=== PATIENT | male | born 1940 | race Caucasian/White ===

== ENCOUNTER 2016-06-25 10:47 | Outpatient (RCR) | payer MEDICARE ==
--- OUTSIDE RECORDS SUMMARY | 2016-06-21 11:36 | XMS REPORT | Continuity of Care Document ---
Author Author [facility] Organization [facility] Address Unknown Phone Unavailable Care Team Providers Care Communications Agent Name Role Phone Nithin Schofield PCP [phone] Source Comments Some departments are not documenting in the electronic medical record. If you do not see the information that you expected, contact Release of Information in the Health Information Management department at [phone] for further assistance in locating additional records.[facility] Active Allergies and Adverse Reactions Allergen Noted Date Severity Reactions Comments Morphine 03/16/2014 NAUSEA AND VOMITING Current Medications Prescription Sig. Disp. Refills Start End Date Status Date aspirin EC 81 mg tablet Take 81 mg by mouth Active daily. atenolol (TENORMIN) 100 Take 100 mg by mouth. Active mg tablet celecoxib (CELEBREX) 200 Take 200 mg by mouth Active mg capsule daily. citalopram (CELEXA) 40 mg Take 40 mg by mouth Active tablet daily. finasteride (PROSCAR) 5 Take 5 mg by mouth daily. Active mg tablet potassium chloride(+) Take 10 mEq by mouth Active (MICRO-K) 10 mEq capsule daily. simvastatin (ZOCOR) 20 mg Take 20 mg by mouth at Active tablet bedtime daily. tamsulosin (FLOMAX) 0.4 Take 0.4 mg by mouth Active mg capsule daily. amLODIPine (NORVASC) 5 mg Take 5 mg by mouth daily. Active tablet HYDROcodone-acetaminophen Take 1 Tab by mouth every Active (+) (LORTAB) 7.5-500 mg 4 hours as needed. tablet Active Problems No known active problems Social History Tobacco Use Types Packs/Day Years Used Date Former Smoker Last Filed Vital Signs Vital Sign Reading Time Taken Blood Pressure 110/63 02/21/2016 8:36 AM CDT Pulse 56 02/21/2016 8:36 AM CDT Temperature 36.4 C (97.6 F) 02/21/2016 8:16 AM CDT Respiratory Rate 20 02/21/2016 7:33 AM CDT Height 1.829 m (6') 02/21/2016 7:33 AM CDT Weight 90.719 kg (200 lb) 02/21/2016 7:33 AM CDT Body Mass Index 27.12 02/21/2016 7:33 AM CDT Oxygen Saturation 97% 02/21/2016 8:36 AM CDT Plan of Care Health Maintenance Due Date Last Done Comments Physical (Comprehensive) 1947 Exam Pertussis Vaccine 1951 Tetanus Vaccine 1957 Colorectal Cancer 1990 Screening Shingles Vaccine 2000 Prevnar/Pneumovax (#1) 2005 Influenza Vaccine 02/01/2016 Results from Last 3 Months Not on file
[~2016-06-25 10:47] MED LIST: AMLO10TA2 PO; AMLO5TAB2 PO; ASCO500T20 PO; ASP81TEC PO; ASPI325T32 PO; ATEN100T88 PO; ATEN50TA PO; B&C/1TAB2 PO; CELE-63 PO; CELE200C PO; CHOL4PAC3 PO; CIPR500T4 PO; CITA-105 PO; CITA40TA11 PO; CITA40TA19 PO; CLCX200C PO; DOCU100C37 PO; FAMO20TA5 PO; FINA5TAB PO; FINA5TAB6 PO; FOLI0.4T2 PO; HCT25T PO; HYDR-3812 PO; HYDR-3816 PO; HYDR-3820 PO; HYDR50TA3 PO; LEVO500T2 PO; METR500T PO; MULT-608 PO; NYST1000 PO; OMEG-126 PO; OMEG-9 PO; ONDA4TAB10 PO; POTA10CA43 PO; POTA10TA10 PO; SIMV20TA3 PO; TAMS0.4C2 PO; TRAM50TA2 PO
== END 2016-09-19 | disposition home or self-care (01) ==
LOC: LAB 10:47
PROVIDERS: ATTEND Internal Medicine
DX: R19.7 Diarrhea, unspecified (principal)
CPT/HCPCS: 82274; 87045; 87046; 87177; 87324; 87449; 87493

== ENCOUNTER 2016-07-29 12:53 | Outpatient (RCR) | payer MEDICARE | END 2016-07-29 14:11 | disposition home or self-care (01) | PROVIDERS: ATTEND Orthopaedic Surgery | DX: Z47.1 Aftercare following joint replacement surgery (principal); Z96.652 Presence of left artificial knee joint ==

== ENCOUNTER 2017-02-06 12:38 | Outpatient (CLI) | payer MEDICARE ==
[~2017-02-06] VITALS: Ht 182.9 cm; Wt 94.8 kg
[2017-02-06 12:46] VITALS: BP 152/80
[2017-02-06] MEDS ORDERED: HYDR-3816 PO (12:52)
[2017-02-06] MEDS ORDERED: ASPI-586 PO (12:52)
[2017-02-06 13:12] LABS: BASOPHILS % (AUTO) 0 % (0-10); EOSINOPHILS % (AUTO) 0 % (0-10); LYMPHOCYTES # (AUTO) 1.4 X 10^3 (1.0-4.0); LYMPHOCYTES % (AUTO) 11 % (12-44); MEAN CORPUSCULAR HEMOGLOBIN 30 PG (25-34); MEAN CORPUSCULAR HGB CONC 35 G/DL (32-36); MEAN CORPUSCULAR VOLUME 87 FL (80-99); MEAN PLATELET VOLUME 10.4 FL (7.4-10.4); MONOCYTES # (AUTO) 1.3 X 10^3 (0.0-1.0); MONOCYTES % (AUTO) 10 % (0-12); NEUTROPHILS # (AUTO) 10.3 X 10^3 (1.8-7.8); NEUTROPHILS % (AUTO) 79 % (42-75); PLATELET COUNT 176 10^3/uL (130-400); RED BLOOD COUNT 4.67 10^6/uL (4.35-5.85); RED CELL DISTRIBUTION WIDTH 12.9 % (10.0-14.5); WHITE BLOOD COUNT 12.9 10^3/uL (4.3-11.0)
== END 2017-02-06 13:05 | disposition home or self-care (01) ==
LOC: PREOP 12:38
PROVIDERS: ATTEND Surgery
DX: Z01.812 Encounter for preprocedural laboratory examination (principal); K40.90 Unilateral inguinal hernia, without obstruction or gangrene, not specified as recurrent
CPT/HCPCS: 36415; 85025; 87081

== ENCOUNTER 2017-02-12 09:05 | Day surgery (SDC) | payer MEDICARE ==
[~2017-02-12] VITALS: Ht 182.9 cm; Wt 94.8 kg
[2017-02-12 09:05] VITALS: BP 132/71
[~2017-02-12 09:05] MED LIST changes: +ASPI-586 PO
[2017-02-12] MEDS ORDERED: ceFAZolin 2 GM/NS 50 ML IV ONE (09:15)
--- OUTSIDE RECORDS SUMMARY | 2017-02-12 09:17 | XMS REPORT | Clinical Summary ---
Author Author [facility] Organization [facility] Address Unknown Phone Unavailable Care Team Providers Care Haz Tech Name Role Phone PCP Unavailable Source Comments Some departments are not documenting in the electronic medical record. If you do not see the information that you expected, contact Release of Information in the Health Information Management department at [phone] for further assistance in locating additional records.[facility] Allergies Active Allergy Reactions Severity Noted Date Comments Morphine NAUSEA AND VOMITING 03/16/2014 Current Medications Prescription Sig. Disp. Refills Start [...] tablet Active Problems No known active problems Encounters Date Type Specialty Care Team Description 02/05/2017 Hospital Radiology Brain Brown MD Arrived Encounter 02/05/2017 Procedure visit Anesthesia Pain Brain Brown MD Spondylosis of cervical region without myelopathy or radiculopathy (Primary Dx) 02/05/2017 Ancillary Anesthesia Pain Brain Brown MD Pain Orders 02/05/2017 Ancillary Anesthesia Pain Brain Brown MD Orders 12/21/2016 Orders Only Anesthesia Pain Brain Brown MD Spondylosis of lumbosacral region without myelopathy or radiculopathy (Primary Dx) 12/21/2016 Orders Only Anesthesia Pain Jeffrey Post MD Spondylosis of cervical region without myelopathy or radiculopathy (Primary Dx) 11/20/2016 Procedure visit Anesthesia Pain Brain Brown MD Spondylosis of lumbosacral region without myelopathy or radiculopathy (Primary Dx) 11/20/2016 Hospital Radiology Brain Brown MD Encounter 11/20/2016 Ancillary Anesthesia Pain Brain Brown MD Pain (Primary Dx) Orders 11/20/2016 Ancillary Pain Management Brain Brown MD Orders 11/12/2016 Office Visit Anesthesia Pain Brain Brown MD Spondylosis of lumbosacral region without myelopathy or radiculopathy (Primary Dx);Spondylosis of cervical region without myelopathy or radiculopathy from Last 3 Months Social History Tobacco Use Types Packs/Day Years Used Date Former Smoker Sex Assigned at Date Recorded Not on file Last Filed Vital Signs Vital Sign Reading Time Taken Blood Pressure 123/72 02/05/2017 8:59 AM CDT Pulse 67 02/05/2017 8:59 AM CDT Temperature 36.5 C (97.7 F) 02/05/2017 8:39 AM CDT Respiratory Rate 11 02/05/2017 7:32 AM CDT Oxygen Saturation 94% 02/05/2017 8:59 AM CDT Inhaled Oxygen - - Concentration Weight 93 kg (205 lb) 02/05/2017 7:32 AM CDT Height 182.9 cm (6') 02/05/2017 7:32 AM CDT Body Mass Index 27.8 02/05/2017 7:32 AM CDT Plan of Treatment Health Maintenance Due Date Last Done Comments PHYSICAL (COMPREHENSIVE) 1947 EXAM PERTUSSIS VACCINE 1951 TETANUS VACCINE 1957 SHINGLES VACCINE 2000 PREVNAR/PNEUMOVAX (#1) 2005 INFLUENZA VACCINE 01/31/2017 Procedures Procedure Name Priority Date/Time Associated Diagnosis Comments IA DSTR NROLYTC AGNT Routine 02/05/2017 Spondylosis of cervical Results for this PARVERTEB FCT SNGL 1:24 PM CDT region without myelopathy procedure are in the CRVCL/THORA or radiculopathy results section. IA DSTR NROLYTC AGNT Routine 02/05/2017 Spondylosis of cervical Results for this PARVERTEB FCT ADDL 1:24 PM CDT region without myelopathy procedure are in the CRVCL/THORA or radiculopathy results section. IA DSTR NROLYTC AGNT Routine 11/20/2016 Spondylosis of Results for this PARVERTEB FCT ADDL 10:01 AM CDT lumbosacral region procedure are in the LMBR/SACRAL without myelopathy or results section. radiculopathy IA DSTR NROLYTC AGNT Routine 11/20/2016 Spondylosis of Results for this PARVERTEB FCT SNGL 10:01 AM CDT lumbosacral region procedure are in the LMBR/SACRAL without myelopathy or results section. radiculopathy from Last 3 Months Results * DESTROY FACET JOINT NERVE CRV/THRC W/ FLUORO (02/05/2017 1:24 PM) Specimen Performing Laboratory OTHER OUTSIDE LAB Narrative Brain Brown MD 02/05/20171:24 PM INTERVENTIONAL PAIN MANAGEMENT PROCEDURE REPORT Radiofrequency Ablation (RFA) of Cervical Facet Medial Branch Nerves Date of Service: 02/05/2017 Procedure Title(s): 1. Radiofrequency ablation of left C4-C6 medial branch nerves 2. Intraoperative fluoroscopy Attending Surgeon: Brain Brown MD Pre-Procedure Diagnosis: 1. Spondylosis of cervical region without myelopathy or radiculopathy Post-Procedure Diagnosis: 1. Spondylosis of cervical region without myelopathy or radiculopathy Anesthesia: Local Anxiolysis Yes Procedural Sedation Yes Pre-Procedure Diagnosis: 1. Spondylosis of cervical region without myelopathy or radiculopathy Post Procedure Diagnosis: 1. Spondylosis of cervical region without myelopathy or radiculopathy Indications: Cullen Castro is a 76 y.o. male with a diagnosis of spondylosis. The patient's history and physical exam were reviewed. The patient has failed conservative measures including physical therapy and medication management. On exam the patient exhibits significant tenderness in the above stated levels which is exacerbated by extension and lateral flexion to the painful sides. The patient has had previous medial branch RFA with greater than 75% reduction in pain for the duration of 6 months. The risks, benefits and alternatives to the procedure were discussed, and all questions were answered to the patient's satisfaction. The patient agreed to proceed, and written informed consent was obtained. Procedure in Detail: IV was started? Yes The patient was brought into the procedure room and placed in the prone position on the fluoroscopy table. Standard monitors were placed, and vital signs were observed throughout the procedure. The area of the cervical spine was prepped with chloraprep and draped in a sterile manner. AP fluoroscopy views were used to identify and jonathan the mid articular pillars of the C4-C6 levels on the left side. The skin and subcutaneous tissues in these areas were anesthetized with 1% lidocaine. A 18-gauge, 3.5 inch, 10 mm active tip radiofrequency probe was directed towards the targeted point under fluoroscopy until bone was contacted. At this point, lateral fluoroscopic views were obtained, and the needle tips were advanced to the centroid of the facets at each level. Negative aspiration was confirmed.Then, 1mL of 1% lidocaine was injected prior to lesioning, which was performed for 90 seconds at 60 degrees centigrade. The probes were then removed. The patient's neck was cleaned, and bandages were placed at the needle insertion sites. Disposition: The patient tolerated the procedure well, and there were no apparent complications. Vital signs remained stable througtout the procedure. The patient was taken to the recovery area where discharge instructions for the procedure were given. Estimated Blood Loss: minimal Specimens: none Complications: None * FLUORO GUIDANCE FOR SPINE INJ RAD (02/05/2017 8:24 AM) Only the most recent of 2 results within the time period is included. Specimen Performing Laboratory [facility] Narrative This order has been auto finalized and does not contain a result. * DESTRUCTION OF NERVE W/ FLUORO (11/20/2016 10:01 AM) Specimen Performing Laboratory OTHER OUTSIDE LAB Narrative Brain Brown MD 11/20/2016 10:01 AM INTERVENTIONAL PAIN MANAGEMENT PROCEDURE REPORT Radiofrequency Ablation (RFA) of Lumbar Medial Branch Nerves Date of Service: 11/20/2016 Procedure Title(s): 1. Radiofrequency ablation of bilateral L4, L5, and (S1) medial branchnerves 2. Intraoperative fluoroscopy Attending Surgeon: Brain Brown MD Pre-Procedure Diagnosis: 1. Spondylosis of lumbosacral region without myelopathy or radiculopathy Post-Procedure Diagnosis: 1. Spondylosis of lumbosacral region without myelopathy or radiculopathy Anesthesia: Local Anxiolysis Yes Procedural Sedation Yes Indications: Cullen Castro is a 76 y.o. male with a diagnosis of spondylosis. The patient's history and physical exam were reviewed. The patient has failed conservative measures including physical therapy and medication management. On exam the patient exhibits significant tenderness in the above stated levels which is exacerbated by extension and lateral flexion to the painful sides. The patient has had previous medial branch RFA with greater than 75% reduction in pain for the duration of 6 months. The risks, benefits and alternatives to the procedure were discussed, and all questions were answered to the patient's satisfaction. The patient agreed to proceed, and written informed consent was obtained. Procedure in Detail: IV was started? Yes The patient was brought into the procedure room and placed in the prone position on the fluoroscopy table. Standard monitors were placed, and vital signs were observed throughout the procedure. The area of the lumbar spine and upper buttocks were prepped with chloraprep and draped in a sterile manner. AP fluoroscopy with oblique tilt to the right was used to identify and jonathan the junction between the superior articular process and transverse process at the L4-S1 levels. The right sacral ala was identified and marked. The skin and subcutaneous tissues in these identified areas were anesthetized with 1% lidocaine. A 18-gauge, 3.5 inch, 10 mm active tip radiofrequency probe was advanced toward each of these points under fluoroscopic guidance. Once bone was contacted, negative aspiration was confirmed.2mL of 1% lidocaine was injected prior to lesioning, which was performed for 90 seconds at 80 degrees centigrade. The same procedure was then performed on the opposite side: Yes. The probes were removed with a 1% lidocaine flush. The patient's back was cleaned, and bandages were placed at the needle insertion sites. Disposition: The patient tolerated the procedure well, and there were no apparent complications. Vital signs remained stable throughout the procedure. The patient was taken to the recovery area where discharge instructions for the procedure were given. Estimated Blood Loss: Minimal Specimens: None Complications: None from Last 3 Months
--- OUTSIDE RECORDS SUMMARY | 2017-02-12 09:17 | XMS REPORT | Encounter Summary ---
Author Author [facility] Organization [facility] Address Unknown Phone Unavailable Care Team Providers Care Operations Analyst Name Role Phone PCP Unavailable Reason for Referral * Pain Authorization Status Reason Specialty Diagnoses / Referred By Referred To Procedures Contact Contact New Request Diagnoses Jeffrey Post Spondylosis of MD cervical region [address] myelopathy [place] [address] [place] [address] rocedures Phone: DESTROY FACET [phone] JOINT NERVE Fax: CRV/THRC W/ [phone] FLUORO Encounter Details Date Type Department Care Team Description 12/21/2016 Orders Only [place] [facility] Jeffrey Post MD Spondylosis of cervical Management Procedure [address] region without myelopathy [address] [place] [address] [place]iculopathy ([place] [address] [place] [address] Dx) [phone] Social History Tobacco Use Types Packs/Day Years Used Date Former Smoker Sex Assigned at Date Recorded Not on file as of this encounter Functional Status Functional Status Response Date of Assessment Does the patient have a hearing impairment: No 11/20/2016 Does the patient have a visual impairment: Yes 11/20/2016 Does the patient have impaired ambulation: No 11/20/2016 Does the patient have an activity of daily living No 11/20/2016 (ADL) impairment: Does the patient have an instrumental activity of No 11/20/2016 daily living (IADL) impairment: Cognitive Status Response Date of Assessment Does the patient have a cognitive impairment: No 11/20/2016 as of this encounter Plan of Treatment Name Priority Associated Diagnoses Order Schedule DESTROY FACET JOINT NERVE CRV/THRC W/ Routine Spondylosis of cervical Expected: 12/21/2016, FLUORO region without myelopathy Expires: 03/21/2017 or radiculopathy as of this encounter Visit Diagnoses Diagnosis Spondylosis of cervical region without myelopathy or radiculopathy - Primary Cervical spondylosis without myelopathy in this encounter
--- OUTSIDE RECORDS SUMMARY | 2017-02-12 09:17 | XMS REPORT | Encounter Summary ---
Author Author [facility] Organization [facility] Address Unknown Phone Unavailable Care Team Providers Care Assistant Case Manager Name Role Phone PCP Unavailable Encounter Details Date Type Department Care Team Description 02/05/2017 Ancillary [place] [facility] Brain Brown MD Pain Orders Management Procedure [address] [place] [address] [place] [address] Social History Tobacco Use Types Packs/Day Years [...] as of this encounter Plan of Treatment Not on fileas of this encounter Results * FLUORO GUIDANCE FOR SPINE INJ RAD (02/05/2017 8:24 AM) Specimen Performing Laboratory [facility] Narrative This order has been auto finalized and does not contain a result. in this encounter Visit Diagnoses Diagnosis Pain Generalized pain in this encounter
--- OUTSIDE RECORDS SUMMARY | 2017-02-12 09:17 | XMS REPORT | Encounter Summary ---
Author Author [facility] Organization [facility] Address Unknown Phone Unavailable Care Team Providers Care Service Dispatcher Name Role Phone PCP Unavailable Encounter Details Date Type Department Care Team Description 11/20/2016 Hospital [facility] Brain Brown MD Encounter [place] [facility] [address] [place] [address] [place] [address] Social History Tobacco Use Types [...] impairment: No 11/20/2016 as of this encounter Medications at Time of Discharge Medication Sig. Disp. Refills Start Date End Date amLODIPine (NORVASC) 5 mg Take 5 mg by mouth daily. tablet aspirin EC 81 mg tablet Take 81 mg by mouth daily. atenolol (TENORMIN) 100 Take 100 mg by mouth. mg tablet celecoxib (CELEBREX) 200 Take 200 mg by mouth mg capsule daily. citalopram (CELEXA) 40 mg Take 40 mg by mouth tablet daily. finasteride (PROSCAR) 5 Take 5 mg by mouth daily. mg tablet HYDROcodone-acetaminophen Take 1 Tab by mouth every (+) (LORTAB) 7.5-500 mg 4 hours as needed. tablet potassium chloride(+) Take 10 mEq by mouth (MICRO-K) 10 mEq capsule daily. simvastatin (ZOCOR) 20 mg Take 20 mg by mouth at tablet bedtime daily. tamsulosin (FLOMAX) 0.4 Take 0.4 mg by mouth mg capsule daily. as of this encounter Plan of Treatment Not on fileas of this encounter Results * FLUORO GUIDANCE FOR SPINE INJ RAD (11/20/2016 8:18 AM) Specimen Performing Laboratory [facility] Narrative This order has been auto finalized and does not contain a result. in this encounter Visit Diagnoses Diagnosis Pain Generalized pain in this encounter
--- OUTSIDE RECORDS SUMMARY | 2017-02-12 09:17 | XMS REPORT | Encounter Summary ---
Author Author [facility] Organization [facility] Address Unknown Phone Unavailable Care Team Providers Care Yarn Man Name Role Phone PCP Unavailable Encounter Details Date Type Department Care Team Description 02/05/2017 [facility] Anesthesia Brain Brown MD Orders Pain Clinic [address] [place] [address] COMPREHENSIVE SPN [facility] [phone] [place], [place] [id number] [phone] Social History Tobacco Use Types Packs/Day Years [...] Treatment Not on fileas of this encounter Visit Diagnoses Not on filein this encounter
--- OUTSIDE RECORDS SUMMARY | 2017-02-12 09:17 | XMS REPORT | Encounter Summary ---
Author Author [facility] Organization [facility] Address Unknown Phone Unavailable Care Team Providers Care Director Of Strategic Communications Name Role Phone PCP Unavailable Reason for Referral * Pain Authorization Status Reason Specialty Diagnoses / Referred By Referred To Procedures Contact Contact New Request Diagnoses Brain Brown SpondylMichael lumbosacral [address] myelopathy or [address] [place] [address] rocedures Phone: DESTROY FACET [phone] JOINT NERVE Fax: LMBR/SAC/OTH W/ [phone] FLUORO Encounter Details Date Type Department Care Team Description 12/21/2016 Orders Only [place] Anesthesia Brain Brown MD Spondylosis of Pain Clinic [address] lumbosacral region [address] [place] [address] [place] [address] [place] [address] radiculopathy (Primary [phone] Dx) Social History Tobacco Use Types Packs/Day Years [...] Diagnoses Order Schedule DESTROY FACET JOINT NERVE LMBR/SAC/OTH Routine Spondylosis of Expected: 12/21/2016, W/ FLUORO lumbosacral region Expires: 03/21/2017 without myelopathy or radiculopathy as of this encounter Visit Diagnoses Diagnosis Spondylosis of lumbosacral region without myelopathy or radiculopathy - Primary Lumbosacral spondylosis without myelopathy in this encounter
--- OUTSIDE RECORDS SUMMARY | 2017-02-12 09:17 | XMS REPORT | Encounter Summary ---
Author Author [facility] Organization [facility] Address Unknown Phone Unavailable Care Team Providers Care It Administrator Name Role Phone PCP Unavailable Encounter Details Date Type Department Care Team Description 02/05/2017 Hospital [facility] Brain Brown MD Arrived Encounter [place] [facility] [address] [place] [address] [place] [address] Social History Tobacco Use Types [...]
--- OUTSIDE RECORDS SUMMARY | 2017-02-12 09:17 | XMS REPORT | Encounter Summary ---
Author Author [facility] Organization [facility] Address Unknown Phone Unavailable Care Team Providers Care Modular Home Crew Member Name Role Phone PCP Unavailable Reason for Referral * Pain Authorization Status Reason Specialty Diagnoses / Referred By Referred To Procedures Contact Contact New Request Diagnoses Brain Brown Spondylosis of MD cervical region [address] myelopathy or [place] [address] [place], [place] [address] rocedures Phone: DESTROY FACET [phone] JOINT NERVE Fax: CRV/THRC W/ [phone] FLUORO Reason for Visit * Reason Comments Pain * Pain Authorization Status Reason Specialty Diagnoses / Referred By Referred To Procedures Contact Contact No Auth Needed Anesthesia Pain Diagnoses Brain [place] [address] [place], [place] [address] [address] myelopathy or [place] [address] Phone: radiculopathy [place], [place] [phone] [place] [address] rocedures Phone: DESTRUCTION OF [phone] NERVE W/ FLUORO Fax: [place] DSTR NROLYTC [phone] AGNT PARVERTEB FCT SNGL CRVCL/THORA Encounter Details Date Type Department Care Team Description 02/05/2017 Procedure visit [place] [facility] Brain Brown MD Spondylosis of cervical Management Procedure [address] region without myelopathy [address] [place] [address] or radiculopathy ([place] [address] [place] [address] Dx) [phone] Social History Tobacco Use Types Packs/Day Years Used Date Former Smoker Sex Assigned at Date Recorded Not on file as of this encounter Last Filed Vital Signs Vital Sign Reading [...] Mass Index 27.8 02/05/2017 7:32 AM CDT in this encounter Functional Status Functional Status Response [...] impairment: No 11/20/2016 as of this encounter Instructions * Patient Instructions - Dulce Campos, BLANCA - 02/05/2017 8:16 AM CDT Procedural Sedation (Adult) You have been given medicine by vein to make you sleep during your surgery. This may have included both a pain medicine and sleeping medicine. Most of the effects have worn off. But you may still have some drowsiness for the next 6 to 8 hours. Home care Follow these guidelines when you get home: For the next 8 hours, you should be watched by a responsible adult. This person should make sure your condition is not getting worse. Don't take any medicine by mouth for pain or for sleep during the next 4 hours. These might react with the medicines you were given in the hospital. This could cause a much stronger response than usual. Don't drink any alcoholfor the next [address], operate dangerous machinery, or make important business or personal decisionsduring the next 24 hours. Follow-up care Follow up with your healthcare provider if you are not alert and back to your usual level of activity within 12 hours. When to seek medical advice Call your healthcare provider right away if any of these occur: Drowsiness gets worse Weakness or dizziness gets worse Repeated vomiting You cannot be awakened [phone] [employer]. [address] [place] [address]. All rights reserved. This information is not intended as a substitute for professional medical care. Always follow your healthcare professional's instructions. Discharge Instructions for Radiofrequency Ablation Important information following your procedure today: You may NOT drive today 1. Go directly home and rest. You may resume your regular activities and exercise tomorrow. 2. You may experience soreness at the injection site. Apply ice at 20 minute intervals for the next 24 hours. Avoid application of direct heat, hot showers or hot tubs today. 3. It is not uncommon to experience an increase in pain for several days and up to a week after the procedure. 4. Though the procedure is generally safe and complications are rare, we do ask that you be aware of any of the following: ? Any swelling, persistent redness, new bleeding, or drainage from the site of the injection. ? You should not experience a severe headache. ? You should not run a fever over 101 F. ? New onset of sharp, severe back & or neck pain. ? New onset of upper or lower extremity numbness or weakness. ? New difficulty controlling bowel or bladder function after the injection. ? New shortness of breath. If any of these occur, please call to report this occurrence to a nurse at [phone]. If you are calling after 4:00 p.m. or on weekends and holidays please call [phone] and ask to have the resident physician cotton seed culler for the physician paged or go to your local emergency room. 5. The beneficial effect from the radiofrequency procedure may take several weeks to be demonstrated. 6. Take medications as directed. 7. Please call the nurse at the number listed above with any questions. The following medications were used: Bupivicaine , Decadron, Versed and Fentanyl If you are unable to keep your upcoming appointment, please notify the [facility] armored service technician at [phone] at least 24 hours in advance. in this encounter Progress Notes * Dulce Campos RN - 02/05/2017 8:00 AM CDT RADIO FREQUENCY ABLATION PROCEDURE Ground Location: Right Flank Lead: 1 Location: Left C4 ABLATION PROCEDURE Time: 90 sec Temperature 60 C Impedance: 182 Ohms Lead: 2 Location:Left C5 ABLATION PROCEDURE Time: 90 sec Temperature 60 C Impedance: 161 Ohms Lead: 3 Location:Left C6 ABLATION PROCEDURE Time: 90 sec Temperature 60 C Impedance: 167 Ohms * Dulce Campos RN - 02/05/2017 8:00 AM CDT 0819 Sedation physician present in room. Recent vitals and patient condition reviewed between sedation physician and nurse. Reassessment completed. Determination made to proceed with planned sedation. * Brain Brown MD - 02/05/2017 8:00 AM CDT Formatting of this note may be different from the original. [facility] INTERVENTIONAL PAIN PROCEDURE HISTORY AND PHYSICAL Chief Complaint Patient presents with Neck - Pain HISTORY OF PRESENT ILLNESS: Axial neck pain SHarp, stabbing, and severe Pain is worse with turning the head Pain level is 7/10 Last RFA provided 75% pain relief for 6 months Past Medical History: Diagnosis Date Essential hypertension Past Surgical History: Procedure Laterality Date BACK SURGERY HX FUSION PROCEDURE [place] LAPAROSCOPY SURG RPR INITIAL INGUINAL HERNIA SHOULDER SURGERY family history is not on file. Social History Social History Marital status: Spouse name: N/A Number of children: N/A Years of education: N/A Occupational History Not on file. Social History Main Topics Smoking status: Former Smoker Smokeless tobacco: Not on file Alcohol use Not on file Drug use: Not on file Sexual activity: Not on file Other Topics Concern Not on file Social History Narrative Allergies Allergen Reactions Morphine NAUSEA AND VOMITING Vitals: 02/05/17 0732 BP: 124/88 Pulse: 64 Resp: 11 Temp: 36.5 C (97.7 F) SpO2: 99% Weight: 93 kg (205 lb) Height: 182.9 cm (72") REVIEW OF SYSTEMS: 10 point ROS obtained and negative except per HPI PHYSICAL EXAM: Gen: Alert x 3 Chest: CTAB Neck:Supple Psych: Normal mood and affect Skin: no rashes or lesions Neuro: Grossly intact Musc: Patient has tenderness to palpation in the cervical facets at C4-C6. This is exacerbated with extension and lateral flexion biaterally IMPRESSION: 1. Spondylosis of cervical region without myelopathy or radiculopathy PLAN: Left C4-C6 RFA General Pre Procedural Sedation ASA Classification I have discussed risks and alternatives of this type of sedation and procedure with: patient NPO Status:Acceptable Status: No Prior Anesthetic Types: Moderate sedation Airway: Airway assessment performed II (soft palate, uvula, fauces visible) Head and Neck: No abnormalities noted Mouth: No abnormalities noted Medications for Procedural Sedation: Midazolam and Fentanyl Anesthesia Classification: ASA II (A normal patient with mild systemic disease) Patient remains a candidate for procedure: Yes The intention for the procedure today is Procedural Sedation. * Noemí Mckeon RN - 02/05/2017 8:00 AM CDT Pain Procedure Plan Of Care Risk of injury related to procedure Patient identification, allergies verified, fall precautions implemented Risk of injury and impaired skin integrity Positioning devices applied as appropriate for procedure, patient transported with staff assistance Management of Pain Pain assessment completed on arrival, PAR scoring following procedure and at discharge, sedation administered as ordered, patient positioned for comfort Risk of anxiety related to procedure and disease process Patient education on procedure and expectations, provide coping support to patient, provide relaxation techniques Outcomes: The patient is free of injury during and following their procedure. Skin is intact and free of bruising. The patients pain is managed during their stay. Alleviation of patient anxiety exhibited. in this encounter Plan of Treatment Not on fileas of this encounter Procedures Procedure Name Priority Date/Time Associated Diagnosis Comments [place] DSTR NROLYTC AGNT Routine 02/05/2017 Spondylosis of cervical Results for this PARVERTEB FCT SNGL 1:24 PM CDT region without myelopathy procedure are in the CRVCL/THORA or radiculopathy results section. IL DSTR NROLYTC AGNT Routine 02/05/2017 Spondylosis of cervical Results for this PARVERTEB FCT ADDL 1:24 PM CDT region without myelopathy procedure are in the CRVCL/THORA or radiculopathy results section. in this encounter Results * DESTROY FACET JOINT NERVE CRV/THRC [...] Blood Loss: minimal Specimens: none Complications: None in this encounter Visit Diagnoses Diagnosis Spondylosis of cervical region without myelopathy or radiculopathy - Primary Cervical spondylosis without myelopathy in this encounter Administered Medications Medication Order MAR Action Action Date Dose Rate Site bupivacaine PF (MARCAINE) 0.5 % Given 02/05/2017 10 mL injection 10 mL 08:22 CDT 10 mL, Injection, ONCE, 1 dose, Fri02/05/17 at 0815 dexamethasone PF (DECADRON) injection 10 Given 02/05/2017 10 mg mg 08:21 CDT 10 mg, Injection, ONCE, 1 dose, Fri02/05/17 at 08, Preservative Free fentaNYL citrate PF (SUBLIMAZE) Given 02/05/2017 50 mcg injection 100 mcg 08:19 CDT 100 mcg, Intravenous, ONCE, 1 dose, Fri02/05/17 at 08, May give 25 mcg IV to reach level of sedation=-3 midazolam (VERSED) injection 2 mg Given 02/05/2017 2 mg 2 mg, Intravenous, ONCE, 1 dose, Fri 08:19 CDT 02/05/17 at 08, May give additional 1 mg IV to reach level of sedation=-3 in this encounter
--- OUTSIDE RECORDS SUMMARY | 2017-02-12 09:17 | XMS REPORT | Continuity of Care Document ---
Author Author [employer] Organization [facility] Address Unknown Phone Unavailable Care Team Providers Care Workers Compensation Attorney Name Role Phone [employer] Unavailable Unavailable Problems Medications Allergies, Adverse Reactions, Alerts Immunizations Results Vital Signs Encounters Location Location Details Encounter Type Encounter Number Reason For Visit Attending Provider ADM Date DC Date Status Source OUTPATIENT [id number] MANNY SAYED 11/20/2016 11/20/2016 Active [facility] OUTPATIENT [id number] MANNY SAYED 02/05/2017 02/05/2017 Active [facility] O Active [facility] Procedures Plan of Care Social History Assessment and Plan Family History Value Date Source Advance Directives Order Name Results Value Date Source
--- OUTSIDE RECORDS SUMMARY | 2017-02-12 09:18 | XMS REPORT | Encounter Summary ---
Author Author [facility] Organization [facility] Address Unknown Phone Unavailable Care Team Providers Care Vamp Presser Name Role Phone PCP Unavailable Encounter Details Date Type Department Care Team Description 11/20/2016 Ancillary [facility] Brain Brown MD Orders Physicians - Pain [address] Management [place] [address] [place] [address] [place], [place] [address] Social History Tobacco Use Types Packs/Day Years [...]
--- OUTSIDE RECORDS SUMMARY | 2017-02-12 09:18 | XMS REPORT | Encounter Summary ---
Author Author [facility] Organization [facility] Address Unknown Phone Unavailable Care Team Providers Care Retreader Name Role Phone PCP Unavailable Reason for Visit * Reason Comments Pain Pain Pain Encounter Details Date Type Department Care Team Description 11/12/2016 Office Visit [facility] Brain Brown MD Spondylosis of [facility] [address] lumbosacral region [address] [place] [address] [place] [address] radiculopathy (Primary [phone] Dx);Spondylosis of cervical region without myelopathy or radiculopathy Social History Tobacco Use Types Packs/Day Years Used Date Former Smoker Sex Assigned at Date Recorded Not on file as of this encounter Last Filed Vital Signs Vital Sign Reading Time Taken Blood Pressure - - Pulse - - Temperature - - Respiratory Rate 16 11/12/2016 12:32 PM CDT Oxygen Saturation 100% 11/12/2016 12:32 PM CDT Inhaled Oxygen - - Concentration Weight 90.7 kg (200 lb) 11/12/2016 12:32 PM CDT Height 182.9 cm (6') 11/12/2016 12:32 PM CDT Body Mass Index 27.12 11/12/2016 12:32 PM CDT in this encounter Functional Status Functional Status Response Date of Assessment Does the patient have a hearing impairment: No 08/21/2016 Does the patient have a visual impairment: Yes 08/21/2016 Does the patient have impaired ambulation: No 08/21/2016 Does the patient have an activity of daily living No 08/21/2016 (ADL) impairment: Does the patient have an instrumental activity of No 08/21/2016 daily living (IADL) impairment: Cognitive Status Response Date of Assessment Does the patient have a cognitive impairment: No 08/21/2016 as of this encounter Progress Notes * SayBrain douglas MD - 11/12/2016 12:36 PM CDT Formatting of this note may be different from the original. [facility] NOTE Subjective SUBJECTIVE: Cullen Lipscomb returns to us for follow-up regards to his chronic neck and lower back pain. His neck pain is responded well to the cervical radiofrequency ablation. He said greater than 50% reduction in his pain. The response did take about 3 weeks before he notice any improvement. In regards to his lower back pain the pain has returned. His right-sided greater than left. His last ablation back done about 10 months ago resulted in greater than 50% reduction in his pain. Pain described as sharp stabbing burning and nonradiating. Review of Systems Respiratory: Positive for apnea. Musculoskeletal: Positive for back pain, neck pain and neck stiffness. All other systems reviewed and are negative. Current Outpatient Prescriptions on File Prior to Visit Medication Sig Dispense Refill amLODIPine (NORVASC) 5 mg tablet Take 5 mg by mouth daily. aspirin EC 81 mg tablet Take 81 mg by mouth daily. atenolol (TENORMIN) 100 mg tablet Take 100 mg by mouth. celecoxib (CELEBREX) 200 mg capsule Take 200 mg by mouth daily. citalopram (CELEXA) 40 mg tablet Take 40 mg by mouth daily. finasteride (PROSCAR) 5 mg tablet Take 5 mg by mouth daily. HYDROcodone-acetaminophen(+) (LORTAB) 7.5-500 mg tablet Take 1 Tab by mouth every 4 hours as needed. potassium chloride(+) (MICRO-K) 10 mEq capsule Take 10 mEq by mouth daily. simvastatin (ZOCOR) 20 mg tablet Take 20 mg by mouth at bedtime daily. tamsulosin (FLOMAX) 0.4 mg capsule Take 0.4 mg by mouth daily. No current facility-administered medications on file prior to visit. Allergies Allergen Reactions Morphine NAUSEA AND VOMITING Physical Exam Filed Vitals: 11/12/16 1232 Resp: 16 Height: 182.9 cm (72") Weight: 90.719 kg (200 lb) SpO2: 100% Body mass index is 27.12 kg/(m^2). Gen: Alert x 3 Chest: CTAB Neck:Supple Psych: Normal mood and affect Skin: no rashes or lesions Neuro: Grossly intact Musc: Patient has tenderness to palpation in the lumbar facets at L4-S1. This pain is exacerbated with extension and lateral flexion bilaterally IMPRESSION: 1. Spondylosis of lumbosacral region without myelopathy or radiculopathy 2. Spondylosis of cervical region without myelopathy or radiculopathy PLAN: Repeat L4-S1 RFA Neck pain improved after cervical RFA in this encounter Plan of Treatment Not on fileas of this encounter Visit Diagnoses Diagnosis Spondylosis of lumbosacral region without myelopathy or radiculopathy - Primary Lumbosacral spondylosis without myelopathy Spondylosis of cervical region without myelopathy or radiculopathy Cervical spondylosis without myelopathy in this encounter
--- OUTSIDE RECORDS SUMMARY | 2017-02-12 09:18 | XMS REPORT | Encounter Summary ---
Author Author [facility] Organization [facility] Address Unknown Phone Unavailable Care Team Providers Care Hardware Installation Coordinator Name Role Phone PCP Unavailable Reason for Referral * Pain Authorization Status Reason Specialty Diagnoses / Referred By Referred To Procedures Contact Contact No Auth Needed Anesthesia Pain Diagnoses Brain [place] [address] [place], [place] [address] [address] myelopathy or [place] [address] Phone: radiculopathy [place], [place] [phone] P [address] rocedures Phone: DESTRUCTION OF [phone] NERVE W/ FLUORO Fax: [place] [facility] [phone] AGNT PARVERTEB FCT SNGL CRVCL/THORA Reason for Visit * Reason Comments Pain * Outpatient Surgery Status Reason Specialty Diagnoses / Referred By Referred To Procedures Contact Contact No Auth Needed Anesthesia Pain Diagnoses Brain Brown [place] [address] cervical region [address] [place], [place] [address] [address] myelopathy or [place] [address] Phone: radiculopathy [place], [place] [phone] [address] [id number] rocedures Phone: DESTRUCTION OF [phone] NERVE W/ FLUORO Encounter Details Date Type Department Care Team Description 11/20/2016 Procedure visit [facility] Brain Brown MD Spondylosis of Management Procedure [address] lumbosacral region [address] [place] [address] [place]opathy [place] [address] [place] [address] radiculopathy (Primary [phone] Dx) Social History Tobacco Use Types Packs/Day Years Used Date Former Smoker Sex Assigned at Date Recorded Not on file as of this encounter Last Filed Vital Signs Vital Sign Reading Time Taken Blood Pressure 110/63 11/20/2016 8:50 AM CDT Pulse 51 11/20/2016 8:50 AM CDT Temperature 36.2 C (97.2 F) 11/20/2016 8:30 AM CDT Respiratory Rate 18 11/20/2016 7:21 AM CDT Oxygen Saturation 96% 11/20/2016 8:50 AM CDT Inhaled Oxygen - - Concentration Weight 90.7 kg (200 lb) 11/20/2016 7:23 AM CDT Height 182.9 cm (6') 11/20/2016 7:23 AM CDT Body Mass Index 27.12 11/20/2016 7:23 AM CDT in this encounter Functional Status [...] this encounter Instructions * Patient Instructions - Francisco Javier Jo RN - 11/20/2016 8:17 AM CDT Discharge Instructions for Radiofrequency Ablation Important information [...] report this occurrence to a nurse at . If you are calling after 4:00 p.m. or on weekends and holidays please call [phone] and ask to have the resident physician solution spec for the physician paged or go to your local emergency room. 5. The beneficial effect from the radiofrequency procedure may take several weeks to be demonstrated. 6. Take medications as directed. 7. Please call the nurse at the number listed above with any questions. The following medications were used: Bupivicaine , Depomedrol, Versed and Fentanyl If you are unable to keep your upcoming appointment, please notify the [facility] operating room scheduler at [phone] at least 24 hours in advance. Procedural Sedation (Adult) You have been given [...] worse Repeated vomiting You cannot be awakened [id number] [employer]. [address] [place] [address], [place] [address]. All rights reserved. This information is not intended as a substitute for professional medical care. Always follow your healthcare professional's instructions. in this encounter Progress Notes * GladysRegi - 11/20/2016 3:31 PM CDT RADIO FREQUENCY ABLATION PROCEDURE Ground Location: L FLANK Lead: 1 Location: Right L3 SENSORY STIMULATION N/A MOTOR STIMULATION TEST N/As ABLATION PROCEDURE Time: 90 sec Temperature 80 C Impedance: Ohms 212 Ohms Lead: 2 Location:Right L4 SENSORY STIMULATION N/A MOTOR STIMULATION TEST N/A ABLATION PROCEDURE Time: 90 sec Temperature 80 C Impedance: Ohms 301 Ohms Lead: 3 Location:Right L5 SENSORY STIMULATION N/A MOTOR STIMULATION TEST N/A ABLATION PROCEDURE Time: 90 sec Temperature 80 C Impedance: Ohms 172 Ohms * GladysRegi - 11/20/2016 3:27 PM CDT RADIO FREQUENCY ABLATION PROCEDURE Ground Location: L FLANK Lead: 1 Location: Left L3 SENSORY STIMULATION N/A MOTOR STIMULATION TEST N/A ABLATION PROCEDURE Time: 90 sec Temperature 80 C Impedance: Ohms 166 Ohms Lead: 2 Location:Left L4 SENSORY STIMULATION N/A MOTOR STIMULATION TEST N/A ABLATION PROCEDURE Time: 90 sec Temperature 80 C Impedance: Ohms 219 Ohms Lead: 3 Location:Left L5 SENSORY STIMULATION N/A MOTOR STIMULATION TEST N/A ABLATION PROCEDURE Time: 90 sec Temperature 80 C Impedance: Ohms 198 Ohms * Traci West, RN - 11/20/2016 8:50 AM CDT DC instructions discussed, spouse at bedside in PACU. Pt wc out to car. * Francisco Javier Jo RN - 11/20/2016 8:15 AM CDT 0809:Sedation physician present in room. Recent vitals and patient condition reviewed between sedating physician and nurse. Reassessment completed. Determination made to proceed with planned sedation. * Brain Brown MD - 11/20/2016 7:49 AM CDT Formatting of this note may be different from the original. [facility] INTERVENTIONAL PAIN PROCEDURE HISTORY AND PHYSICAL Chief Complaint Patient presents with Lower Back - pain HISTORY OF PRESENT ILLNESS: In regards to his lower back pain the pain has returned. His right-sided greater than left. His last ablation back done about 10 months ago resulted in greater than 50% reduction in his pain. Pain described as sharp stabbing burning and nonradiating. Past Medical History Diagnosis Date Essential hypertension Past Surgical History Procedure Laterality Date Pr laparoscopy surg rpr initial inguinal hernia Hx fusion procedure Back surgery Shoulder surgery family history is not on file. Social History Social History Marital Status: Spouse Name: N/A Number of Children: N/A Years of Education: N/A Occupational History Not on file. Social History Main Topics Smoking status: Former Smoker Smokeless tobacco: Not on file Alcohol Use: Not on file Drug Use: Not on file Sexual Activity: Not on file Other Topics Concern Not on file Social History Narrative Allergies Allergen Reactions Morphine NAUSEA AND VOMITING Filed Vitals: 11/20/16 0721 11/20/16 0723 BP: 116/69 116/69 Pulse: 54 51 Temp: 36.4 C (97.5 F) 36.4 C (97.5 F) TempSrc: Oral Resp: 18 Height: 182.9 cm (72") 182.9 cm (72") Weight: 90.719 kg (200 lb) 90.719 kg (200 lb) SpO2: 95% 95% REVIEW OF SYSTEMS: 10 point ROS obtained [...] of lumbosacral region without myelopathy or radiculopathy PLAN: Bilateal L4,L5, S1 RFA General Pre Procedural Sedation ASA Classification [...] the procedure today is Procedural Sedation. * Maria De Jesus Huff RN - 11/20/2016 7:26 AM CDT Pain Procedure Plan Of Care [...] Procedure Name Priority Date/Time Associated Diagnosis Comments [facility] Routine 11/20/2016 Spondylosis of Results for this PARVERTEB FCT ADDL 10:01 AM CDT lumbosacral region procedure are in the LMBR/SACRAL without myelopathy or results section. radiculopathy [facility] Routine 11/20/2016 Spondylosis of Results for this PARVERTEB FCT SNGL 10:01 AM CDT lumbosacral region procedure are in the LMBR/SACRAL without myelopathy or results section. radiculopathy in this encounter Results * DESTRUCTION OF NERVE W/ FLUORO (11/20/2016 [...] Blood Loss: Minimal Specimens: None Complications: None in this encounter Visit Diagnoses Diagnosis Spondylosis of lumbosacral region without myelopathy or radiculopathy - Primary Lumbosacral spondylosis without myelopathy in this encounter Administered Medications Medication Order MAR Action Action Date Dose Rate Site bupivacaine PF (MARCAINE) 0.5 % Given 11/20/2016 10 mL injection 10 mL 08:15 CDT 10 mL, Injection, ONCE, 1 dose, Fri11/20/16 at 0800 fentaNYL citrate PF (SUBLIMAZE) Given 11/20/2016 50 mcg injection 50 mcg 08:10 CDT 50 mcg, Intravenous, ONCE, 1 dose, 11/20/16 at 0800 midazolam (VERSED) injection 2 mg Given 11/20/2016 2 mg 2 mg, Intravenous, ONCE, 1 dose, Fri 08:10 CDT 11/20/16 at 0800 in this encounter
--- OUTSIDE RECORDS SUMMARY | 2017-02-12 09:18 | XMS REPORT | Encounter Summary ---
Author Author [facility] Organization [facility] Address Unknown Phone Unavailable Care Team Providers Care Butadiene Converter Utility Operator Name Role Phone PCP Unavailable Encounter Details Date Type Department Care Team Description 11/20/2016 Ancillary [place] [facility] Brain Brown MD Pain ( Primary Dx) Orders Management Procedure [address] [place] [address] [place] [address] Social History Tobacco Use Types [...] in this encounter Visit Diagnoses Diagnosis Pain - Primary Generalized pain in this encounter
[2017-02-12] MEDS ORDERED: FAMOTIDINE 20MG/2ML IV (PEPCID) ONE (09:45)
[2017-02-12] MEDS: LACTATED RINGERS 1,000 ML IV PRN ×2 (09:50→12:19)
[2017-02-12] MEDS ORDERED: FAMOTIDINE 20MG/2ML IV (PEPCID) IV ONE (10:00)
--- NOTE | 2017-02-12 10:10 | Progress Note-Pre Operative ---
Pre-Operative Progress Note H&P Reviewed The H&P was reviewed, patient examined and no changes noted. Date Seen by Provider: Feb 12, 2017 Time Seen by Provider: 10:10 Date H&P Reviewed: Feb 12, 2017 Time H&P Reviewed: 10:10 Pre-Operative Diagnosis: recurrent right inguinal hernia MARINA ADAMS MD Feb 12, 2017 10:10 am
[2017-02-12] MEDS ORDERED: BUP/EPI 0.5% 1:200,000 (MARCAINE) 10ML VIAL IJ ONE (10:23)
[2017-02-12] MEDS ORDERED: fentaNYL INJECTION 100 MCG/2 ML AMP ONE (10:25)
[2017-02-12] MEDS ORDERED: ROCURONIUM 50 MG/5 ML (ZEMURON) VIAL IV ONE ×2 (10:25→12:05)
[2017-02-12] MEDS ORDERED: proPOfol 200 MG/20 ML (DIPRIVAN) VIAL IV ONE (10:25)
[2017-02-12] MEDS ORDERED: LACTATED RINGERS 1,000 ML IV ONE ×2 (10:26→13:07)
[2017-02-12] MEDS ORDERED: GLYCOPYRROLATE 0.2 MG/ML (ROBINUL) 2 ML VIAL ONE ×3 (11:29→13:03)
[2017-02-12] MEDS ORDERED: ONDANSETRON 4 MG/2 ML (SDV) Z0FRAN ONE ×2 (11:29→13:47)
[2017-02-12] MEDS ORDERED: SEVOFLURANE (ULTANE) 15 ML INHAL SOLN ONE ×10 (11:48→13:07)
[2017-02-12] MEDS ORDERED: NEOSTIGMINE (BLOXIVERZ ) 1 MG/1ML 10 ML VIAL ONE (12:47)
[2017-02-12] MEDS ORDERED: HYDROmorphone (DILAUDID) 2 MG/ML VIAL ONE (13:19)
[2017-02-12] MEDS ORDERED: HYDR-3820 PO (13:19)
--- NOTE | 2017-02-12 13:20 | Discharge Inst-Simple/Standard ---
Discharge Inst-Standard Discharge Medications New, Converted or Re-Newed RX: RX on Chart Patient Instructions/Follow Up Plan of Care/Instructions/FU: Band-aids off in 48 hours.F/u in 4 weeks Activity as Tolerated: No Goal: No lifting over 20 lbs Discharge Diet: No Restrictions MARINA ADAMS MD Feb 12, 2017 1:20 pm
[2017-02-12] MEDS: HYDROmorphone (DILAUDID) 2 MG/ML VIAL IVP PRN ×4 (13:26→13:56)
[2017-02-12] MEDS ORDERED: ONDANSETRON 4 MG/2 ML (SDV) Z0FRAN IVP PRN (13:30)
--- NOTE | 2017-02-12 13:45 | Operative Report ---
Operative Report Date of Procedure/Surgery Feb 12, 2017 Surgeon (s) MARINA ADAMS MD Mental Hygiene Consultant (s): not applicable Post-Operative Diagnosis same Procedure Performed robotic assisted repair of recurrent right inguinal hernia with mesh Description of Procedure Anesthesia Type: General Estimated blood loss (mL): minimal Specimen(s) collected/removed hernia contents Description of the Procedure Indication for procedure: This gentleman presented with a symptomatically, large , recurrent right inguinal hernia. He was offered minimally invasive repair with robotic assistance and mesh reinforcement. Informed consent was obtained after reviewing the operative details and complications of hematoma, infection of the mesh and further recurrence of the hernia. Description of the procedure: He was placed supine on the operative table and general anesthesia induced using an endotracheal tube. Ancef was administered intravenously as prophylaxis against wound infection. Sequential compression devices were placed around his legs, to minimize the risk of venous thrombosis. A Smith catheter was placed to decompress the bladder during surgery. It was removed at the end of the operation. Abdomen was prepared and draped in the usual sterile manner. A supraumbilical incision was made and pneumoperitoneum established using a Veress needle. Carbon dioxide was insufflated to an intra-abdominal pressure of 15 mmHg. Anatomy was visualized using the high definition, 3-dimensional laparoscope associated with da [employer] system after placing a 12 mm trocar. A large, recurrent hernia was encountered on the right side. There was no hernia on the contralateral side. He was then turned into steep Trendelenburg position, to displace loops of bowel out of the pelvis. Under direct view, I placed an 8 mm trocar over each side of the abdomen peritoneum was incised laterally continuing across, entering the pre-peritoneal space. Fibrous tissue along with the previous mesh rolled posteriorly displaying the spermatic cord and the hernia contents. A large amount of extraperitoneal fat was found to herniate into the inguinal canal and reduced by sharp dissection. The defect itself measured about 3 cm in diameter and closed using 2-0 V LOC sutures with robotic assistance, without obstructing the spermatic cord. Preperitoneal space was reinforced with a polypropylene mesh measuring 15 cm long by 10 cm in width. It was secured to Al's ligament and the lateral abdominal muscles using 2-0 Vicryl sutures with robotic assistance. Peritoneum was then reconstituted using a 2-0 V LOC suture. Hemostasis was satisfactory and the operation concluded. The fascia over the supraumbilical incision was closed using #1 Vicryl and skin incisions were closed with 4-0 Vicryl suture subcuticular fashion. He tolerated the procedure well, was extubated in the operating room and taken to the recovery room in a stable condition. Findings of the Procedure see operative report Allergies and Home Medications Allergies Coded Allergies: morphine (Verified Allergy, Unknown, PT TAKES LORTAB AT HOME, 03/08/16) Home Medications Amlodipine Besylate 10 Mg Tablet, 10 MG PO DAILY, (Reported) Aspirin 81 Mg Tablet.dr, 81 MG PO DAILY, (Reported) Atenolol 50 Mg Tablet, 50 MG PO HS, (Reported) B&C/FA/Zinc/Copper Oxide/Vit E 1 Each Tablet, 1 TAB PO DAILY, (Reported) Celecoxib 200 Mg Capsule, 200 MG PO BID, (Reported) Citalopram Hydrobromide 40 Mg Tablet, 40 MG PO HS, (Reported) Finasteride 5 Mg Tablet, 5 MG PO DAILY, (Reported) Folic Acid 0.4 Mg Tablet, 0.4 MG PO DAILY, (Reported) Hydrocodone/Acetaminophen 1 Each Tablet, 1 EACH PO Q6H PRN for PAIN-MILD TO MODERATE, (Reported) Hydrocodone/Acetaminophen 1 Each Tablet, 1 TAB PO Q4H PRN for PAIN-MILD TO MODERATE, #30 Ref 0 Prescribed by: MARINA ADAMS on 02/12/17 1319 Multivitamins 1 Tab Tablet, 1 TAB PO DAILY, (Reported) Sartell-3/Dha/Epa/Fish Oil 1 Each Capsule.dr, 1,200 MG PO BID, (Reported) Potassium Chloride 10 Meq Tablet.er, 10 MEQ PO HS, (Reported) Simvastatin 20 Mg Tablet, 20 MG PO HS, (Reported) Tamsulosin HCl 0.4 Mg Cap.er.24h, 0.4 MG PO HS, (Reported) MARINA ADAMS MD Feb 12, 2017 1:45 pm
[2017-02-12 14:25] VITALS: BP 120/73
[2017-02-12] MEDS ORDERED: HYDROcodone/APAP 10 MG/325 MG (LORTAB) TAB PO PRN (14:45)
[2017-02-12 14:55] VITALS: BP 121/76
[2017-02-12 15:30] VITALS: BP 133/79
[2017-02-12 16:08] VITALS: BP 133/79
== END 2017-02-12 16:08 | disposition home or self-care (01) ==
LOC: SDC 09:05
PROVIDERS: ATTEND Surgery
DX: K40.91 Unilateral inguinal hernia, without obstruction or gangrene, recurrent (principal); I25.10 Atherosclerotic heart disease of native coronary artery without angina pectoris; I10 Essential (primary) hypertension; E78.5 Hyperlipidemia, unspecified; G47.33 Obstructive sleep apnea (adult) (pediatric); Z79.899 Other long term (current) drug therapy; K21.9 Gastro-esophageal reflux disease without esophagitis; Z87.891 Personal history of nicotine dependence; Z96.652 Presence of left artificial knee joint

== ENCOUNTER 2018-04-28 19:56 | Outpatient (CLI) | payer MEDICARE ==
[~2018-04-28 19:56] MED LIST changes: +ACHD5005 PO; -AMLO10TA2 PO; +AMLO10TA6 PO; +HYDR-34 PO; -HYDR-3812 PO; -HYDR-3816 PO
== END 2018-04-29 06:12 | disposition home or self-care (01) ==
LOC: SLEEP 19:56
PROVIDERS: ATTEND Nurse Practitioner Family
DX: G47.33 Obstructive sleep apnea (adult) (pediatric) (principal)
CPT/HCPCS: 95811

== ENCOUNTER 2018-07-31 13:27 | Outpatient (RCR) | payer MEDICARE ==
[~2018-07-31 13:27] MED LIST changes: -AMLO10TA6 PO; +AMLO10TA7 PO
== END 2018-07-31 14:23 | disposition home or self-care (01) ==
PROVIDERS: ATTEND Orthopaedic Surgery Orthopaedic Trauma
DX: M47.812 Spondylosis without myelopathy or radiculopathy, cervical region (principal)

== ENCOUNTER → 2019-05-18 | Outpatient (CLI) | payer MEDICARE ==
[~2019-05-18] VITALS: Ht 182 cm; Wt 98.0 kg
[~2019-05-18] MED LIST changes: +CATHETER FLUSH 10 ML SYR IV PRN; +REGADENOSON 0.4 MG/5 ML SYR (LEXISCAN) IV ONE
[2019-05-18 13:41] VITALS: BP 199/98
[2019-05-18 13:45] VITALS: BP 169/88
--- NOTE | 2019-05-20 12:30 | STRESS TEST ---
DATE OF SERVICE: RESTING AND POST REGADENOSON TECHNETIUM-99M TETROFOSMIN SPECT CT IMAGING Baseline images were carried out after injection of 10.49 mCi of technetium-99m Tetrofosmin. This was followed by 0.4 mg regadenoson and 27.7 mCi of technetium-99m Tetrofosmin for stress imaging. The electrocardiogram showed sinus rhythm at baseline. It did not change significantly with the regadenoson infusion. The patient noted mild shortness of breath following regadenoson infusion, which resolved in a few minutes. Review of images at rest and following stress does not indicate significant perfusion defects consistent with significant myocardial ischemia or infarction. Gated images show normal global left ventricular systolic function with normal regional wall motion. Left ventricular ejection fraction is calculated to be 66%. Left ventricular end diastolic volume is 68 mL. TID is absent (0.91). CONCLUSIONS: 1. No evidence of any significant myocardial ischemia or infarction is seen. 2. Normal regional wall motion. 3. Normal global left ventricular systolic function with a calculated ejection fraction of 66%. Job ID: [id number] DocumentID: [id number] Dictated Date: 05/20/2019 09:58:09 Wild Life Photographer Date: 05/20/2019 12:29:36 Dictated By: NELIDA NASH MD, MA, FACP, FACC,
== END ==
LOC: CARD 11:17
PROVIDERS: ATTEND Nurse Practitioner Family
DX: I25.10 Atherosclerotic heart disease of native coronary artery without angina pectoris (principal); I65.29 Occlusion and stenosis of unspecified carotid artery; I10 Essential (primary) hypertension; E78.5 Hyperlipidemia, unspecified; G47.33 Obstructive sleep apnea (adult) (pediatric)
CPT/HCPCS: 78452; 93017

== ENCOUNTER 2019-08-19 15:43 | Outpatient (CLI) | payer MEDICARE ==
[~2019-08-19] VITALS: Ht 182.9 cm; Wt 95.5 kg
[~2019-08-19 15:43] MED LIST changes: +ACHYD1T PO; -CATHETER FLUSH 10 ML SYR IV PRN; -HYDR-3820 PO; +ONDA-105 PO; -ONDA4TAB10 PO; -REGADENOSON 0.4 MG/5 ML SYR (LEXISCAN) IV ONE; +SIMV20TA26 PO; -TRAM50TA2 PO; +TRM50T PO
[2019-08-19] MEDS ORDERED: DONE10TA41 PO (15:50)
[2019-08-19] MEDS ORDERED: PRED5TAB PO (15:50)
== END 2019-08-19 15:51 | disposition home or self-care (01) ==
LOC: PREOP 15:43
PROVIDERS: ATTEND Surgery
DX: Z01.818 Encounter for other preprocedural examination (principal)

== ENCOUNTER 2019-08-25 09:11 | Day surgery (SDC) | payer MEDICARE ==
--- NOTE | 2019-08-12 06:41 | HISTORY AND PHYSICAL ---
DATE OF SERVICE: PROCEDURE DATE: 08/25/2019. ATTENDING PHYSICIAN: Dr. Terri Quinonez. HISTORY OF PRESENT ILLNESS: The patient is a 79-year-old male who was referred over to us for episodes of reflux as well as dysphagia. The patient reports this first started approximately 6 months ago and has progressively become worse. He reports that he does have issues swallowing and feels like stuff does get stuck in his throat. He denies any nausea or vomiting. He does report epigastric burning sensation, especially with certain foods that are spicy such as chili. He does report that he has had issues even years prior with reflux. He denies any hematemesis. PAST MEDICAL HISTORY: Degenerative joint disease, degenerative disk disease, hypertension, BPH, hypercholesterolemia, gastroesophageal reflux disease, anxiety, depression. PAST SURGICAL HISTORY: Left total knee replacement in 2017, right rotator cuff repair x2, left rotator cuff repair x2, bilateral inguinal hernia repair, cervical neck fusion, bilateral carpal tunnel release, lumbar fusion x3. ALLERGIES: No known drug allergies. MEDICATIONS: Amlodipine 5 mg daily, aspirin 81 mg daily, atenolol 50 mg daily, Celebrex 200 mg b.i.d., citalopram 40 mg daily, donepezil 10 mg daily, finasteride 5 mg daily, fish oil b.i.d., folic acid daily, hydrocodone 7.5/325 mg q.6 hours p.r.n., multivitamin daily, simvastatin 20 mg daily, tamsulosin 0.4 mg daily, Nexium 40 mg at bedtime, prednisone 5 mg daily. SOCIAL HISTORY: Previous for smoke at 2 packs per day for 33 years, quit in 1989. Rare for alcohol. FAMILY HISTORY: Mother, diabetes. Father, stroke at 53 years of age, hypertension. VITAL SIGNS: Blood pressure is 169/84. Current weight is 210.3 pounds at 6 feet 0 inches. REVIEW OF SYSTEMS: Well-nourished male in no acute distress. He is not experiencing any shortness of breath or difficulty breathing. No chest pain, palpitations or diaphoresis. No nausea or vomiting. He does report episodes of epigastric burning sensation. He also reports reflux and dysphagia. No diarrhea or constipation. No red blood per rectum. No dark tarry stools. No fever or chills. No recent inadvertent weight loss. All other review of systems is negative. PHYSICAL EXAMINATION: CHEST: Clear. Good breath sounds bilaterally. HEART: Regular, no murmurs. EXTREMITIES: No lower extremity edema. Negative Homans sign. HEENT: No scleral icterus. NECK: No cervical lymphadenopathy. ABDOMEN: Soft, nontender, nondistended. SKIN: Warm, dry and pink. NEUROLOGIC: Awake, alert and oriented x3. ASSESSMENT AND PLAN: A 79-year-old male with gastroesophageal reflux disease as well as dysphagia. At this time, we will recommend proceeding with an EGD with possible balloon dilatation. The risks and benefits of the procedure as well as the procedure and home care instructions were explained to the patient. The patient verbalized understanding of instructions and agrees to proceed as planned. At this time, we will proceed with scheduling the patient for an EGD with biopsies as appropriate as well as possible balloon dilatation. Job ID: [id number] DocumentID: [id number] Dictated Date: 08/06/2019 13:57:31 Handbag Stitcher Date: 08/06/2019 14:29:43 Dictated By: JOSE GUZMAN APRN
[2019-08-25] VITALS (14 sets, daily range): BP systolic 145–185; BP diastolic 71–92
[~2019-08-25 09:11] MED LIST changes: +DONE10TA41 PO; +PRED5TAB PO
[2019-08-25] MEDS ORDERED: NS IV 500 ML 500 ML ONE (09:19)
--- OUTSIDE RECORDS SUMMARY | 2019-08-25 09:30 | XMS REPORT | Encounter Summary ---
Author Author [facility] Organization [facility] Address Unknown Phone Unavailable Care Team Providers Care Forming Machine Adjuster Name Role Phone Sayed, Brain JAIN Unavailable Terri Quinonez MD PCP Reason for Visit * Reason Comments Follow Up Pain Shoulder Pain * (Routine) Referred By Contact Referred To Contact Status Reason Specialty Diagnoses / Procedures Andrea Sawant MD [address] [address] Incomplete Neurosurgery Encounter Details Care Team Description Date Type Department Sebastian Wallace MD [address] [place] [address] Jeffry Fry MD [address] [facility] [place] [address] Cervical stenosis of spine (Primary Dx) 07/27/2019 Office Visit [facility] [address] [address] Social History Date Tobacco Use Types Packs/Day Years Used Former Smoker Smokeless Tobacco: Never Used Drinks/Week oz/Week Comments Alcohol Use 0 Standard drinks or equivalent 0.0 Not Asked Sex Assigned at Date Recorded Not on file Industry Job Start Date Occupation Not on file Not on file Not on file Travel End Travel History Travel Start No recent travel history available. documented as of this encounter Last Filed Vital Signs Reading Time Taken Comments Vital Sign 114/64 07/27/2019 1:50 PM RIDES SUPERVISOR Blood Pressure 55 07/27/2019 1:50 PM RIDES SUPERVISOR Pulse - - Temperature - - Respiratory Rate 99% 07/27/2019 1:50 PM RIDES SUPERVISOR Oxygen Saturation - - Inhaled Oxygen Concentration 97.5 kg (215 lb) 07/27/2019 1:50 PM RIDES SUPERVISOR Weight 182.9 cm (6') 07/27/2019 1:50 PM RIDES SUPERVISOR Height 29.16 07/27/2019 1:50 PM RIDES SUPERVISOR Body Mass Index documented in this encounter Functional Status Date of Assessment Functional Status Response 07/08/2018 Does the patient have a hearing impairment: No 07/08/2018 Does the patient have a visual impairment: Yes 07/08/2018 Does the patient have impaired ambulation: No 12/26/2017 Does the patient have an activity of daily living No (ADL) impairment: 12/26/2017 Does the patient have an instrumental activity of No daily living (IADL) impairment: Date of Assessment Cognitive Status Response 07/08/2018 Does the patient have a cognitive impairment: No documented as of this encounter Patient Instructions * Patient Instructions* Christie Aguilar RN - 07/27/2019 1:45 PM RIDES SUPERVISOR Today, Dr. Fry discussed your neck pain and associated symptoms. You can con tinue to do the exercises you learned in therapy, and repeat injections or the r adio frequency ablation with Sayed. If you decide your symptoms are unmana geable after trying these more conservative treatment options, Dr. Fry recomm ends doing a cervical fusion surgery. If you decide you want to pursue surgery, please contact our office and we will help arrange any necessary testing and pre-operative appointments. Please do not hesitate to contact our office if you have any questions or concer ns. Teto Pedro RN, BSN Clinical Nurse Coordinator Dr. Jeffry Fry M.D. [facility] [address] [place], [place] [address] Spinal Fusion: Cervical Cervical vertebrae Fusing vertebrae in the cervicalspine (the top 7 vertebrae of your spine)may help ease neck and arm pain. It may also help relieveprogressive paralysis ca used by compression of your nerve roots or spinal cord.Two or more vertebrae i n your neck are fused. Cervical fusion may be done through an incision in the fr ont or the back of the neck. The surgery generally takes from1 to 4hours. The fusion procedure These steps apply to fusion from the front of the neck: A traction (head clamp or strap) may be applied to align your neck The skin is cut and the muscles, blood vessels, trachea, and esophagus are pu shed to one side to get to the vertebrae and disks. An X-ray is done to verify that the right spinal level is being operated on. The disk is removed from between the vertebrae to be fused. Bone spurs are removed. A bone graft or intervertebral cage filled with bone is placed into the now-e mpty space between the vertebrae. Screws, plates, or a plate with screws are oft en placed in to ensure additional stability. In time, the graft and the bone anton und it will grow into a solid unit. To help keep your spine steady and promote fusion, extra support may be used A drain can be left in the wound for a day or two. The incision is closed with stitches or chaparrita. The traction is removed. A cervical collar, rigid or soft, might be placed on your neck. The disk between the vertebrae is removed. Bone graft is placed into the now-emp ty space between the vertebrae. Over a few months, the bone graft and vertebrae fuse into a solid unit. [employer] last reviewed this educational content on 09/30/201719998949-0505 [employer]. [address] [place] [address] 7. All rights reserved. This information is not intended as a substitute for pro fessional medical care. Always follow your healthcare professional's instruction s. S SUPERVISOR documented in this encounter Progress Notes * Jeffry Fry MD - 07/27/2019 1:45 PM RIDES SUPERVISOR SPINE CENTER CLINIC NOTE SUBJECTIVE: The patient comes in today for follow-up. I saw him 18-months ago. His chief complaints remains neck pain that radiates out to both shoulders. No myelopathic symptoms. PHYSICAL EXAM: Strength is 5/5 bilateral upper and lower extremities. Raphael 's is negative. Clonus is negative. He walks with a slow but normal gait. No evidence of myelopathy. RADIOGRAPHIC EVALUATION: AP and lateral of the cervical spine show previous 5 t o 7 ACDF. It looks solid. Spondylosis above and below. MRI again shows spondy losis at 3-4 and 4-5 and at C7-T1. A little bit of stenosis at 7-1. IMPRESSION: Supra and infra adjacent segment degeneration with some stenosis at C6-T1 status post previous 5 to 7 ACDF with primarily neck pain. PLAN: I discussed the findings with the patient. I think if he was going to menezes ve an operation it would be a pretty big one. I'd probably do ACDFs at 3-4, 4-5 and C7-T1 and then flip him over and go 3 to 7 in the back. I'd be concerned t his wouldn't make all his neck pain go away. I think that would be the biggest risk here that he'd go through this big surgery and still be left with neck pain . He's had neck pain for a long time. He has a lot of things to think about. I'd be happy to see him back at any point as needed. ([id number]) I Review of Systems Current Outpatient Medications on File Prior to Visit Medication Sig Dispense Refill amLODIPine (NORVASC) 5 mg tablet Take 5 mg by mouth daily. aspirin EC 81 mg tablet Take 81 mg by mouth daily. atenolol (TENORMIN) 100 mg tablet Take 100 mg by mouth. celecoxib (CELEBREX) 200 mg capsule Take 200 mg by mouth daily. citalopram (CELEXA) 40 mg tablet Take 40 mg by mouth daily. colestipoL (COLESTID) 1 gram tablet Take 1 g by mouth twice daily. finasteride (PROSCAR) 5 mg tablet Take 5 mg by mouth daily. FOLIC ACID PO Take by mouth. HYDROcodone-acetaminophen(+) (LORTAB) 7.5-500 mg tablet Take 1 Tab by mouth every 4 hours as needed. MULTIVITAMIN PO Take by mouth. simvastatin (ZOCOR) 20 mg tablet Take 20 mg by mouth at bedtime daily. tamsulosin (FLOMAX) 0.4 mg capsule Take 0.4 mg by mouth daily. Current Facility-Administered Medications on File Prior to Visit Medication Dose Route Frequency Provider Last Rate Last Dose fentaNYL citrate PF (SUBLIMAZE) injection 100 mcg 100 mcg Intravenous Q2 NJ N PRN Brain Brown MD 50 mcg at 07/08/18 0940 midazolam (VERSED) injection 2 mg 2 mg Intravenous Q2 MIN PRN Brain Brown MD 1 mg at 07/08/18 0941 Allergies Allergen Reactions Morphine NAUSEA AND VOMITING Vitals: 07/27/19 1350 BP: 114/64 Pulse: 55 SpO2: 99% Weight: 97.5 kg (215 lb) Height: 182.9 cm (72") PainSc: Five Pain Score: Five Body mass index is 29.16 kg/m. S SUPERVISOR * Teto Pedro RN - 07/27/2019 1:45 PM RIDES SUPERVISOR Pre Visit Planning Last office visit note reviewed. Appointment notes section updated to reflect reason for visit, if needed. Orders have been placed in a separate encounter, if required for this visit. S SUPERVISOR documented in this encounter Plan of Treatment Not on filedocumented as of this encounter Visit Diagnoses Diagnosis Cervical stenosis of spine Spinal stenosis in cervical region documented in this encounter
--- OUTSIDE RECORDS SUMMARY | 2019-08-25 09:30 | XMS REPORT | Encounter Summary ---
Author Author [facility] Address Unknown Phone Unavailable Care Team Providers Care Health Coordinator Name Role Phone PCP Unavailable Encounter Details Care Team Description Date Type Department Gerardo Wilkinson MD [address] [place], [place] [address] [facility] [address] [place], [place] [id number] Social History Date Tobacco Use Types Packs/Day Years Used Never Assessed Sex Assigned at Date Recorded Not on file Industry Job Start Date Occupation Not on file Not on file Not on file Travel End Travel History Travel Start No recent travel history available. documented as of this encounter Plan of Treatment Not on filedocumented as of this encounter Procedures Comments Procedure Name Priority Date/Time Associated Diag nosis RENAL PANEL Routine 07/19/2003 10:12 AM IMAGING TECHNICIAN ERYTHROCYTE SEDIMENTATION Routine 07/19/2003 RATE 10:12 AM IMAGING TECHNICIAN documented in this encounter Results * Renal Panel (07/19/2003 10:12 AM IMAGING TECHNICIAN) Sodium 131 (L) 134 - 144 MEQ/L SUNQUEST Potassium 4.4 3.6 - 5.0 MEQ/L SUNQUEST Chloride 94 (L) 98 - 107 MEQ/L SUNQUEST Carbon Dioxide 31 23 - 32 MEQ/L SUNQUEST Creatinine 0.9 0.5 - 1.5 MG/DL SUNQUEST Blood Urea 19 5 - 20 MG/DL SUNQUEST Nitrogen Glucose 83 65 - 110 MG/DL SUNQUEST Anion Gap 6 3 - 15 SUNQUEST Phosphorus 4.0 2.5 - 4.5 MG/DL SUNQUEST Albumin 4.2 3.6 - 4.6 G/DL SUNQUEST Calcium 8.5 (L) 8.8 - 10.5 MG/DL SUNQUEST Specimen Blood Performing Organization Address City/State/[facility] Ph one Number [facility] [address] [place], [place] [address] SUNQUEST * Erythrocyte Sedimentation Rate (07/19/2003 10:12 AM IMAGING TECHNICIAN) Sed Rate 16 (H) 0 - 15 MM/HR SUNQUEST Specimen Blood Performing Organization Address [facility] Ph one Number [facility] [address] [place] [address] SUNQUEST documented in this encounter Visit Diagnoses Not on filedocumented in this encounter
--- OUTSIDE RECORDS SUMMARY | 2019-08-25 09:30 | XMS REPORT | Encounter Summary ---
Author Author [facility] Organization [facility] Address Unknown Phone Unavailable Care Team Providers Care Micro Photographer Name Role Phone PCP Unavailable Encounter Details Care Team Description Date Type Department [place] [address] [phone] [facility] [address] [place] [address] Social History Date Tobacco Use Types Packs/Day [...] Procedure Name Priority Date/Time Associated Diag nosis COAGULATION SCREEN Routine 07/14/2007 12:10 PM SENIOR TECHNICAL MANAGER ERYTHROCYTE SEDIMENTATION Routine 07/14/2007 RATE 12:10 PM SENIOR TECHNICAL MANAGER COMPREHENSIVE METABOLIC Routine 07/14/2007 PANEL 12:10 PM SENIOR TECHNICAL MANAGER COMPLETE BLOOD COUNT Routine 07/14/2007 12:10 PM SENIOR TECHNICAL MANAGER documented in this encounter Results * Complete Blood Count (07/14/2007 12:10 PM SENIOR TECHNICAL MANAGER) WBC 8.0 4.0 - 11.0 TH/UL SUNQUEST RBC 4.79 4.31 - 5.84 MIL/UL SUNQUEST Hemoglobin 14.9 13.0 - 17.0 G/DL SUNQUEST Hematocrit 43 40 - 50 % SUNQUEST MCV 90 80 - 99 FL SUNQUEST MCH 31 27 - 34 PG SUNQUEST MCHC 35 32 - 36 % SUNQUEST RDW 12.9 <14.5 % SUNQUEST Platelet Count 189 140 - 400 TH/UL SUNQUEST Specimen Performing Organization Address City/State/[facility] one Number [facility] [address] [place], [place] [address] SUNQUEST * Coagulation Screen (07/14/2007 12:10 PM SENIOR TECHNICAL MANAGER) APTT 27 22 - 32 SEC SUNQUEST Protime 13.6 11.9 - 14.3 SEC SUNQUEST INR 1.0 SUNQUEST Platelet Count 189 140 - 400 TH/UL SUNQUEST Fibrinogen 322 146 - 390 MG/DL SUNQUEST Assay Specimen Performing Organization Address [facility] one Number [facility] [address] [place] [phone] SUNQUEST * Comprehensive Metabolic Panel (07/14/2007 12:10 PM SENIOR TECHNICAL MANAGER) Albumin 4.2 3.5 - 5.0 G/DL SUNQUEST Aspartate 28 15 - 41 IU/L SUNQUEST Aminotransferas e Bilirubin Total 0.6 0.3 - 1.4 MG/DL SUNQUEST Protein Total 6.6 6.0 - 8.0 G/DL SUNQUEST Serum Calcium 9.4 8.8 - 10.5 MG/DL SUNQUEST Creatinine 1.1 0.9 - 1.3 MG/DL SUNQUEST Glucose 94 65 - 100 MG/DL SUNQUEST Alkaline 35 (L) 42 - 128 IU/L SUNQUEST Phosphatase Sodium 137 134 - 144 MEQ/L SUNQUEST Potassium 5.2 (H) 3.5 - 5.1 MEQ/L SUNQUEST Chloride 96 (L) 101 - 111 MEQ/L SUNQUEST Carbon Dioxide 32 23 - 32 MEQ/L SUNQUEST Blood Urea 20 8 - 26 MG/DL SUNQUEST Nitrogen Anion Gap 9 3 - 15 SUNQUEST Alanine 25 14 - 63 IU/L SUNQUEST Aminotransferas e Specimen Performing Organization Address [facility] one Number [facility] [address] [place], [place] [address] SUNQUEST * Erythrocyte Sedimentation Rate (07/14/2007 12:10 PM SENIOR TECHNICAL MANAGER) Sed Rate 7 0 - 12 MM/HR SUNQUEST Specimen Performing Organization Address [facility] one Number [facility] [address] [place], [place] [address] SUNQUEST documented in this encounter Visit Diagnoses Not on filedocumented in this encounter
--- OUTSIDE RECORDS SUMMARY | 2019-08-25 09:30 | XMS REPORT | Encounter Summary ---
Author Author [facility] Organization [facility] Address Unknown Phone Unavailable Care Team Providers Care Bellhop Service Captain Name Role Phone Sayed, Brain JAIN Unavailable Terri Quinonez MD PCP Encounter Details Care Team Description Date Type Department Jeffry Fry MD [address] [place], [place] [id number] 07/27/2019 [facility] [address] [id number] Social History Date Tobacco Use Types Packs/Day [...] history available. documented as of this encounter Functional Status Date of Assessment [...] impairment: No documented as of this encounter Medications at Time of Discharge Start Date End Date Medication Sig Dispensed Refills amLODIPine (NORVASC) 5 mg Take 5 mg by 0 tablet mouth daily. aspirin EC 81 mg tablet Take 81 mg by 0 mouth daily. atenolol (TENORMIN) 100 Take 100 mg 0 mg tablet by mouth. celecoxib (CELEBREX) 200 Take 200 mg 0 mg capsule by mouth daily. citalopram (CELEXA) 40 mg Take 40 mg by 0 tablet mouth daily. colestipoL (COLESTID) 1 Take 1 g by 0 gram tablet mouth twice daily. finasteride (PROSCAR) 5 Take 5 mg by 0 mg tablet mouth daily. FOLIC ACID PO Take by 0 mouth. HYDROcodone-acetaminophen Take 1 Tab by 0 (+) (LORTAB) 7.5-500 mg mouth every 4 tablet hours as needed. MULTIVITAMIN PO Take by 0 mouth. simvastatin (ZOCOR) 20 mg Take 20 mg by 0 tablet mouth at bedtime daily. tamsulosin (FLOMAX) 0.4 Take 0.4 mg 0 mg capsule by mouth daily. 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 There is 3 mm anterolisthesis of C 3 on C4 and C4 on C5 similar to prior study. The alignment of the C7 level is otherwise normal. Cannot evaluate alignment at C7-T1 on lateral view due to overlying shoulders. 2. Solid ACDF changes from C5 to C7 w ith intact anterior plate-screw fixation. Persistent partial backing out of one o f the screws anchoring the plate at the C7 level. 3. Marked facet osteoarthritis at C3- C4 and C4-C5. Moderate C2-C3 and moderate to marked C3-C4 disc degeneration. 4. Mild osteoporosis. 5. No fractures or bone lesions of th e visible cervical spine. Finalized by Linwood Correia M.D. on 2019 1:51 PM. Dictated by Linwood Correia M.D. on 07/27/2019 1:48 PM. Narrative Performed At C SPINE 3 VIEWS OR LESS [facility] RESULTS Clinical Indication: Complaints of neck pain. Comparison: Scoliosis survey December 26, 018 Procedure Note Interface, Radiant Results - 07/27/2019 1:54 PM INVESTIGATION OFFICER C SPINE 3 VIEWS OR LESS Clinical Indication: Complaints of neck pain. Comparison: Scoliosis survey December 26, 2017 IMPRESSION Findings/Impression: 1. There is 3 mm anterolisthesis of C3 on C4 and C4 on C5 similar to prior study. The alignment of the C7 level is otherwise normal. Cannot evaluate alignment at C7-T1 on lateral view due to overlying shoulders. 2. Solid ACDF changes from C5 to C7 wit h intact anterior plate-screw fixation. Persistent partial backing out of one of the screws anchoring the plate at the C7 level. 3. Marked facet osteoarthritis at C3-C4 and C4-C5. Moderate C2-C3 and moderate to marked C3-C4 disc degeneration. 4. Mild osteoporosis. 5. No fractures or bone lesions of the visible cervical spine. Finalized by Linwood Correia M.D. on 07/27/2019 1:51 PM. Dictated by Linwood Croreia M.D. on 07/27/2019 1:48 PM. Performing Organization Address City/State/Zipcode Ph one Number [facility] RESULTS documented in this encounter Visit Diagnoses Diagnosis Cervical stenosis of spine Spinal stenosis in cervical region documented in this encounter
--- OUTSIDE RECORDS SUMMARY | 2019-08-25 09:30 | XMS REPORT | Encounter Summary ---
Author Author [facility] Address Unknown Phone Unavailable Care Team Providers Care Shipping Clerk Crating Name Role Phone PCP Unavailable Encounter Details Care Team Description Date Type Department Gerardo Wilkinson MD [address] [place] [address] [phone] [facility] [address] [place], [place] [id number] Social History Date Tobacco Use Types Packs/Day Years Used Never Assessed Sex Assigned at Date Recorded Not on file Industry Job Start Date Occupation Not on file Not on file Not on file Travel End Travel History Travel Start No recent travel history available. documented as of this encounter Plan of Treatment Not on filedocumented as of this encounter Visit Diagnoses Not on filedocumented in this encounter
--- OUTSIDE RECORDS SUMMARY | 2019-08-25 09:30 | XMS REPORT | Encounter Summary ---
Author Author [facility] Address Unknown Phone Unavailable Care Team Providers Care Manager Advanced Name Role Phone PCP Unavailable Encounter Details Care Team Description Date Type Department Mayank Singh MD [address] [place] [address] [phone] Spinal Sten[facility] of Lumbar Region [facility] [address] 07/27/2007 [place] [address] Social History Date Tobacco Use Types Packs/Day Years Used Never Assessed Sex Assigned at Date Recorded Not on file Industry Job Start Date Occupation Not on file Not on file Not on file Travel End Travel History Travel Start No recent travel history available. documented as of this encounter Discharge Summaries * Mayank Singh MD - 07/31/2013 11:22 AM VISUAL BASIC DEVELOPER REPORT Name: LEXI CASTRO MRN/Unit #: [id number] Attending Physician: MAYANK SINGH MD Date of : 1940 DATE OF ADMISSION: 07/23/2007 DATE OF DISCHARGE: DATE OF DISCHARGE: 07/27/2007. PRINCIPAL DIAGNOSIS: L2-3 and L3-4 spinal stenosis. SECONDARY DIAGNOSES: 1) L2-3 degenerative disk disease. 2) Post laminectomy fusion syndrome. 3) Retained spinal implant. 4) Anemia secondary to blood loss. 5) Hypertension. 6) Hypercholesterolemia. PRINCIPAL PROCEDURES PERFORMED: 1) Removal of L3-S1 [place] LASHON hardware. 2) Repeat L2, L3 and L4 laminectomies. 3) L2-3 fusion. 4) L1 to L4 Corey Dynesys and local bone graft harvest. All of these procedures were performed by Dr. Singh on 07/23/2007. HOSPITAL COURSE: The patient is a 67-year-old male with the above-noted diagnoses that was scheduled for the above procedures to be performed on 07/23/2007. These procedures were performed as scheduled. Intraoperatively, the patient was noted to have a dural defect that did require a dural repair intraoperatively. The patient tolerated the entire surgery well and was transferred to the orthopedics floor after spending the night in the recovery room. He had a non-complicated postoperative course and was able to be quickly weaned from his PROFESSOR OF PHYSICS and begun on physical therapy. On 07/27/2007, it was determined that he had cleared physical therapy and also had his pain well controlled with oral pain medicine. Therefore, it was determined that it was safe to discharge the patient home on 07/27/2007. DISCHARGE MEDICATIONS: 1) [place] 10/325 mg one to two tablets every 4 hours p.r.n. pain, #99. 2) The patient is to resume home medications except for Celebrex - do not resume Celebrex. DISCHARGE INSTRUCTIONS: The patient is to avoid any bending, lifting or twisting. He is to follow up with Dr. Singh in 2 weeks' time. He is to perform daily dressing changes using [place] Dressing and avoid any soaking of his surgical incision. It is, however, okay for him to run water over his incision. Mayank Singh M.D. Dictated By: Audi Jones M.D. cc: AL BASIC DEVELOPER documented in this encounter H&P Notes * Mayank Singh MD - 07/31/2013 11:24 AM VISUAL BASIC DEVELOPER REPORT Name: LEXI CASTRO [facility] #: [id number] Attending Physician: MAYANK SINGH MD Date of : 1940 CHIEF COMPLAINT: Recurrent low back pain and right leg pain. HISTORY OF PRESENT ILLNESS: Mr. Castro is about 4 years out from L3-S1 repeat laminectomies and fusion with [place] Lashon instrumentation. He previously had been treated with L3-S1 laminectomies back in 1991. The operation in 1991 helped him for about 10 months, then he retired in 1999 because of a medical disability. He had about a 3-1/2 year pain free interval after his repeat laminectomies and fusions that I performed on him in 2003. However, in the late summer or early fall of 2006, Mr. Castro started experiencing pain when he would roll over in bed, then his pain increased and he started having right sided low back pain near the right PSIS with pain going down his right hip and right anterior and lateral thigh. Since January 2007, he has undergone several interventions. He underwent a right L3 transforaminal epidural steroid injection, from which he did not obtain any relief. Then he underwent a right L2 transforaminal epidural steroid injection, from which he got some good temporary relief of his pain. He needs to sleep in a recliner to avoid symptoms. His main pain is in his right anterior thigh and groin. An MRI of Mr. Castro's back showed the development of severe spinal stenosis at L2-3 and mild spinal stenosis at L3-4. Mr. Castro is admitted for surgical treatment of this because of greater than 6 months of symptoms that inhibit his function and have not responded more than temporarily to nonoperative interventions. CURRENT MEDICATIONS: Atenolol 25 mg p.o. daily, Celexa 20 mg, Proscar 5 mg, Lipitor 10 mg, Parafon Forte 500 mg. ALLERGIES: MORPHINE, NAPROSYN, PERCOCET PAST MEDICAL HISTORY: Herniorrhaphy in 1972, shoulder surgery in 1996, history of hypertension and hypercholesterolemia. SOCIAL HISTORY: He stopped smoking October 29, 1989. He is retired. REVIEW OF SYSTEMS: Positive for back pain and right leg radicular pain. He denies fevers, chills, sweats or constitutional signs or symptoms or any intercurrent illnesses. FAMILY HISTORY: Noncontributory. PHYSICAL EXAMINATION: A well-nourished, well-developed male in no acute distress. CHEST: Normal respiratory excursions. CARDIAC: Regular rate and rhythm. ABDOMEN: Soft, nontender. EXTREMITIES: No cyanosis, clubbing or edema. Hip range of motion painless and full. NEUROLOGIC: Spine and neurologic exam shows well-healed lumbar incision. He has diminished right knee jerk, no atrophy, normal strength, bulk and tone. X-RAY AND IMAGING STUDIES: X-rays of the lumbar spine show L3-S1 Kagn Lashon instrumentation without evidence of lucent lines around the screws or failure of the hardware. Some spondylosis is seen at L1-2 and L2-3. MRI of the lumbar spine on May 22, 2007 with and without gadolinium contrast at [facility] in [place], [place] shows evidence of the laminectomies from L4-1, shows severe spinal stenosis at L2-3 and mild stenosis at L3-4. There is no stenosis at L1-2, although there is disc degeneration there. IMPRESSION: 1. Spinal stenosis at L2-3 and L3-4 with right L2 and/or L3 radiculopathies. 2. Degenerative disc disease of L2-3. 3. Status post previous laminectomies and fusions, L3-S1. 4. Status post L3-S1 instrumentation. RECOMMENDATIONS: 1. My plan is to remove the L3-S1 Kang Lashon instrumentation, place L1-L4 Corey Dynesys Dynamic Stabilization and fuse L2-3 and repeat decompressions at L2, L3, L4. 2. Risks, benefits and alternatives discussed with the patient in detail and no guarantees given. He wishes to proceed. 3. Preoperative medical evaluation was obtained with Dr. Catherine Boland and concomitant medical care will be obtained through consultation with him. 4. We will use a cell saver and we will use intraoperative neurophysiologic monitoring. Mayank Singh M.D. Dictated By: Cc: AL BASIC DEVELOPER documented in this encounter Procedure Notes * Antonio Burgess MD - 07/31/2013 11:23 AM VISUAL BASIC DEVELOPER REPORT Name: LEXI CASTRO MRN/Unit #: [id number] Attending Physician: MAYANK SINGH MD Date of : 1940 PROCEDURE DATE: 07/23/2007 SEX: AGE: 67Y REASON FOR FREE-RUNNING EMG: During lumbar fusion posteriorly. SUMMARY: EMGs were run spontaneously during and after lumbar fusion. There was no denervation seen in any of the recordings. This remained a normal stable EMG during the posterior lumbar fusion. Antonio Burgess MD Dictated By: cc: AL BASIC DEVELOPER documented in this encounter Consult Notes * Catherine Boland MD - 07/31/2013 11:25 AM VISUAL BASIC DEVELOPER REPORT Name: LEXI CASTRO MRN/Unit #: [id number] Attending Physician: MAYANK SINGH MD Consulting Physician: Catherine Boland M.D. Date of : 1940 DATE OF CONSULTATION: DATE OF SURGERY: 07/23/2007 HISTORY OF PRESENT ILLNESS: The patient is a 67-year-old patient seen in preoperative consultation at the request of Dr. Mayank Singh. He is scheduled to undergo a lumbar fusion with replacement of rods in the lumbar region on 07/23/[address] Singh. The patient had undergone a lumbar fusion of L3 through S1 at [facility] in July 2003. His pain had improved at that time but has now recurred. He currently has pain in his right lower lumbar region with some pain and numbness radiating into his right lower extremity and inguinal region. The pain increases with coughing. He has had no weakness. He is not donating blood for the planned operative procedure. Denies history of thrombophlebitis. He has not had previous anesthetic complications. PAST MEDICAL HISTORY: His past medical history is significant for a previous lumbar laminectomy in 1991 and a right shoulder operation in 1997 and a cervical fusion in 1999. He has a history of hypertension, degenerative arthritis, and hyperlipidemia. CURRENT MEDICATIONS: Hydrochlorothiazide 50 mg daily. Atenolol 50 mg a day. Citalopram 20 mg daily. Simvastatin 20 mg a day. Hydrocodone 7.5 mg p.r.n. that he uses 3 per day. Proscar 5 mg a day. Celebrex 200 mg daily. Aspirin 81 mg a day, and fish oil. ALLERGIES: HE HAS AN ALLERGY TO NAPROXEN WITH AN URTICARIAL REACTION. SOCIAL HISTORY: He is retired from the [employer]. He has not smoked since 1989 after 30 years of 2 packs per day. He denies any alcohol use. FAMILY HISTORY: Father at 67 of a cerebral hemorrhage. Mother at 76 of congestive heart failure and diabetes. He has a brother who is 59 with hypertension, a sister who is 65 with hypertension, and another brother who is 57 and healthy. REVIEW OF SYSTEMS: IN GENERAL: No fever, chills, heavy sweats. HEENT: No headache. Eye, no visual changes. RESPIRATORY: No recent cough, pleurisy, sputum production, or hemoptysis. He has had no history of pneumonia, asthma, or bronchitis. CARDIAC: No chest pain, PND, orthopnea, palpitations, tachycardia, or pedal edema. He had a stress test with thallium scanning in [place], [place], 3 months ago which was reportedly normal. This was done as a screening procedure. The results of this are not currently available but the patient was asked to obtain a copy of the report and bring it with him at the time of surgery. GI: Occasional gastroesophageal reflux disease symptoms controlled with Prilosec. No abdominal pain, constipation, diarrhea, hematochezia, or melena. He had a colonoscopy in April 2007 which apparently was unremarkable. GENITOURINARY: Nocturia x1 to. 2 MUSCULOSKELETAL: He has diffuse arthralgias in addition to his back pain. NEUROLOGIC: Occasional numbness in his right lower extremity. PHYSICAL EXAMINATION: On exam height 72 inches. Weight 207 pounds. Blood pressure 110/70. Pulse 68 and regular. Respirations 15 and unlabored. HEENT: Exam normal. Eye, minimal arteriolar narrowing on funduscopic exam. NECK: Carotids 2+ without bruits. No thyromegaly or adenopathy. CHEST: Clear. CARDIAC: Regular rhythm without murmur, rub, or extra sound. ABDOMEN: No tenderness, organomegaly, or masses. EXTREMITIES: No edema, cyanosis, or clubbing. Straight leg raising is negative bilaterally. Deep tendon reflexes 1 to 2+ in the upper extremities, absent in the lower extremities. LABORATORY: Coagulation profile is normal. CBC is normal with a white count 8.0. Hemoglobin 14.9. Platelet count 189,000. Sedimentation rate is 7. Chemistry profile is normal. Chest x-ray is pending at the time of this dictation. IMPRESSION: 1. Recurrent low back pain. The patient is scheduled for repeat fusion. 2. Hypertension controlled. 3. Hyperlipidemia on treatment. RECOMMENDATION: I think that you can proceed with the planned operative procedure. Again the patient is to obtain a copy of his recent stress thallium study to bring with him at the time of surgery. Thank you for asking me to see this pleasant gentleman again. Catherine Boland M.D. Dictated By: cc: AL BASIC DEVELOPER * Antonio Burgess MD - 07/31/2013 11:23 AM VISUAL BASIC DEVELOPER REPORT Name: LEXI CASTRO MRN/Unit #: [id number] Attending Physician: MAYANK SINGH MD Date of : 1940 PROCEDURE DATE: 07/23/2007 TEST NO.: [id number] AGE: 67Y SEX: Male REASON FOR PROCEDURE: Intraoperative upper extremity somatosensory evoked potentials during posterior lumbar fusion at L1 to S1. FINDINGS: Bilateral ulnar nerve upper extremity somatosensory evoked potentials were performed during lumbar fusion. An 18 and 20 distal latencies were obtained before, during, and after the operation. Comparisons were made from [id number]. Comparisons were made during the operation. All distal latencies were within normal limits with no appreciable change from [id number]. All distal latencies remained stable throughout the operation. IMPRESSION: This is a normal stable upper extremity somatosensory evoked potential during lumbar fusion. Antonio Burgess MD Dictated By: cc: AL BASIC DEVELOPER * Antonio Burgess MD - 07/31/2013 11:23 AM VISUAL BASIC DEVELOPER REPORT Name: LEXI CASTRO MRN/Unit #: [id number] Attending Physician: MAYANK SINGH MD Date of : 1940 PROCEDURE DATE: 07/23/2007 TEST NO.: AGE: 67Y SEX: REASON: Intraoperative motor evoked potentials during lumbar fusion. All motor evoked potentials remained present throughout the operation. Comparison [id number] showed that they were quite similar. No appreciable change during the operation. IMPRESSION: This is a normal motor evoked potential recording during lumbar fusion. Antonio Burgess MD Dictated By: cc: AL BASIC DEVELOPER documented in this encounter Miscellaneous Notes * Operative Note - Mayank Singh MD - 07/31/2013 11:24 AM VISUAL BASIC DEVELOPER REPORT Name: LEXI CASTRO [facility] #: [id number] MRN/Unit #: [id number] Attending Physician: MAYANK SINGH MD Date of : 1940 DATE OF OPERATION: 07/23/2007 PREOPERATIVE DIAGNOSES: 1. L2-3 and L3-4 spinal stenosis with right L2 and right L3 radiculopathies (724.02). 2. L2-3 degenerative disc disease (722.52). 3. Transition syndrome above a solid L3-S1 fusion. 4. Status post multiple lumbar laminectomies (722.83). 5. Retained Kang Lashon segmental posterior instrumentation (V54.01). POSTOPERATIVE DIAGNOSES: 1. L2-3 and L3-4 spinal stenosis with right L2 and right L3 radiculopathies (724.02). 2. L2-3 degenerative disc disease (722.52). 3. Transition syndrome above a solid L3-S1 fusion. 4. Status post multiple lumbar laminectomies (722.83). 5. Retained Kang Lashon segmental posterior instrumentation (V54.01). OPERATION: 1. Repeat L4 laminectomy with right L4 nerve root decompression (CPT Code 41082). 2. Repeat L3 laminectomy, additional level, with right L3 nerve root decompression (CPT Code 34545). 3. L2 laminectomy, additional level, with right L2 nerve root decompression (CPT Code 07755-35). 4. L2 and 3 posterolateral fusion (CPT Code 19920-47). 5. L1-L2-L3-L4 Corey Dynesys dynamic stabilization (CPT Code 03694). 6. Removal of L3-S1 [place] Lashon posterior segmental instrumentation (CPT code 58089-02). 7. Harvesting of local bone graft from laminectomy and posterior elements and prior fusion mass (CPT Code 62062). SURGEON: Mayank Singh MD TECHNICAL COMMUNICATOR SURGEON: Dawson Martinez MD SECOND TECHNICAL COMMUNICATOR: Audi Jones MD ANESTHESIA: General endotracheal. ANESTHESIOLOGIST: Master Chisholm MD NEUROPHYSIOLOGIC MONITORING: Stable at baseline throughout. COMPLICATIONS: Two small incidental durotomies. Repaired with 4-0 Nurolon and reinforced with DuraGen and DuraSeal fibrin glue and layered closure. ESTIMATED BLOOD LOSS: 3700 mL. BLOOD REPLACEMENT: Mr. Castro received 1620 mL of packed red blood cells via intraoperative red cell salvage with the Cell Saver. CLINICAL RESUME: Mr. Castro is a 67-year-old white male who is 4 years out from repeat L3-S1 laminectomies and L3-S1 fusion. He had a 3-1/2 year pain-free interval and started having right groin pain and anterior thigh pain. This pain has been severe. He has also had recurrent back pain and he got some temporary relief right L2 and L3 selective nerve root blocks. But he is functionally disabled and wishes to proceed with surgical treatment. MRI shows spinal stenosis at L2-3 and L3-4. X-rays and MRI showed adjacent segment degeneration at L2-3 of a severe amount and slight amount of degeneration consistent with his age at L1-2. My plan is to remove his L3-S1 a Kang Lashon instrumentation decompressing him on the right at L2, L3 and L4 and perform dynamic stabilization at L1-2 to hopefully prevent transition syndrome and stenosis and/or degeneration at that level. Risks/benefits/alternatives discussed with the patient in detail, no guarantees given as to the results. PROCEDURE AND FINDINGS: Mr. Castro was brought to the operating theater and placed in supine position after successful general endotracheal anesthesia was obtained. He was carefully log rolled into the prone position and placed on the Peridot spinal surgery frame. Care was taken during the positioning not to abduct the shoulders more than 90 degrees. Foam pads were placed from the axilla to the wrist. Gel pads placed under the thighs. The knees were gently flexed. His hips were mostly extended. Pneumatic compression stockings were placed over the calves over thigh high T.E.D. hose. Neurophysiologic monitoring was done with somatosensory evoked potentials (SSEPs) and motor evoked potentials (MEPs). He received 2 grams of IV Ancef as prophylaxis to infection prior to the skin incision. This was repeated every 3 hours during the procedure. Throughout the procedure antibiotic irrigation was used. His previous longitudinal incision was used. It was enlarged superiorly by about an inch and half. The dissection was down to the posterior elements. The posterior bony-ligamentous tether from L2 cephalad was kept intact. The [place] Lashon rods were identified. The set screws were removed and the Crosslink was removed and the rods were removed and then the screws were removed. I then placed 7.2 mm diameter Corey Dynesys screws into the L4 screw holes. Then I exposed the fusion mass at L3, the transverse processes at L2 through extracapsular dissection lateral to the L1-2 facets and intracapsular dissection at the L2-3 facets. I then placed 7.2 mm diameter Corey Dynesys screws in L3. Then I used the Skyla approach to the pedicles to place 6.4 mm diameter Corey Dynesys screws into L2. Then 45 mm length screws were placed at L2, L3 and L4 and 6.4 mm diameter x 40 mm length screws were placed at L1. Care was taken to perform extracapsular dissection at L1 and lateral to the T12-L1 facet as well. I did not expose the entire L1 transverse process, but exposed only the medial portions to aid in placing the screws. AP and lateral fluoroscopic images were obtained to confirm proper placement of the pedicle screw. After probing, after tapping the approaches were felt with the feeler gauge and no breach of the cortex was noted. I then placed the Corey flexible dynamic hermila. I assessed that the working zone was within the screw areas and tightened it up at L4. Then we placed the spacers at between L3 and L4, then between L2 and L3 and then between L1 and L2. I tensioned them to appropriate tension, tightened the set screws cut and off the flexible hermila with about a centimeter excess to each end. Then I performed my laminectomy. I found the previous laminectomy on the right side and dissected the dura away from the bone with Candis curettes. I worked up to the L3 lamina and essentially removed almost all of the L2 lamina. I removed the L2 lamina to the left of midline as well. I encountered a couple of small dural leaks actually they were not full thickness leaks, only the dura mater was involved. The arachnoid mater was intact. I repaired these with 4-0 Nurolon in a running fashion and at the conclusion of the procedure I reinforced them. There was one just medial and proximal to the right L4 nerve root and one in the midline at about the L2-3 level. I did perform a lateral recess decompression. The L4, L3 roots were free and clear at the conclusion of the decompression. The L2 root was most significantly affected root. There was quite a bit of L2-3 facet joint degeneration and myxoid change. I removed this and I encountered a facet cyst at the inferior aspect of the right L2 root and in the axilla. I carefully teased it away from the root and removed it. I then used the special foraminotomy [place] to complete the foraminotomy. At the conclusion of the procedure, the right L2, L3 and L4 nerve roots were free and clear. There was no central stenosis of the dural sac and there was watertight closure of the dura. I placed 10 mL of DuraSeal over the exposed dura in alternating layers with the DuraGen patches. Then I closed the fascia back to the bony-ligamentous midline tether with #1 PDS in interrupted [id number] fashion followed by a running locking fashion. I did not place a deep drain, but placed a subcutaneous drain and closed the subcutaneous tissue with 2-0 PDS suture. I used 3-0 nylon in a tight interrupted vertical mattress. Sterile occlusive dressing was applied. He will be kept at bedrest for a day or two. He tolerated the procedure well. There were no complications. Mayank Singh M.D. cc: AL BASIC DEVELOPER documented in this encounter Plan of Treatment Not on filedocumented as of this encounter Procedures Comments Procedure Name Priority Date/Time Associated Diag nosis HEMOGLOBIN AND HEMATOCRIT Routine 07/26/2007 3:58 AM VISUAL BASIC DEVELOPER BASIC METABOLIC PANEL Routine 07/26/2007 3:58 AM VISUAL BASIC DEVELOPER HEMOGLOBIN AND HEMATOCRIT Routine 07/25/2007 3:57 AM VISUAL BASIC DEVELOPER BASIC METABOLIC PANEL Routine 07/25/2007 3:57 AM VISUAL BASIC DEVELOPER HEMOGLOBIN AND HEMATOCRIT Routine 07/24/2007 3:05 AM VISUAL BASIC DEVELOPER ELECTROLYTES Routine 07/24/2007 3:05 AM VISUAL BASIC DEVELOPER HEMOGLOBIN AND HEMATOCRIT Routine 07/23/2007 7:51 PM VISUAL BASIC DEVELOPER XR LUMBAR SPINE 2 OR 3 Routine 07/23/2007 VIEWS 5:35 PM VISUAL BASIC DEVELOPER HEMOGLOBIN AND HEMATOCRIT Routine 07/23/2007 3:05 PM VISUAL BASIC DEVELOPER SHOCK PROFILE, ARTERIAL Routine 07/23/2007 1:27 PM VISUAL BASIC DEVELOPER XR LUMBAR SPINE 2 OR 3 Routine 07/23/2007 VIEWS 12:15 PM VISUAL BASIC DEVELOPER ANTIBODY SCREEN Routine 07/23/2007 6:40 AM VISUAL BASIC DEVELOPER PHOSPHORUS Routine 07/23/2007 6:40 AM VISUAL BASIC DEVELOPER ABORH TYPE Routine 07/23/2007 6:40 AM VISUAL BASIC DEVELOPER documented in this encounter Results * Hemoglobin and Hematocrit (07/26/2007 3:58 AM VISUAL BASIC DEVELOPER) Only the most recent of 5 results within the time period is included. Hemoglobin 9.1 (L) 13.0 - 17.0 G/DL [facility] Hematocrit 27 (L) 40 - 50 % [facility] Specimen Performing Organization Address City/State/Zipcode Ph one Number [id number] [place], [place] [address] [facility] * Basic Metabolic Panel (07/26/2007 3:58 AM VISUAL BASIC DEVELOPER) Only the most recent of 2 results within the time period is included. Sodium 138 134 - 144 MEQ/L [facility] Potassium 3.6 3.5 - 5.1 MEQ/L [facility] Chloride 101 101 - 111 MEQ/L [facility] Carbon Dioxide 32 23 - 32 MEQ/L [facility] Anion Gap 5 3 - 15 [facility] Creatinine 0.8 (L) 0.9 - 1.3 MG/DL [facility] Blood Urea 12 8 - 26 MG/DL [facility] Nitrogen Glucose 113 (H) 65 - 100 MG/DL [facility] Calcium 7.8 (L) 8.8 - 10.5 MG/DL [facility] Specimen Performing Organization Address [facility] one Number [id number] [place], [place] [address] [facility] * Electrolytes (07/24/2007 3:05 AM VISUAL BASIC DEVELOPER) Sodium 138 134 - 144 MEQ/L [facility] Potassium 3.5 3.5 - 5.1 MEQ/L [facility] Chloride 110 101 - 111 MEQ/L [facility] Carbon Dioxide 24 23 - 32 MEQ/L [facility] Anion Gap 4 3 - 15 [facility] Specimen Performing Organization Address [facility] one Number [id number] [place], [place] [address] [facility] * XR Lumbar Spine 2 or 3 views (07/23/2007 5:35 PM VISUAL BASIC DEVELOPER) Only the most recent of 2 results within the time period is included. Specimen Narrative Performed At [facility] [facility] Name: LEXI CASTRO Date of : 0 1940 Sex: M Check-in #: [id number] Ilda#/Jacket#: [id number] Room/Bed/Location: [facility] 10 Medica l Record #: [id number] Procedure Requested: [id number] DX SPINE LUM BOSACRAL 2 OR 3 VIEWS Reason For Exam: POST OP Exam Ordered: 07/23/2007 1800 Exam Date/Time: 07/23/2007 1756 Ch martha-in Date/Time: 07/23/2007 1800 Physician, Attendin MAYANK SINGH "" Physician, Requestin MAYANK SINGH "" Physician, Referrin NO, REFERR JENNIFER ADDISON These images and this report have been reviewed and edited by the Staff Radiologist. Reason for Examination: POST OP DX SPINE LUMBOSACRAL 2 OR 3 VIEWS, Jul 23, 2007 5:56:00 PM INTERPRETATION: AP and lateral views of the lungs or sp ine demonstrates pedicle screws at L1, L2, L3, and L4. Spondylolisthesi s of L4 and L5 is seen. Generalized disc space loss is noted. L aminectomy. The posterior Girard rods have not been positione d. Impression: early intervention of the l umbosacral spine. Wet End Operator- FELICITY ANNE M.D., Radiologist Dictated By- FELICITY ANNE M.D., Radio logist Staff Physician- FELICITY ANNE M.D., R adiologist Authenticated By- FELICITY ANNE M.D., Radiologist Released Date Time- 07/24/07 0650 Procedure Note Interface, Rad Conversion - 08/01/2013 5:38 PM VISUAL BASIC DEVELOPER REPORT Name: LEXI CASTRO Date of : 1940 Sex: M Check-in #: [id number] Ilda#/Jacket#: [id number] Room/Bed/Location: [place] [address] Procedure Requested: [id number] DX SPINE LUMBOSACRAL 2 OR 3 VIEWS Reason For Exam: POST OP Exam Ordered: 07/23/2007 1800 Exam Date/Time: 07/23/2007 1756 Check-in Date/Time: 07/23/2007 1800 Physician, Attendin MAYANK SINGH "" Physician, Requestin MAYANK SINGH "" Physician, Referrin SARITA REFERRING These images and this report have been reviewed and edited by the Staff Radiologist. Reason for Examination: POST OP DX SPINE LUMBOSACRAL 2 OR 3 VIEWS, Jul 23, 2007 5:56:00 PM INTERPRETATION: AP and lateral views of the lungs or spine demonstrates pedicle screws at L1, L2, L3, and L4. Spondylolisthesis of L4 and L5 is seen. Generalized disc space loss is noted. Laminectomy. The posterior Girard rods have not been positioned. Impression: early intervention of the lumbosacral spine. Wet End Operator- FELICITY ANNE M.D., Radiologist Dictated By- FELICITY ANNE M.D., Radiologist Staff Physician- FELICITY ANNE M.D., Radiologist Authenticated By- FELICITY ANNE M.D., Radiologist Released Date Time- 07/24/07 0650 Performing Organization Address [facility] Ph one Number MCKESSON * Shock Profile (07/23/2007 1:27 PM VISUAL BASIC DEVELOPER) pH Arterial 7.39 7.38 - 7.44 UNITS SUNQUEST pCO2 Arterial 42 35 - 45 MMHG SUNQUEST PO2 Arterial 172 >71 MMHG SUNQUEST Base Excess 0.1 -3.0 - 3.0 MEQ/L SUNQUEST Bicarbonate 24.6 21.0 - 28.0 MEQ/L SUNQUEST Hemoglobin 10.1 (L) 13.0 - 17.0 G/DL SUNQUEST Whole Blood Carboxyhemoglob 1.3 0.0 - 1.9 %THB SUNQUEST in Oxyhemoglobin 97.0 95.0 - 100.0 %THB SUNQUEST Methemoglobin 1.0 0.0 - 1.5 %THB SUNQUEST O2 Content 14.2 (L) >17.0 ML/DL SUNQUEST Arterial Patient Temp 37.0 C SUNQUEST Celsius Sample Site ARTERIAL SUNQUEST Fraction of .36 % SUNQUEST Inspired Oxygen Sodium 138 134 - 144 MEQ/L SUNQUEST Potassium 3.3 (L) 3.5 - 5.1 MEQ/L SUNQUEST Chloride 109 (H) 98 - 107 MEQ/L SUNQUEST Ionized Calcium 4.4 (L) 4.5 - 5.3 MG/DL SUNQUEST Glucose 131 (H) 65 - 100 MG/DL SUNQUEST Lactate 2.0 (H) <0.8 MMOL/L SUNQUEST Arterial Specimen Performing Organization Address [facility]/Zipcode Ph one Number [facility]RL [address] [place], [place] [address] SUNQUEST * Phosphorus (07/23/2007 6:40 AM VISUAL BASIC DEVELOPER) Phosphorus 3.7 2.5 - 4.5 MG/DL SUNQUEST Specimen Performing Organization Address City/State/[facility] Ph one Number [facility] [address] [place], [place] [address] SUNQUEST * ABORH Type (07/23/2007 6:40 AM VISUAL BASIC DEVELOPER) ABORH Type A POS SUNQUEST Specimen Performing Organization Address City/[facility] Ph one Number [facility] [address] [place], [place] [address] SUNQUEST * Antibody Screen (07/23/2007 6:40 AM VISUAL BASIC DEVELOPER) Antibody Screen NEGATIVE SUNQUEST Specimen Performing Organization Address [facility] Ph one Number [facility] [address] [place], [place] [address] SUNQUEST documented in this encounter Visit Diagnoses Diagnosis Spinal stenosis, lumbar region, without neurogenic claudication documented in this encounter
--- OUTSIDE RECORDS SUMMARY | 2019-08-25 09:30 | XMS REPORT | Encounter Summary ---
Author Author [facility] Address Unknown Phone Unavailable Care Team Providers Care Meeting Specialist Name Role Phone PCP Unavailable Encounter Details Care Team Description Date Type Department Antonio Tavares MD [address] [place] [address] [phone] Rotator cuff (capsule) sprain and strain 07/30/2010 [facility] al Encounter [address] [place] [address] Social History Date Tobacco Use Types Packs/Day Years Used Never Assessed Sex Assigned at Date Recorded Not on file Industry Job Start Date Occupation Not on file Not on file Not on file Travel End Travel History Travel Start No recent travel history available. documented as of this encounter Miscellaneous Notes * Operative Note - Antonio Tavares MD - 07/31/2013 2:40 AM FISHING VESSEL DECKHAND REPORT Name: DOMITILA CASTRO Date of : 1940 Attending Physician: ANTONIO TAVARES DATE OF PROCEDURE: 07/30/2010 PREOPERATIVE DIAGNOSIS: Left shoulder rotator cuff tear with impingement. POSTOPERATIVE DIAGNOSIS: Left shoulder rotator cuff tear, left shoulder impingement from the anterior acromion and inferior clavicle with left shoulder long head of the biceps complete tear. PROCEDURES: 1. Left shoulder arthroscopic rotator cuff repair. 2. Left shoulder arthroscopic acromioplasty. 3. Left shoulder arthroscopic partial distal claviculectomy. 4. Left shoulder arthroscopic debridement of retained long head of the biceps tendon stump. SURGEON: Antonio Tavares MD GI TECHNICIAN: Sebastian Sarkar MD ANESTHESIA: General. DESCRIPTION OF PROCEDURE: With the patient in the left lateral decubitus position under LMA anesthesia and interscalene block, 2-portal video arthroscopy was carried out. Inspection of the glenohumeral joint revealed a biceps tendon tear with impinging stump. This was debrided with a 3.5 full radius resector. Arthroscope was introduced in the subacromial space. An impingement to the anterior acromion and inferior clavicle were noted. Utilizing cautery, the coracoacromial ligament was released off the anterior acromion. Using a 4.0 mm oval bur, an acromioplasty back to a type 1 acromion and a partial distal claviculectomy removing 5 mm medially and inferiorly from the clavicle was performed. Clearance of at least 1 cm was obtained between the bony arch and the rotator cuff. Rotator cuff was avulsed off the supraspinatus footprint. The footprint was debrided and a 5.5 [place] suture anchor was placed within the footprint. A horizontal mattress suture was placed into the rotator cuff and tied arthroscopically, securing the rotator cuff tendon to the footprint. Good coverage was obtained. Incisions were closed with 4-0 nylon. Compression dressing was applied with DonJoy ultra sling. Patient returned to recovery room in satisfactory condition. Antonio Tavares MD Dictated By: cc: ING VESSEL DECKHAND documented in this encounter Plan of Treatment Not on filedocumented as of this encounter Visit Diagnoses Diagnosis Rotator cuff (capsule) sprain documented in this encounter
--- OUTSIDE RECORDS SUMMARY | 2019-08-25 09:30 | XMS REPORT | Clinical Summary ---
Author Author [facility] Organization [facility] Address Unknown Phone Unavailable Care Team Providers Care County Adviser Name Role Phone PCP Unavailable Allergies Not on File Medications Not on file Active Problems Not on file Social History Date Tobacco Use Types Packs/Day Years Used Never Assessed Sex Assigned at Date Recorded Not on file Industry Job Start Date Occupation Not on file Not on file Not on file Travel End Travel History Travel Start No recent travel history available. Last Filed Vital Signs Not on file Plan of Treatment Not on file Results Not on filefrom Last 3 Months
--- OUTSIDE RECORDS SUMMARY | 2019-08-25 09:30 | XMS REPORT | Encounter Summary ---
Author Author [facility] Organization [facility] Address Unknown Phone Unavailable Care Team Providers Care Electronic Component Processor Name Role Phone Sayed, Brain JAIN Unavailable Terri Quinonez MD PCP Encounter Details Care Team Description Date Type Department 06/03/2019 [facility] [address] [place] [id number] Social History Date Tobacco Use Types Packs/Day [...] 40 mg by 0 tablet mouth daily. finasteride (PROSCAR) 5 Take 5 mg by 0 mg tablet mouth daily. HYDROcodone-acetaminophen Take 1 Tab by 0 (+) (LORTAB) 7.5-500 mg mouth every 4 tablet hours as needed. simvastatin (ZOCOR) 20 mg Take 20 mg by 0 tablet mouth at bedtime daily. tamsulosin (FLOMAX) 0.4 Take 0.4 mg 0 mg capsule by mouth daily. documented as of this encounter Plan of Treatment Not on filedocumented as of this encounter Procedures Comments Procedure Name Priority Date/Time Associated Diag nosis MRI C-SPINE EXTERNAL Routine 06/03/2019 IMAGING 12:00 AM [employer] documented in this encounter Results * MRI C-SPINE EXTERNAL IMAGING (06/03/2019 12:00 AM [employer]ER) Specimen Narrative Performed At This order has been auto finalized and does not contain a result. documented in this encounter Visit Diagnoses Not on filedocumented in this encounter
--- OUTSIDE RECORDS SUMMARY | 2019-08-25 09:30 | XMS REPORT | Clinical Summary ---
Author Author [facility] Organization [facility] Address Unknown Phone Unavailable Care Team Providers Care Stockroom Clerk Name Role Phone Sayed, Brain JAIN Unavailable Terri Quinonez MD PCP Source Comments Some departments are not documenting in the electronic medical record. If you d o not see the information that you expected, contact Release of Information in [facility] [employer] Information Management department at [phone] for further assistan ce in locating additional records.[facility] Allergies Comments Active Allergy Reactions Severity Noted Date Morphine NAUSEA AND 03/16/2014 VOMITING Medications End Date Status Medication Sig Dispensed Refills Start Date Active aspirin EC 81 mg tablet Take 81 mg by 0 mouth daily. Active atenolol (TENORMIN) 100 Take 100 mg 0 mg tablet by mouth. Active celecoxib (CELEBREX) 200 Take 200 mg 0 mg capsule by mouth daily. Active citalopram (CELEXA) 40 mg Take 40 mg by 0 tablet mouth daily. Active finasteride (PROSCAR) 5 Take 5 mg by 0 mg tablet mouth daily. Active simvastatin (ZOCOR) 20 mg Take 20 mg by 0 tablet mouth at bedtime daily. Active tamsulosin (FLOMAX) 0.4 Take 0.4 mg 0 mg capsule by mouth daily. Active amLODIPine (NORVASC) 5 mg Take 5 mg by 0 tablet mouth daily. Active HYDROcodone-acetaminophen Take 1 Tab by 0 (+) (LORTAB) 7.5-500 mg mouth every 4 tablet hours as needed. Active FOLIC ACID PO Take by 0 mouth. Active MULTIVITAMIN PO Take by 0 mouth. Active colestipoL (COLESTID) 1 Take 1 g by 0 gram tablet mouth twice daily. Status Hospital, Clinic, or Ordered Dose Route Frequency Start End Date Other Facility Date Administered Medication Active fentaNYL citrate PF 100 mcg IV EVERY 2 MIN PRN 0 07/08/19 (SUBLIMAZE) injection 100 19 mcgIndications: Spondylosis of cervical region without myelopathy or radiculopathy Active midazolam (VERSED) 2 mg IV EVERY 2 MIN PRN injection 2 19 mgIndications: Spondylosis of cervical region without myelopathy or radiculopathy Active Problems Problem Noted Date Cervical stenosis of spine 12/26/2017 Encounters Care Team Description Date Type Specialty Jeffry Fry MD 07/27/2019 Hospital Radiology Encounter Sebastian Wallace MD Burton, Douglas, MD Cervical stenosis of spine (Primary Dx) 07/27/2019 Office Visit Orthopedic Surgery Jeffry Fry MD Cervical stenosis of spine (Primary Dx) 07/09/2019 Orders Only Orthopedic Surgery 06/03/2019 Hospital Radiology Encounter from Last 3 Months Social History Date Tobacco Use Types Packs/Day [...] travel history available. Last Filed Vital Signs Reading Time Taken Comments Vital Sign 114/64 07/27/2019 1:50 PM [employer] Blood Pressure 55 07/27/2019 1:50 PM [employer] Pulse 36.4 C (97.6 F) 07/08/2018 10:20 AM [employer] Temperature 14 07/08/2018 8:24 AM [employer] Respiratory Rate 99% 07/27/2019 1:50 PM [employer] Oxygen Saturation - - Inhaled Oxygen Concentration 97.5 kg (215 lb) 07/27/2019 1:50 PM [employer] Weight 182.9 cm (6') 07/27/2019 1:50 PM [employer] Height 29.16 07/27/2019 1:50 PM [employer] Body Mass Index Plan of Treatment Health Maintenance Due Date Last Done Comments MEDICARE ANNUAL WELLNESS 1940 VISIT DTAP/TDAP VACCINES (1 - 1951 Tdap) PHYSICAL (COMPREHENSIVE) 1958 EXAM SHINGLES RECOMBINANT 1990 VACCINE (1 of 2) PNEUMONIA (PCV13/PPSV23) 2005 VACCINES (1 of 2 - PCV13) INFLUENZA VACCINE 12/31/2018 03/01/2016 Procedures Comments Procedure Name Priority Date/Time Associated Diag nosis C SPINE 3 VIEWS OR LESS Routine 07/27/2019 Cervic al stenosis of 1:27 PM [employer] spine MRI C-SPINE EXTERNAL Routine 06/03/2019 IMAGING 12:00 AM JEWELRY SALES from Last 3 Months Results * C SPINE 3 VIEWS OR LESS (07/27/2019 1:27 PM [employer]) Specimen Impressions Performed At Findings/Impression: [facility] [...] Interface, Radiant Results - 07/27/2019 1:54 PM [employer]EL[employer] SAL[employer] C SPINE 3 VIEWS OR LESS Clinical [...] on 07/27/2019 1:51 PM. Dictated by Linwood Correia M.D. on 07/27/2019 1:48 PM. Performing Organization Address City/State/Zipcode Ph one Number [facility] RESULTS * MRI C-SPINE EXTERNAL IMAGING (06/03/2019 12:00 AM [employer]EL[employer] SAL[employer]) Specimen Narrative Performed At This order has been auto finalized and does not contain a result. 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
--- OUTSIDE RECORDS SUMMARY | 2019-08-25 09:30 | XMS REPORT | Encounter Summary ---
Author Author [facility] Organization [facility] Address Unknown Phone Unavailable Care Team Providers Care Garageman Name Role Phone PCP Unavailable Encounter Details Care Team Description Date Type Department Mayank Singh MD [address] [place] [address] [phone] ACQ SPONDYLOLISTHESIS 07/25/2003 [facility] al - Encounter [id number] 07/29/2003 [place] [address] Social History Date Tobacco Use Types Packs/Day Years Used Never Assessed Sex Assigned at Date Recorded Not on file Industry Job Start Date Occupation Not on file Not on file Not on file Travel End Travel History Travel Start No recent travel history available. documented as of this encounter Discharge Summaries * ProviderPeg MD - 07/31/2013 5:16 PM BEHAVIORAL HEALTH ASSOCIATE Report Name: LEXI CASTRO MRN/Unit #: [id number] Attending Physician: MAYANK SINGH MD Date of : 1940 DATE OF ADMISSION: 07/25/2003 DATE OF DISCHARGE: 07/29/2003 ADMISSION DIAGNOSIS: 1. L3-4 and L4-5 degenerative spondylolisthesis and L3-4 and L4-5 stenosis. 2. Status post L3 to S1 laminectomies. DISCHARGE DIAGNOSES: 1. L3-4 and L4-5 degenerative spondylolisthesis and L3-4 and L4-5 stenosis. 2. Status post L3 to S1 laminectomies. PRINCIPAL PROCEDURES: L3-4, L4-5 laminectomies and L3 thru S1 posterior spinal fusion including instrumentation and right iliac crest bone graft. HOSPITAL COURSE: The patient was admitted to [facility] on July 25, 2003. He went to the operating room that morning for the aforementioned procedure with Dr. Singh. He tolerated that well and was subsequently transferred to the recovery room in stable condition. He was felt to be somewhat tenuous as far as his fluid status was concerned with some mild hypotension postoperatively. Therefore, it was felt that he would benefit from a stay in the recovery room overnight. On postoperative day #1 he was feeling much better. His fluid status was significantly improved and he was transferred to the floor. He physical therapy on postoperative day #1 doing well and feeling significantly better. On postoperative day #2 the patient complained of some abdominal pain and constipation. Otherwise was doing well. His hemoglobin was stable at 12.4. His dressings were changed and his drain was removed. He continued to meet with physical therapy making significant progress. His hemoglobin on postoperative day #2 was 9.7. The patient continued to be mobilized in physical therapy showing somewhat of a slowness to mobilize but on postoperative day #4 he was ready to be discharged to home. The physical therapy department was comfortable with him and felt that he was safe. He felt that he was ready to go as well. He is therefore discharged on July 29, 2003. INSTRUCTIONS: The patient is instructed to weightbearing as tolerated. He is instructed to avoid bending, lifting or twisting. He should keep his wound clean and dry. He should return or call if has any bloody drainage or any fevers or other concerning symptoms. He should return to see Dr. Mayank Singh in two weeks time for repeat evaluation including removal of the chaparrita. Mayank Singh M.D. Dictated By: Feliciano Schuler M.D. cc: [facility] HEALTH ASSOCIATE documented in this encounter H&P Notes * Provider, MD Peg - 07/31/2013 5:54 PM BEHAVIORAL HEALTH ASSOCIATE [facility]: [id number] Attending Physician: MAYANK SINGH MD Date of : 1940 DATE OF SURGERY: 07/25/2003 CHIEF COMPLAINT: Low back pain. HISTORY OF PRESENT ILLNESS: Mr. Castro is a 63-year-old white male who started having his back pain problems about 14 years ago. He developed a back pain and burning pain in his right hip and groin area. He developed these symptoms in 1989. His symptoms increased to the point that in 1991, he was treated by a neurosurgeon in [place], [place], with an L3-S1 laminectomy. This helped him for about 10 months. 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 Since that time, he has had increasing pain in his back and buttocks. The back pain exceeds leg pain (90 to 95% low back pain versus 5 to 10% radiating right leg pain and numbness). His pain in the right leg does involve paresthesias, mainly in the anterior thigh but somewhat going below the knee anteriorly into the benjamin. He had an epidural back in 1992 that helped him quite a bit. Since 1999, he has had an epidural about every 8 or 9 months with variable relief, the last 3 not working at all. He was diagnosed as having spinal stenosis at the L3-[address] Mohsen Lopez recommended a laminectomy at that level. The neurosurgeon that did his laminectomy back in 1991, Dr. Chava Blackwell, recommended in addition to a laminectomy, a fusion at L4-5 and an interbody fusion. He is admitted at this time for repeat laminectomy from L3 to L5 and an L3-S1 fusion. PAST MEDICAL HISTORY: Also remarkable for some hypertension. CURRENT MEDICATIONS: Atenolol, hydrochlorothiazide, Celexa, Celebrex, Proscar and Lipitor. ALLERGIES: NAPROSYN PAST SURGICAL HISTORY: Remarkable for a herniorrhaphy in 1972 and shoulder surgery in 1996, as well as the laminectomy L3-S1 in 1991. REVIEW OF SYSTEMS: He denies fevers, chills, sweats or constitutional signs or symptoms. He has back pain. FAMILY HISTORY: Noncontributory. PHYSICAL EXAMINATION: General inspection revealed a well-developed, well-nourished middle-aged white male in no acute distress. RESPIRATORY: Normal respiratory excursions. CARDIOVASCULAR: Regular rate and rhythm. ABDOMEN: Soft, nontender. EXTREMITIES: No clubbing, cyanosis or edema. SPINE/NEUROLOGIC: Showed him to be able to heel-walk and toe-walk. With heel-walking, he did experience some paresthesias into the right leg. He had an absent right knee-jerk reflex, a diminished left ankle-jerk reflex, normal left knee-jerk and right ankle-jerk reflexes. Straight leg raising signs were negative. He had slightly tight hamstrings bilaterally. His lumbar incision was well-healed without evidence of infection or deformity. He could forward bend to bring his fingertips to his ankles and had no extension jog upon rising from a forward-flexed position. X-RAY AND IMAGING STUDIES: Hips look fine on an AP pelvis x-ray. X-rays of the lumbar spine show a Grade I degenerative spondylolisthesis at L4-5 in flexion and extension. In flexion, he gets a definite Grade I spondylolisthesis at L3-4, which partially reduces an extension. There may be pars defects in L3 on the AP x-ray but I cannot be sure. There is a fairly wide laminectomy from L4 to the sacrum. MRI STUDY DATED 01/25/2003. An open MRI at [place], [place] shows evidence of laminectomy from L3 to the sacrum. The preponderance of the L3 lamina is still in place. There is Grade I spondylolisthesis noted at L4-5 and a possible Grade I spondylolisthesis at L3-4. Moderate spinal stenosis is seen on the MRI at L3-4 and the L4-5 and L5-S1s do not appear stenotic. There is no stenosis at L2-3. LUMBAR MYELOGRAM dated 04/04/2003 at [facility] in [place], [place], shows mild spinal stenosis at L3-4, shows the spondylolisthesis at L4-5, and a CAT scan after the myelogram shows definite moderate spinal stenosis at L3-4 without stenosis at L405, nor L5-S1. The MRI shows that the most degenerative disks are at the L3-4 and L4-5 levels. There are degenerative changes seen at L5-S1 but no spondylolisthesis, and the L2-3 disk looks fairly normal. The L1-2 and T12-L1 disks show mild degeneration. IMPRESSION: 1. Degenerative spondylolisthesis L3-4 and L4-5. 2. Spinal stenosis L3-4. 3. Status post L4-S1 laminectomies/post-laminectomy syndrome. 4. Degenerative lumbar disk disease, multiple levels. RECOMMENDATIONS/PLAN: Mr. Castro is brought in for surgical treatment. My plan is to decompress the L3-4 level and extend the laminectomy down into the previously-operated L4-5 level. I plan to do an L3-S1 instrumented fusion, using autogenous right iliac crest bone graft and Igo Deidra pedicle screw instrumentation at L3, L4, L5 and S1. He has been cleared medically by Dr. Catherine Boland. He has pre-donated 2 units of autologous blood. We plan to have a cell-saver present intraoperative. We plan intraoperative EMGs by [facility]. We will get a [facility] consultation with Dr. Boland. Risks, benefits, alternatives were discussed with the patient in detail. No guarantee is given as to the results of treatment. Despite these risks, including the risk of failure to relieve pain significantly, he wishes to pursue surgical treatment. Mayank Singh M.D. Dictated By: Cc: VI[facility]AL HEALTH ASSOCIATE documented in this encounter Consult Notes * Provider, MD Peg - 07/31/2013 5:54 PM BEHAVIORAL HEALTH ASSOCIATE Report Name: LEXI CASTRO MRN/Unit #: [id number] Attending Physician: MAYANK SINGH MD Consulting Physician: Catherine Boland Date of : 1940 DATE OF CONSULTATION: 07/24/03 The date of patient's surgery is 07/25/2003. HISTORY OF PRESENT ILLNESS: Patient is a 63-year-old patient seen in preoperative evaluation at the request of Dr. Singh. He is undergoing L3-L4-L5 laminectomies with a fusion at L3 through S-1. Patient had previous back surgery in 1991 performed in [place], [place]. He did have improvement but his pain recurred in approximately 1999 and has gotten progressively worse. He currently experiences low back pain with radiation into his right hip region. He does have numbness in his right lower extremity. His back or leg pain are not worse with coughing or straining. He has received several epidural injections, the last given in the fall of 2002 with minimal improvement. He has had no prior anesthetic complications, history of thrombophlebitis. He has donated 2 units of blood for the planned procedure. He has no history of coronary artery disease or diabetes mellitus. He did have a stress test in 2000 in [place], which was normal. PAST MEDICAL HISTORY: He has a history of hypertension, degenerative arthritis, and hyperlipidemia. PAST SURGICAL HISTORY: He had the lumbar laminectomy in 1991. He had a right shoulder operation in 1997 and he had a cervical fusion in the year 1999 in [place], [place]. CURRENT MEDICATIONS: Atenolol 25 mg daily, hydrochlorothiazide 25 mg daily, Celexa 20 mg daily, Celebrex 200 mg daily, Proscar 5 mg daily, Lipitor 10 mg daily, aspirin 81 mg daily which he has held for the last week. ALLERGIES: HE HAS ALLERGY TO NAPROSYN WITH HIVES. SOCIAL HISTORY: He is retired from the [employer] business. He has not smoked since 1989, after 30 years of 2 packs a day, no alcohol or illicit drug use. FAMILY HISTORY: Father at 67 of a cerebral hemorrhage. Mother at 76 of congestive heart failure and diabetes. His maternal grandmother had gastric cancer. A brother is 55 with hypertension. A sister is 61 with hypertension. He has another brother who is 53 apparently healthy. REVIEW OF SYSTEMS: GENERAL: His weight has increased voluntarily 18 pounds in the last year. No fevers or chills, heavy sweats. HEENT: Negative, eyes-negative. RESPIRATORY: No history of pneumonia, asthma, or bronchitis, no recent cough and he denies pleurisy or hemoptysis. CARDIOVASCULAR: No anginal symptoms, PND, orthopnea, palpitations, tachycardia, or pedal edema. GASTROINTESTINAL: Occasional gastroesophageal reflux symptoms, no abdominal pain, nausea or vomiting, constipation, diarrhea, hematochezia or melena. GENITOURINARY: No dysuria or hematuria. He has nocturia times 1 to several times at night. GENITOURINARY: He had a PSA checked in 03/2003 which was normal. MUSCULOSKELETAL: He has neck pain with radiation to his left shoulder. NEUROLOGIC: Numbness in his right lower extremity as above, no hemiparesis, amaurosis, or aphagia. PHYSICAL EXAM: VITAL SIGNS: Weight 201 pounds, blood pressure 102/70, on repeat 100/62, pulse is 70 and regular, respirations 15 and unlabored. HEENT: Unremarkable. Eye- Pupils are equally round and reactive to light, mild arterial narrowing on funduscopic examination. NECK: Carotids 2+ without bruits, no thyromegaly or adenopathy. CHEST: Clear. CARDIOVASCULAR: Regular rhythm without murmur, rub or extra sound. ABDOMEN: No tenderness, no organomegaly or masses, no inguinal hernias. RECTAL EXAM: Prostate is 2+ without nodules, heme negative stool. EXTREMITIES: Pedal pulses are 2+, no edema, cyanosis or clubbing. NEUROLOGIC: Straight leg raise is negative. Deep tendon reflexes are 2+ in the upper extremities and in the left lower extremity, absent in the right lower extremity. Motor is 5/5 bilaterally. RADIOLOGY: EKG performed preoperative assessment rhythm- sinus rhythm, Repolarization. Chest x-ray performed here in the office-heart size is normal, no vascular congestion or infiltrates. LABORATORY DATA: Obtained at the preoperative assessment center. Sedimentation rate is 16. Renal panel- sodium 131, potassium 4.4, chloride 94, C02 31, BUN 19, creatinine 0.9, glucose is 83. IMPRESSION: 1. Lumbar spinal stenosis. Plan-laminectomy with fusion. 2. Hypertension, well controlled. 3. Hyperlipidemia on treatment. RECOMMENDATION: I think that she can proceed with the planned operative procedure. I advised him to hold his diuretic preoperatively because of his relative hypotension and high bone natremia. Thanks for this consultation. I will be happy to follow the patient with you postoperatively. Catherine Boland M.D. Dictated By: cc: VIORAL HEALTH ASSOCIATE documented in this encounter Miscellaneous Notes * Operative Note - Provider, MD Peg - 07/31/2013 5:53 PM BEHAVIORAL HEALTH ASSOCIATE Report Name: LXEI CASTRO MRN/Unit #: [id number] Attending Physician: MAYANK SINGH MD Date of : 1940 DATE OF OPERATION: 07/25/2003 PREOPERATIVE DIAGNOSES: 1. L3-4 and L4-5 degenerative spondylolisthesis (738.4) 2. L3-4 and L4-5 spinal stenosis (724.02) 3. Post-laminectomy syndrome (722.83) 4. Degenerative lumbar disc disease (722.52) POSTOPERATIVE DIAGNOSES: 1. L3-4 and L4-5 degenerative spondylolisthesis (738.4) 2. L3-4 and L4-5 spinal stenosis (724.02) 3. Post-laminectomy syndrome (722.83) 4. Degenerative lumbar disc disease (722.52) OPERATION PERFORMED: 1. L3 decompression laminectomy (CPT code 88848) 2. L4 laminectomy, additional level (CPT code 00157) 3. L5 laminectomy, additional level (CPT code 24209-02) 4. L3-4 fusion (CPT code 53019) 5. L4-5 fusion, additional level (CPT code 54600) 6. L5-S1 fusion, additional level (CPT code 24103-35) 7. L3-L4-L5-S1 Kang Deidra posterior segmental instrumentation (CPT code 42845) 8. Harvesting of right posterior autogenous iliac crest bone graft, morselized (CPT code 02427) SURGEON: Mayank Singh M.D. ASSISTANTSURGEON: Amor Peters M.D. ANESTHESIA: General endotracheal anesthesia ANESTHESIOLOGIST: Audi Moore M.D. ESTIMATED BLOOD LOSS: 2,500 cc BLOOD REPLACEMENT: The patient received two units of predonated autologous blood and 950 cc of packed red blood cells and intraoperative red cell harvest with the Cell saver INTRAOPERATIVE MONITORING: SSEP monitoring was normal throughout and intraoperative EMGs during pedicle and after pedicle screw insertion all exceeded the 11 mA threshold. COMPLICATIONS: None CLINICAL RESUME: Mr. Castro is a 63-year-old white male who underwent an L3-S1 laminectomy in 1991 by a neurosurgeon. It helped him for about 10 months. He returned to work but his symptoms returned and he eventually retired in 1999 due to medical disability. He complains of 90-95% back pain and 5-10% leg pain. His pain is mainly in the right leg. It radiates below his knee. He cannot be up on his feet more than 20-30 minutes. He has had nonoperative treatments including epidurals about every eight or nine months. He quit smoking in 1989. MRI, myelogram and CAT scan show him to have spinal stenosis at L3-4 and compression of the right L5 nerve root in the lateral recess at the L4-5 level. He has spondylolisthesis at L4-5 and also at L3-4. His L2-3 disc is fairly normal. The L5-S1 disc is degenerative. My plan is to perform a laminectomy of the stenotic areas and fusion from L3 to the sacrum. Risks/benefits/alternatives discussed with the patient in detail. No guarantees given as to the results of treatment. PROCEDURE AND FINDINGS: Mr. Castro was brought to the operating theater and placed in the supine position after successful general endotracheal anesthesia was obtained. He was carefully log-rolled into the prone position on the [facility] spinal surgery frame. The hips were mostly extended. The knees were gently flexed. Pneumatic compression stockings were placed on the calves, gel pads under the thighs. The arms were not abducted greater than 90 degrees. Foam pads were placed under the forearms to pad the ulnar nerves and median nerves at the tunnels of forearms and wrists. A warming blanket was placed on the chest and torso. The perineum was isolated with Steri drapes and a sterile meticulous prepping and draping of the back was done in the usual fashion. The previous midline longitudinal incision was marked and carried superiorly and inferiorly. Hemostasis was obtained with electrocautery. Localization lateral x-ray was taken showing the to be on the L2 spinous process. With positive identification of the proper operative levels, extra capsular dissection lateral to the L2-3 facets and intracapsular dissection at L3-4, L4-5 and L5-S1 facets to expose the L3, L4, L5 transverse processes in the ala of the sacrum bilaterally. The lateral gutters were packed with Gelfoam and sponge. Then iliac crest bone graft was harvested. Through a separate longitudinal incision of the right PSIS, the outer ileum was identified and subperiosteally exposed. A pie-shaped wedge of outer cortical bone was removed and made into match sticks. Then cancellous bone was removed from between the tables. Once the bone was removed, it was reconstructed with 30 cc of cancellous Allograft. Some dry Gelfoam was placed over the exposed bone graft donor site and then the gluteal muscles were reapproximated to the lumbodorsal fascia in a running locking fashion with #1-Vicryl. 2-0 undyed Vicryl was used for the subcu and chaparrita for the skin. Then laminectomy was done. The old laminectomy scar was thinned out. The sacrum was exposed, what remained of the L3 lamina was exposed. I then entered the epidural space at the area of the previous laminectomy and inferior aspect of L3. Eight-five to 90% of the remaining aspect of L3 was removed. Then, after I decompressed the midline, I worked on the right side dissecting scar tissue away from the right side of the laminectomy defect. I decompressed the right L5 nerve root as it was compressed in the lateral recess and root. The L4 root was decompressed in the foramen. Then I packed some cottonoid sponges into the epidural space. Fluoroscopy was brought in and I placed pedicle screws at L3, L4, L4 and the S1 pedicles using the Skyla approach to the pedicles in AP and lateral fluoroscopic guidance. I placed 6.5 mm diameter x 45 mm length screws into L3, L4 and L5. I used a 6.5 mm diameter x 35 mm length in the left S1 screw and 6.5 mm diameter by 40 mm length in the right S1 screw. Each approach to the pedicle was checked. After probing, after tapping, after screw placement, EMGs were performed. All EMGs exceeded 11 mA. After probing and tapping the approaches were checked with a feeler gauge. No cortical breakouts were noted. Once the screws were put into place, two 110 mm rods were placed after contouring them to a physiologic meal lordosis. Then they were cross-linked in the middle with a single cross link. All screws were tightened with tork wrench. Then the transverse processes were decorticated with high speed diana and the cancellous bone was placed in the lateral gutters. Ten cc of graft on putty was placed posterior to the cancellous bone and then the cortical match sticks were placed posterior to the Titus. This was augmented with probably 10-15 cc of cancellous allograft. Then, a layer of anatomic closure was done with #1-Vicryl for the lumbodorsal fascia, 2-0 undyed Vicryl for the subcu and chaparrita for the skin. A medium Hemovac drain was placed in the deep wound and exited through a separate stab incision. A sterile occlusive dressing was applied. The patient was taken to the recovery room and will stay there overnight. Mayank Singh M.D. Dictated By: cc: VIORAL HEALTH ASSOCIATE documented in this encounter Plan of Treatment Not on filedocumented as of this encounter Procedures Comments Procedure Name Priority Date/Time Associated Diag nosis HEMOGLOBIN Routine 07/28/2003 6:44 AM BEHAVIORAL HEALTH ASSOCIATE HEMOGLOBIN Routine 07/27/2003 5:20 AM BEHAVIORAL HEALTH ASSOCIATE XR SPINE LUMBAR Routine 07/26/2003 7:55 AM BEHAVIORAL HEALTH ASSOCIATE HEMOGLOBIN Routine 07/26/2003 3:45 AM BEHAVIORAL HEALTH ASSOCIATE ELECTROLYTES Routine 07/26/2003 3:45 AM BEHAVIORAL HEALTH ASSOCIATE COAGULATION SCREEN Routine 07/25/2003 8:00 PM BEHAVIORAL HEALTH ASSOCIATE HEMOGLOBIN AND HEMATOCRIT Routine 07/25/2003 8:00 PM BEHAVIORAL HEALTH ASSOCIATE HEMOGLOBIN Routine 07/25/2003 3:40 PM BEHAVIORAL HEALTH ASSOCIATE XR SPINE LUMBAR Routine 07/25/2003 11:41 AM BEHAVIORAL HEALTH ASSOCIATE XR SPINE SINGLE EACH Routine 07/25/2003 ADDITIONAL VIEW IN OR 9:15 AM BEHAVIORAL HEALTH ASSOCIATE XR SPINE SINGLE 1ST VIEW Routine 07/25/2003 IN OR 9:02 AM BEHAVIORAL HEALTH ASSOCIATE ANTIBODY SCREEN Routine 07/25/2003 6:45 AM BEHAVIORAL HEALTH ASSOCIATE COMPLETE BLOOD COUNT Routine 07/25/2003 6:45 AM BEHAVIORAL HEALTH ASSOCIATE ABORH TYPE Routine 07/25/2003 6:45 AM BEHAVIORAL HEALTH ASSOCIATE documented in this encounter Results * Hemoglobin (07/28/2003 6:44 AM BEHAVIORAL HEALTH ASSOCIATE) Only the most recent of 4 results within the time period is included. Hemoglobin 9.9 (L) 13.0 - 17.0 G/DL [employer] Specimen Blood Performing Organization Address City/State/Zipcode Ph one Number [facility] [phone] [place], [place] [address] [place] * XR Spine Lumbar (07/26/2003 7:55 AM BEHAVIORAL HEALTH ASSOCIATE) Only the most recent of 2 results within the time period is included. Specimen Narrative Performed At [facility] Name: LEXI CASTRO Date of : [birth year] Age: 63Y Room-Bed/Location: [address] [place] [address] Check-In #: [id number] Attending Physician: MAYANK Lipscomb Admitting Diagnosis: Procedure: DX SPINE LUMBAR; 13582 Reason for Exam: [facility] Medical Recor d #: [id number] Requested By: MAYANK SINGH Exam Ord ered: 07/26/2003 Ilda #/Jacket #: [id number] Procedure: PORTABLE AP AND LATERAL LUMB OSACRAL SPINE Exam Date/Time: 07/26/2003 08:10 Reason for Exam: Postoperative metal lic fixation. Since the intraoperative films of yeste rdnona, the pedicle screws have been connected posteriorly with connecting r ods and a single transverse bar. Multiple metallic sutures have been og radha in the midline. Metallic sutures over the right posterior superi or iliac spine area are again noted as is a stimulator wire. Bony defect is noted in the right posterior superior iliac spine area; this is pres umably the donor site. Bone chips are seen along the transverse processes in the lower lumbar spine. There is a moderate amount of air in th e stomach. Scattered gas is seen in a normal size small bowel. No signifi cant colonic gas is identified. Grade I L4-L5 spondylolisthesis is agai n noted. There are minimal degenerative changes in the lower thora cic and lumbar spine. Laminectomies of L3, L4, and L5 have been performed. IMPRESSION: Postoperative changes as noted. Electronically Authenticated by Proxy: Garret Farley M.D. 07/26/2003 14:32:20 GRad Edwards M.D. T: 004 12:57:01 cc: 1 Procedure Note Interface, Rad Conversion - 08/03/2013 1:17 AM BEHAVIORAL HEALTH ASSOCIATE Report Name: LEXI CASTRO Date of : [birth year] Age: 63Y Room-Bed/Location: [address] [place] [address] Check-In #: [id number] Attending Physician: MAYANK SINGH MD Admitting Diagnosis: Procedure: DX SPINE LUMBAR; 57515 Reason for Exam: L[facility]I Requested By: MAYANK SINGH Exam Ordered: 07/26/2003 Ilda #/Jacket #: [id number] Procedure: PORTABLE AP AND LATERAL LUMBOSACRAL SPINE Exam Date/Time: 07/26/2003 08:10 Reason for Exam: Postoperative metallic fixation. Since the intraoperative films of yesterday, the pedicle screws have been connected posteriorly with connecting rods and a single transverse bar. Multiple metallic sutures have been placed in the midline. Metallic sutures over the right posterior superior iliac spine area are again noted as is a stimulator wire. Bony defect is noted in the right posterior superior iliac spine area; this is presumably the donor site. Bone chips are seen along the transverse processes in the lower lumbar spine. There is a moderate amount of air in the stomach. Scattered gas is seen in a normal size small bowel. No significant colonic gas is identified. Grade I L4-L5 spondylolisthesis is again noted. There are minimal degenerative changes in the lower thoracic and lumbar spine. Laminectomies of L3, L4, and L5 have been performed. IMPRESSION: Postoperative changes as noted. Electronically Authenticated by Proxy: Garret Farley M.D. 07/26/2003 14:32:20 GRad Edwards M.D. cc: 1 Performing Organization Address [facility] one Number BERRY * Electrolytes (07/26/2003 3:45 AM BEHAVIORAL HEALTH ASSOCIATE) Sodium 136 134 - 144 MEQ/L SUNQUEST Potassium 4.1 3.6 - 5.0 MEQ/L SUNQUEST Chloride 107 98 - 107 MEQ/L SUNQUEST Carbon Dioxide 26 23 - 32 MEQ/L SUNQUEST Anion Gap 3 3 - 15 SUNQUEST Specimen Blood Performing Organization Address [facility] one Number [facility] [address] [phone] SUNQUEST * Coagulation Screen (07/25/2003 8:00 PM BEHAVIORAL HEALTH ASSOCIATE) APTT 25 21 - 34 SEC SUNQUEST Protime 16.5 (H) 12.1 - 14.5 SEC SUNQUEST INR 1.3 SUNQUEST Platelet Count 141 140 - 400 TH/UL SUNQUEST Fibrinogen 224 146 - 390 MG/DL SUNQUEST Assay Specimen Blood Performing Organization Address [facility] one Number [facility] [address] [phone] SUNQUEST * Hemoglobin and Hematocrit (07/25/2003 8:00 PM BEHAVIORAL HEALTH ASSOCIATE) Hemoglobin 13.7 13.0 - 17.0 G/DL SUNQUEST Hematocrit 41 40 - 50 % SUNQUEST Specimen Blood Performing Organization Address [facility] one Number RL [address] [phone] SUNQUEST * XR Spine single each additional view in OR (07/25/2003 9:15 AM BEHAVIORAL HEALTH ASSOCIATE) Specimen Narrative Performed At Report BERRY Name: LEXI CASTRO Date of : [birth year] Age: 63Y Room-Bed/Location: -/ Check-In #: [id number] Attending Physician: MAYANK Lipscomb Admitting Diagnosis: Procedure: DX SPINE LAMI ADDL VIEW; 606 Reason for Exam: L3-4-5 LAMI/L3-S1 FU [place] Requested By: MAYANK SINGH Exam Ord ered: 07/25/2003 Ilda #/Jacket #: [id number] Procedure: LUMBAR SPINE, LATERAL Exam Date/Time: 07/25/2003 09:30 Reason for Exam: L3 to L5 laminectom y and fusion. A metallic surgical instrument is proje cted behind the spine at the level of the inferior margin of L2. The L3, L4 and L5 spinous processes are absent. L4 is subluxed approximately 6 mm anteriorly on L5. Electronically Authenticated by Proxy: Garret Farley M.D. 07/26/2003 07:36:48 Mati Jasmine MD Dictated By: T: 14:35:48 cc: 1 Procedure Note Interface, Rad Conversion - 08/03/2013 1:17 AM BEHAVIORAL HEALTH ASSOCIATE Report Name: LEXI CASTRO Date of : [birth year] Age: 63Y Room-Bed/Location: -/ Check-In #: [id number] Attending Physician: MAYANK SINGH MD Admitting Diagnosis: Procedure: DX SPINE LAMI ADDL VIEW; 71541 Reason for Exam: L3-4-5 LAMI/L3-S1 FUSION Requested By: MAYANK SINGH Exam Ordered: 07/25/2003 Lida #/Jacket #: [id number] Procedure: LUMBAR SPINE, LATERAL Exam Date/Time: 07/25/2003 09:30 Reason for Exam: L3 to L5 laminectomy and fusion. A metallic surgical instrument is projected behind the spine at the level of the inferior margin of L2. The L3, L4 and L5 spinous processes are absent. L4 is subluxed approximately 6 mm anteriorly on L5. Electronically Authenticated by Proxy: Garret Farley M.D. 07/26/2003 07:36:48 Mati Jasmine MD Dictated By: cc: 1 Performing Organization Address City/State/Zipcode Ph one Number BERRY * XR Spine single 1st view in OR (07/25/2003 9:02 AM BEHAVIORAL HEALTH ASSOCIATE) Specimen Narrative Performed At Report BERRY Name: LEXI CASTRO Date of : [birth year] Age: 63Y Room-Bed/Location: [address] [place] [address] Check-In #: [id number] Attending Physician: MAYANK Lipscomb Admitting Diagnosis: Procedure: DX SPINE LAMI 1ST VIEW; 10 603 Reason for Exam: L3-4-5 LAMI/L3-S1 FU [place] Requested By: MAYANK SINGH Exam Ord ered: 07/25/2003 Ilda #/Jacket #: [id number] Procedure: SPINE LAMINECTOMY, FIRST VIE W Exam Date/Time: 07/25/2003 09:17 Reason for Exam: L3-4 laminectomy, L 3-S1 fusion; backache FINDINGS: A single lateral view of the lumbar spine was obtained in the operating room for localization purpose s. The radiopaque marker is seen overlying the spinous process at what a ppears to be the L3 level. Correlation with preprocedure films is recommended. Electronically Authenticated by Proxy: Garret Farley M.D. 07/26/2003 14:44:28 Anjel Marin M.D. Dictated By: T: 08:56:42 cc: 1 Procedure Note Interface, Rad Conversion - 08/03/2013 1:17 AM BEHAVIORAL HEALTH ASSOCIATE Report Name: LEXI CASTRO Date of : [birth year] Age: 63Y Room-Bed/Location: [address] [place] [address] Check-In #: [id number] Attending Physician: MAYANK SINGH MD Admitting Diagnosis: Procedure: DX SPINE LAMI 1ST VIEW; 43643 Reason for Exam: L3-4-5 LAMI/L3-S1 FUSION Requested By: MAYANK SINGH Exam Ordered: 07/25/2003 Ilda #/Jacket #: [id number] Procedure: SPINE LAMINECTOMY, FIRST VIEW Exam Date/Time: 07/25/2003 09:17 Reason for Exam: L3-4 laminectomy, L3-S1 fusion; backache FINDINGS: A single lateral view of the lumbar spine was obtained in the operating room for localization purposes. The radiopaque marker is seen overlying the spinous process at what appears to be the L3 level. Correlation with preprocedure films is recommended. Electronically Authenticated by Proxy: Garret Farley M.D. 07/26/2003 14:44:28 Anjel Marin M.D. Dictated By: cc: 1 Performing Organization Address [facility] one Number BERRY * Complete Blood Count (07/25/2003 6:45 AM BEHAVIORAL HEALTH ASSOCIATE) WBC 6.9 4.0 - 11.0 TH/UL SUNQUEST RBC 4.52 4.31 - 5.84 MIL/UL SUNQUEST Hemoglobin 14.2 13.0 - 17.0 G/DL SUNQUEST Hematocrit 42 40 - 50 % SUNQUEST MCV 93 80 - 99 FL SUNQUEST MCH 31 27 - 34 PG SUNQUEST MCHC 34 32 - 36 % SUNQUEST RDW 12.7 <14.5 % SUNQUEST Platelet Count 218 140 - 400 TH/UL SUNQUEST Specimen Blood Performing Organization Address [facility] one Number [facility] [address] [phone] SUNQUEST * ABORH Type (07/25/2003 6:45 AM BEHAVIORAL HEALTH ASSOCIATE) Specimen Blood Narrative Performed At Report SUNQUEST A POS Performing Organization Address [facility] one Number [facility] [address] [phone] SUNQUEST * Antibody Screen (07/25/2003 6:45 AM BEHAVIORAL HEALTH ASSOCIATE) Antibody Screen NEGATIVE SUNQUEST Specimen Blood Performing Organization Address [facility] one Number [facility] [address] [phone] SUNQUEST documented in this encounter Visit Diagnoses Diagnosis Acquired spondylolisthesis documented in this encounter
--- OUTSIDE RECORDS SUMMARY | 2019-08-25 09:30 | XMS REPORT | Encounter Summary ---
Author Author [facility] Organization [facility] Address Unknown Phone Unavailable Care Team Providers Care Inside Barrel Lathe Operator Name Role Phone Sayed, Brain JAIN Unavailable Terri Quinonez MD PCP Encounter Details Care Team Description Date Type Department Jeffry Fry MD [address] [place] [address] Cervical stenosis of spine (Primary Dx) 07/09/2019 Orders Only [facility] [address] [address] Social History Date Tobacco Use [...] impairment: No documented as of this encounter Plan of Treatment Not on filedocumented as of this encounter Results * C SPINE 3 VIEWS OR LESS (07/27/2019 1:27 PM WORK FORCE ADVISOR) Specimen Impressions Performed At Findings/Impression: [facility] [...] on 2019 1:51 PM. Dictated by Linwood Coreria M.D. on 07/27/2019 1:48 PM. Narrative Performed At C SPINE 3 VIEWS OR LESS [facility] RESULTS Clinical Indication: Complaints of neck pain. Comparison: Scoliosis survey December 26 018 Procedure Note Interface, Radiant Results - 07/27/2019 1:54 PM WORK FORCE ADVISOR C SPINE 3 VIEWS OR LESS Clinical [...]
--- OUTSIDE RECORDS SUMMARY | 2019-08-25 09:31 | XMS REPORT ---
Author Author [facility] Organization [facility] Address [address] [place] [address] Care Team Providers Care Athletic Equipment Custodian Name Role Phone BRUNO PIERRE Unavailable APOLLO HOBBS Unavailable BRUNO PIERRE Unavailable CACHORRO CABRAL Unavailable BRUNO PIERRE DO Unavailable Unavailable Terri [facility] PP Unavailable [facility]ri [facility] CCM Unavailable ANU FRANK PCP YUE BELLE CLAYTON Denice Unavailable Unavailable YUE , CLAYTON F Unavailable Unavailable CARLOS BELLE, ABDIAS Unavailable Unavailable CARLOS BELLE, ABDIAS Unavailable Unavailable MARINA ADAMS MD Unavailable Unavailable BRUNO PIERRE DO Unavailable Unavailable JACKELIN JAIN, TAMMIE Liriano Unavailable Unavailable KINGS BELLE, DARCIE Guevara Unavailable Unavailable LYNDA AGGARWAL APRN Unavailable Unavailable YUE , CLAYOTN F Unavailable Unavailable YUE , CLAYTON F Unavailable Unavailable SURAJ STAHL Unavailable Unavailable KWAME WELCH Unavailable Unavailable SALAS GOMESP Unavailable Unavailable CHARITY JAIN FACC, NELIDA FACP CCDS Unavailable UnavailANU Umanzor DO Unavailable Unavailable Unavailable Unavailable ANABELLE MCNEILL MD Unavailable Unavailable Allergies The data below is from unstructured sources Substance Reaction Codes Entered Date Inactivated Date Status SULFA(SULFONAMIDE AN TIBIOTICS) nausea, Unknown 019 No Inactive Date Active Medications Medication Ingredient Drug Dose Dates Status Sig Sig Care Class(es) (Normalized) (Original) Provid er colestipol Colestipol Bile Acid 2 g no take 2 colestipol 1 no hydrochlori Sequestrant informat tablets by gram tablet nam e de 1000 mg ion mouth once RxNorm: (no oral tablet daily at [id number] 2 phone) (6 bedtime Tablet(s) PO sources.) QHS No Start Date Active donepezil donepezil no 10 mg 12-09-19 no take 1 donepez il 10 Terri hydrochlori information 19 - informat tablet by mg tablet Cranst de 10 mg 12-02-19 ion mouth once RxNorm: on oral tablet 20 daily 481207 1 Other (7 Tablet(s) PO Phone: sources.) daily 1(620) 12/08/2018 232-55 12/02/2019 81 Active no Fish Oils no no take 1 Fish Oil 720 no information information informat capsule by mg-1,200 mg nam e (6 ion mouth twice capsule (no sources.) daily RxNorm: 1 phone) Capsule(s) PO BID No Start Date Active fluticasone fluticasone Corticoster 1 11-26-19 Complete no Flonase Terri propionate oid spray( 19 - d information Allergy Cran st 0.05 s) 01-20-20 Relief 50 on mg/actuat 19 mcg/actuatio Other metered n nasal Phone: dose nasal spray,suspen 1(620) spray (6 annalise RxNorm: 55 sources.) [id number] 1 81 [place] NASAL BID 11/25/2018 01/19/2019 Inactive 1 spray(s) 10-29-2018 Completed no Flonase Terri - inform Allergy Devi 11-11-2018 ation Relief Other 50 Phone: mcg/actu [phone] ation 2-5581 nasal spray,adair spension RxNorm: 1331050 1 [place] NASAL BID 10/30/19 19 11/12/19 19 Inactive provide OTC if insuranc e will not pay for it no Multiple no no take 1 Multiple no information Vitamin information informat tablet by Vitamin name (6 tablet ion mouth once tablet (no sources.) daily RxNorm: 1 phone) Tablet(s) PO daily No Start Date Active predniSONE predniSONE no 40 mg 10-30-19 Complete take 2 pre dnisone Terri 20 mg oral information 19 - d tablets by 20 mg tabl et Cranst tablet (3 11-03-19 mouth once RxNorm: on sources.) 19 daily 710853 2 Other Tablet(s) PO Phone: daily 1(620) 10/29/2018 232-55 11/02/2018 81 Inactive Problems Active Problems Problem Normalized Date of Normalized Normalized Provider Fac ility Classification Problem(s) Problem Problem Problem Sta tus Onset/Resoluti Duration on Other Aftercare Chronic Active CLAYTON Not Availabl e aftercare (22 following DO YUE (95172) sources.) joint replacement surgery Anxiety Anxiety state, Chronic Active SALAS MIREYA [facility] Via disorders (9 unspecified [facility] sources.) Translations: Hospital - [ ANXIETY [place] DISORDER, (02394) UNSPECIFIED] Peripheral and Atherosclerosi Chronic Active ALI CHARITY , [facility] Via visceral s of aorta [facility] Hospital - s (1 source.) [place] ([address]118) Spondylosis; Backache, 08-11-2018 - Episodic Active SALAS FONT GABRIELE Not Available intervertebral unspecified (68287) disc Translations: disorders; [ Cervicalgia, other back Cervicalgia, problems (20 Cervicalgia, sources.) Cervicalgia, DORSALGIA, UNSPECIFIED, SPINAL STENOSIS, LUMBAR REG, W/OUT NEURO, SPINAL STENOSIS-THORA CIC] Hyperplasia of Benign Chronic Active ABDIASAnju GONZALEZ [facility] Via prostate (2 prostatic DO [facility] sources.) hyperplasia Hospital - without lower [place] urinary tract (32203) symptoms Mycoses (1 Candidal Episodic Active ABDIAS GONZALEZ , [facility] Via source.) stomatitis DO [facility] (71535) Coronary Chronic Chronic Active BRUNO Not Available atherosclerosi ischemic heart DO GABBY (00401) s and other disease, heart disease unspecified (20 sources.) Translations: [ CORON ATHEROSCLER NOS TYPE VESSEL, NATIV, ATHSCL HEART DISEASE OF [place] CORONARY , CORONARY ATHEROSCLEROSI S OF [place] CORON] Other nervous Chronic pain 08-11-2018 - Chronic Active Terri [place] Terri [place] system syndrome 76565 VAISHALI JAIN disorders (19 Translations: (76767) (Work sources.) [ Chronic pain Phone: syndrome, Chronic pain ) syndrome, Chronic pain syndrome, Chronic pain syndrome] Other Constipation, Episodic Active CLAYTON [facility] Via gastrointestin unspecified DO Kandi TURNER al disorders Hospital - (7 sources.) [place] (40086) Other lower Cough 10-29-2018 - Episodic Active Terri Cranst on [employer] respiratory Translations: 77708 VAISHALI JAIN disease (9 [ Cough, (46457) (Work sources.) Cough, Cough] Phone: ) Other Diarrhea, Episodic Active BRUNO Not Availabl e gastrointestin unspecified DO GABBY (84511) al disorders (8 sources.) Diverticulosis Diverticulosis Chronic Active MAYANK QUEZADA , Not Available and of colon (52718) diverticulitis (without (2 sources.) mention of hemorrhage) Translations: [ DVTRCLI OF LG INT W/O PERFORATION OR ABS] Other Effusion, Episodic Active TAMMIE BENÍTEZ [facility] Via non-traumatic right shoulder , [facility] - disorders (3 [place] sources.) (53081) Other Encounter for Episodic Active SURAJ [facility] Via aftercare (16 other SYLVIA RODRÍGUEZ [facility] sources.) orthopedic Hospital - aftercare [place] (62974) Abdominal pain Epigastric Episodic Active ABDIAS GONZALEZ [facility] Via (1 source.) pain DO [facility] (12830) Esophageal Esophageal 07-30-2019 - Chronic Active SALAS FONTA INE [facility] Via disorders (7 reflux [facility] sources.) Translations: Hospital - [ [place] GASTRO-ESOPHAG (18482) EAL REFLUX DISEASE WITHOUT, Gastro-esophag eal reflux disease with esophagitis] Essential Essential 07-14-2018 - Chronic Active SALAS FONTAIN E Not Available hypertension (primary) (41562) (22 sources.) hypertension Translations: [ Essential (primary) hypertension, Essential (primary) hypertension, Essential (primary) hypertension, HYPERTENSION NOS, ESSENTIAL (PRIMARY) HYPERTENSION, Essential (primary) hypertension] Mood disorders Major 07-14-2018 - Chronic Active SALAS MARKIE TAINE Not Available (20 sources.) depressive (63866) disorder, recurrent, moderate Translations: [ Major depressive disorder, recurrent, moderate, Major depressive disorder, recurrent, moderate, Major depressive disorder, recurrent, moderate, Major depressive disorder, recurrent, moderate, DEPRESSIVE DISORDER NEC] Disorders of Mixed 07-14-2018 - Chronic Active KWAME CM MA Not Available lipid hyperlipidemia (77911) metabolism (25 Translations: sources.) [ Mixed hyperlipidemia , Mixed hyperlipidemia , Mixed hyperlipidemia , HYPERLIPIDEMIA NEC/NOS, HYPERLIPIDEMIA , UNSPECIFIED, PURE HYPERCHOLESTER OLEMIA, UNSPECIFIED] Other upper Nasal 10-29-2018 - Episodic Active Terri Cranst on Terri Quinonez respiratory congestion 80784 , VAISHALI disease (9 Translations: (93680) (Work sources.) [ Nasal Phone: congestion, Nasal ) congestion, Nasal congestion] Residual Obstructive Chronic Active ABDIAS GONZALEZ , [facility] V ia codes; sleep apnea DO Kandi unclassified (adult) Hospital - (21 sources.) (pediatric) [place] (93574) Residual Obstructive Chronic Active SALAS MIREYA [facility] V ia codes; sleep apnea Kandi unclassified (adult)(pediat Hospital - (5 sources.) layton) [place] () Occlusion or Occlusion and Chronic Active NELIDA NASH , [facility] Via stenosis of stenosis of MD KIRK Chau precerebral unspecified Hospital - arteries (4 carotid artery [place] sources.) Translations: (08543) [ CAROTID ARTERY OCCLUSION W O CEREBRAL IN] Other nervous Other chronic Chronic Active SALAS MIREYA [facility] Via system pain Kandi disorders (3 Hospital - sources.) [place] (20278) Other Other long Episodic Active MARINA ADAMS Not Av ailable aftercare (4 term (current) , (35464) sources.) drug therapy Other lower Other Episodic Active BRUNO Not Availab le respiratory respiratory DO GABBY (55591) disease (6 abnormalities sources.) Other Pain in left Episodic Active SURAJ [facility] Via non-traumatic wrist SYLVIA RODRÍGUEZ joint Hospital - disorders (14 [place] sources.) (05562) Other Pain in right Episodic Active TAMMIE BENÍTEZ Not Available non-traumatic shoulder , (44290) joint disorders (2 sources.) Other Pain in right Episodic Active SURAJ [facility] Via non-traumatic wrist SYLVIA RODRÍGUEZ joint Translations: Hospital - disorders (16 [ PAIN IN LEFT [place] sources.) WRIST] (71685) Residual Periodic limb Chronic Active SALAS MIREYA [facility] Via codes; movement Kandi unclassified disorder Hospital - (2 sources.) [place] (97219) Screening and Personal Episodic Active NELIDA NASH , [facility] Vi a history of history of MD KIRK Chau mental health nicotine Hospital - and substance dependence [place] abuse codes Translations: (93195) (13 sources.) [ HISTORY OF TOBACCO USE] Other Personal Episodic Active CLAYTON [facility] Via gastrointestin history of DO Afshin TURNERi al disorders other diseases Hospital - (7 sources.) of the [place] digestive (88820) system Other Presence of Chronic Active CLAYTON 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 , 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 (20 sources.) knee joint Spondylosis; Spondylosis Chronic Active ANU FRANK , Not Available intervertebral without DO (07614) disc myelopathy or disorders; radiculopathy, other back cervical problems (16 region sources.) Sprains and Strain of Episodic Active TAMMIE BENÍTEZ [facility] V ia strains (10 muscle(s) and , MD Chau sources.) tendon(s) of Hospital - the rotator [place] cuff of right (31453) shoulder, initial encounter Translations: [ UNSPECIFIED SPRAIN OF RIGHT SHOULDER DARION, STRAIN OF MUSC/FASC/TEND LONG HD BICEP, , SPRAIN SHOULDER/ARM NOS] Abdominal Unilateral Episodic Active MARINA ADAMS [facility] Vi a hernia (6 inguinal , MD Chau sources.) hernia, Hospital - without [place] obstruction or (69926) gangrene, not specified as recurrent Translations: [ UNILATERAL INGUINAL HERNIA, W/O OBST OR ] Other Unspecified Chronic Active KWAME YURI [facility] Vi a circulatory disorders of Kandi disease (2 arteries and Hospital - sources.) arterioles [place] (73353) Hypertension Unspecified Chronic Active NELIDA NASH , [facility] Via with hypertensive [facility] Kandi complications heart disease Hospital - and secondary without heart [place] hypertension failure (50890) (1 source.) Deficiency and Vitamin B12 12-07-2018 - Episodic Active Terri Quinonez other anemia deficiency 53134 , [facility] (6 sources.) anemia due to (34750) (Work intrinsic Phone: factor deficiency ) Translations: [ Vitamin B12 deficiency anemia due to intrinsic factor deficiency, Vitamin B12 deficiency anemia due to intrinsic factor deficiency, Vitamin B12 deficiency anemia due to intrinsic factor deficiency] Past or Other Problems Problem Normalized Date of Normalized Normalized Provider Fac [facility] Classification Problem(s) Problem Problem Problem Sta tus Onset/Resoluti Duration on Other and Benign Episodic Completed MAYANK QUEZADA , Not Avai lable 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 (1 source.) Other Disorders of Episodic Completed TAMMIE BENÍTEZ [facility] Via connective bursae and MD Chau tissue disease tendons in Hospital - (1 source.) shoulder [place] region, (55524) unspecified Other lower Dyspnea, Episodic Completed LYNDA [facility] Via respiratory unspecified ALESSIA Kandi disease (2 Hospital - sources.) [place] (02566) Other Effusion of Episodic Completed TAMMIE BENÍTEZ [facility] V ia non-traumatic joint, MD Chau joint shoulder Hospital - disorders (1 region [place] source.) (34024) Immunizations Encounter for Episodic Completed CHE WELCH Via and screening screening for DO Chau for infectious other Hospital - disease (5 bacterial [place] sources.) diseases (83495) Translations: [ CARRIER OR SUSPECTED CARRIER OF METHICIL, ENCOUNTER FOR IMMUNIZATION] Other Functional 07-14-2018 - Episodic Completed Terri Vera on Terri Quinonez gastrointestin diarrhea 26817 , LLC al disorders Translations: (21396) (Work (18 sources.) [ Functional Phone: diarrhea, Functional ) diarrhea, Functional diarrhea] Other Hypotension, Episodic Completed ABDIAS GONZALEZ [facility] Via circulatory unspecified DO Kandi disease (1 Hospital - source.) [place] (72873) Other Long-term Episodic Completed CHE GREEN Via aftercare (1 (current) use MD KIRK Chau source.) of other Hospital - medications [place] (80681) Malaise and Other malaise Episodic Completed LYNDA BOLTON Vi a fatigue (7 Translations: ALESSIA Kandi sources.) [ OTHER Hospital - FATIGUE, [place] WEAKNESS, (35975) OTHER FATIGUE] Other Pain in joint, Episodic Completed TAMMIE BENÍTEZ [facility] Via non-traumatic shoulder , MD Chau joint region Hospital - disorders (1 [place] source.) (52206) Other Pain in limb Episodic Completed TAMMIE BOLTON Via connective , MD Chau tissue disease Hospital - (1 source.) [place] (08454) Other and Personal Episodic Completed MAYANK QUEZADA , Not Avai lable unspecified history of (28243) benign colonic polyps neoplasm (1 source.) Disorders of Pure no information no information ABDIAS Gaona [facility] Via lipid hypercholester DO Kandi metabolism (1 olemia, Hospital - source.) unspecified [place] (56254) Other lower Shortness of Episodic Completed NELIDA NASH [facility] Via respiratory breath MD KIRK Chau disease (1 Hospital - source.) [place] (29755) Other Special Episodic Completed MAYANK QUEZADA , Not Avai lable screening for screening for (29976) suspected malignant conditions neoplasms of (not mental colon disorders or infectious disease) (1 source.) External cause Unspecified Episodic Completed TAMMIE ALSTONKRISTINA [facility] Via codes: accident , MD Chau Natural/enviro [facility] (1 [place] source.) (77045) Other Unspecified Episodic Completed TAMMIE JACKELIN [facility] V ia connective rotator cuff , MD Chau tissue disease tear or Hospital - (2 sources.) rupture of [place] right (65702) shoulder, not specified as traumatic Procedures Procedure Normalized Procedure Procedure Result Performer Facility Date 05-21-2016 REPLACE OF L KNEE JT no information no name (no bonifacio ne) H Via Kandi WITH SYNTH SUB, [facility] (60318) REPLACE OF L KNEE JT no information no name (no phone) Not A vailable (76671) WITH SYNTH [facility] Immunizations Normalized Immunization Date Notes Care Provider Facili ty Immunization influenza, seasonal, 03-02-2018 no information Terri Quinonez 24217 Terri Quinonez MD, [facility] (49153) (Work Phone: ) zoster vaccine, live 12-30-2018 no information Terri Quinonez 00118 Terri Quinonez MD[facility] (54413) (Work Phone: ) Results Test Name Value Interpretation Reference Range Date Time Fa cility (Normalized) (Normalized) (Medline Reference) tsh on 2018-12-08 TSH Qn 1.83 uIU/mL (N) 12-08-2018 Terri Quinonez 02:00-0400 VAISHALI JAIN (29346) (Work Phone: ) lipid on 2018-12-08 C/HDL 2.8 Ratio (N) 12-08-2018 Terri Quinonez 02:00-0400 MD [facility] (93286) (Work Phone: ) Cholesterol 139 mg/dL (N) 180 - 200 mg/dL 12-08-2018 Urszula Quinonez [Mass/Vol] 02:00-0400 VAISHALI JAIN (45760) (Work Phone: ) Cholesterol in 50.0 mg/dL (N) 12-08-2018 Terri hurst HDL [Mass/Vol] 02:00-0400 VAISHALI JAIN (78942) (Work Phone: ) Cholesterol in 68 mg/dL (N) 0 - 100 mg/dL 12-08-2018 Pineda Quinonez LDL [Mass/Vol] 02:00 VAISHALI JAIN (16637) (Work Phone: ) Triglyceride 107 mg/dL (N) 0 - 150 mg/dL 12-08-2018 Terri Quinonez [Mass/Vol] 02:000 VAISHALI JAIN (77954) (Work Phone: ) comp metabolic on 2018-12-08 Albumin 4.2 g/dL (N) 3.4 - 5.4 g/dL 12-08-2018 Terri devine [Mass/Vol] 02:00 VAISHALI JAIN (48648) (Work Phone: ) Albumin/Globulin 1.8 {ratio} (N) 1 - 2.5 {ratio} 9 Terri Quinonez [Mass ratio] 02:00-399 VAISHALI JAIN (78542) (Work Phone: ) ALK PHOS 36 U/L (N) 12-08-2018 Terri Quinonez 02:00-0 VAISHALI JAIN (03214) (Work Phone: ) ALT [Catalytic 20 U/L (N) 4 - 40 U/L 12-08-2018 Terri Quinonez activity/Vol] 02:00 VAISHALI JAIN (65311) (Work Phone: ) Anion gap 10 mmol/L (N) 3 - 11 mmol/L 12-08-2018 Terri Hale anston [Moles/Vol] 02:00-0 VAISHALI JAIN (34575) (Work Phone: ) AST [Catalytic 23 U/L (N) 10 - 34 U/L 12-08-2018 Terri Quinonez activity/Vol] 02:00-0 VAISHALI JAIN (21257) (Work Phone: ) B/C Ratio 22.9 Ratio (N) 12-08-2018 Terri Quinonez 02:00-0400 VAISHALI JAIN (59823) (Work Phone: ) BILI T 0.5 mg/dL (N) 12-08-2018 Terri Quinonez 02:00 VAISHALI JAIN (85888) (Work Phone: ) Calcium 9.4 mg/dL (N) 8.5 - 10.2 mg/dL 12-08-2018 Terri Quinonez [Mass/Vol] 02:00 VAISHALI JAIN (30019) (Work Phone: ) Chloride 101 mmol/L (N) 95 - 106 mmol/L 12-08-2018 Terri Quinonez [Moles/Vol] 02:00 VAISHALI JAIN (92229) (Work Phone: ) CO2 [Moles/Vol] 32.0 mmol/L (N) 23 - 29 mmol/L 12-08-2018 Terri Quinonez 02:00 VAISHALI JAIN (49157) (Work Phone: ) Creatinine 1.1 mg/dL (N) 12-08-2018 Terri Quinonez [Mass/Vol] 02:00 VAISHALI JAIN (09581) (Work Phone: ) GFR/1.73 sq M 69 (N) 90 - 120 12-08-2018 Terri ivan predicted among mL/min/{1.73_m2} mL/min/{1.73_m2} 02:00 VAISHALI JAIN (04206) non-blacks MDRD (Work Phone: (S/P/Bld) [Vol ) rate/Area] Globulin (S) 2.4 g/dL (N) 2 - 3.5 g/dL 12-08-2018 Terri Quinonez [Mass/Vol] 02:00 VAISHALI JAIN (38260) (Work Phone: ) Glucose 114 mg/dL (N) 60 - 125 mg/dL 12-08-2018 Terri devine [Mass/Vol] 02:00 VAISHALI JAIN (67013) (Work Phone: ) Osmolality 281 mOsmo (N) 12-08-2018 Terri Quinonez [Osmolality] 02:00-399 VAISHALI JAIN (56070) (Work Phone: ) Potassium 4.7 mmol/L (N) 3.7 - 5.2 mmol/L 12-08-2018 Urszula Quinonez [Moles/Vol] 02:00-399 VAISHALI JAIN (72823) (Work Phone: ) Sodium 138 mmol/L (N) 135 - 145 mmol/L 12-08-2018 Urszula Quinonez [Moles/Vol] 02:00-399 VAISHALI JAIN (30680) (Work Phone: ) TPRO 6.6 g/dL (N) 12-08-2018 Terri Quinonez 02:00-399 VAISHALI JAIN (71338) (Work Phone: ) Urea nitrogen 25 mg/dL (N) 7 - 20 mg/dL 12-08-2018 Terri Quinonez [Mass/Vol] 02:00-399 VAISHALI JAIN (01409) (Work Phone: ) cbc with differential on 2018-12-08 Baso ABS# 0.0 K/ul (N) 12-08-2018 Terri Quinonez 02:00-399 VAISHALI JAIN (99686) (Work Phone: ) Basophils/100 0.3 % (N) 0.5 - 1 % 12-08-2018 Terri ivan WBC (Bld) 02:00-399 VAISHALI JAIN (81098) (Work Phone: ) Eos ABS# 0.5 K/ul (N) 12-08-2018 Terri Quinonez 02:00-399 VAISHALI JAIN (59179) (Work Phone: ) Eosinophils/100 6.4 % (N) 1 - 4 % 12-08-2018 Terri Quinonez WBC (Bld) 02:00 VAISHALI JAIN (97229) (Work Phone: ) Erythrocyte 13.1 % (N) 11.6 - 14.6 % 12-08-2018 Terri Quinonez distribution 02:00-399 VAISHALI JAIN (98449) width (RBC) (Work Phone: [Ratio] ) Hematocrit (Bld) 40.2 % (N) 36.1 - 50.3 % 12-08-2018 Davonte slade Devi [Volume 02: VAISHALI JAIN (79274) fraction] (Work Phone: ) Hemoglobin (Bld) 13.8 g/dL (N) 12.1 - 17.2 g/dL 12-08-2018 Terri Quinonez [Mass/Vol] 02:00 VAISHALI JAIN (01518) (Work Phone: ) Lymphocytes 1.67 10*3/uL (N) 0.9 - 2.9 12-08-2018 Terri devine (Bld) [#/Vol] 10*3/uL 02:00 VAISHALI JAIN (59129 ) (Work Phone: ) Lymphocytes/100 23.6 % (N) 20 - 40 % 12-08-2018 Terri Quinonez WBC (Bld) 02:00 VAISHALI JAIN (34518) (Work Phone: ) MCH (RBC) 31.1 pg (N) 27 - 31 pg 12-08-2018 Terri hurst [Entitic mass] 02:00 VAISHALI JAIN (15823) (Work Phone: ) MCHC 34.3 pg (N) 12-08-2018 Terri Quinonez 02:00-399 VAISHALI JAIN (80700) (Work Phone: ) MCV (RBC) 90.5 fL (N) 80 - 100 fL 12-08-2018 Terri shi [Entitic vol] 02:00 VAISHALI JAIN (96424) (Work Phone: ) [place] ABS# 0.8 K/ul (N) 12-08-2018 Terri Quinonez 02:00 VAISHALI JAIN (12739) (Work Phone: ) Monocytes/100 11.7 % (N) 2 - 8 % 12-08-2018 Terri ivan WBC (Bld) 02:00 VAISHALI JAIN (27243) (Work Phone: ) Neut ABS# 4.10 K/ul (N) 12-08-2018 Terri Quinonez 02:00 VAISHALI JAIN (07624) (Work Phone: ) Neutrophils/100 58.0 % (N) 40 - 60 % 12-08-2018 Terri Quinonez WBC (Bld) 02:00 VAISHALI JAIN (91934) (Work Phone: ) Platelets (Bld) 159 10*3/uL (N) 150 - 450 12-08-2018 Urszula Quinonez [#/Vol] 10*3/uL 02:00 VAISHALI JAIN (95693) (Work Phone: ) RBC (Bld) 4.44 10*6/uL (N) 4.2 - 6.1 12-08-2018 Terri guzmán [#/Vol] 10*6/uL 02:00 VAISHALI JAIN (74619) (Work Phone: ) WBC (Bld) 7.07 10*3/uL (N) 3.5 - 10.5 12-08-2018 Terri ivan [#/Vol] 10*3/uL 02:00 VAISHALI JAIN (80556) (Work Phone: ) b12 on 2018-12-08 Cobalamin 429.00 pg/mL (N) 200 - 900 pg/mL 12-08-2018 Pineda Quinonez (Vitamin B12) 02:00 VAISHALI JAIN (96055) [Mass/Vol] (Work Phone: ) Vital Signs Vital Sign Value Interpretation Reference Date Time Care [facility] ider Facility (Normalized) (Normalized) Range BMI (Body Mass 29.1 kg/m2 (no code) 15 - 25 kg/m2 12-07-2018 Max Quinonez Index) 02:00-81251 [facility] (14750) (Work Phone: ) BMI (Body Mass 28.9 kg/m2 (no code) 15 - 25 kg/m2 10-29-2018 Ho kayli [place]in[place] Index) 02:00-0400 95338 [facility] (70640) (Work Phone: ) BMI (Body Mass 28.3 kg/m2 (no code) 15 - 25 kg/m2 08-11-2018 Ho kayli Murray Devi Index) 02:00-0400 42692 [facility] (45257) (Work Phone: ) BMI (Body Mass 28.5 kg/m2 (no code) 15 - 25 kg/m2 07-14-2018 Ho kayli Murray Devi Index) 13:00-0500 13104 [facility] (85064) (Work Phone: ) Body weight 95 kg (N) kg 12-07-2018 Terri Quinonez Terri Devi 02:00-0400 38106 [facility] (07853) (Work Phone: ) Body weight 94 kg (N) kg 10-29-2018 Terridarryl Quinonez Terri Quinonez 02:00-0400 37477 [facility] (07486) (Work Phone: ) Body weight 92 kg (N) kg 08-11-2018 Terri Quinonez 02:00-0400 10709 [facility] (66929) (Work Phone: ) Body weight 93 kg (N) kg 07-14-2018 Terri Lakotayuridia Quinonez 13:00-0500 15832 [facility] (04684) (Work Phone: ) Blood Pressure 118/ (N,N) Systolic: 90 - 12-07-2018 Terri Quinonez 64mm[Hg] 120 mm[Hg] 02:00-04028189 [facility] (81385) (Work Diastolic: 60 Phone: - 80 mm[Hg] ) Blood Pressure 120/ (N,N) Systolic: 90 - 10-29-2018 Terri Murray Devi 56mm[Hg] 120 mm[Hg] 02:00762 [facility] (47931) (Work Diastolic: 60 Phone: - 80 mm[Hg] ) Blood Pressure 136/ (N,N) Systolic: 90 - 08-11-2018 Terri Quinonez 68mm[Hg] 120 mm[Hg] 02:0004062610 [facility] (61189) (Work Diastolic: 60 Phone: - 80 mm[Hg] ) Blood Pressure 140/ (N,N) Systolic: - 07-14-2018 Terri Quinonez 80mm[Hg] 120 mm[Hg] 13:[id number] [facility] (63219) (Work Diastolic: 60 Phone: - 80 mm[Hg] ) Height 180 cm (N) cm 12-07-2018 Terri Arauz yany Devi 02:00-04019912 [facility] (94600) (Work Phone: ) Height 180 cm (N) cm 10-29-2018 Terridarryl MorinLakota Davonte yany Devi 02:00-04028849 [facility] (97967) (Work Phone: ) Height 180 cm (N) cm 08-11-2018 Terri Devi Davonte yany Quinonez 02:00-04016947Vielka JAIN LLC (78950) (Work Phone: ) Height 180 cm (N) cm 07-14-2018 Terri Quinonez Davonte yany Quinonez 13:00-0500 Trell JAIN [facility] (19555) (Work Phone: ) Pulse (Heart 58 /min (N) 60 - 100 /min 12-07-2018 Terri ivan Terri Devi Rate) 02:00-04071533Vielka JAIN LLC (62064) (Work Phone: ) Pulse (Heart 56 /min (N) 60 - 100 /min 10-29-2018 Terri Quinonez Rate) 02:00-0400 96163 VAISHALI JAIN (19699) (Work Phone: ) Pulse (Heart 55 /min (N) 60 - 100 /min 08-11-2018 Terri Quinonez Rate) 02:00-0400 [id number] Leone MD ([id number]) (Work Phone: ) Pulse (Heart 56 /min (N) 60 - 100 /min 07-14-2018 Terri Quinonez Rate) 13:00-0500 [id number] Vora MD ([id number]) (Work Phone: ) Pulse Oximetry 96 % (N) 95 - 100 % 12-07-2018 Terri Quinonez 02:00-0400 VAISHALI Cai MD ([id number]) (Work Phone: ) Pulse Oximetry 98 % (N) 95 - 100 % 10-29-2018 Terri Gonzales chikinatali Seamandarryl Quinonez 02:00-0400 [id number] Voar MD ([id number]) (Work Phone: ) Pulse Oximetry 99 % (N) 95 - 100 % 08-11-2018 Terri monetnatali Morinston 02:00-0400 [id number] Vora MD ([id number]) (Work Phone: ) Pulse Oximetry 98 % (N) 95 - 100 % 07-14-2018 Terri Quinonez 13:00-0500 VAISHALI Cai MD ([id number]) (Work Phone: ) Weight 93 kg (N) kg 07-14-2018 Terri Quinonez Davonte yany Quinonez 13:00-0500 VAISHALI Cai MD ([id number]) (Work Phone: ) Interventions No Information Plan of Treatment Normalized Care Care Detail Care Activity Date Care Provider F acility Activity B12 Goal: B12 Notes: no information Terri Quinonez 76 [phone] VAISHALI Porter MD ([id number]) (Work Phone: ) Cbc With Goal: Cbc With no information Terri Quinonez 11253 Terri Quinonez MD, Differential Differential Notes: [facility] () (Wor k Phone: ) Comp Metabolic Goal: Comp Metabolic no information Terri Vera on Terri Quinonez MD, Notes: [facility] () (Work Phone: ) Development of care no information 07-14-2018 - Terri Quinonez [id number] Terri Quinonez MD, plan 07-14-2018 - [facility] ([id number]) (Work 07-14-2018 Phone: ) Development of care Back and Neck pain - 08-11-2018 - Terri guzmán [id number] Terri Quinonez MD, plan he has been seen at 08-11-2018 - [facility] ([id number] ) (Work Ortho 4 states, but 08-11-2018 Phone: wants a second ) opinion - He has requested a referral to Dr. Villagran at [place] for neck/back pain - xray and MRI and CT scan at [facility]. - Once these have been obtained - we will initiate the referral.Hypertensio n - well controlled - continue with current medications, continue with no added salt diet. Pt has been encouraged to exercise daily.The pt has been advised to call the office if there are any acute concerns about change in blood pressure readings at home.chronic pain - refill of hydrocodone given to pt. Development of care Sinusitis - Pt has 10-29-2018 - [place] [id number] Terri Quinonez MD, plan acute congestion- 10-29-2018 - [facility] ([id number]) (Work pain in face, 10-29-2018 Phone: maxillary region, Pt ) informed to use decongestant, RX given to patient, sinus rinses also recommended. Call if symptoms do not show improvement.Rx for flonase and steroids Development of care Back and Neck pain - 12-07-2018 - Terri guzmán [id number] Terri Quinonez MD, plan he has been seen at 12-07-2018 - [facility] ([id number] ) (Work Ortho 4 states, but 12-07-2018 Phone: wants a second ) opinion - He has requested a referral to Dr. Villagran at [place] for neck/back pain - xray and MRI and CT scan at [address] - Once these have been obtained - we will initiate the referral.Hypertensio n - well controlled - continue with current medications, continue with no added salt diet. Pt has been encouraged to exercise daily.The pt has been advised to call the office if there are any acute concerns about change in blood pressure readings at home.chronic pain - refill of hydrocodone given to pt.Vitamin B12 deficiency - check labs Lipid Goal: Lipid Notes: no information Terri Quinonez [phone] Terri Quinonez MD, [facility] ([id number]) (Work Phone: ) Total Psa Goal: Total Psa no information Terri Quinonez [id number] Terri Quinonez MD, Notes: [facility] ([id number]) (Work Phone: ) Tsh Goal: Tsh Notes: no information Terri Quinonez [phone] Terri Quinonez MD, [facility] ([id number]) (Work Phone: ) Goals No Information Social History Normalized Code Original Code Date Value Marital status Marital status 07-14-2018 - 07-14-2018 Juancarlos price no information no information 07-14-2018 - 07-14-2018 [place] history Alcohol history Alcohol history 07-14-2018 - 07-14-2018 [place] hol history Functional Status The data below is from unstructured sources Query Response Date Gerson rded Patient Orientation Person Place Time Situation Eyes Open March 02, 2016 1:16pm Comprehension Ability Understands Co ncepts February 29, 2016 12:00pm Query Response Date Gerson rded Patient Orientation Person Place Time Situation March 10, 2016 2:19pm Comprehension Ability Understands Co ncepts March 07, 2016 9:00pm Query Response Date Gerson rded Patient Orientation Person Place Time Situation May 23, 2016 12:51pm Patient Orientation Person Place Time Situation Normal For Age May 24, 2016 10:32am Comprehension Ability Understands Co ncepts May 24, 2016 9:12am Query Response Date Gerson rded Patient Orientation Person Place Time Situation June 21, 2014 7:45pm No Functional Status data Mental Status No Information Encounters Encounter Normalized Encounter Encounter Diagnosis Care Provi sophy Organization Date Type 07-31-2018 Discharged Recurring no information ANU G JENNIFER Wo rk no organization name - (no phone) 07-31-2018 01-02-2018 Discharged Recurring no information SURAJ Arauz [facility] Work no organization name - (no phone) 01-21-2018 05-21-2016 Evaluation and no information no name (no phone) n o organization name - management of (no phone) 05-24-2016 inpatient 02-29-2016 Evaluation and no information no name (no phone) n o organization name - management of (no phone) 03-02-2016 inpatient 07-14-2018 Office outpatient new Essential (primary) Terri guzmán (no [facility] - 45 minutes hypertension phone) (no phone) 07-14-2018 - 07-14-2018 10-29-2018 Office outpatient Nasal congestion Terri Quinonez ( no [facility] - visit 15 minutes phone) (no phone) 10-29-2018 - 10-29-2018 12-07-2018 Office outpatient Essential (primary) Terri victor (no [facility] - visit 25 minutes hypertension phone) (no phon e) 12-07-2018 - 12-07-2018 08-11-2018 Office outpatient Essential (primary) Terri victor (no [facility] - visit 25 minutes hypertension phone) (no phon e) 08-11-2018 - 08-11-2018 NEGATED Patient encounter no information no name (no phone) no organization name 01-02-2018 (no phone) - 01-21-2018 12-31-2017 Patient encounter no information no name (no phone) no organization name (no phone) 12-25-2017 Patient encounter no information no name (no phone) no organization name (no phone) 12-23-2017 Patient encounter no information no name (no phone) no organization name (no phone) 12-11-2017 Patient encounter no information no name (no phone) no organization name (no phone) 12-09-2017 Patient encounter no information no name (no phone) no organization name (no phone) 11-28-2017 Patient encounter no information no name (no phone) no organization name (no phone) 11-25-2017 Patient encounter no information no name (no phone) no organization name (no phone) 11-20-2017 Patient encounter no information no name (no phone) no organization name (no phone) 11-18-2017 Patient encounter no information no name (no phone) no organization name (no phone) 11-14-2017 Patient encounter no information no name (no phone) no organization name (no phone) 08-19-2019 Patient encounter no information ANABELLE MCNEILL MD (n o [facility] [address] - procedure phone) [facility] 08-19-2019 (no phone) 08-18-2019 Patient encounter no information ANABELLE MCNEILL MD (n o [facility] [address] procedure phone) [facility] (no phone) 07-28-2019 Patient encounter no information (no phone) [facility] procedure (no phone) 05-18-2019 Patient encounter no information no name (no phone) no organization name procedure (no phone) 02-19-2019 Patient encounter no information no name (no phone) no organization name procedure (no phone) 07-31-2018 Patient encounter no information no name (no phone) no organization name - procedure (no phone) 07-31-2018 07-31-2018 Patient encounter no information no name (no phone) no organization name - procedure (no phone) 07-31-2018 07-27-2018 Patient encounter no information no name (no phone) no organization name procedure (no phone) 07-23-2018 Patient encounter no information no name (no phone) no organization name procedure (no phone) 07-21-2018 Patient encounter no information no name (no phone) no organization name procedure (no phone) 07-17-2018 Patient encounter no information no name (no phone) no organization name procedure (no phone) 07-15-2018 Patient encounter no information no name (no phone) no organization name procedure (no phone) 07-07-2018 Patient encounter no information no name (no phone) no organization name procedure (no phone) 07-02-2018 Patient encounter no information no name (no phone) no organization name procedure (no phone) 06-29-2018 Patient encounter no information no name (no phone) no organization name procedure (no phone) 06-25-2018 Patient encounter no information no name (no phone) no organization name procedure (no phone) 04-28-2018 Patient encounter no information LYNDA Damian APRN no organization name - procedure ALESSIA Work Phone: (no phone) 04-29-2018 04-28-2018 Patient encounter no information no name (no phone) no organization name - procedure (no phone) 04-29-2018 01-02-2018 Patient encounter no information no name (no phone) no organization name - procedure (no phone) 01-21-2018 02-12-2017 Patient encounter no information no name (no phone) no organization name - procedure (no phone) 02-12-2017 07-29-2016 Patient encounter no information no name (no phone) no organization name - procedure (no phone) 07-29-2016 07-29-2016 Patient encounter no information no name (no phone) no organization name - procedure (no phone) 07-29-2016 07-25-2016 Patient encounter no information no name (no phone) no organization name procedure (no phone) 07-19-2016 Patient encounter no information no name (no phone) no organization name procedure (no phone) 07-15-2016 Patient encounter no information no name (no phone) no organization name procedure (no phone) 07-12-2016 Patient encounter no information no name (no phone) no organization name procedure (no phone) 07-08-2016 Patient encounter no information no name (no phone) no organization name procedure (no phone) 07-05-2016 Patient encounter no information no name (no phone) no organization name procedure (no phone) 07-03-2016 Patient encounter no information no name (no phone) no organization name procedure (no phone) 07-01-2016 Patient encounter no information no name (no phone) no organization name procedure (no phone) 06-28-2016 Patient encounter no information no name (no phone) no organization name procedure (no phone) 06-26-2016 Patient encounter no information no name (no phone) no organization name procedure (no phone) 06-25-2016 Patient encounter no information no name (no phone) no organization name - procedure (no phone) 09-19-2016 06-25-2016 Patient encounter no information no name (no phone) no organization name - procedure (no phone) 09-18-2016 06-24-2016 Patient encounter no information no name (no phone) no organization name procedure (no phone) 06-23-2016 Patient encounter no information no name (no phone) no organization name procedure (no phone) 06-22-2016 Patient encounter no information no name (no phone) no organization name procedure (no phone) 06-21-2016 Patient encounter no information no name (no phone) no organization name procedure (no phone) 06-21-2016 Patient encounter no information no name (no phone) no organization name procedure (no phone) 06-19-2016 Patient encounter no information no name (no phone) no organization name procedure (no phone) 06-17-2016 Patient encounter no information no name (no phone) no organization name procedure (no phone) 06-14-2016 Patient encounter no information no name (no phone) no organization name procedure (no phone) 06-12-2016 Patient encounter no information no name (no phone) no organization name procedure (no phone) 06-10-2016 Patient encounter no information no name (no phone) no organization name procedure (no phone) 05-21-2016 Patient encounter no information no name (no phone) no organization name - procedure (no phone) 05-24-2016 05-07-2016 Patient encounter no information no name (no phone) no organization name - procedure (no phone) 05-07-2016 03-29-2016 Patient encounter no information no name (no phone) no organization name procedure (no phone) 01-26-2016 Patient encounter no information no name (no phone) no organization name - procedure (no phone) 01-31-2016 01-02-2016 Patient encounter no information no name (no phone) no organization name procedure (no phone) 09-25-2015 Patient encounter no information no name (no phone) no organization name procedure (no phone) 09-25-2015 Patient encounter no information no name (no phone) no organization name procedure (no phone) 08-19-2014 Patient encounter no information no name (no phone) no organization name procedure (no phone) 08-19-2014 Patient encounter no information no name (no phone) no organization name procedure (no phone) 07-15-2014 Patient encounter no information no name (no phone) no organization name procedure (no phone) 07-15-2014 Patient encounter no information no name (no phone) no organization name procedure (no phone) 07-12-2014 Patient encounter no information no name (no phone) no organization name procedure (no phone) 06-21-2014 Patient encounter no information no name (no phone) no organization name - procedure (no phone) 06-21-2014 12-22-2013 Patient encounter no information no name (no phone) no organization name procedure (no phone) 10-05-2013 Patient encounter no information no name (no phone) no organization name - procedure (no phone) 10-06-2013 10-05-2013 Patient encounter no information no name (no phone) no organization name - procedure (no phone) 10-06-2013 03-20-2012 Patient encounter no information no name (no phone) no organization name - procedure (no phone) 03-20-2012 01-28-2012 Patient encounter no information no name (no phone) no organization name procedure (no phone) 01-13-2012 Patient encounter no information no name (no phone) no organization name procedure (no phone) Patient encounter no information (no phone) [facility] cast[facility] procedure (no phone) 08-20-2019 no information Encounter for other no name (no phon e) no organization name preprocedural (no phone) examination no information Encounter for no name (no phone) no organiza tion name preprocedural (no phone) laboratory examination no information Encounter for other no name (no phone) no org anization name preprocedural (no phone) examination Medical Equipment No Information Payers Normalized Payer Value Medicare [id number] ([id number]) Advance Directives No Advance Directive data Directive Response Recor ded Date/Time Advance Directives No 10:35am Organ Donor Yes 06/21/14 10:35am Directive Response Recor ded Date/Time Advance Directives No 10:01am Health Care Power of Manager Of Software Development No 02/29/16 10:01am Organ Donor Yes 06/21/14 10:35am Resuscitation Status Full Code 02/29/16 10:01am Directive Response Recor ded Date/Time Advance Directives No 3:50pm Health Care Power of Manager Of Software Development No 03/07/16 3:50pm Organ Donor No 03/07/16 3:50pm Resuscitation Status Full Code 03/07/16 3:50pm Directive Response Recor ded Date/Time Advance Directives No 8:29am Health Care Power of Manager Of Software Development No 05/07/16 8:29am Organ Donor Yes 05/07/16 8:29am Resuscitation Status Full Code 05/21/16 10:23am Directive Response Recor ded Date/Time Advance Directives No 8:29am Health Care Power of Manager Of Software Development No 05/07/16 8:29am Organ Donor Yes 05/07/16 8:29am Directive Response Recor ded Date/Time Advance Directives No 10:23am Health Care Power of Manager Of Software Development No 05/21/16 10:23am Organ Donor Yes 05/21/16 10:23am Directive Response Recor ded Date/Time Advance Directives No 10:35am Organ Donor Yes 06/21/14 10:35am Resuscitation Status Full Code 06/21/14 10:35am Directive Response Recor ded Date Advance Directives N 20/05 8:34am Organ Donor Y 03/20/12 8 :34am Directive Response Recor ded Date/Time Advance Directives No 12:46pm Health Care Power of Manager Of Software Development No 02/06/17 12:46pm Organ Donor Yes 02/06/17 12:46pm Resuscitation Status Full Code 02/06/17 12:46pm Directive Response Recor ded Date/Time Advance Directives No 9:05am Health Care Power of Manager Of Software Development No 02/12/17 9:05am Organ Donor Yes 02/12/17 9:05am Resuscitation Status Full Code 02/12/17 9:05am Directive Response Recor ded Date/Time Advance Directives No 9:05am Health Care Power of Manager Of Software Development No 02/12/17 9:05am Organ Donor Yes 02/12/17 9:05am Discharge Instructions No hospital discharge instructions. Patient Instructions Physician Instructions New, Converted or Re-Newed RX: Transmitted to Pharmacy Goal/Follow Up Appt: Dr Pierre next week Patient Instructions: Maple diet with soft foods Discharge Diet: Soft Diet Activity as Tolerated: Yes Care Plan Patient Instructions:: Maple diet with soft foods Goal:: Dr Pierre next week No hospital discharge instructions. Patient Instructions Physician Instructions Patient Instructions/FollowUp: 2 1/2 weeks Patient Problems: Primary OA left knee s/p left TKA Goal: ADLs [place], [place] DISCHARGE ORDERS Height (Feet): 6 Height (Inches): 0.00 Weight (Pounds): 202 Weight (Ounces): 0.0 Reason Pt Homebound unable to ambulate without assistive devices unable to ambulate more than 50 ft without assistance I Have Seen Pt [id number]: Yes Date of Face to Face: May 24, 2016 Discharged To: Home Diagnosis/Conditions HH Order: physical therapy 5x/week x 2 weeks remove chaparrita and apply steri strips on 05/30/16 *I certify that based on my findings, the following services are medically necessary Home Health Services: Services: Physical Therapy-Evaluate & Treat My clinical findings support the need for the above services; see Diagnosis. [facility] Orders physical therapy 5x/week x 2 weeks remove chaparrita and apply steri strips on 05/30/16 WBAT with walker CPM Polar care Vickey hose daily dressing changes Other Equipment Needed: Front wheeled walker script on chart Dicharge Diet: No Restrictions Pneu Vac Indicated: Yes New, Converted, or Re-newed RX: RX on Chart I certify that this patient is under my care and that I, a nurse practitioner or a physician; a assistant quality manager working with me, had a face to face encounter that - meets the physician face to face encounter requirements with this patient as dated. Care Plan Patient Instructions:: 2 1/2 weeks Goal:: ADLs Patient Problems: Primary OA left knees/p left TKA No hospital discharge instructions.No hospital discharge instruction information available.No hospital discharge instructions.No hospital discharge instruction information available.No hospital discharge instruction information available.No hospital discharge instruction information available.No hospital discharge instruction information available.No hospital discharge instruction information available. 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 ICD-9: 564.5 07/14/2018 Mixed hyperlipidemia ICD-10: E78.2 ICD-9: 272.2 07/14/2018 Condition Codes Effectiv e Dates Chronic pain syndrome ICD-10: G89.4 ICD-9: 338.4 08/11/2018 Essential (primary) hypertension ICD -10: I10 ICD-9: 401.1 08/11/2018 Cervicalgia ICD-10: M54.2 ICD-9: 723.1 08/11/2018 Major depressive disorder, recurrent, moderate ICD-10: F33.1 ICD-9: 296.32 07/14/2018 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 ICD-9: 564.5 07/14/2018 Mixed hyperlipidemia ICD-10: E78.2 ICD-9: 272.2 07/14/2018 Condition Codes Effectiv e Dates Cough ICD-10: R05 ICD-9: 786.2 10/29/2018 Nasal congestion ICD-10: R09.81 ICD-9: 478.19 10/29/2018 Chronic pain syndrome ICD-10: G89.4 ICD-9: 338.4 08/11/2018 Essential (primary) hypertension ICD -10: I10 ICD-9: 401.1 08/11/2018 Cervicalgia ICD-10: M54.2 ICD-9: 723.1 08/11/2018 Major depressive disorder, recurrent, moderate ICD-10: F33.1 ICD-9: 296.32 07/14/2018 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 ICD-9: 564.5 07/14/2018 Mixed hyperlipidemia ICD-10: E78.2 ICD-9: 272.2 07/14/2018 Condition Codes Effectiv e Dates Essential (primary) hypertension ICD -10: I10 ICD-9: 401.1 12/07/2018 Chronic pain syndrome ICD-10: G89.4 ICD-9: 338.4 12/07/2018 Mixed hyperlipidemia ICD-10: E78.2 ICD-9: 272.2 12/07/2018 Major depressive disorder, recurrent, moderate ICD-10: F33.1 ICD-9: 296.32 12/07/2018 Vitamin B12 deficiency anemia due to int rinsic factor deficiency ICD-10: D51.0 ICD-9: 281.0 12/07/2018 Cough ICD-10: R05 ICD-9: 786.2 10/29/2018 Nasal congestion ICD-10: R09.81 ICD-9: 478.19 10/29/2018 Cervicalgia ICD-10: M54.2 ICD-9: 723.1 08/11/2018 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 ICD-9: 564.5 07/14/2018 Chief Complaint Reason For Visit Effective Dates Notes hypertension 07/14/2018 Reason For Visit Effective Dates Notes hypertension 08/11/2018 hypertension 07/14/2018 Reason For Visit Effective Dates Notes sinus congestion 10/29/2018 hypertension 08/11/2018 hypertension 07/14/2018 Reason For Visit Effective Dates Notes hypertension 12/07/2018 sinus congestion 10/29/2018 hypertension 08/11/2018 hypertension 07/14/2018 Review of System System Result Effective Dates Constitutional No recent illness 07/14/2018 Constitutional No chills 07/14/2018 Constitutional fatigue 0 07/14/2018 Constitutional No fever 07/14/2018 Constitutional No insomnia 07/14/2018 Constitutional No malaise 07/14/2018 Eyes No vision change Ears/Nose/Throat/Neck No dental pain 07/14/2018 Ears/Nose/Throat/Neck No dizziness 07/14/2018 Ears/Nose/Throat/Neck No dysphagia 07/14/2018 Ears/Nose/Throat/Neck No headache 07/14/2018 Ears/Nose/Throat/Neck No hearing loss 07/14/2018 Ears/Nose/Throat/Neck No nasal allergies 07/14/2018 Ears/Nose/Throat/Neck No sore throat 07/14/2018 Ears/Nose/Throat/Neck No postnasal drip 07/14/2018 Ears/Nose/Throat/Neck No sinus congestion 07/14/2018 Cardiovascular No chest pain/pressure 07/14/2018 Cardiovascular No dyspnea 07/14/2018 Cardiovascular No edema 07/14/2018 Cardiovascular No exercise intolerance 07/14/2018 Cardiovascular No fatigue 07/14/2018 Cardiovascular No near-syncope/dizziness 07/14/2018 Respiratory No chest tightness 07/14/2018 Respiratory No cough 05/2019 Respiratory No dyspnea 0 07/14/2018 Respiratory No pedal edema 07/14/2018 Gastrointestinal abdominal pain 07/14/2018 Gastrointestinal No constipation 07/14/2018 Gastrointestinal diarrhea 07/14/2018 Gastrointestinal No gastroesophageal reflu x 07/14/2018 Gastrointestinal No nausea 07/14/2018 Gastrointestinal No vomiting 07/14/2018 Genitourinary/Nephrology No dysuria 07/14/2018 Genitourinary/Nephrology No nocturia 07/14/2018 Genitourinary/Nephrology No urinary incontinence 07/14/2018 Musculoskeletal stiffness 07/14/2018 Musculoskeletal No swelling 07/14/2018 Musculoskeletal No muscle weakness 07/14/2018 Musculoskeletal No myalgias 07/14/2018 Dermatologic No rash 05/2019 Dermatologic No sores Neurologic No dizziness 07/14/2018 Neurologic No headache 0 07/14/2018 Neurologic No syncope Psychiatric No anxiety 0 07/14/2018 Psychiatric No depression 07/14/2018 Musculoskeletal back pain 07/14/2018 System Result Effective Dates Constitutional No recent illness 08/11/2018 Constitutional No chills 08/11/2018 Constitutional fatigue 0 08/11/2018 Constitutional No fever 08/11/2018 Constitutional No insomnia 08/11/2018 Constitutional No malaise 08/11/2018 Eyes No vision change Ears/Nose/Throat/Neck No dental pain 08/11/2018 Ears/Nose/Throat/Neck No dizziness 08/11/2018 Ears/Nose/Throat/Neck No dysphagia 08/11/2018 Ears/Nose/Throat/Neck No headache 08/11/2018 Ears/Nose/Throat/Neck No hearing loss 08/11/2018 Ears/Nose/Throat/Neck No nasal allergies 08/11/2018 Ears/Nose/Throat/Neck No sore throat 08/11/2018 Ears/Nose/Throat/Neck No postnasal drip 08/11/2018 Ears/Nose/Throat/Neck No sinus congestion 08/11/2018 Cardiovascular No chest pain/pressure 08/11/2018 Cardiovascular No dyspnea 08/11/2018 Cardiovascular No edema 08/11/2018 Cardiovascular No exercise intolerance 08/11/2018 Cardiovascular No fatigue 08/11/2018 Cardiovascular No near-syncope/dizziness 08/11/2018 Respiratory No chest tightness 08/11/2018 Respiratory No cough 05/2019 Respiratory No dyspnea 0 08/11/2018 Respiratory No pedal edema 08/11/2018 Gastrointestinal abdominal pain 08/11/2018 Gastrointestinal No constipation 08/11/2018 Gastrointestinal diarrhea 08/11/2018 Gastrointestinal No gastroesophageal reflu x 08/11/2018 Gastrointestinal No nausea 08/11/2018 Gastrointestinal No vomiting 08/11/2018 Genitourinary/Nephrology No dysuria 08/11/2018 Genitourinary/Nephrology No nocturia 08/11/2018 Genitourinary/Nephrology No urinary incontinence 08/11/2018 Musculoskeletal stiffness 08/11/2018 Musculoskeletal No swelling 08/11/2018 Musculoskeletal back pain 08/11/2018 Musculoskeletal No muscle weakness 08/11/2018 Musculoskeletal No myalgias 08/11/2018 Dermatologic No rash 05/2019 Dermatologic No sores Neurologic No dizziness 08/11/2018 Neurologic No headache 0 08/11/2018 Neurologic No syncope Psychiatric No anxiety 0 08/11/2018 Psychiatric No depression 08/11/2018 Constitutional No recent illness 07/14/2018 Constitutional No chills 07/14/2018 Constitutional fatigue 0 07/14/2018 Constitutional No fever 07/14/2018 Constitutional No insomnia 07/14/2018 Constitutional No malaise 07/14/2018 Eyes No vision change Ears/Nose/Throat/Neck No dental pain 07/14/2018 Ears/Nose/Throat/Neck No dizziness 07/14/2018 Ears/Nose/Throat/Neck No dysphagia 07/14/2018 Ears/Nose/Throat/Neck No headache 07/14/2018 Ears/Nose/Throat/Neck No hearing loss 07/14/2018 Ears/Nose/Throat/Neck No nasal allergies 07/14/2018 Ears/Nose/Throat/Neck No sore throat 07/14/2018 Ears/Nose/Throat/Neck No postnasal drip 07/14/2018 Ears/Nose/Throat/Neck No sinus congestion 07/14/2018 Cardiovascular No chest pain/pressure 07/14/2018 Cardiovascular No dyspnea 07/14/2018 Cardiovascular No edema 07/14/2018 Cardiovascular No exercise intolerance 07/14/2018 Cardiovascular No fatigue 07/14/2018 Cardiovascular No near-syncope/dizziness 07/14/2018 Respiratory No chest tightness 07/14/2018 Respiratory No cough 05/2019 Respiratory No dyspnea 0 07/14/2018 Respiratory No pedal edema 07/14/2018 Gastrointestinal abdominal pain 07/14/2018 Gastrointestinal No constipation 07/14/2018 Gastrointestinal diarrhea 07/14/2018 Gastrointestinal No gastroesophageal reflu x 07/14/2018 Gastrointestinal No nausea 07/14/2018 Gastrointestinal No vomiting 07/14/2018 Genitourinary/Nephrology No dysuria 07/14/2018 Genitourinary/Nephrology No nocturia 07/14/2018 Genitourinary/Nephrology No urinary incontinence 07/14/2018 Musculoskeletal stiffness 07/14/2018 Musculoskeletal No swelling 07/14/2018 Musculoskeletal No muscle weakness 07/14/2018 Musculoskeletal No myalgias 07/14/2018 Dermatologic No rash 05/2019 Dermatologic No sores Neurologic No dizziness 07/14/2018 Neurologic No headache 0 07/14/2018 Neurologic No syncope Psychiatric No anxiety 0 07/14/2018 Psychiatric No depression 07/14/2018 Musculoskeletal back pain 07/14/2018 System Result Effective Dates Constitutional No recent illness 10/29/2018 Constitutional No chills 10/29/2018 Constitutional fatigue 0 10/29/2018 Constitutional No fever 10/29/2018 Constitutional No insomnia 10/29/2018 Constitutional No malaise 10/29/2018 Eyes No vision change Ears/Nose/Throat/Neck No dizziness 10/29/2018 Ears/Nose/Throat/Neck No dysphagia 10/29/2018 Ears/Nose/Throat/Neck headache 10/29/2018 Ears/Nose/Throat/Neck No hearing loss 10/29/2018 Ears/Nose/Throat/Neck No nasal allergies 10/29/2018 Ears/Nose/Throat/Neck sore throat 10/29/2018 Ears/Nose/Throat/Neck postnasal drip 10/29/2018 Ears/Nose/Throat/Neck sinus congestion 10/29/2018 Cardiovascular No chest pain/pressure 10/29/2018 Cardiovascular No dyspnea 10/29/2018 Cardiovascular No edema 10/29/2018 Cardiovascular No exercise intolerance 10/29/2018 Cardiovascular No fatigue 10/29/2018 Cardiovascular No near-syncope/dizziness 10/29/2018 Respiratory No chest tightness 10/29/2018 Respiratory No cough Respiratory No dyspnea 0 10/29/2018 Respiratory No pedal edema 10/29/2018 Gastrointestinal abdominal pain 10/29/2018 Gastrointestinal No constipation 10/29/2018 Gastrointestinal diarrhea 10/29/2018 Gastrointestinal No gastroesophageal reflu x 10/29/2018 Gastrointestinal No nausea 10/29/2018 Gastrointestinal No vomiting 10/29/2018 Genitourinary/Nephrology No dysuria 10/29/2018 Genitourinary/Nephrology No nocturia 10/29/2018 Genitourinary/Nephrology No urinary incontinence 10/29/2018 Musculoskeletal stiffness 10/29/2018 Musculoskeletal No swelling 10/29/2018 Musculoskeletal back pain 10/29/2018 Musculoskeletal No muscle weakness 10/29/2018 Musculoskeletal No myalgias 10/29/2018 Dermatologic No rash Dermatologic No sores Neurologic No dizziness 10/29/2018 Neurologic No headache 0 10/29/2018 Neurologic No syncope Psychiatric No anxiety 0 10/29/2018 Psychiatric No depression 10/29/2018 Cardiovascular hypertension 10/29/2018 Musculoskeletal neck pain 10/29/2018 Constitutional No recent illness 08/11/2018 Constitutional No chills 08/11/2018 Constitutional fatigue 0 08/11/2018 Constitutional No fever 08/11/2018 Constitutional No insomnia 08/11/2018 Constitutional No malaise 08/11/2018 Eyes No vision change Ears/Nose/Throat/Neck No dental pain 08/11/2018 Ears/Nose/Throat/Neck No dizziness 08/11/2018 Ears/Nose/Throat/Neck No dysphagia 08/11/2018 Ears/Nose/Throat/Neck No headache 08/11/2018 Ears/Nose/Throat/Neck No hearing loss 08/11/2018 Ears/Nose/Throat/Neck No nasal allergies 08/11/2018 Ears/Nose/Throat/Neck No sore throat 08/11/2018 Ears/Nose/Throat/Neck No postnasal drip 08/11/2018 Ears/Nose/Throat/Neck No sinus congestion 08/11/2018 Cardiovascular No chest pain/pressure 08/11/2018 Cardiovascular No dyspnea 08/11/2018 Cardiovascular No edema 08/11/2018 Cardiovascular No exercise intolerance 08/11/2018 Cardiovascular No fatigue 08/11/2018 Cardiovascular No near-syncope/dizziness 08/11/2018 Respiratory No chest tightness 08/11/2018 Respiratory No cough 05/2019 Respiratory No dyspnea 0 08/11/2018 Respiratory No pedal edema 08/11/2018 Gastrointestinal abdominal pain 08/11/2018 Gastrointestinal No constipation 08/11/2018 Gastrointestinal diarrhea 08/11/2018 Gastrointestinal No gastroesophageal reflu x 08/11/2018 Gastrointestinal No nausea 08/11/2018 Gastrointestinal No vomiting 08/11/2018 Genitourinary/Nephrology No dysuria 08/11/2018 Genitourinary/Nephrology No nocturia 08/11/2018 Genitourinary/Nephrology No urinary incontinence 08/11/2018 Musculoskeletal stiffness 08/11/2018 Musculoskeletal No swelling 08/11/2018 Musculoskeletal back pain 08/11/2018 Musculoskeletal No muscle weakness 08/11/2018 Musculoskeletal No myalgias 08/11/2018 Dermatologic No rash 05/2019 Dermatologic No sores Neurologic No dizziness 08/11/2018 Neurologic No headache 0 08/11/2018 Neurologic No syncope Psychiatric No anxiety 0 08/11/2018 Psychiatric No depression 08/11/2018 Constitutional No recent illness 07/14/2018 Constitutional No chills 07/14/2018 Constitutional fatigue 0 07/14/2018 Constitutional No fever 07/14/2018 Constitutional No insomnia 07/14/2018 Constitutional No malaise 07/14/2018 Eyes No vision change Ears/Nose/Throat/Neck No dental pain 07/14/2018 Ears/Nose/Throat/Neck No dizziness 07/14/2018 Ears/Nose/Throat/Neck No dysphagia 07/14/2018 Ears/Nose/Throat/Neck No headache 07/14/2018 Ears/Nose/Throat/Neck No hearing loss 07/14/2018 Ears/Nose/Throat/Neck No nasal allergies 07/14/2018 Ears/Nose/Throat/Neck No sore throat 07/14/2018 Ears/Nose/Throat/Neck No postnasal drip 07/14/2018 Ears/Nose/Throat/Neck No sinus congestion 07/14/2018 Cardiovascular No chest pain/pressure 07/14/2018 Cardiovascular No dyspnea 07/14/2018 Cardiovascular No edema 07/14/2018 Cardiovascular No exercise intolerance 07/14/2018 Cardiovascular No fatigue 07/14/2018 Cardiovascular No near-syncope/dizziness 07/14/2018 Respiratory No chest tightness 07/14/2018 Respiratory No cough 05/2019 Respiratory No dyspnea 0 07/14/2018 Respiratory No pedal edema 07/14/2018 Gastrointestinal abdominal pain 07/14/2018 Gastrointestinal No constipation 07/14/2018 Gastrointestinal diarrhea 07/14/2018 Gastrointestinal No gastroesophageal reflu x 07/14/2018 Gastrointestinal No nausea 07/14/2018 Gastrointestinal No vomiting 07/14/2018 Genitourinary/Nephrology No dysuria 07/14/2018 Genitourinary/Nephrology No nocturia 07/14/2018 Genitourinary/Nephrology No urinary incontinence 07/14/2018 Musculoskeletal stiffness 07/14/2018 Musculoskeletal No swelling 07/14/2018 Musculoskeletal No muscle weakness 07/14/2018 Musculoskeletal No myalgias 07/14/2018 Dermatologic No rash 05/2019 Dermatologic No sores Neurologic No dizziness 07/14/2018 Neurologic No headache 0 07/14/2018 Neurologic No syncope Psychiatric No anxiety 0 07/14/2018 Psychiatric No depression 07/14/2018 Musculoskeletal back pain 07/14/2018 System Result Effective Dates Constitutional No recent illness 12/07/2018 Constitutional No chills 12/07/2018 Constitutional fatigue 0 12/07/2018 Constitutional No fever 12/07/2018 Constitutional No insomnia 12/07/2018 Constitutional No malaise 12/07/2018 Eyes No vision change Ears/Nose/Throat/Neck No dental pain 12/07/2018 Ears/Nose/Throat/Neck No dizziness 12/07/2018 Ears/Nose/Throat/Neck No dysphagia 12/07/2018 Ears/Nose/Throat/Neck No headache 12/07/2018 Ears/Nose/Throat/Neck No hearing loss 12/07/2018 Ears/Nose/Throat/Neck No nasal allergies 12/07/2018 Ears/Nose/Throat/Neck No sore throat 12/07/2018 Ears/Nose/Throat/Neck No postnasal drip 12/07/2018 Ears/Nose/Throat/Neck No sinus congestion 12/07/2018 Cardiovascular No chest pain/pressure 12/07/2018 Cardiovascular No dyspnea 12/07/2018 Cardiovascular No edema 12/07/2018 Cardiovascular No exercise intolerance 12/07/2018 Cardiovascular No fatigue 12/07/2018 Cardiovascular No near-syncope/dizziness 12/07/2018 Respiratory No chest tightness 12/07/2018 Respiratory No cough 12/2018 Respiratory No dyspnea 0 12/07/2018 Respiratory No pedal edema 12/07/2018 Gastrointestinal No constipation 12/07/2018 Gastrointestinal No gastroesophageal reflu x 12/07/2018 Gastrointestinal No nausea 12/07/2018 Gastrointestinal No vomiting 12/07/2018 Genitourinary/Nephrology No dysuria 12/07/2018 Genitourinary/Nephrology No nocturia 12/07/2018 Genitourinary/Nephrology No urinary incontinence 12/07/2018 Musculoskeletal stiffness 12/07/2018 Musculoskeletal No swelling 12/07/2018 Musculoskeletal back pain 12/07/2018 Musculoskeletal No muscle weakness 12/07/2018 Musculoskeletal No myalgias 12/07/2018 Dermatologic No rash 12/2018 Dermatologic No sores Neurologic No dizziness 12/07/2018 Neurologic No headache 0 12/07/2018 Neurologic No syncope Psychiatric No anxiety 0 12/07/2018 Psychiatric No depression 12/07/2018 Musculoskeletal neck pain 12/07/2018 Musculoskeletal shoulder pain 12/07/2018 Constitutional No recent illness 10/29/2018 Constitutional No chills 10/29/2018 Constitutional fatigue 0 10/29/2018 Constitutional No fever 10/29/2018 Constitutional No insomnia 10/29/2018 Constitutional No malaise 10/29/2018 Eyes No vision change Ears/Nose/Throat/Neck No dizziness 10/29/2018 Ears/Nose/Throat/Neck No dysphagia 10/29/2018 Ears/Nose/Throat/Neck headache 10/29/2018 Ears/Nose/Throat/Neck No hearing loss 10/29/2018 Ears/Nose/Throat/Neck No nasal allergies 10/29/2018 Ears/Nose/Throat/Neck sore throat 10/29/2018 Ears/Nose/Throat/Neck postnasal drip 10/29/2018 Ears/Nose/Throat/Neck sinus congestion 10/29/2018 Cardiovascular No chest pain/pressure 10/29/2018 Cardiovascular No dyspnea 10/29/2018 Cardiovascular No edema 10/29/2018 Cardiovascular No exercise intolerance 10/29/2018 Cardiovascular No fatigue 10/29/2018 Cardiovascular No near-syncope/dizziness 10/29/2018 Respiratory No chest tightness 10/29/2018 Respiratory No cough Respiratory No dyspnea 0 10/29/2018 Respiratory No pedal edema 10/29/2018 Gastrointestinal abdominal pain 10/29/2018 Gastrointestinal No constipation 10/29/2018 Gastrointestinal diarrhea 10/29/2018 Gastrointestinal No gastroesophageal reflu x 10/29/2018 Gastrointestinal No nausea 10/29/2018 Gastrointestinal No vomiting 10/29/2018 Genitourinary/Nephrology No dysuria 10/29/2018 Genitourinary/Nephrology No nocturia 10/29/2018 Genitourinary/Nephrology No urinary incontinence 10/29/2018 Musculoskeletal stiffness 10/29/2018 Musculoskeletal No swelling 10/29/2018 Musculoskeletal back pain 10/29/2018 Musculoskeletal No muscle weakness 10/29/2018 Musculoskeletal No myalgias 10/29/2018 Dermatologic No rash Dermatologic No sores Neurologic No dizziness 10/29/2018 Neurologic No headache 0 10/29/2018 Neurologic No syncope Psychiatric No anxiety 0 10/29/2018 Psychiatric No depression 10/29/2018 Cardiovascular hypertension 10/29/2018 Musculoskeletal neck pain 10/29/2018 Constitutional No recent illness 08/11/2018 Constitutional No chills 08/11/2018 Constitutional fatigue 0 08/11/2018 Constitutional No fever 08/11/2018 Constitutional No insomnia 08/11/2018 Constitutional No malaise 08/11/2018 Eyes No vision change Ears/Nose/Throat/Neck No dental pain 08/11/2018 Ears/Nose/Throat/Neck No dizziness 08/11/2018 Ears/Nose/Throat/Neck No dysphagia 08/11/2018 Ears/Nose/Throat/Neck No headache 08/11/2018 Ears/Nose/Throat/Neck No hearing loss 08/11/2018 Ears/Nose/Throat/Neck No nasal allergies 08/11/2018 Ears/Nose/Throat/Neck No sore throat 08/11/2018 Ears/Nose/Throat/Neck No postnasal drip 08/11/2018 Ears/Nose/Throat/Neck No sinus congestion 08/11/2018 Cardiovascular No chest pain/pressure 08/11/2018 Cardiovascular No dyspnea 08/11/2018 Cardiovascular No edema 08/11/2018 Cardiovascular No exercise intolerance 08/11/2018 Cardiovascular No fatigue 08/11/2018 Cardiovascular No near-syncope/dizziness 08/11/2018 Respiratory No chest tightness 08/11/2018 Respiratory No cough 05/2019 Respiratory No dyspnea 0 08/11/2018 Respiratory No pedal edema 08/11/2018 Gastrointestinal abdominal pain 08/11/2018 Gastrointestinal No constipation 08/11/2018 Gastrointestinal diarrhea 08/11/2018 Gastrointestinal No gastroesophageal reflu x 08/11/2018 Gastrointestinal No nausea 08/11/2018 Gastrointestinal No vomiting 08/11/2018 Genitourinary/Nephrology No dysuria 08/11/2018 Genitourinary/Nephrology No nocturia 08/11/2018 Genitourinary/Nephrology No urinary incontinence 08/11/2018 Musculoskeletal stiffness 08/11/2018 Musculoskeletal No swelling 08/11/2018 Musculoskeletal back pain 08/11/2018 Musculoskeletal No muscle weakness 08/11/2018 Musculoskeletal No myalgias 08/11/2018 Dermatologic No rash 05/2019 Dermatologic No sores Neurologic No dizziness 08/11/2018 Neurologic No headache 0 08/11/2018 Neurologic No syncope Psychiatric No anxiety 0 08/11/2018 Psychiatric No depression 08/11/2018 Constitutional No recent illness 07/14/2018 Constitutional No chills 07/14/2018 Constitutional fatigue 0 07/14/2018 Constitutional No fever 07/14/2018 Constitutional No insomnia 07/14/2018 Constitutional No malaise 07/14/2018 Eyes No vision change Ears/Nose/Throat/Neck No dental pain 07/14/2018 Ears/Nose/Throat/Neck No dizziness 07/14/2018 Ears/Nose/Throat/Neck No dysphagia 07/14/2018 Ears/Nose/Throat/Neck No headache 07/14/2018 Ears/Nose/Throat/Neck No hearing loss 07/14/2018 Ears/Nose/Throat/Neck No nasal allergies 07/14/2018 Ears/Nose/Throat/Neck No sore throat 07/14/2018 Ears/Nose/Throat/Neck No postnasal drip 07/14/2018 Ears/Nose/Throat/Neck No sinus congestion 07/14/2018 Cardiovascular No chest pain/pressure 07/14/2018 Cardiovascular No dyspnea 07/14/2018 Cardiovascular No edema 07/14/2018 Cardiovascular No exercise intolerance 07/14/2018 Cardiovascular No fatigue 07/14/2018 Cardiovascular No near-syncope/dizziness 07/14/2018 Respiratory No chest tightness 07/14/2018 Respiratory No cough 05/2019 Respiratory No dyspnea 0 07/14/2018 Respiratory No pedal edema 07/14/2018 Gastrointestinal abdominal pain 07/14/2018 Gastrointestinal No constipation 07/14/2018 Gastrointestinal diarrhea 07/14/2018 Gastrointestinal No gastroesophageal reflu x 07/14/2018 Gastrointestinal No nausea 07/14/2018 Gastrointestinal No vomiting 07/14/2018 Genitourinary/Nephrology No dysuria 07/14/2018 Genitourinary/Nephrology No nocturia 07/14/2018 Genitourinary/Nephrology No urinary incontinence 07/14/2018 Musculoskeletal stiffness 07/14/2018 Musculoskeletal No swelling 07/14/2018 Musculoskeletal No muscle weakness 07/14/2018 Musculoskeletal No myalgias 07/14/2018 Dermatologic No rash 05/2019 Dermatologic No sores Neurologic No dizziness 07/14/2018 Neurologic No headache 0 07/14/2018 Neurologic No syncope Psychiatric No anxiety 0 07/14/2018 Psychiatric No depression 07/14/2018 Musculoskeletal back pain 07/14/2018 Physical Exam Exam Name System Name It em Name Status Result Effective Dates Notes Full Exam - General 1994 Constitutional general appearance Development: well developed 07/14/2018 None Full Exam - General 1994 Constitutional general appearance Development: appears stated age 0207/14/2018 None Full Exam - General 1994 Constitutional general appearance Hygiene/Attention to Grooming: good hygiene 07/14/2018 None Full Exam - General 1994 Eyes conjunctiva/eyelids Overall: conjunctiva clear 07/14/2018 None Full Exam - General 1994 Eyes conjunctiva/eyelids Overall: cornea clear 07/14/2018 None Full Exam - General 1994 Eyes conjunctiva/eyelids Overall: eyelids normal 07/14/2018 None Full Exam - General 1994 Eyes pupils and irises Overall: pupils equal, round, reactive to light and accomodation 07/14/2018 None Full Exam - General 1994 Ears/Nose/Throat otoscopic exam Overall: external auditory canals clear 07/14/2018 None Full Exam - General 1994 Ears/Nose/Throat otoscopic exam Overall: tympanic membranes clear 07/14/2018 None Full Exam - General 1994 Ears/Nose/Throat lips/teeth/gingiva Overall: benign lips 07/14/2018 None Full Exam - General 1994 Ears/Nose/Throat lips/teeth/gingiva Overall: normal dentition 07/14/2018 None Full Exam - General 1994 Ears/Nose/Throat oral cavity/pharynx/larynx Overall: oral mucosa clear 07/14/2018 None Full Exam - General 1994 Ears/Nose/Throat oral cavity/pharynx/larynx Overall: oropharyngeal mucosa clear 07/14/2018 None Full Exam - General 1994 Ears/Nose/Throat oral cavity/pharynx/larynx Overall: hypopharynx benign 07/14/2018 None Full Exam - General 1994 Ears/Nose/Throat oral cavity/pharynx/larynx Overall: no masses 07/14/2018 None Full Exam - General 1994 Respiratory auscultation Overall: breath sounds clear bilaterally 07/14/2018 None Full Exam - General 1994 Respiratory respiratory effort/rhythm Overall: no retractions 07/14/2018 None Full Exam - General 1994 Respiratory respiratory effort/rhythm Overall: normal rate 07/14/2018 None Full Exam - General 1994 Cardiovascular extremities Overall: no clubbing 07/14/2018 None Full Exam - General 1994 Cardiovascular auscultation of heart Overall: regular rate 07/14/2018 None Full Exam - General 1994 Cardiovascular auscultation of heart Overall: normal heart sounds 07/14/2018 None Full Exam - General 1994 Abdomen abdominal exam Overall: no tenderness 07/14/2018 None Full Exam - General 1994 Abdomen abdominal exam Overall: normal bowel sounds 07/14/2018 None Full Exam - General 1994 Lymphatic neck nodes Overall: anterior cervical chain benign 07/14/2018 None Full Exam - General 1994 Lymphatic neck nodes Overall: posterior cervical chain benign 07/14/2018 None Full Exam - General 1994 Musculoskeletal spine, ribs and pelvis Overall: spine benign 07/14/2018 None Full Exam - General 1994 Musculoskeletal spine, ribs and pelvis Overall: sacroiliac joint benign 07/14/2018 None Full Exam - General 1994 Musculoskeletal spine, ribs and pelvis Overall: good posture 07/14/2018 None Full Exam - General 1994 Musculoskeletal head and neck Overall: head atraumatic 07/14/2018 None Full Exam - General 1994 Musculoskeletal head and neck Overall: cervical spine benign 07/14/2018 None Full Exam - General 1994 Integument inspection of skin Overall: few scattered moles, no gross abnormalities 07/14/2018 None Full Exam - General 1994 Neurologic cranial nerves Overall: crainial nerves 2 - 12 grossly intact 07/14/2018 None Full Exam - General 1994 Psychiatric orientation/consciousness Overall: oriented to person, place and time 07/14/2018 None Full Exam - General 1994 Psychiatric mood and affect Overall: normal mood and affect 07/14/2018 None Exam Name System Name It em Name Status Result Effective Dates Notes Full Exam - General 1994 Constitutional general appearance Development: well developed 08/11/2018 None Full Exam - General 1994 Constitutional general appearance Development: appears stated age 0308/11/2018 None Full Exam - General 1994 Constitutional general appearance Hygiene/Attention to Grooming: good hygiene 08/11/2018 None Full Exam - General 1994 Eyes conjunctiva/eyelids Overall: conjunctiva clear 08/11/2018 None Full Exam - General 1994 Eyes conjunctiva/eyelids Overall: cornea clear 08/11/2018 None Full Exam - General 1994 Eyes conjunctiva/eyelids Overall: eyelids normal 08/11/2018 None Full Exam - General 1994 Eyes pupils and irises Overall: pupils equal, round, reactive to light and accomodation 08/11/2018 None Full Exam - General 1994 Ears/Nose/Throat lips/teeth/gingiva Overall: benign lips 08/11/2018 None Full Exam - General 1994 Ears/Nose/Throat lips/teeth/gingiva Overall: normal dentition 08/11/2018 None Full Exam - General 1994 Ears/Nose/Throat oral cavity/pharynx/larynx Overall: oral mucosa clear 08/11/2018 None Full Exam - General 1994 Ears/Nose/Throat oral cavity/pharynx/larynx Overall: oropharyngeal mucosa clear 08/11/2018 None Full Exam - General 1994 Ears/Nose/Throat oral cavity/pharynx/larynx Overall: hypopharynx benign 08/11/2018 None Full Exam - General 1994 Ears/Nose/Throat oral cavity/pharynx/larynx Overall: no masses 08/11/2018 None Full Exam - General 1994 Respiratory auscultation Overall: breath sounds clear bilaterally 08/11/2018 None Full Exam - General 1994 Respiratory respiratory effort/rhythm Overall: no retractions 08/11/2018 None Full Exam - General 1994 Respiratory respiratory effort/rhythm Overall: normal rate 08/11/2018 None Full Exam - General 1994 Cardiovascular extremities Overall: no clubbing 08/11/2018 None Full Exam - General 1994 Cardiovascular auscultation of heart Overall: regular rate 08/11/2018 None Full Exam - General 1994 Cardiovascular auscultation of heart Overall: normal heart sounds 08/11/2018 None Full Exam - General 1994 Abdomen abdominal exam Overall: no tenderness 08/11/2018 None Full Exam - General 1994 Abdomen abdominal exam Overall: normal bowel sounds 08/11/2018 None Full Exam - General 1994 Musculoskeletal spine, ribs and pelvis Overall: good posture 08/11/2018 None Full Exam - General 1994 Musculoskeletal head and neck Overall: head atraumatic 08/11/2018 None Full Exam - General 1994 Psychiatric orientation/consciousness Overall: oriented to person, place and time 08/11/2018 None Full Exam - General 1994 Psychiatric mood and affect Overall: normal mood and affect 08/11/2018 None Full Exam - General 1994 Constitutional general appearance Development: well developed 07/14/2018 None Full Exam - General 1994 Constitutional general appearance Development: appears stated age 0207/14/2018 None Full Exam - General 1994 Constitutional general appearance Hygiene/Attention to Grooming: good hygiene 07/14/2018 None Full Exam - General 1994 Eyes conjunctiva/eyelids Overall: conjunctiva clear 07/14/2018 None Full Exam - General 1994 Eyes conjunctiva/eyelids Overall: cornea clear 07/14/2018 None Full Exam - General 1994 Eyes conjunctiva/eyelids Overall: eyelids normal 07/14/2018 None Full Exam - General 1994 Eyes pupils and irises Overall: pupils equal, round, reactive to light and accomodation 07/14/2018 None Full Exam - General 1994 Ears/Nose/Throat otoscopic exam Overall: external auditory canals clear 07/14/2018 None Full Exam - General 1994 Ears/Nose/Throat otoscopic exam Overall: tympanic membranes clear 07/14/2018 None Full Exam - General 1994 Ears/Nose/Throat lips/teeth/gingiva Overall: benign lips 07/14/2018 None Full Exam - General 1994 Ears/Nose/Throat lips/teeth/gingiva Overall: normal dentition 07/14/2018 None Full Exam - General 1994 Ears/Nose/Throat oral cavity/pharynx/larynx Overall: oral mucosa clear 07/14/2018 None Full Exam - General 1994 Ears/Nose/Throat oral cavity/pharynx/larynx Overall: oropharyngeal mucosa clear 07/14/2018 None Full Exam - General 1994 Ears/Nose/Throat oral cavity/pharynx/larynx Overall: hypopharynx benign 07/14/2018 None Full Exam - General 1994 Ears/Nose/Throat oral cavity/pharynx/larynx Overall: no masses 07/14/2018 None Full Exam - General 1994 Respiratory auscultation Overall: breath sounds clear bilaterally 07/14/2018 None Full Exam - General 1994 Respiratory respiratory effort/rhythm Overall: no retractions 07/14/2018 None Full Exam - General 1994 Respiratory respiratory effort/rhythm Overall: normal rate 07/14/2018 None Full Exam - General 1994 Cardiovascular extremities Overall: no clubbing 07/14/2018 None Full Exam - General 1994 Cardiovascular auscultation of heart Overall: regular rate 07/14/2018 None Full Exam - General 1994 Cardiovascular auscultation of heart Overall: normal heart sounds 07/14/2018 None Full Exam - General 1994 Abdomen abdominal exam Overall: no tenderness 07/14/2018 None Full Exam - General 1994 Abdomen abdominal exam Overall: normal bowel sounds 07/14/2018 None Full Exam - General 1994 Lymphatic neck nodes Overall: anterior cervical chain benign 07/14/2018 None Full Exam - General 1994 Lymphatic neck nodes Overall: posterior cervical chain benign 07/14/2018 None Full Exam - General 1994 Musculoskeletal spine, ribs and pelvis Overall: spine benign 07/14/2018 None Full Exam - General 1994 Musculoskeletal spine, ribs and pelvis Overall: sacroiliac joint benign 07/14/2018 None Full Exam - General 1994 Musculoskeletal spine, ribs and pelvis Overall: good posture 07/14/2018 None Full Exam - General 1994 Musculoskeletal head and neck Overall: head atraumatic 07/14/2018 None Full Exam - General 1994 Musculoskeletal head and neck Overall: cervical spine benign 07/14/2018 None Full Exam - General 1994 Integument inspection of skin Overall: few scattered moles, no gross abnormalities 07/14/2018 None Full Exam - General 1994 Neurologic cranial nerves Overall: crainial nerves 2 - 12 grossly intact 07/14/2018 None Full Exam - General 1994 Psychiatric orientation/consciousness Overall: oriented to person, place and time 07/14/2018 None Full Exam - General 1994 Psychiatric mood and affect Overall: normal mood and affect 07/14/2018 None Exam Name System Name It em Name Status Result Effective Dates Notes Full Exam - General 1994 Constitutional general appearance Development: well developed 10/29/2018 None Full Exam - General 1994 Constitutional general appearance Development: appears stated age 0510/29/2018 None Full Exam - General 1994 Constitutional general appearance Hygiene/Attention to Grooming: good hygiene 10/29/2018 None Full Exam - General 1994 Eyes conjunctiva/eyelids Overall: conjunctiva clear 10/29/2018 None Full Exam - General 1994 Eyes conjunctiva/eyelids Overall: cornea clear 10/29/2018 None Full Exam - General 1994 Eyes conjunctiva/eyelids Overall: eyelids normal 10/29/2018 None Full Exam - General 1994 Eyes pupils and irises Overall: pupils equal, round, reactive to light and accomodation 10/29/2018 None Full Exam - General 1994 Ears/Nose/Throat lips/teeth/gingiva Overall: benign lips 10/29/2018 None Full Exam - General 1994 Ears/Nose/Throat lips/teeth/gingiva Overall: normal dentition 10/29/2018 None Full Exam - General 1994 Ears/Nose/Throat oral cavity/pharynx/larynx Overall: oral mucosa clear 10/29/2018 None Full Exam - General 1994 Ears/Nose/Throat oral cavity/pharynx/larynx Overall: oropharyngeal mucosa clear 10/29/2018 None Full Exam - General 1994 Ears/Nose/Throat oral cavity/pharynx/larynx Overall: hypopharynx benign 10/29/2018 None Full Exam - General 1994 Ears/Nose/Throat oral cavity/pharynx/larynx Overall: no masses 10/29/2018 None Full Exam - General 1994 Respiratory auscultation Overall: breath sounds clear bilaterally 10/29/2018 None Full Exam - General 1994 Respiratory respiratory effort/rhythm Overall: no retractions 10/29/2018 None Full Exam - General 1994 Respiratory respiratory effort/rhythm Overall: normal rate 10/29/2018 None Full Exam - General 1994 Cardiovascular extremities Overall: no clubbing 10/29/2018 None Full Exam - General 1994 Cardiovascular auscultation of heart Overall: regular rate 10/29/2018 None Full Exam - General 1994 Cardiovascular auscultation of heart Overall: normal heart sounds 10/29/2018 None Full Exam - General 1994 Abdomen abdominal exam Overall: no tenderness 10/29/2018 None Full Exam - General 1994 Abdomen abdominal exam Overall: normal bowel sounds 10/29/2018 None Full Exam - General 1994 Musculoskeletal spine, ribs and pelvis Overall: good posture 10/29/2018 None Full Exam - General 1994 Musculoskeletal head and neck Overall: head atraumatic 10/29/2018 None Full Exam - General 1994 Psychiatric orientation/consciousness Overall: oriented to person, place and time 10/29/2018 None Full Exam - General 1994 Psychiatric mood and affect Overall: normal mood and affect 10/29/2018 None Full Exam - General 1994 Ears/Nose/Throat otoscopic exam Overall: external auditory canals clear 10/29/2018 None Full Exam - General 1994 Ears/Nose/Throat otoscopic exam Overall: tympanic membranes clear 10/29/2018 None Full Exam - General 1994 Constitutional general appearance Development: well developed 08/11/2018 None Full Exam - General 1994 Constitutional general appearance Development: appears stated age 0308/11/2018 None Full Exam - General 1994 Constitutional general appearance Hygiene/Attention to Grooming: good hygiene 08/11/2018 None Full Exam - General 1994 Eyes conjunctiva/eyelids Overall: conjunctiva clear 08/11/2018 None Full Exam - General 1994 Eyes conjunctiva/eyelids Overall: cornea clear 08/11/2018 None Full Exam - General 1994 Eyes conjunctiva/eyelids Overall: eyelids normal 08/11/2018 None Full Exam - General 1994 Eyes pupils and irises Overall: pupils equal, round, reactive to light and accomodation 08/11/2018 None Full Exam - General 1994 Ears/Nose/Throat lips/teeth/gingiva Overall: benign lips 08/11/2018 None Full Exam - General 1994 Ears/Nose/Throat lips/teeth/gingiva Overall: normal dentition 08/11/2018 None Full Exam - General 1994 Ears/Nose/Throat oral cavity/pharynx/larynx Overall: oral mucosa clear 08/11/2018 None Full Exam - General 1994 Ears/Nose/Throat oral cavity/pharynx/larynx Overall: oropharyngeal mucosa clear 08/11/2018 None Full Exam - General 1994 Ears/Nose/Throat oral cavity/pharynx/larynx Overall: hypopharynx benign 08/11/2018 None Full Exam - General 1994 Ears/Nose/Throat oral cavity/pharynx/larynx Overall: no masses 08/11/2018 None Full Exam - General 1994 Respiratory auscultation Overall: breath sounds clear bilaterally 08/11/2018 None Full Exam - General 1994 Respiratory respiratory effort/rhythm Overall: no retractions 08/11/2018 None Full Exam - General 1994 Respiratory respiratory effort/rhythm Overall: normal rate 08/11/2018 None Full Exam - General 1994 Cardiovascular extremities Overall: no clubbing 08/11/2018 None Full Exam - General 1994 Cardiovascular auscultation of heart Overall: regular rate 08/11/2018 None Full Exam - General 1994 Cardiovascular auscultation of heart Overall: normal heart sounds 08/11/2018 None Full Exam - General 1994 Abdomen abdominal exam Overall: no tenderness 08/11/2018 None Full Exam - General 1994 Abdomen abdominal exam Overall: normal bowel sounds 08/11/2018 None Full Exam - General 1994 Musculoskeletal spine, ribs and pelvis Overall: good posture 08/11/2018 None Full Exam - General 1994 Musculoskeletal head and neck Overall: head atraumatic 08/11/2018 None Full Exam - General 1994 Psychiatric orientation/consciousness Overall: oriented to person, place and time 08/11/2018 None Full Exam - General 1994 Psychiatric mood and affect Overall: normal mood and affect 08/11/2018 None Full Exam - General 1994 Constitutional general appearance Development: well developed 07/14/2018 None Full Exam - General 1994 Constitutional general appearance Development: appears stated age 0207/14/2018 None Full Exam - General 1994 Constitutional general appearance Hygiene/Attention to Grooming: good hygiene 07/14/2018 None Full Exam - General 1994 Eyes conjunctiva/eyelids Overall: conjunctiva clear 07/14/2018 None Full Exam - General 1994 Eyes conjunctiva/eyelids Overall: cornea clear 07/14/2018 None Full Exam - General 1994 Eyes conjunctiva/eyelids Overall: eyelids normal 07/14/2018 None Full Exam - General 1994 Eyes pupils and irises Overall: pupils equal, round, reactive to light and accomodation 07/14/2018 None Full Exam - General 1994 Ears/Nose/Throat otoscopic exam Overall: external auditory canals clear 07/14/2018 None Full Exam - General 1994 Ears/Nose/Throat otoscopic exam Overall: tympanic membranes clear 07/14/2018 None Full Exam - General 1994 Ears/Nose/Throat lips/teeth/gingiva Overall: benign lips 07/14/2018 None Full Exam - General 1994 Ears/Nose/Throat lips/teeth/gingiva Overall: normal dentition 07/14/2018 None Full Exam - General 1994 Ears/Nose/Throat oral cavity/pharynx/larynx Overall: oral mucosa clear 07/14/2018 None Full Exam - General 1994 Ears/Nose/Throat oral cavity/pharynx/larynx Overall: oropharyngeal mucosa clear 07/14/2018 None Full Exam - General 1994 Ears/Nose/Throat oral cavity/pharynx/larynx Overall: hypopharynx benign 07/14/2018 None Full Exam - General 1994 Ears/Nose/Throat oral cavity/pharynx/larynx Overall: no masses 07/14/2018 None Full Exam - General 1994 Respiratory auscultation Overall: breath sounds clear bilaterally 07/14/2018 None Full Exam - General 1994 Respiratory respiratory effort/rhythm Overall: no retractions 07/14/2018 None Full Exam - General 1994 Respiratory respiratory effort/rhythm Overall: normal rate 07/14/2018 None Full Exam - General 1994 Cardiovascular extremities Overall: no clubbing 07/14/2018 None Full Exam - General 1994 Cardiovascular auscultation of heart Overall: regular rate 07/14/2018 None Full Exam - General 1994 Cardiovascular auscultation of heart Overall: normal heart sounds 07/14/2018 None Full Exam - General 1994 Abdomen abdominal exam Overall: no tenderness 07/14/2018 None Full Exam - General 1994 Abdomen abdominal exam Overall: normal bowel sounds 07/14/2018 None Full Exam - General 1994 Lymphatic neck nodes Overall: anterior cervical chain benign 07/14/2018 None Full Exam - General 1994 Lymphatic neck nodes Overall: posterior cervical chain benign 07/14/2018 None Full Exam - General 1994 Musculoskeletal spine, ribs and pelvis Overall: spine benign 07/14/2018 None Full Exam - General 1994 Musculoskeletal spine, ribs and pelvis Overall: sacroiliac joint benign 07/14/2018 None Full Exam - General 1994 Musculoskeletal spine, ribs and pelvis Overall: good posture 07/14/2018 None Full Exam - General 1994 Musculoskeletal head and neck Overall: head atraumatic 07/14/2018 None Full Exam - General 1994 Musculoskeletal head and neck Overall: cervical spine benign 07/14/2018 None Full Exam - General 1994 Integument inspection of skin Overall: few scattered moles, no gross abnormalities 07/14/2018 None Full Exam - General 1994 Neurologic cranial nerves Overall: crainial nerves 2 - 12 grossly intact 07/14/2018 None Full Exam - General 1994 Psychiatric orientation/consciousness Overall: oriented to person, place and time 07/14/2018 None Full Exam - General 1994 Psychiatric mood and affect Overall: normal mood and affect 07/14/2018 None Exam Name System Name It em Name Status Result Effective Dates Notes Full Exam - General 1994 Constitutional general appearance Development: well developed 12/07/2018 None Full Exam - General 1994 Constitutional general appearance Development: appears stated age 0712/07/2018 None Full Exam - General 1994 Constitutional general appearance Hygiene/Attention to Grooming: good hygiene 12/07/2018 None Full Exam - General 1994 Eyes conjunctiva/eyelids Overall: conjunctiva clear 12/07/2018 None Full Exam - General 1994 Eyes conjunctiva/eyelids Overall: cornea clear 12/07/2018 None Full Exam - General 1994 Eyes conjunctiva/eyelids Overall: eyelids normal 12/07/2018 None Full Exam - General 1994 Eyes pupils and irises Overall: pupils equal, round, reactive to light and accomodation 12/07/2018 None Full Exam - General 1994 Ears/Nose/Throat lips/teeth/gingiva Overall: benign lips 12/07/2018 None Full Exam - General 1994 Ears/Nose/Throat lips/teeth/gingiva Overall: normal dentition 12/07/2018 None Full Exam - General 1994 Ears/Nose/Throat oral cavity/pharynx/larynx Overall: oral mucosa clear 12/07/2018 None Full Exam - General 1994 Ears/Nose/Throat oral cavity/pharynx/larynx Overall: oropharyngeal mucosa clear 12/07/2018 None Full Exam - General 1995 Ears/Nose/Throat oral cavity/pharynx/larynx Overall: hypopharynx benign 12/07/2018 None Full Exam - General 1994 Ears/Nose/Throat oral cavity/pharynx/larynx Overall: no masses 12/07/2018 None Full Exam - General 1994 Respiratory auscultation Overall: breath sounds clear bilaterally 12/07/2018 None Full Exam - General 1994 Respiratory respiratory effort/rhythm Overall: no retractions 12/07/2018 None Full Exam - General 1994 Respiratory respiratory effort/rhythm Overall: normal rate 12/07/2018 None Full Exam - General 1994 Cardiovascular extremities Overall: no clubbing 12/07/2018 None Full Exam - General 1994 Cardiovascular auscultation of heart Overall: regular rate 12/07/2018 None Full Exam - General 1994 Cardiovascular auscultation of heart Overall: normal heart sounds 12/07/2018 None Full Exam - General 1994 Abdomen abdominal exam Overall: no tenderness 12/07/2018 None Full Exam - General 1994 Abdomen abdominal exam Overall: normal bowel sounds 12/07/2018 None Full Exam - General 1994 Musculoskeletal spine, ribs and pelvis Overall: good posture 12/07/2018 None Full Exam - General 1994 Musculoskeletal head and neck Overall: head atraumatic 12/07/2018 None Full Exam - General 1994 Psychiatric orientation/consciousness Overall: oriented to person, place and time 12/07/2018 None Full Exam - General 1994 Psychiatric mood and affect Overall: normal mood and affect 12/07/2018 None Full Exam - General 1994 Constitutional general appearance Development: well developed 10/29/2018 None Full Exam - General 1994 Constitutional general appearance Development: appears stated age 0510/29/2018 None Full Exam - General 1994 Constitutional general appearance Hygiene/Attention to Grooming: good hygiene 10/29/2018 None Full Exam - General 1994 Eyes conjunctiva/eyelids Overall: conjunctiva clear 10/29/2018 None Full Exam - General 1994 Eyes conjunctiva/eyelids Overall: cornea clear 10/29/2018 None Full Exam - General 1994 Eyes conjunctiva/eyelids Overall: eyelids normal 10/29/2018 None Full Exam - General 1994 Eyes pupils and irises Overall: pupils equal, round, reactive to light and accomodation 10/29/2018 None Full Exam - General 1994 Ears/Nose/Throat lips/teeth/gingiva Overall: benign lips 10/29/2018 None Full Exam - General 1994 Ears/Nose/Throat lips/teeth/gingiva Overall: normal dentition 10/29/2018 None Full Exam - General 1994 Ears/Nose/Throat oral cavity/pharynx/larynx Overall: oral mucosa clear 10/29/2018 None Full Exam - General 1994 Ears/Nose/Throat oral cavity/pharynx/larynx Overall: oropharyngeal mucosa clear 10/29/2018 None Full Exam - General 1994 Ears/Nose/Throat oral cavity/pharynx/larynx Overall: hypopharynx benign 10/29/2018 None Full Exam - General 1994 Ears/Nose/Throat oral cavity/pharynx/larynx Overall: no masses 10/29/2018 None Full Exam - General 1994 Respiratory auscultation Overall: breath sounds clear bilaterally 10/29/2018 None Full Exam - General 1994 Respiratory respiratory effort/rhythm Overall: no retractions 10/29/2018 None Full Exam - General 1994 Respiratory respiratory effort/rhythm Overall: normal rate 10/29/2018 None Full Exam - General 1994 Cardiovascular extremities Overall: no clubbing 10/29/2018 None Full Exam - General 1994 Cardiovascular auscultation of heart Overall: regular rate 10/29/2018 None Full Exam - General 1994 Cardiovascular auscultation of heart Overall: normal heart sounds 10/29/2018 None Full Exam - General 1994 Abdomen abdominal exam Overall: no tenderness 10/29/2018 None Full Exam - General 1994 Abdomen abdominal exam Overall: normal bowel sounds 10/29/2018 None Full Exam - General 1994 Musculoskeletal spine, ribs and pelvis Overall: good posture 10/29/2018 None Full Exam - General 1994 Musculoskeletal head and neck Overall: head atraumatic 10/29/2018 None Full Exam - General 1994 Psychiatric orientation/consciousness Overall: oriented to person, place and time 10/29/2018 None Full Exam - General 1994 Psychiatric mood and affect Overall: normal mood and affect 10/29/2018 None Full Exam - General 1994 Ears/Nose/Throat otoscopic exam Overall: external auditory canals clear 10/29/2018 None Full Exam - General 1994 Ears/Nose/Throat otoscopic exam Overall: tympanic membranes clear 10/29/2018 None Full Exam - General 1994 Constitutional general appearance Development: well developed 08/11/2018 None Full Exam - General 1994 Constitutional general appearance Development: appears stated age 0308/11/2018 None Full Exam - General 1994 Constitutional general appearance Hygiene/Attention to Grooming: good hygiene 08/11/2018 None Full Exam - General 1994 Eyes conjunctiva/eyelids Overall: conjunctiva clear 08/11/2018 None Full Exam - General 1994 Eyes conjunctiva/eyelids Overall: cornea clear 08/11/2018 None Full Exam - General 1994 Eyes conjunctiva/eyelids Overall: eyelids normal 08/11/2018 None Full Exam - General 1994 Eyes pupils and irises Overall: pupils equal, round, reactive to light and accomodation 08/11/2018 None Full Exam - General 1994 Ears/Nose/Throat lips/teeth/gingiva Overall: benign lips 08/11/2018 None Full Exam - General 1994 Ears/Nose/Throat lips/teeth/gingiva Overall: normal dentition 08/11/2018 None Full Exam - General 1994 Ears/Nose/Throat oral cavity/pharynx/larynx Overall: oral mucosa clear 08/11/2018 None Full Exam - General 1994 Ears/Nose/Throat oral cavity/pharynx/larynx Overall: oropharyngeal mucosa clear 08/11/2018 None Full Exam - General 1994 Ears/Nose/Throat oral cavity/pharynx/larynx Overall: hypopharynx benign 08/11/2018 None Full Exam - General 1994 Ears/Nose/Throat oral cavity/pharynx/larynx Overall: no masses 08/11/2018 None Full Exam - General 1994 Respiratory auscultation Overall: breath sounds clear bilaterally 08/11/2018 None Full Exam - General 1994 Respiratory respiratory effort/rhythm Overall: no retractions 08/11/2018 None Full Exam - General 1994 Respiratory respiratory effort/rhythm Overall: normal rate 08/11/2018 None Full Exam - General 1994 Cardiovascular extremities Overall: no clubbing 08/11/2018 None Full Exam - General 1994 Cardiovascular auscultation of heart Overall: regular rate 08/11/2018 None Full Exam - General 1994 Cardiovascular auscultation of heart Overall: normal heart sounds 08/11/2018 None Full Exam - General 1994 Abdomen abdominal exam Overall: no tenderness 08/11/2018 None Full Exam - General 1994 Abdomen abdominal exam Overall: normal bowel sounds 08/11/2018 None Full Exam - General 1994 Musculoskeletal spine, ribs and pelvis Overall: good posture 08/11/2018 None Full Exam - General 1994 Musculoskeletal head and neck Overall: head atraumatic 08/11/2018 None Full Exam - General 1994 Psychiatric orientation/consciousness Overall: oriented to person, place and time 08/11/2018 None Full Exam - General 1994 Psychiatric mood and affect Overall: normal mood and affect 08/11/2018 None Full Exam - General 1994 Constitutional general appearance Development: well developed 07/14/2018 None Full Exam - General 1994 Constitutional general appearance Development: appears stated age 0207/14/2018 None Full Exam - General 1994 Constitutional general appearance Hygiene/Attention to Grooming: good hygiene 07/14/2018 None Full Exam - General 1994 Eyes conjunctiva/eyelids Overall: conjunctiva clear 07/14/2018 None Full Exam - General 1994 Eyes conjunctiva/eyelids Overall: cornea clear 07/14/2018 None Full Exam - General 1994 Eyes conjunctiva/eyelids Overall: eyelids normal 07/14/2018 None Full Exam - General 1994 Eyes pupils and irises Overall: pupils equal, round, reactive to light and accomodation 07/14/2018 None Full Exam - General 1994 Ears/Nose/Throat otoscopic exam Overall: external auditory canals clear 07/14/2018 None Full Exam - General 1994 Ears/Nose/Throat otoscopic exam Overall: tympanic membranes clear 07/14/2018 None Full Exam - General 1994 Ears/Nose/Throat lips/teeth/gingiva Overall: benign lips 07/14/2018 None Full Exam - General 1994 Ears/Nose/Throat lips/teeth/gingiva Overall: normal dentition 07/14/2018 None Full Exam - General 1994 Ears/Nose/Throat oral cavity/pharynx/larynx Overall: oral mucosa clear 07/14/2018 None Full Exam - General 1994 Ears/Nose/Throat oral cavity/pharynx/larynx Overall: oropharyngeal mucosa clear 07/14/2018 None Full Exam - General 1994 Ears/Nose/Throat oral cavity/pharynx/larynx Overall: hypopharynx benign 07/14/2018 None Full Exam - General 1994 Ears/Nose/Throat oral cavity/pharynx/larynx Overall: no masses 07/14/2018 None Full Exam - General 1994 Respiratory auscultation Overall: breath sounds clear bilaterally 07/14/2018 None Full Exam - General 1994 Respiratory respiratory effort/rhythm Overall: no retractions 07/14/2018 None Full Exam - General 1994 Respiratory respiratory effort/rhythm Overall: normal rate 07/14/2018 None Full Exam - General 1994 Cardiovascular extremities Overall: no clubbing 07/14/2018 None Full Exam - General 1994 Cardiovascular auscultation of heart Overall: regular rate 07/14/2018 None Full Exam - General 1994 Cardiovascular auscultation of heart Overall: normal heart sounds 07/14/2018 None Full Exam - General 1994 Abdomen abdominal exam Overall: no tenderness 07/14/2018 None Full Exam - General 1994 Abdomen abdominal exam Overall: normal bowel sounds 07/14/2018 None Full Exam - General 1994 Lymphatic neck nodes Overall: anterior cervical chain benign 07/14/2018 None Full Exam - General 1994 Lymphatic neck nodes Overall: posterior cervical chain benign 07/14/2018 None Full Exam - General 1994 Musculoskeletal spine, ribs and pelvis Overall: spine benign 07/14/2018 None Full Exam - General 1994 Musculoskeletal spine, ribs and pelvis Overall: sacroiliac joint benign 07/14/2018 None Full Exam - General 1994 Musculoskeletal spine, ribs and pelvis Overall: good posture 07/14/2018 None Full Exam - General 1994 Musculoskeletal head and neck Overall: head atraumatic 07/14/2018 None Full Exam - General 1994 Musculoskeletal head and neck Overall: cervical spine benign 07/14/2018 None Full Exam - General 1994 Integument inspection of skin Overall: few scattered moles, no gross abnormalities 07/14/2018 None Full Exam - General 1994 Neurologic cranial nerves Overall: crainial nerves 2 - 12 grossly intact 07/14/2018 None Full Exam - General 1994 Psychiatric orientation/consciousness Overall: oriented to person, place and time 07/14/2018 None Full Exam - General 1994 Psychiatric mood and affect Overall: normal mood and affect 07/14/2018 None History of Present Illness Symptom Name Status Resu lt Effective Date Notes Quality chronic 07/14/2018 None Onset and Resolution o ngoing 07/14/2018 None Location in the cervic al spine 07/14/2018 None Onset of Symptom _ yea rs ago 07/14/2018 None Severity severe 07/14/2018 None Radiating down both ar ms 07/14/2018 None Radiating the back 07/14/2018 center of back Pertinent Findings ext remity numbness 07/14/2018 intermittent numbness Pertinent Findings ext remity weakness 07/14/2018 None Blood Pressure Values patient checking blood pressure at home - did not bring in readings 07/14/2018 None Pertinent Findings Den ies dizziness 07/14/2018 None Pertinent Findings Den ies dyspnea 07/14/2018 None Symptom Name Status Resu lt Effective Date Notes Quality chronic 08/11/2018 None Onset and Resolution o ngoing 08/11/2018 None Onset of Symptom _ yea rs ago 08/11/2018 None Blood Pressure Values patient checking blood pressure at home - did not bring in readings 08/11/2018 None Pertinent Findings Den ies dizziness 08/11/2018 None Pertinent Findings Den ies dyspnea 08/11/2018 None Location in the cervic al spine 08/11/2018 None Radiating down both ar ms 08/11/2018 None Radiating the back 08/11/2018 center of back Severity severe 08/11/2018 None Pertinent Findings ext remity numbness 08/11/2018 intermittent numbness Pertinent Findings ext remity weakness 08/11/2018 None Quality chronic 07/14/2018 None Onset and Resolution o ngoing 07/14/2018 None Location in the cervic al spine 07/14/2018 None Onset of Symptom _ yea rs ago 07/14/2018 None Severity severe 07/14/2018 None Radiating down both ar ms 07/14/2018 None Radiating the back 07/14/2018 center of back Pertinent Findings ext remity numbness 07/14/2018 intermittent numbness Pertinent Findings ext remity weakness 07/14/2018 None Blood Pressure Values patient checking blood pressure at home - did not bring in readings 07/14/2018 None Pertinent Findings Den ies dizziness 07/14/2018 None Pertinent Findings Den ies dyspnea 07/14/2018 None Symptom Name Status Resu lt Effective Date Notes Onset and Resolution o ngoing 10/29/2018 None Onset of Symptom _ yea rs ago 10/29/2018 None Frequency of Episodes daily 10/29/2018 None Timing of Episodes all day long 10/29/2018 None Quality chronic 10/29/2018 None Blood Pressure Values patient checking blood pressure at home - did not bring in readings 10/29/2018 None Pertinent Findings Den ies dizziness 10/29/2018 None Pertinent Findings Den ies dyspnea 10/29/2018 None Location in the cervic al spine 10/29/2018 None Radiating down both ar ms 10/29/2018 None Radiating the back 10/29/2018 center of back Severity severe 10/29/2018 None Pertinent Findings ext remity numbness 10/29/2018 intermittent numbness Pertinent Findings ext remity weakness 10/29/2018 None Quality chronic 08/11/2018 None Onset and Resolution o ngoing 08/11/2018 None Onset of Symptom _ yea rs ago 08/11/2018 None Blood Pressure Values patient checking blood pressure at home - did not bring in readings 08/11/2018 None Pertinent Findings Den ies dizziness 08/11/2018 None Pertinent Findings Den ies dyspnea 08/11/2018 None Location in the cervic al spine 08/11/2018 None Radiating down both ar ms 08/11/2018 None Radiating the back 08/11/2018 center of back Severity severe 08/11/2018 None Pertinent Findings ext remity numbness 08/11/2018 intermittent numbness Pertinent Findings ext remity weakness 08/11/2018 None Quality chronic 07/14/2018 None Onset and Resolution o ngoing 07/14/2018 None Location in the cervic al spine 07/14/2018 None Onset of Symptom _ yea rs ago 07/14/2018 None Severity severe 07/14/2018 None Radiating down both ar ms 07/14/2018 None Radiating the back 07/14/2018 center of back Pertinent Findings ext remity numbness 07/14/2018 intermittent numbness Pertinent Findings ext remity weakness 07/14/2018 None Blood Pressure Values patient checking blood pressure at home - did not bring in readings 07/14/2018 None Pertinent Findings Den ies dizziness 07/14/2018 None Pertinent Findings Den ies dyspnea 07/14/2018 None Symptom Name Status Resu lt Effective Date Notes Quality chronic 12/07/2018 None Onset and Resolution o ngoing 12/07/2018 None Pertinent Findings Den ies dizziness 12/07/2018 None Pertinent Findings Den ies dyspnea 12/07/2018 None Location in the cervic al spine 12/07/2018 He reports that he saw Dr Rad Frank at [address] and he recommended an extensive surgery and he is not interested in surgery at this time if he can avoid any more procedures. Onset of Symptom year s ago 12/07/2018 None Radiating down both ar ms 12/07/2018 None Radiating the back 12/07/2018 center of back Severity severe 12/07/2018 None Pertinent Findings ext remity numbness 12/07/2018 intermittent numbness in the hands Pertinent Findings ext remity weakness 12/07/2018 None Quality primary hypert ension 12/07/2018 None Onset of Symptom durin g adulthood 12/07/2018 None Alleviating Factors me dication 12/07/2018 None Blood Pressure Values not checking blood pressure at home 12/07/2018 None Pertinent Findings Den ies edema 12/07/2018 None Onset and Resolution o ngoing 10/29/2018 None Onset of Symptom _ yea rs ago 10/29/2018 None Frequency of Episodes daily 10/29/2018 None Timing of Episodes all day long 10/29/2018 None Quality chronic 10/29/2018 None Blood Pressure Values patient checking blood pressure at home - did not bring in readings 10/29/2018 None Pertinent Findings Den ies dizziness 10/29/2018 None Pertinent Findings Den ies dyspnea 10/29/2018 None Location in the cervic al spine 10/29/2018 None Radiating down both ar ms 10/29/2018 None Radiating the back 10/29/2018 center of back Severity severe 10/29/2018 None Pertinent Findings ext remity numbness 10/29/2018 intermittent numbness Pertinent Findings ext remity weakness 10/29/2018 None Quality chronic 08/11/2018 None Onset and Resolution o ngoing 08/11/2018 None Onset of Symptom _ yea rs ago 08/11/2018 None Blood Pressure Values patient checking blood pressure at home - did not bring in readings 08/11/2018 None Pertinent Findings Den ies dizziness 08/11/2018 None Pertinent Findings Den ies dyspnea 08/11/2018 None Location in the cervic al spine 08/11/2018 None Radiating down both ar ms 08/11/2018 None Radiating the back 08/11/2018 center of back Severity severe 08/11/2018 None Pertinent Findings ext remity numbness 08/11/2018 intermittent numbness Pertinent Findings ext remity weakness 08/11/2018 None Quality chronic 07/14/2018 None Onset and Resolution o ngoing 07/14/2018 None Location in the cervic al spine 07/14/2018 None Onset of Symptom _ yea rs ago 07/14/2018 None Severity severe 07/14/2018 None Radiating down both ar ms 07/14/2018 None Radiating the back 07/14/2018 center of back Pertinent Findings ext remity numbness 07/14/2018 intermittent numbness Pertinent Findings ext remity weakness 07/14/2018 None Blood Pressure Values patient checking blood pressure at home - did not bring in readings 07/14/2018 None Pertinent Findings Den ies dizziness 07/14/2018 None Pertinent Findings Den ies dyspnea 07/14/2018 None Instructions Comment Try Beano - before y our meals and snacks - this is an over the counter medication that is used to try to help improve your stomach digestion of fruits and veggies.. Hypertension - well controlled - continue with current medications, continue with no added salt diet. Pt has been encouraged to exercise daily. The pt has been advised to call the office if there are any acute concerns about change in blood pressure readings at home. Chronic Depression and anxiety - the pt has symptoms of chronic anxiety and depression that have been fairly well controlled since the last office visit. The pt has expected periods of exacerbation with abatement of the symptoms with change in situational exposure. No change in current medications. Hyperlipidemia - pt has been counseled about appropriate diet, exercise, and need for low fat food choices. I have discussed the need for the patient to take medications as prescribed. If the patient has negative side effects from the medication, they are to CALL the office and not abruptly discontinue the medication without discussion with a practitioner in the office. We will check labs in 3-6 months for follow up on the patient's chronic medical problem and to assure normal liver response to medications. Diarrhea - discussed with pt - he will continue with current regimen and try beano before meals and snacks - pt to RTC in 1 month to see if his symptoms improve on the current recommended regimen. Neck pain - discussed with patient - he was given rx for neck estim with dry needling. Comment . Back and Neck pain - he has been seen at [address], but wants a second opinion - He has requested a referral to Dr. Villagran at [place] for neck/back pain - xray and MRI and CT scan at [address] - Once these have been obtained - we will initiate the referral. Hypertension - well controlled - continue with current medications, continue with no added salt diet. Pt has been encouraged to exercise daily. The pt has been advised to call the office if there are any acute concerns about change in blood pressure readings at home. chronic pain - refill of hydrocodone given to pt. Try Beano - before y our meals and snacks - this is an over the counter medication that is used to try to help improve your stomach digestion of fruits and veggies.. Hypertension - well controlled - continue with current medications, continue with no added salt diet. Pt has been encouraged to exercise daily. The pt has been advised to call the office if there are any acute concerns about change in blood pressure readings at home. Chronic Depression and anxiety - the pt has symptoms of chronic anxiety and depression that have been fairly well controlled since the last office visit. The pt has expected periods of exacerbation with abatement of the symptoms with change in situational exposure. No change in current medications. Hyperlipidemia - pt has been counseled about appropriate diet, exercise, and need for low fat food choices. I have discussed the need for the patient to take medications as prescribed. If the patient has negative side effects from the medication, they are to CALL the office and not abruptly discontinue the medication without discussion with a practitioner in the office. We will check labs in 3-6 months for follow up on the patient's chronic medical problem and to assure normal liver response to medications. Diarrhea - discussed with pt - he will continue with current regimen and try beano before meals and snacks - pt to RTC in 1 month to see if his symptoms improve on the current recommended regimen. Neck pain - discussed with patient - he was given rx for neck estim with dry needling. Comment . Back and Neck pain - he has been seen at [address], but wants a second opinion - He has requested a referral to Dr. Villagran at [place] for neck/back pain - xray and MRI and CT scan at [address] - Once these have been obtained - we will initiate the referral. Hypertension - well controlled - continue with current medications, continue with no added salt diet. Pt has been encouraged to exercise daily. The pt has been advised to call the office if there are any acute concerns about change in blood pressure readings at home. chronic pain - refill of hydrocodone given to pt. Try Beano - before y our meals and snacks - this is an over the counter medication that is used to try to help improve your stomach digestion of fruits and veggies.. Hypertension - well controlled - continue with current medications, continue with no added salt diet. Pt has been encouraged to exercise daily. The pt has been advised to call the office if there are any acute concerns about change in blood pressure readings at home. Chronic Depression and anxiety - the pt has symptoms of chronic anxiety and depression that have been fairly well controlled since the last office visit. The pt has expected periods of exacerbation with abatement of the symptoms with change in situational exposure. No change in current medications. Hyperlipidemia - pt has been counseled about appropriate diet, exercise, and need for low fat food choices. I have discussed the need for the patient to take medications as prescribed. If the patient has negative side effects from the medication, they are to CALL the office and not abruptly discontinue the medication without discussion with a practitioner in the office. We will check labs in 3-6 months for follow up on the patient's chronic medical problem and to assure normal liver response to medications. Diarrhea - discussed with pt - he will continue with current regimen and try beano before meals and snacks - pt to RTC in 1 month to see if his symptoms improve on the current recommended regimen. Neck pain - discussed with patient - he was given rx for neck estim with dry needling. . Sinusitis - Pt has acute congestion- pain in face, maxillary region, Pt informed to use decongestant, RX given to patient, sinus rinses also recommended. Call if symptoms do not show improvement. Rx for flonase and steroids Comment . Back and Neck pain - he has been seen at [address], but wants a second opinion - He has requested a referral to Dr. Villagran at [place] for neck/back pain - xray and MRI and CT scan at [address] - Once these have been obtained - we will initiate the referral. Hypertension - well controlled - continue with current medications, continue with no added salt diet. Pt has been encouraged to exercise daily. The pt has been advised to call the office if there are any acute concerns about change in blood pressure readings at home. chronic pain - refill of hydrocodone given to pt. Vitamin B12 deficiency - check labs . Back and Neck pain - he has been seen at [address], but wants a second opinion - He has requested a referral to Dr. Villagran at [place] for neck/back pain - xray and MRI and CT scan at [address] - Once these have been obtained - we will initiate the referral. Hypertension - well controlled - continue with current medications, continue with no added salt diet. Pt has been encouraged to exercise daily. The pt has been advised to call the office if there are any acute concerns about change in blood pressure readings at home. chronic pain - refill of hydrocodone given to pt. Try Beano - before y our meals and snacks - this is an over the counter medication that is used to try to help improve your stomach digestion of fruits and veggies.. Hypertension - well controlled - continue with current medications, continue with no added salt diet. Pt has been encouraged to exercise daily. The pt has been advised to call the office if there are any acute concerns about change in blood pressure readings at home. Chronic Depression and anxiety - the pt has symptoms of chronic anxiety and depression that have been fairly well controlled since the last office visit. The pt has expected periods of exacerbation with abatement of the symptoms with change in situational exposure. No change in current medications. Hyperlipidemia - pt has been counseled about appropriate diet, exercise, and need for low fat food choices. I have discussed the need for the patient to take medications as prescribed. If the patient has negative side effects from the medication, they are to CALL the office and not abruptly discontinue the medication without discussion with a practitioner in the office. We will check labs in 3-6 months for follow up on the patient's chronic medical problem and to assure normal liver response to medications. Diarrhea - discussed with pt - he will continue with current regimen and try beano before meals and snacks - pt to RTC in 1 month to see if his symptoms improve on the current recommended regimen. Neck pain - discussed with patient - he was given rx for neck estim with dry needling. . Sinusitis - Pt has acute congestion- pain in face, maxillary region, Pt informed to use decongestant, RX given to patient, sinus rinses also recommended. Call if symptoms do not show improvement. Rx for flonase and steroids Additional Source Comments This clinical document has been generated using [employer] software that has been certified by the Office of the National Coordinator for Health Information Technology (ONC 15.99.04.3023.[id number]) and the National [employer] (NCQA, as an eMeasure certified technology). FOR RECORDS PERTAINING TO PATIENTS WHO ARE OR HAVE BEEN ENROLLED IN A CHEMICAL D EPENDENCY/SUBSTANCE ABUSE PROGRAM, SOME INFORMATION MAY BE OMITTED. This clinica l summary was aggregated from multiple sources. Caution should be exercised in using it in the provision of clinical care. This summary normalizes information from multiple sources, and as a consequence, information in this document may ma terially change the coding, format and clinical context of patient data. In woody tion, data may be omitted in some cases. CLINICAL DECISIONS SHOULD BE BASED ON T HE PRIMARY CLINICAL RECORDS. [facility]. provides no warranty or guara ntee of the accuracy or completeness of information in this document.The followi information is based on time limited clinical information
--- OUTSIDE RECORDS SUMMARY | 2019-08-25 09:32 | XMS REPORT | CCD ---
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 Role Phone PP Unavailable CCM Unavailable Summary Purpose Interface Exchange Insurance Providers Payer name Policy type / Coverage type Covered alliance party ID Effective Begin Date Effective End Date WPS Medicare Part B Medicare Part B [id number] Unknown Unknown [facility] icare Part B [id number] Unknown Unk nown Family history Father Diagnosis Age At Onset Hypertension Unknown Stroke Unknown Mother Diagnosis Age At Onset Diabetes mellitus Type 2 Unknown Social History Social History Element Codes Description Effective Dates Marital status Unknown M robbie Church 07/14/2018 Number of children Unknown 2 07/14/[address]: 7346742 Quit over 10 years ago 12-29-1989 07/14/[address]: 734801733 Never drinks alcohol 07/14/2018 Allergies, Adverse Reactions, Alerts Substance Reaction Codes Entered Date Inactivated Date Status SULFA(SULFONAMIDE AN TIBIOTICS) nausea, Unknown 019 No Inactive Date Active Past Medical History Illness Codes Condition Status Onset Date Resolved Date Chronic pain syndrome ICD-9: 338.4 ICD-10: G89.4 Active 08/11/2018 Unknown Essential (primary) hypertension ICD-9: 401.1 ICD-10: I10 Active 07/14/2018 Unknown Major depressive dis order, recurrent, moderate ICD-9: 296.32 ICD-10: F33.1 Active 07/14/2018 Unknown Mixed hyperlipidemia ICD-9: 272.2 ICD-10: E78.2 Active 07/14/2018 Unknown Vitamin B12 deficien cy anemia due to intrinsic factor deficiency ICD-9: 281.0 ICD-10: D51.0 Active 12/07/2018 Unknown Cough ICD-9: 786.2 ICD-10: R05 Active 10/29/2018 Unknown Nasal congestion ICD-9: 478.19 ICD-10: R09.81 Active 10/29/2018 Unknown Cervicalgia ICD-9: 723.1 ICD-10: M54.2 Active 08/11/2018 Unknown 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-10: K59.1 Active 07/14/2018 Unknown Problems Condition Codes Effectiv e Dates Condition Status Chronic pain syndrome ICD-9: 338.4 ICD-10: G89.4 08/11/2018 Active Essential (primary) hypertension ICD-9: 401.1 ICD-10: I10 07/14/2018 Active Major depressive dis order, recurrent, moderate ICD-9: 296.32 ICD-10: F33.1 07/14/2018 Active Mixed hyperlipidemia ICD-9: 272.2 ICD-10: E78.2 07/14/2018 Active Vitamin B12 deficien cy anemia due to intrinsic factor deficiency ICD-9: 281.0 ICD-10: D51.0 12/07/2018 Active Cough ICD-9: 786.2 ICD-10: R05 10/29/2018 Active Nasal congestion ICD-9: 478.19 ICD-10: R09.81 10/29/2018 Active Cervicalgia ICD-9: 723.1 ICD-10: M54.2 08/11/2018 Active 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-10: K59.1 07/14/2018 Active Medications Medication Codes Instruc tions Start Date Stop Date Sta tus Fill Instructions Flonase Allergy Reli ef 50 mcg/actuation nasal spray,suspension RxNorm: 4588575 1 [place] NASAL BID 11/25/2018 01/19/2019 Active hydrocodone 7.5 mg-a cetaminophen 325 mg tablet RxNorm: 008866 1 Tablet(s) PO Q6 10/30/2018 11/28/2018 In active prednisone 20 mg tablet RxNorm: 783859 2 Tablet(s) PO daily 10/29/2018 11/02/2018 Inactive Flonase Allergy Reli ef 50 mcg/actuation nasal spray,suspension RxNorm: 3367973 1 [place] NASAL BID 10/29/2018 11/11/2018 Inactive provide OTC if insurance will not pay for it citalopram 40 mg tablet RxNorm: 449199 1 Tablet(s) PO daily 09/10/2018 09/04/2019 Active hydrocodone 7.5 mg-a cetaminophen 325 mg tablet RxNorm: 803474 1 Tablet(s) PO Q6 08/11/2018 09/09/2018 In active finasteride 5 mg tablet RxNorm: 141259 1 Tablet(s) PO daily 07/14/2018 08/12/2018 Inactive simvastatin 20 mg ta blet RxNorm: 682441 1 Tablet(s) PO daily No Start Date Active amlodipine 5 mg tablet RxNorm: 369122 1 Tablet(s) PO daily No Start Date Active donepezil 10 mg tablet RxNorm: 113504 1 Tablet(s) PO daily No Start Date Active Fish Oil 720 mg-1,20 0 mg capsule RxNorm: 1 Capsule(s) PO BID No Start Date Active tamsulosin 0.4 mg ca psule RxNorm: 768039 2 Capsule(s) PO daily No Start Date Active aspirin 81 mg tablet ,delayed release RxNorm: 234345 1 Tablet(s) PO daily No Start Date Active Celebrex 200 mg capsule RxNorm: 335905 1 Capsule(s) PO BID No Start Date Active atenolol 50 mg tablet RxNorm: 771320 1 Tablet(s) PO daily No Start Date Active folic acid 0.8 mg ca psule RxNorm: 787989 1 Capsule(s) PO daily No Start Date Active colestipol 1 gram ta blet RxNorm: 9625913 2 Tablet(s) PO QHS No Start Date Active Multiple Vitamin tablet RxNorm: 1 Tablet(s) PO daily No Start Date Active citalopram 40 mg tablet RxNorm: 531827 1 Tablet(s) PO daily No Start Date 09/09/2018 Inactive hydrocodone 7.5 mg-a cetaminophen 325 mg tablet RxNorm: 156725 1 Tablet(s) PO Q6 No Start Date 08/10/2018 Inactive Medication Administered No Medication Administered data Immunizations Vaccine Codes Date Status Influenza CVX: 141 03/02 completed Assessments Condition Codes Effectiv e Dates Essential (primary) [...] 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 ICD-9: 564.5 07/14/2018 Reason For Visit Reason For Visit Effective Dates Notes hypertension 12/07/2018 sinus congestion 10/29/2018 hypertension 08/11/2018 hypertension 07/14/2018 Results No Results data Review of Systems System Result Effective Dates Constitutional No recent [...] - General 1995 Ears/Nose/Throat oral cavity/pharynx/larynx Overall: oropharyngeal mucosa clear 12/07/2018 None Full Exam - General 1995 Ears/Nose/Throat oral cavity/pharynx/larynx Overall: hypopharynx benign 12/07/2018 None Full Exam - General 1995 Ears/Nose/Throat oral cavity/pharynx/larynx Overall: no masses 12/07/2018 [...] accomodation 08/11/2018 None Full Exam - General 1995 Ears/Nose/Throat lips/teeth/gingiva Overall: benign lips 08/11/2018 None [...] Overall: normal mood and affect 07/14/2018 None Procedures No Procedures data Vital Signs Date Vital 12/07/2018 Blood Pressure 1: 118/64 Code: 8480-6 BMI: 29.1 Code: 72517-3 Heart Rate 1: 58 bpm Height: 5'11" SpO2: 96% Weight: 209 lbs 10/29/2018 Blood Pressure 1: 120/56 Code: 8480-6 BMI: 28.9 Code: 16638-9 Heart Rate 1: 56 bpm Height: 5'11" SpO2: 98% Weight: 207 lbs 08/11/2018 Blood Pressure 1: 136/68 Code: 8480-6 BMI: 28.3 Code: 77630-1 Heart Rate 1: 55 bpm Height: 5'11" SpO2: 99% Weight: 203 lbs 07/14/2018 Blood Pressure 1: 140/80 Code: 8480-6 BMI: 28.5 Code: 09235-6 Heart Rate 1: 56 bpm Height: 5'11" SpO2: 98% Weight: 204 lbs Functional Status No Functional Status data History of Present Illness Symptom Name Status Resu lt Effective Date Notes Quality chronic 12/07/2018 None Onset and Resolution o ngoing 12/07/2018 None Pertinent Findings Den ies dizziness 12/07/2018 None Pertinent Findings Den ies dyspnea 12/07/2018 None Location in the cervic al spine 12/07/2018 He reports that he saw Dr Rad Frank at [address] and he recommended an extensive surgery and he is not interested in surgery at this time if he can avoid any more procedures. Quality chronic 12/07/2018 None Onset and Resolution o ngoing 12/07/2018 None Onset of Symptom year s ago 12/07/2018 None Radiating down both arms 12/07/2018 None Radiating the back 12/07/2018 center [...] long 10/29/2018 None Quality chronic 10/29/2018 None Onset and Resolution o ngoing 10/29/2018 None Onset of Symptom _ yea rs ago 10/29/2018 None Blood Pressure Values patient checking blood pressure at home - did not bring in readings 10/29/2018 None Pertinent Findings Den ies dizziness 10/29/2018 None Pertinent Findings Den ies dyspnea 10/29/2018 None Location in the cervic al spine 10/29/2018 None Quality chronic 10/29/2018 None Onset and Resolution o ngoing 10/29/2018 None Onset of Symptom _ yea rs ago 10/29/2018 None Radiating down both arms 10/29/2018 None Radiating the back 10/29/2018 center [...] in the cervic al spine 08/11/2018 None Quality chronic 08/11/2018 None Onset and Resolution o ngoing 08/11/2018 None Onset of Symptom _ yea rs ago 08/11/2018 None Radiating down both arms 08/11/2018 None Radiating the back 08/11/2018 center of back Severity severe 08/11/2018 None Pertinent Findings ext remity numbness 08/11/2018 intermittent numbness Pertinent Findings ext remity weakness 08/11/2018 None Quality chronic 07/14/2018 None Onset and Resolution o ngoing 07/14/2018 None Location in the cervic al spine 07/14/2018 None Quality chronic 07/14/2018 None Onset and Resolution o ngoing 07/14/2018 None Onset of Symptom _ yea rs ago 07/14/2018 None Severity severe 07/14/2018 None Radiating down both arms 07/14/2018 None Radiating the back 07/14/2018 center of back Pertinent Findings ext remity numbness 07/14/2018 intermittent numbness Pertinent Findings ext remity weakness 07/14/2018 None Onset of Symptom _ yea rs ago 07/14/2018 None Blood Pressure Values patient checking blood pressure at home - did not bring in readings 07/14/2018 None Pertinent Findings Den ies dizziness 07/14/2018 None Pertinent Findings Den ies dyspnea 07/14/2018 None Advance Directives No Advance Directive data Encounters Encounter Performer Loca tion Codes Date ([id number]) [id number] EST. P ATIENT, LEVEL IV Diagnosis: Essential (primary) hypertension[ICD10: I10] Diagnosis: Major depressive disorder, recurrent, moderate[ICD10: F33.1] Diagnosis: Mixed hyperlipidemia[ICD10: E78.2] Diagnosis: Chronic pain syndrome[ICD10: G89.4] Diagnosis: Vitamin B12 deficiency anemia due to intrinsic factor deficiency[ICD10: D51.0] Terri Quinonez MD, [facility] CPT-4: 35351 12/07/2018 ([id number]) 43503 EST. P ATIENT, LEVEL III Diagnosis: Nasal congestion[ICD10: R09.81] Diagnosis: Cough[ICD10: R05] Terri Quinonez MD, [facility] CPT-4: 02442 10/29/2018 ([id number]) [id number] EST. P ATIENT, LEVEL IV Diagnosis: Essential (primary) hypertension[ICD10: I10] Diagnosis: Cervicalgia[ICD10: M54.2] Diagnosis: Chronic pain syndrome[ICD10: G89.4] Terri Quinonez MD, [facility] CPT- 4: 83073 08/11/2018 ([id number]) OFFICE [facility] - LEVEL 4 Diagnosis: Essential (primary) hypertension[ICD10: I10] Diagnosis: Mixed hyperlipidemia[ICD10: E78.2] Diagnosis: Functional diarrhea[ICD10: K59.1] Diagnosis: Major depressive disorder, recurrent, moderate[ICD10: F33.1] Terri Quinonez MD, [facility] CPT-4: 20517 07/14/2018 Plan of Care Planned Activity Notes C odes Status Date Visit Plan: Back and Neck pain - he has been seen at [address], but wants a second opinion - He has requested a referral to Dr. Villagran at [place] for neck/back pain - xray and MRI and CT scan at [address] - Once these have been obtained [...] pt. Vitamin B12 deficiency - check labs 12/07/2018 Patient Education: Patient Medication Summary Completed 12/07/2018 Patient Education: Depression Completed 12/07/2018 Patient Education: Cholesterol Management Completed 12/07/2018 Care Plan: Comp Metabolic Pending 12/07/2018 Care Plan: Cbc With Differential Pending 12/07/2018 Care Plan: Tsh Pending 12/07/2018 Care Plan: Lipid Pending 12/07/2018 Care Plan: Total Psa Pending 12/07/2018 Care Plan: B12 Pending 12/07/2018 Visit Plan: Sinusitis - Pt has acut e congestion- pain in face, maxillary region, Pt informed to use decongestant, RX given to patient, sinus rinses also recommended. Call if symptoms do not show improvement. Rx for flonase and steroids 10/29/2018 Appointment: Terri Quinonez WPtel: [phone] [phone] (15 min) Moderate 10/29/2018 Patient Education: Patient Medication Summary Completed 10/29/2018 Visit Plan: Back and Neck pain - he has been seen at [address], but wants a second opinion - He has requested a referral to Dr. Villagran at [place] for neck/back pain - xray and MRI and CT scan at [address] - Once these have been obtained [...] - refill of hydrocodone given to pt. 08/11/2018 Appointment: Terri Quinonez WPtel: [phone] [facility] (15 min) Moderate 08/11/2018 Patient Education: Patient Medication Summary Completed 08/11/2018 Patient Education: .Cervicalgia Neck Pain Completed 08/11/2018 Visit Plan: Hypertension - well con trolled - continue with current medications, continue with [...] rx for neck estim with dry needling. 07/14/2018 Appointment: Devi Terri WPtel: [address] [place], [place] [id number] New Patient 07/14/2018 Patient Education: Patient Medication Summary Completed 07/14/2018 Patient Education: Cholesterol Management Completed 07/14/2018 Patient Education: Diarrhea Completed 07/14/2018 Patient Education: Depression Completed 07/14/2018 Instructions Comment . Back and Neck pain - he has been seen at [address], but wants a second opinion - He has requested a referral to Dr. Villagran at [place] for neck/back pain - xray and MRI and CT scan at [address] - Once these have been obtained [...] pain - he has been seen at [address], but wants a second opinion - He has requested a referral to Dr. Villagran at [place] for neck/back pain - xray and MRI and CT scan at [address] - Once these have been obtained [...]
--- OUTSIDE RECORDS SUMMARY | 2019-08-25 09:32 | XMS REPORT | CCD ---
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 Name Role Phone PP Unavailable CCM Unavailable Summary Purpose Interface Exchange Insurance Providers Payer name Policy type / Coverage type Covered republican ID Effective Begin Date Effective End Date WPS Medicare Part B Medicare Part B [id number] Unknown Unknown [facility] icare Part B [id number] Unknown Unk nown Family history Father Diagnosis Age At Onset Hypertension Unknown Stroke Unknown Mother Diagnosis Age At Onset Diabetes mellitus Type 2 Unknown Social History Social History Element Codes Description Effective Dates Marital status Unknown M robbie Church 07/14/2018 Number of children Unknown 2 07/14/[address]: 1334409 Quit over 10 years ago 12-29-1989 07/14/[address]: 299602718 Never drinks alcohol 07/14/2018 Allergies, Adverse Reactions, Alerts Substance Reaction Codes Entered Date Inactivated Date Status SULFA(SULFONAMIDE AN TIBIOTICS) nausea, Unknown 019 No Inactive Date Active Past Medical History Illness Codes Condition Status Onset Date Resolved Date Cough ICD-9: 786.2 ICD-10: R05 Active 10/29/2018 Unknown Essential (primary) hypertension ICD-9: 401.1 ICD-10: I10 Active 07/14/2018 Unknown Nasal congestion ICD-9: 478.19 ICD-10: R09.81 Active 10/29/2018 Unknown Cervicalgia ICD-9: 723.1 ICD-10: M54.2 Active 08/11/2018 Unknown Chronic pain syndrome ICD-9: 338.4 ICD-10: G89.4 Active 08/11/2018 Unknown 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-10: K59.1 Active 07/14/2018 Unknown Major depressive dis order, recurrent, moderate ICD-9: 296.32 ICD-10: F33.1 Active 07/14/2018 Unknown Mixed hyperlipidemia ICD-9: 272.2 ICD-10: E78.2 Active 07/14/2018 Unknown Problems Condition Codes Effectiv e Dates Condition Status Cough ICD-9: 786.2 ICD-10: R05 10/29/2018 Active Essential (primary) hypertension ICD-9: 401.1 ICD-10: I10 07/14/2018 Active Nasal congestion ICD-9: 478.19 ICD-10: R09.81 10/29/2018 Active Cervicalgia ICD-9: 723.1 ICD-10: M54.2 08/11/2018 Active Chronic pain syndrome ICD-9: 338.4 ICD-10: G89.4 08/11/2018 Active 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-10: K59.1 07/14/2018 Active Major depressive dis order, recurrent, moderate ICD-9: 296.32 ICD-10: F33.1 07/14/2018 Active Mixed hyperlipidemia ICD-9: 272.2 ICD-10: E78.2 07/14/2018 Active Medications Medication Codes Instruc tions Start Date Stop Date Sta tus Fill Instructions hydrocodone 7.5 mg-a cetaminophen 325 mg tablet RxNorm: 964477 1 Tablet(s) PO Q6 10/30/2018 11/28/2018 Ac tive prednisone 20 mg tablet RxNorm: 033458 2 Tablet(s) PO daily 10/29/2018 11/02/2018 Active Flonase Allergy Reli ef 50 mcg/actuation nasal spray,suspension RxNorm: 4295022 1 [place] NASAL BID 10/29/2018 11/11/2018 Active provide OTC if insurance will not pay for it citalopram 40 mg tablet RxNorm: 102887 1 Tablet(s) PO daily 09/10/2018 09/04/2019 Active hydrocodone 7.5 mg-a cetaminophen 325 mg tablet RxNorm: 669752 1 Tablet(s) PO Q6 08/11/2018 09/09/2018 In active finasteride 5 mg tablet RxNorm: 839605 1 Tablet(s) PO daily 07/14/2018 08/12/2018 Inactive simvastatin 20 mg ta blet RxNorm: 426166 1 Tablet(s) PO daily No Start Date Active amlodipine 5 mg tablet RxNorm: 207600 1 Tablet(s) PO daily No Start Date Active donepezil 10 mg tablet RxNorm: 975399 1 Tablet(s) PO daily No Start Date Active Fish Oil 720 mg-1,20 0 mg capsule RxNorm: 1 Capsule(s) PO BID No Start Date Active tamsulosin 0.4 mg ca psule RxNorm: 993464 2 Capsule(s) PO daily No Start Date Active aspirin 81 mg tablet ,delayed release RxNorm: 561609 1 Tablet(s) PO daily No Start Date Active Celebrex 200 mg capsule RxNorm: 466845 1 Capsule(s) PO BID No Start Date Active atenolol 50 mg tablet RxNorm: 730950 1 Tablet(s) PO daily No Start Date Active folic acid 0.8 mg ca psule RxNorm: 431577 1 Capsule(s) PO daily No Start Date Active colestipol 1 gram ta blet RxNorm: 1279190 2 Tablet(s) PO QHS No Start Date Active Multiple Vitamin tablet RxNorm: 1 Tablet(s) PO daily No Start Date Active citalopram 40 mg tablet RxNorm: 652651 1 Tablet(s) PO daily No Start Date 09/09/2018 Inactive hydrocodone 7.5 mg-a cetaminophen 325 mg tablet RxNorm: 987602 1 Tablet(s) PO Q6 No Start Date 08/10/2018 Inactive Medication Administered No Medication Administered data Immunizations Vaccine Codes Date Status Influenza CVX: 141 03/02 completed Assessments Condition Codes Effectiv e Dates Cough ICD-10: [...] Mixed hyperlipidemia ICD-10: E78.2 ICD-9: 272.2 07/14/2018 Reason For Visit Reason For Visit Effective Dates Notes sinus [...] clear 08/11/2018 None Full Exam - General 1995 [...] No Procedures data Vital Signs Date Vital 10/29/2018 Blood Pressure 1: 120/56 Code: 8480-6 BMI: 28.9 Code: 75685-0 Heart Rate 1: 56 bpm Height: 5'11" SpO2: 98% Weight: 207 lbs 08/11/2018 Blood Pressure 1: 136/68 Code: 8480-6 BMI: 28.3 Code: 93542-0 Heart Rate 1: 55 bpm Height: 5'11" SpO2: 99% Weight: 203 lbs 07/14/2018 Blood Pressure 1: 140/80 Code: 8480-6 BMI: 28.5 Code: 15071-3 Heart Rate 1: 56 bpm Height: 5'11" [...] Encounters Encounter Performer Loca tion Codes Date ([id number]) [id number] EST. P ATIENT, LEVEL III Diagnosis: Nasal congestion[ICD10: R09.81] Diagnosis: Cough[ICD10: R05] Terri Quinonez MD, [facility] CPT-4: 08357 10/29/2018 ([id number]) [id number] EST. P ATIENT, LEVEL IV Diagnosis: Essential (primary) hypertension[ICD10: I10] Diagnosis: Cervicalgia[ICD10: M54.2] Diagnosis: Chronic pain syndrome[ICD10: G89.4] [facility] CPT- 4: 21731 08/11/2018 ([id number]) OFFICE [facility] - LEVEL 4 Diagnosis: Essential (primary) hypertension[ICD10: I10] Diagnosis: Mixed hyperlipidemia[ICD10: E78.2] Diagnosis: Functional diarrhea[ICD10: K59.1] Diagnosis: Major depressive disorder, recurrent, moderate[ICD10: F33.1] Terri Quinonez MD, [facility] CPT-4: 14225 07/14/2018 Plan of Care Planned Activity Notes C odes Status Date Visit Plan: Sinusitis - Pt has acut e congestion- pain in face, maxillary region, Pt informed to use decongestant, RX given to patient, sinus rinses also recommended. Call if symptoms do not show improvement. Rx for flonase and steroids 10/29/2018 Appointment: Terri Quinonez WPtel: [facility] [facility] (15 min) Moderate 10/29/2018 Patient Education: Patient Medication Summary Completed 10/29/2018 Visit Plan: Back and Neck pain - he has been seen at [address], but wants a second opinion - He has requested a referral to Dr. Villagran at [place] for neck/back pain - xray and MRI and CT scan at [address] - Once these have been obtained [...] to pt. 08/11/2018 Appointment: Terri Quinonez WPtel: [facility] [facility] (15 min) Moderate 08/11/2018 Patient [...] neck estim with dry needling. 07/14/2018 Appointment: Terri Quinonez WPtel: [address] [place], [place] [id number] New Patient 07/14/2018 Patient Education: Patient Medication Summary Completed 07/14/2018 Patient Education: Cholesterol Management Completed 07/14/2018 Patient Education: Diarrhea Completed 07/14/2018 Patient Education: Depression Completed 07/14/2018 Instructions Comment . Back and Neck pain - he has been seen at [address], but wants a second opinion - He has requested a referral to Dr. Villagran at [place] for neck/back pain - xray and MRI and CT scan at [address] - Once these have been obtained [...]
--- OUTSIDE RECORDS SUMMARY | 2019-08-25 09:32 | XMS REPORT | CCD ---
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 Name Role Phone PP Unavailable CCM Unavailable Summary Purpose Interface Exchange Insurance Providers Payer name Policy type / Coverage type Covered alliance party ID Effective Begin Date Effective End Date WPS Medicare Part B Medicare Part B [id number] Unknown Unknown [facility] icare Part B [id number] Unknown Unk nown Family history Father Diagnosis Age At Onset Hypertension Unknown Stroke Unknown Mother Diagnosis Age At Onset Diabetes mellitus Type 2 Unknown Social History Social History Element Codes Description Effective Dates Marital status Unknown M robbie Church 07/14/2018 Number of children Unknown 2 07/14/[address]: 1701784 Quit over 10 years ago 12-29-1989 07/14/[address]: 826024917 Never drinks alcohol 07/14/2018 Allergies, Adverse Reactions, [...] 7.5 mg-a cetaminophen 325 mg tablet RxNorm: 729596 1 Tablet(s) PO Q6 01/28/2019 02/26/2019 Ac tive amlodipine 10 mg tablet RxNorm: 110155 1 Tablet(s) PO daily 12/08/2018 12/02/2019 Active finasteride 5 mg tablet RxNorm: 325157 1 Tablet(s) PO daily 12/08/2018 12/02/2019 Active donepezil 10 mg tablet RxNorm: 470868 1 Tablet(s) PO daily 12/08/2018 12/02/2019 Active Flonase Allergy Reli ef 50 mcg/actuation nasal spray,suspension RxNorm: 2964173 1 [place] NASAL BID 11/25/2018 01/19/2019 Inactive hydrocodone 7.5 mg-a cetaminophen 325 mg tablet RxNorm: 694506 1 Tablet(s) PO Q6 10/30/2018 11/28/2018 In active prednisone 20 mg tablet RxNorm: 009266 2 Tablet(s) PO daily 10/29/2018 11/02/2018 Inactive Flonase Allergy Reli ef 50 mcg/actuation nasal spray,suspension RxNorm: 4865496 1 [place] NASAL BID 10/29/2018 11/11/2018 Inactive provide OTC if insurance will not pay for it citalopram 40 mg tablet RxNorm: 938956 1 Tablet(s) PO daily 09/10/2018 09/04/2019 Active hydrocodone 7.5 mg-a cetaminophen 325 mg tablet RxNorm: 767417 1 Tablet(s) PO Q6 08/11/2018 09/09/2018 In active finasteride 5 mg tablet RxNorm: 671639 1 Tablet(s) PO daily 07/14/2018 08/12/2018 Inactive simvastatin 20 mg ta blet RxNorm: 602500 1 Tablet(s) PO daily No Start Date Active Fish Oil 720 mg-1,20 0 mg capsule RxNorm: 1 Capsule(s) PO BID No Start Date Active tamsulosin 0.4 mg ca psule RxNorm: 451457 2 Capsule(s) PO daily No Start Date Active aspirin 81 mg tablet ,delayed release RxNorm: 783908 1 Tablet(s) PO daily No Start Date Active Celebrex 200 mg capsule RxNorm: 631623 1 Capsule(s) PO BID No Start Date Active atenolol 50 mg tablet RxNorm: 910493 1 Tablet(s) PO daily No Start Date Active folic acid 0.8 mg ca psule RxNorm: 252952 1 Capsule(s) PO daily No Start Date Active colestipol 1 gram ta blet RxNorm: 3764351 2 Tablet(s) PO QHS No Start Date Active Multiple Vitamin tablet RxNorm: 1 Tablet(s) PO daily No Start Date Active amlodipine 5 mg tablet RxNorm: 879902 1 Tablet(s) PO daily No Start Date 12/07/2018 Inactive donepezil 10 mg tablet RxNorm: 384683 1 Tablet(s) PO daily No Start Date 12/07/2018 Inactive citalopram 40 mg tablet RxNorm: 442036 1 Tablet(s) PO daily No Start Date 09/09/2018 Inactive hydrocodone 7.5 mg-a cetaminophen 325 mg tablet RxNorm: 983308 1 Tablet(s) PO Q6 No Start Date 08/10/2018 Inactive Medication Administered No Medication Administered data Immunizations Vaccine Codes Date Status SHINGARIX CVX: 121 12/30 completed Influenza CVX: 141 03/02 completed Assessments Condition [...] congestion 10/29/2018 hypertension 08/11/2018 hypertension 07/14/2018 Results Observation Observation Code Item Item Code Result Date Cbc With Differential Ord2 WBC 7.07 K/ul 12/08/2018 Cbc With Differential Ord2 RBC 4.44 M/ul 12/08/2018 Cbc With Differential Ord2 HGB 13.8 g/dl 12/08/2018 Cbc With Differential Ord2 HCT 40.2 % 12/08/2018 Cbc With Differential Ord2 Neut% 58.0 % 12/08/2018 Cbc With Differential Ord2 Lymph% 23.6 % 12/08/2018 Cbc With Differential Ord2 MCV 90.5 fl 12/08/2018 Cbc With Differential Ord2 MCH 31.1 pg 12/08/2018 Cbc With Differential Ord2 [place]% 11.7 % 12/08/2018 Cbc With Differential Ord2 Eos% 6.4 % 12/08/2018 Cbc With Differential Ord2 MCHC 34.3 pg 12/08/2018 Cbc With Differential Ord2 PLT 159 K/ul 12/08/2018 Cbc With Differential Ord2 Baso% 0.3 % 12/08/2018 Cbc With Differential Ord2 RDW 13.1 % 12/08/2018 Cbc With Differential Ord2 Neut ABS# 4.10 K/ul 12/08/2018 Cbc With Differential Ord2 Lymph ABS# 1.67 K/ul 12/08/2018 Cbc With Differential Ord2 [place] ABS# 0.8 K/ul 12/08/2018 Cbc With Differential Ord2 Eos ABS# 0.5 K/ul 12/08/2018 Cbc With Differential Ord2 Baso ABS# 0.0 K/ul 12/08/2018 B12 Iei891 B12 429.00 pg/ml 12/08/2018 Tsh Ord6 TSH (3rd IS) 1.83 uIU/mL 12/08/2018 Lipid Ord30 CHOL 139 mg/dL 12/08/2018 Lipid Ord30 HDL 50.0 mg/dl 12/08/2018 Lipid Ord30 TRIG 107 mg/dL 12/08/2018 Lipid Ord30 LDL 68 mg/dL 12/08/2018 Lipid Ord30 C/HDL 2.8 Ratio 12/08/2018 Comp Metabolic Yzu131 NA 138 mEq/L 12/08/2018 Comp Metabolic Tye960 K 4.7 mEq/L 12/08/2018 Comp Metabolic Kys990 CL 101 mEq/L 12/08/2018 Comp Metabolic Imq528 CO2 32.0 mEq/L 12/08/2018 Comp Metabolic Por141 AN ION GAP 10 12/08/2018 Comp Metabolic Vlt330 GL UCOSE 114 mg/dL 12/08/2018 Comp Metabolic Pbm685 Cr eat 1.1 mg/dL 12/08/2018 Comp Metabolic Qvu265 eG FR 69 ml/min/1.73m2 12/08 Comp Metabolic Sue919 BUN 25 mg/dL 12/08/2018 Comp Metabolic Ili685 B/ C Ratio 22.9 Ratio 12/08/2018 Comp Metabolic Mmb969 CA LCIUM 9.4 mg/dL 12/08/2018 Comp Metabolic Kyo463 AL K PHOS 36 U/L 12/08/2018 Comp Metabolic Bmy952 T(SGOT) 23 U/L 12/08/2018 Comp Metabolic Voz822 AL T(SGPT) 20 U/L 12/08/2018 Comp Metabolic Kwx516 BI LI T 0.5 mg/dL 12/08/2018 Comp Metabolic Jdo132 AL BUMIN 4.2 g/dL 12/08/2018 Comp Metabolic Clq550 TP RO 6.6 g/dL 12/08/2018 Comp Metabolic Yui334 GL OB 2.4 g/dL 12/08/2018 Comp Metabolic Zvs280 A/ G Ratio 1.8 Ratio 12/08/2018 Comp Metabolic Bje583 Os mo 281 mOsmo 12/08/2018 Review of Systems System Result Effective Dates [...] 1: 118/64 Code: 8480-6 BMI: 29.1 Code: 60860-1 Heart Rate 1: 58 bpm Height: 5'11" SpO2: 96% Weight: 209 lbs 10/29/2018 Blood Pressure 1: 120/56 Code: 8480-6 BMI: 28.9 Code: 63714-4 Heart Rate 1: 56 bpm Height: 5'11" SpO2: 98% Weight: 207 lbs 08/11/2018 Blood Pressure 1: 136/68 Code: 8480-6 BMI: 28.3 Code: 54170-2 Heart Rate 1: 55 bpm Height: 5'11" SpO2: 99% Weight: 203 lbs 07/14/2018 Blood Pressure 1: 140/80 Code: 8480-6 BMI: 28.5 Code: 20871-0 Heart Rate 1: 56 bpm Height: 5'11" [...] that he saw Dr Rad Frank at [address] and he recommended an extensive surgery [...] Encounters Encounter Performer Loca tion Codes Date ([id number]) [id number] EST. P ATIENT, LEVEL IV Diagnosis: Essential (primary) hypertension[ICD10: I10] Diagnosis: Major depressive disorder, recurrent, moderate[ICD10: F33.1] Diagnosis: Mixed hyperlipidemia[ICD10: E78.2] Diagnosis: Chronic pain syndrome[ICD10: G89.4] Diagnosis: Vitamin B12 deficiency anemia due to intrinsic factor deficiency[ICD10: D51.0] [facility] CPT-4: 87143 12/07/2018 ([id number]) 85975 EST. P ATIENT, LEVEL III Diagnosis: Nasal congestion[ICD10: R09.81] Diagnosis: Cough[ICD10: R05] [facility] CPT-4: 26569 10/29/2018 [id number]) [id number] EST. 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 Villagran at [place] for neck/back pain - xray and MRI and CT scan at [address] - Once these have been obtained [...] Vitamin B12 deficiency - check labs 12/07/2018 Appointment: Terri Quinonez WPtel: [address] [place] [address] (15 min) Moderate 12/07/2018 Patient Education: Patient Medication Summary Completed 12/07/2018 Patient Education: Depression Completed 12/07/2018 Patient Education: Cholesterol Management Completed 12/07/2018 Care Plan: Total Psa Pending 12/07/2018 Visit Plan: Sinusitis - Pt has acut e congestion- pain in face, maxillary region, Pt informed to use decongestant, RX given to patient, sinus rinses also recommended. Call if symptoms do not show improvement. Rx for flonase and steroids 10/29/2018 Appointment: Terri Quinonez WPtel: [phone] [facility] (15 min) Moderate 10/29/2018 Patient Education: Patient Medication Summary Completed 10/29/2018 Visit Plan: Back and Neck pain - he has been seen at [address], but wants a second opinion - He has requested a referral to Dr. Villagran at [place] for neck/back pain - xray and MRI and CT scan at [address] - Once these have been obtained [...] to pt. 08/11/2018 Appointment: Terri Quinonez WPtel: [facility] (15 min) Moderate 08/11/2018 Patient Education: Patient [...] dry needling. 07/14/2018 Appointment: Terri Quinonez WPtel: [address] [place], [place] [id number] New Patient 07/14/2018 Patient Education: Patient Medication Summary Completed 07/14/2018 Patient Education: Cholesterol Management Completed 07/14/2018 Patient Education: Diarrhea Completed 07/14/2018 Patient Education: Depression Completed 07/14/2018 Instructions Comment . Back and Neck pain - he has been seen at [address], but wants a second opinion - He has requested a referral to Dr. Villagran at [place] for neck/back pain - xray and MRI and CT scan at [address] - Once these have been obtained [...] pain - he has been seen at [address], but wants a second opinion - He has requested a referral to Dr. Villagran at [place] for neck/back pain - xray and MRI and CT scan at [address] - Once these have been obtained [...]
--- OUTSIDE RECORDS SUMMARY | 2019-08-25 09:32 | XMS REPORT | CCD ---
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 Phone PP Unavailable CCM Unavailable Summary Purpose Interface Exchange Insurance Providers Payer name Policy type / Coverage type Covered libertarian ID Effective Begin Date Effective End Date WPS Medicare Part B Medicare Part B [id number] Unknown Unknown [facility] icare Part B [id number] Unknown Unk nown Family history Father Diagnosis Age At Onset Hypertension Unknown Stroke Unknown Mother Diagnosis Age At Onset Diabetes mellitus Type 2 Unknown Social History Social History Element Codes Description Effective Dates Marital status Unknown M robbie Church 07/14/2018 Number of children Unknown 2 07/14/[address]: 9170030 Quit over 10 years ago 12-29-1989 07/14/[address]: 947729576 Never drinks alcohol 07/14/2018 Allergies, Adverse Reactions, [...] Reli ef 50 mcg/actuation nasal spray,suspension RxNorm: 3966104 1 [place] NASAL BID 11/25/2018 01/19/2019 Active hydrocodone 7.5 mg-a cetaminophen 325 mg tablet RxNorm: 283521 1 Tablet(s) PO Q6 10/30/2018 11/28/2018 Ac tive prednisone 20 mg tablet RxNorm: 700135 2 Tablet(s) PO daily 10/29/2018 11/02/2018 Inactive Flonase Allergy Reli ef 50 mcg/actuation nasal spray,suspension RxNorm: 7796912 1 [place] NASAL BID 10/29/2018 11/11/2018 Inactive provide OTC if insurance will not pay for it citalopram 40 mg tablet RxNorm: 839510 1 Tablet(s) PO daily 09/10/2018 09/04/2019 Active hydrocodone 7.5 mg-a cetaminophen 325 mg tablet RxNorm: 304913 1 Tablet(s) PO Q6 08/11/2018 09/09/2018 In active finasteride 5 mg tablet RxNorm: 549341 1 Tablet(s) PO daily 07/14/2018 08/12/2018 Inactive simvastatin 20 mg ta blet RxNorm: 449508 1 Tablet(s) PO daily No Start Date Active amlodipine 5 mg tablet RxNorm: 356770 1 Tablet(s) PO daily No Start Date Active donepezil 10 mg tablet RxNorm: 625831 1 Tablet(s) PO daily No Start Date Active Fish Oil 720 mg-1,20 0 mg capsule RxNorm: 1 Capsule(s) PO BID No Start Date Active tamsulosin 0.4 mg ca psule RxNorm: 550909 2 Capsule(s) PO daily No Start Date Active aspirin 81 mg tablet ,delayed release RxNorm: 197080 1 Tablet(s) PO daily No Start Date Active Celebrex 200 mg capsule RxNorm: 327539 1 Capsule(s) PO BID No Start Date Active atenolol 50 mg tablet RxNorm: 821642 1 Tablet(s) PO daily No Start Date Active folic acid 0.8 mg ca psule RxNorm: 659082 1 Capsule(s) PO daily No Start Date Active colestipol 1 gram ta blet RxNorm: 1762268 2 Tablet(s) PO QHS No Start Date Active Multiple Vitamin tablet RxNorm: 1 Tablet(s) PO daily No Start Date Active citalopram 40 mg tablet RxNorm: 760183 1 Tablet(s) PO daily No Start Date 09/09/2018 Inactive hydrocodone 7.5 mg-a cetaminophen 325 mg tablet RxNorm: 210241 1 Tablet(s) PO Q6 No Start Date [...] 1: 120/56 Code: 8480-6 BMI: 28.9 Code: 84227-5 Heart Rate 1: 56 bpm Height: 5'11" SpO2: 98% Weight: 207 lbs 08/11/2018 Blood Pressure 1: 136/68 Code: 8480-6 BMI: 28.3 Code: 44336-4 Heart Rate 1: 55 bpm Height: 5'11" SpO2: 99% Weight: 203 lbs 07/14/2018 Blood Pressure 1: 140/80 Code: 8480-6 BMI: 28.5 Code: 25620-1 Heart Rate 1: 56 bpm Height: 5'11" [...] Encounters Encounter Performer Loca tion Codes Date ([id number]) [id number] EST. P ATIENT, LEVEL III Diagnosis: Nasal congestion[ICD10: R09.81] Diagnosis: Cough[ICD10: R05] Terri Quinonez MD, [facility] CPT-4: 97418 10/29/2018 ([id number]) 15861 EST. 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 Call if symptoms do not show improvement. Rx for flonase and steroids 10/29/2018 Appointment: Terri Quinonez WPtel: [email or web address] (15 min) Moderate 10/29/2018 Patient Education: Patient Medication Summary Completed 10/29/2018 Visit Plan: Back and Neck pain - he has been seen at [address], but wants a second opinion - He has requested a referral to Dr. Villagran at [place] for neck/back pain - xray and MRI and CT scan at [address] - Once these have been obtained [...] to pt. 08/11/2018 Appointment: Terri Quinonez WPtel: [facility] (15 min) Moderate 08/11/2018 Patient Education: Patient [...] dry needling. 07/14/2018 Appointment: [facility] Quin[facility]z [facility]Ptel[facility] [place] New Patient 07/14/2018 Patient Education: Patient Medication Summary Completed 07/14/2018 Patient Education: Cholesterol Management Completed 07/14/2018 Patient Education: Diarrhea Completed 07/14/2018 Patient Education: Depression Completed 07/14/2018 Instructions Comment . Back and Neck pain - he has been seen at [address], but wants a second opinion - He has requested a referral to Dr. Villagran at [place] for neck/back pain - xray and MRI and CT scan at [address] - Once these have been obtained [...]
--- OUTSIDE RECORDS SUMMARY | 2019-08-25 09:33 | XMS REPORT | CCD ---
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 Role Phone PP Unavailable CCM Unavailable Summary Purpose Interface Exchange Insurance Providers Payer name Policy type / Coverage type Covered constitution party ID Effective Begin Date Effective End Date WPS Medicare Part B Medicare Part B [id number] Unknown Unknown [facility] icare Part B [id number] Unknown Unk nown Family history Father Diagnosis Age At Onset Hypertension Unknown Stroke Unknown Mother Diagnosis Age At Onset Diabetes mellitus Type 2 Unknown Social History Social History Element Codes Description Effective Dates Marital status Unknown M robbie Church 07/14/2018 Number of children Unknown 2 07/14/[address]: 5136136 Quit over 10 years ago 12-29-1989 07/14/[address]: 155359487 Never drinks alcohol 07/14/2018 Allergies, Adverse Reactions, Alerts Substance Reaction Codes Entered Date Inactivated Date Status SULFA(SULFONAMIDE AN TIBIOTICS) nausea, Unknown 019 No Inactive Date Active Past Medical History Illness Codes Condition Status Onset Date Resolved Date Essential (primary) hypertension ICD-9: 401.1 ICD-10: I10 Active 07/14/2018 Unknown 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-10: K59.1 Active 07/14/2018 Unknown Major depressive dis order, recurrent, moderate ICD-9: 296.32 ICD-10: F33.1 Active 07/14/2018 Unknown Mixed hyperlipidemia ICD-9: 272.2 ICD-10: E78.2 Active 07/14/2018 Unknown Problems Condition Codes Effectiv e Dates Condition Status Essential (primary) hypertension ICD-9: 401.1 ICD-10: I10 07/14/2018 Active 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-10: K59.1 07/14/2018 Active Major depressive dis order, recurrent, moderate ICD-9: 296.32 ICD-10: F33.1 07/14/2018 Active Mixed hyperlipidemia ICD-9: 272.2 ICD-10: E78.2 07/14/2018 Active Medications Medication Codes Instruc tions Start Date Stop Date Sta tus Fill Instructions finasteride 5 mg tablet RxNorm: 477200 1 Tablet(s) PO daily 07/14/2018 08/12/2018 Active simvastatin 20 mg ta blet RxNorm: 151604 1 Tablet(s) PO daily No Start Date Active amlodipine 5 mg tablet RxNorm: 353137 1 Tablet(s) PO daily No Start Date Active donepezil 10 mg tablet RxNorm: 203196 1 Tablet(s) PO daily No Start Date Active citalopram 40 mg tablet RxNorm: 706597 1 Tablet(s) PO daily No Start Date Active hydrocodone 7.5 mg-a cetaminophen 325 mg tablet RxNorm: 877185 1 Tablet(s) PO Q6 No Start Date Active Fish Oil 720 mg-1,20 0 mg capsule RxNorm: 1 Capsule(s) PO BID No Start Date Active tamsulosin 0.4 mg ca psule RxNorm: 110450 2 Capsule(s) PO daily No Start Date Active aspirin 81 mg tablet ,delayed release RxNorm: 379790 1 Tablet(s) PO daily No Start Date Active Celebrex 200 mg capsule RxNorm: 293651 1 Capsule(s) PO BID No Start Date Active atenolol 50 mg tablet RxNorm: 967229 1 Tablet(s) PO daily No Start Date Active folic acid 0.8 mg ca psule RxNorm: 286041 1 Capsule(s) PO daily No Start Date Active colestipol 1 gram ta blet RxNorm: 7150956 2 Tablet(s) PO QHS No Start Date Active Multiple Vitamin tablet RxNorm: 1 Tablet(s) PO daily No Start Date Active Medication Administered No Medication Administered data Immunizations Vaccine Codes Date Status Influenza CVX: 141 03/02 completed Assessments Condition Codes Effectiv e Dates Major depressive disorder, recurrent, moderate ICD-10: F33.1 ICD-9: 296.32 07/14/2018 Essential (primary) hypertension ICD -10: I10 ICD-9: 401.1 07/14/2018 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 ICD-9: 564.5 07/14/2018 Mixed hyperlipidemia ICD-10: E78.2 ICD-9: 272.2 07/14/2018 Reason For Visit Reason For Visit Effective Dates Notes hypertension 07/14/2018 Results No Results data Review [...] No Procedures data Vital Signs Date Vital 07/14/2018 Blood Pressure 1: 140/80 Code: 8480-6 BMI: 28.5 Code: 13023-4 Heart Rate 1: 56 bpm Height: 5'11" [...] Encounters Encounter Performer Loca tion Codes Date () OFFICE EDDIE CARRANZA - LEVEL 4 Diagnosis: Essential (primary) hypertension[ICD10: I10] Diagnosis: Mixed hyperlipidemia[ICD10: E78.2] Diagnosis: 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 07/14/2018 Patient Education: Patient Medication Summary Completed 07/14/2018 Patient Education: Cholesterol Management Completed 07/14/2018 Patient Education: Diarrhea Completed 07/14/2018 Patient Education: Depression Completed 07/14/2018 Instructions Comment Try Beano - before y [...]
--- OUTSIDE RECORDS SUMMARY | 2019-08-25 09:33 | XMS REPORT | CCD ---
Author Author Cullen Quinonez Organization Terri Quinonez MD, [facility] Address [address] [place] [address] Phone Care Team Providers Care Social Worker Health Services Name Role Phone PP Unavailable CCM Unavailable Summary Purpose Interface Exchange Insurance Providers Payer name Policy type / Coverage type Covered democrat ID Effective Begin Date Effective End Date WPS Medicare Part B Medicare Part B [id number] Unknown Unknown [facility] icare Part B [id number] Unknown Unk nown Family history Father Diagnosis Age At Onset Hypertension Unknown Stroke Unknown Mother Diagnosis Age At Onset Diabetes mellitus Type 2 Unknown Social History Social History Element Codes Description Effective Dates Marital status Unknown M robbie Church 07/14/2018 Number of children Unknown 2 07/14/[address]: 3838877 Quit over 10 years ago 12-29-1989 07/14/[address]: 672718794 Never drinks alcohol 07/14/2018 Allergies, Adverse Reactions, Alerts Substance Reaction Codes Entered Date Inactivated Date Status SULFA(SULFONAMIDE AN TIBIOTICS) nausea, Unknown 019 No Inactive Date Active Past Medical History Illness Codes Condition Status Onset Date Resolved Date Cervicalgia ICD-9: 723.1 ICD-10: M54.2 Active 08/11/2018 [...] Condition Codes Effectiv e Dates Condition Status Cervicalgia ICD-9: 723.1 ICD-10: M54.2 08/11/2018 Active [...] Date Stop Date Sta tus Fill Instructions citalopram 40 mg tablet RxNorm: 836509 1 Tablet(s) PO daily 09/10/2018 09/04/2019 Active hydrocodone 7.5 mg-a cetaminophen 325 mg tablet RxNorm: 596982 1 Tablet(s) PO Q6 08/11/2018 09/09/2018 In active finasteride 5 mg tablet RxNorm: 434293 1 Tablet(s) PO daily 07/14/2018 08/12/2018 Inactive simvastatin 20 mg ta blet RxNorm: 245829 1 Tablet(s) PO daily No Start Date Active amlodipine 5 mg tablet RxNorm: 841159 1 Tablet(s) PO daily No Start Date Active donepezil 10 mg tablet RxNorm: 261273 1 Tablet(s) PO daily No Start Date Active Fish Oil 720 mg-1,20 0 mg capsule RxNorm: 1 Capsule(s) PO BID No Start Date Active tamsulosin 0.4 mg ca psule RxNorm: 275754 2 Capsule(s) PO daily No Start Date Active aspirin 81 mg tablet ,delayed release RxNorm: 858986 1 Tablet(s) PO daily No Start Date Active Celebrex 200 mg capsule RxNorm: 703410 1 Capsule(s) PO BID No Start Date Active atenolol 50 mg tablet RxNorm: 174788 1 Tablet(s) PO daily No Start Date Active folic acid 0.8 mg ca psule RxNorm: 103902 1 Capsule(s) PO daily No Start Date Active colestipol 1 gram ta blet RxNorm: 4796309 2 Tablet(s) PO QHS No Start Date Active Multiple Vitamin tablet RxNorm: 1 Tablet(s) PO daily No Start Date Active citalopram 40 mg tablet RxNorm: 048982 1 Tablet(s) PO daily No Start Date 09/09/2018 Inactive hydrocodone 7.5 mg-a cetaminophen 325 mg tablet RxNorm: 665021 1 Tablet(s) PO Q6 No Start Date 08/10/2018 Inactive Medication Administered No Medication Administered data Immunizations Vaccine Codes Date Status Influenza CVX: 141 03/02 completed Assessments Condition Codes Effectiv e Dates Chronic pain [...] Effective Dates Notes hypertension 08/11/2018 hypertension 07/14/2018 Results No Results [...] No Procedures data Vital Signs Date Vital 08/11/2018 Blood Pressure 1: 136/68 Code: 8480-6 BMI: 28.3 Code: 85528-7 Heart Rate 1: 55 bpm Height: 5'11" SpO2: 99% Weight: 203 lbs 07/14/2018 Blood Pressure 1: 140/80 Code: 8480-6 BMI: 28.5 Code: 95678-3 Heart Rate 1: 56 bpm Height: 5'11" [...] Encounter Performer Loca tion Codes Date () 65092 EST. 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 Villagran at [place] for neck/back pain - xray and MRI and CT scan at [address] - Once these have been obtained [...] pt. 08/11/2018 Appointment: Terri Quinonez WPtel: [address] [facility] (15 min) Moderate 08/11/2018 Patient Education: [...] dry needling. 07/14/2018 Appointment: Terri Quinonez WPtel: [facility] New Patient 07/14/2018 Patient Education: Patient Medication Summary Completed 07/14/2018 Patient Education: Cholesterol Management Completed 07/14/2018 Patient Education: Diarrhea Completed 07/14/2018 Patient Education: Depression Completed 07/14/2018 Instructions Comment . Back and Neck pain - he has been seen at [address], but wants a second opinion - He has requested a referral to Dr. Villagran at [place] for neck/back pain - xray and MRI and CT scan at [address] - Once these have been obtained [...]
--- OUTSIDE RECORDS SUMMARY | 2019-08-25 09:33 | XMS REPORT | CCD ---
Author Author Cullen Quinonez Organization Terri Quinonez MD, [facility] Address [address] [place] [address] Phone Care Team Providers Care Guest Service Agent Name Role Phone PP Unavailable CCM Unavailable Summary Purpose Interface Exchange Insurance Providers Payer name Policy type / Coverage type Covered alliance party ID Effective Begin Date Effective End Date WPS Medicare Part B Medicare Part B [id number] Unknown Unknown [facility] icare Part B [id number] Unknown Unk nown Family history Father Diagnosis Age At Onset Hypertension Unknown Stroke Unknown Mother Diagnosis Age At Onset Diabetes mellitus Type 2 Unknown Social History Social History Element Codes Description Effective Dates Marital status Unknown M robbie Church 07/14/2018 Number of children Unknown 2 07/14/[address]: 9559692 Quit over 10 years ago 12-29-1989 07/14/[address]: 674217631 Never drinks alcohol 07/14/2018 Allergies, Adverse Reactions, [...] Date Stop Date Sta tus Fill Instructions prednisone 20 mg tablet RxNorm: 044305 2 Tablet(s) PO daily 10/29/2018 11/02/2018 Active Flonase Allergy Reli ef 50 mcg/actuation nasal spray,suspension RxNorm: 1242029 1 [place] NASAL BID 10/29/2018 11/11/2018 Active provide OTC if insurance will not pay for it citalopram 40 mg tablet RxNorm: 950171 1 Tablet(s) PO daily 09/10/2018 09/04/2019 Active hydrocodone 7.5 mg-a cetaminophen 325 mg tablet RxNorm: 219254 1 Tablet(s) PO Q6 08/11/2018 09/09/2018 In active finasteride 5 mg tablet RxNorm: 302280 1 Tablet(s) PO daily 07/14/2018 08/12/2018 Inactive simvastatin 20 mg ta blet RxNorm: 199746 1 Tablet(s) PO daily No Start Date Active amlodipine 5 mg tablet RxNorm: 554581 1 Tablet(s) PO daily No Start Date Active donepezil 10 mg tablet RxNorm: 011869 1 Tablet(s) PO daily No Start Date Active Fish Oil 720 mg-1,20 0 mg capsule RxNorm: 1 Capsule(s) PO BID No Start Date Active tamsulosin 0.4 mg ca psule RxNorm: 969998 2 Capsule(s) PO daily No Start Date Active aspirin 81 mg tablet ,delayed release RxNorm: 517253 1 Tablet(s) PO daily No Start Date Active Celebrex 200 mg capsule RxNorm: 444557 1 Capsule(s) PO BID No Start Date Active atenolol 50 mg tablet RxNorm: 898284 1 Tablet(s) PO daily No Start Date Active folic acid 0.8 mg ca psule RxNorm: 196095 1 Capsule(s) PO daily No Start Date Active colestipol 1 gram ta blet RxNorm: 5487990 2 Tablet(s) PO QHS No Start Date Active Multiple Vitamin tablet RxNorm: 1 Tablet(s) PO daily No Start Date Active citalopram 40 mg tablet RxNorm: 216760 1 Tablet(s) PO daily No Start Date 09/09/2018 Inactive hydrocodone 7.5 mg-a cetaminophen 325 mg tablet RxNorm: 644649 1 Tablet(s) PO Q6 No Start Date [...] 1: 120/56 Code: 8480-6 BMI: 28.9 Code: 05545-1 Heart Rate 1: 56 bpm Height: 5'11" SpO2: 98% Weight: 207 lbs 08/11/2018 Blood Pressure 1: 136/68 Code: 8480-6 BMI: 28.3 Code: 06826-1 Heart Rate 1: 55 bpm Height: 5'11" SpO2: 99% Weight: 203 lbs 07/14/2018 Blood Pressure 1: 140/80 Code: 8480-6 BMI: 28.5 Code: 53667-4 Heart Rate 1: 56 bpm Height: 5'11" [...] Encounters Encounter Performer Loca tion Codes Date (17738) 54040 EST. P ATIENT, LEVEL III Diagnosis: Nasal congestion[ICD10: R09.81] Diagnosis: Cough[ICD10: R05] [facility] CPT-4: 64699 10/29/2018 ([id number]) 33615 EST. 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 Call if symptoms do not show improvement. Rx for flonase and steroids 10/29/2018 Patient Education: Patient Medication Summary Completed 10/29/2018 Visit Plan: Back and Neck pain - he has been seen at [address], but wants a second opinion - He has requested a referral to Dr. Villagran at [place] for neck/back pain - xray and MRI and CT scan at [address] - Once these have been obtained [...] to pt. 08/11/2018 Appointment: Terri Quinonez WPtel: [address] [place], [place] [id number] (15 min) Moderate 08/11/2018 Patient Education: Patient [...] dry needling. 07/14/2018 Appointment: Terri Quinonez WPtel: [facility] [place] [place] New Patient 07/14/2018 Patient Education: Patient Medication Summary Completed 07/14/2018 Patient Education: Cholesterol Management Completed 07/14/2018 Patient Education: Diarrhea Completed 07/14/2018 Patient Education: Depression Completed 07/14/2018 Instructions Comment . Back and Neck pain - he has been seen at [address], but wants a second opinion - He has requested a referral to Dr. Villagran at [place] for neck/back pain - xray and MRI and CT scan at [address] - Once these have been obtained [...]
--- OUTSIDE RECORDS SUMMARY | 2019-08-25 09:33 | XMS REPORT | CCD ---
Author Author Cullen Quinonez Organization Terri Quinonez MD, [facility] Address [address] [place] [address] Phone Care Team Providers Care Mortuary Technician Name Role Phone PP Unavailable CCM Unavailable Summary Purpose Interface Exchange Insurance Providers Payer name Policy type / Coverage type Covered democrat ID Effective Begin Date Effective End Date WPS Medicare Part B Medicare Part B [id number] Unknown Unknown [facility] icare Part B [id number] Unknown Unk nown Family history Father Diagnosis Age At Onset Hypertension Unknown Stroke Unknown Mother Diagnosis Age At Onset Diabetes mellitus Type 2 Unknown Social History Social History Element Codes Description Effective Dates Marital status Unknown M robbie Church 07/14/2018 Number of children Unknown 2 07/14/[address]: 0324587 Quit over 10 years ago 12-29-1989 07/14/[address]: 934396851 Never drinks alcohol 07/14/2018 Allergies, Adverse Reactions, [...] 7.5 mg-a cetaminophen 325 mg tablet RxNorm: 645180 1 Tablet(s) PO Q6 08/11/2018 09/09/2018 Ac tive finasteride 5 mg tablet RxNorm: 181387 1 Tablet(s) PO daily 07/14/2018 08/12/2018 Active simvastatin 20 mg ta blet RxNorm: 130388 1 Tablet(s) PO daily No Start Date Active amlodipine 5 mg tablet RxNorm: 401703 1 Tablet(s) PO daily No Start Date Active donepezil 10 mg tablet RxNorm: 825344 1 Tablet(s) PO daily No Start Date Active citalopram 40 mg tablet RxNorm: 263906 1 Tablet(s) PO daily No Start Date Active Fish Oil 720 mg-1,20 0 mg capsule RxNorm: 1 Capsule(s) PO BID No Start Date Active tamsulosin 0.4 mg ca psule RxNorm: 031561 2 Capsule(s) PO daily No Start Date Active aspirin 81 mg tablet ,delayed release RxNorm: 149187 1 Tablet(s) PO daily No Start Date Active Celebrex 200 mg capsule RxNorm: 017057 1 Capsule(s) PO BID No Start Date Active atenolol 50 mg tablet RxNorm: 855226 1 Tablet(s) PO daily No Start Date Active folic acid 0.8 mg ca psule RxNorm: 685874 1 Capsule(s) PO daily No Start Date Active colestipol 1 gram ta blet RxNorm: 8863705 2 Tablet(s) PO QHS No Start Date Active Multiple Vitamin tablet RxNorm: 1 Tablet(s) PO daily No Start Date Active hydrocodone 7.5 mg-a cetaminophen 325 mg tablet RxNorm: 865638 1 Tablet(s) PO Q6 No Start Date [...] 1: 136/68 Code: 8480-6 BMI: 28.3 Code: 70113-5 Heart Rate 1: 55 bpm Height: 5'11" SpO2: 99% Weight: 203 lbs 07/14/2018 Blood Pressure 1: 140/80 Code: 8480-6 BMI: 28.5 Code: 99488-6 Heart Rate 1: 56 bpm Height: 5'11" [...] Encounters Encounter Performer Loca tion Codes Date (84024) 18784 [facility]. [facility]: Essential (primary) hypertension[ICD10: I10] Diagnosis: Cervicalgia[ICD10: M54.2] Diagnosis: Chronic pain syndrome[ICD10: G89.4] Terri Quinonez MD, 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 CPT-4: 73512 07/14/2018 Plan of Care Planned Activity Notes C odes Status Date Visit Plan: Back and Neck pain - he has been seen at [address], but wants a second opinion - He has requested a referral to Dr. Villagran at [place] for neck/back pain - xray and MRI and CT scan at [address] - Once these have been obtained [...] refill of hydrocodone given to pt. 08/11/2018 Patient Education: Patient Medication Summary Completed [...] dry needling. 07/14/2018 Appointment: Terri Quinonez WPtel: [address] [place], [place] [address] [place] New Patient 07/14/2018 Patient Education: Patient Medication Summary Completed 07/14/2018 Patient Education: Cholesterol Management Completed 07/14/2018 Patient Education: Diarrhea Completed 07/14/2018 Patient Education: Depression Completed 07/14/2018 Instructions Comment . Back and Neck pain - he has been seen at [address], but wants a second opinion - He has requested a referral to Dr. Villagran at [place] for neck/back pain - xray and MRI and CT scan at [address] - Once these have been obtained [...]
--- OUTSIDE RECORDS SUMMARY | 2019-08-25 09:34 | XMS REPORT | Continuity of Care Document ---
Author Organization Unknown Address Unknown Phone Unavailable Allergies Active Description Code Type Severity Reaction Onset Reported/Identified Relationship to Patient Clinical Status Yes morphine [id number] Drug Allergy Unknown N/A 04/20/2010 Yes morphine [id number] Drug Allergy Unknown PT TAKES LORTAB 03/08/2016 Medications There is no data. 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 04/20/2010 Ot 401.9 HYPE RTENSION NOS 04/20/2010 Ot 414.01 COR ONARY ATHEROSCLEROSIS OF [place] CORON 04/20/2010 Ot 780.79 OTH MALAISE FATIGUE 04/20/2010 Ot 786.05 LETTY RTNESS OF BREATH 04/20/2010 Ot 794.30 ABN CARDIOVASC STUDY NOS 04/20/2010 Ot V58.66 TRUONG G-TERM (CURRENT) USE OF ASPIRIN 04/20/2010 Ot V58.69 OTH MED,LT,CURRENT USE 12/03/2010 Ot 401.9 HYPE RTENSION NOS 12/03/2010 Ot 719.41 DARION NT PAIN-SHLDER 12/03/2010 Ot V57.1 PHYS ICAL THERAPY NEC 12/03/2010 Ot V58.43 AFT ERCARE POST SURGERY INJURY/TRAUMA 12/24/2010 Ot 401.9 HYPE RTENSION NOS 12/24/2010 Ot 719.41 DARION NT PAIN-SHLDER 12/24/2010 Ot V57.1 PHYS ICAL THERAPY NEC 12/24/2010 Ot V58.43 AFT ERCARE POST SURGERY INJURY/TRAUMA 03/20/2012 Ot 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 1 PHYSICAL THERAPY NEC 12/21/2012 APOLLO HOBBS MD Ot V58. 49 OTHER SPECIFIED AFTERCARE FOLLOWING SURG 01/21/2013 APOLLO HOBBS MD Ot V57. 1 PHYSICAL THERAPY NEC 01/21/2013 APOLLO HOBBS MD Ot V58. 49 OTHER SPECIFIED AFTERCARE FOLLOWING SURG 10/06/2013 [facility] Ot 300.00 ANXIETY STATE NOS 10/06/2013 [facility] Ot 3 11 DEPRESSIVE DISORDER NEC 10/06/2013 [facility] Ot 327.23 OBSTRUCTIVE SLEEP APNEA (ADULT) (PEDIATR 10/06/2013 [facility] Ot 327.51 PERIODIC LIMB MOVEMENT DISORDER 10/06/2013 [facility] Ot 338.29 OTHER CHRONIC PAIN 10/06/2013 [facility] Ot 401.9 HYPERTENSION NOS 10/06/2013 [facility] Ot 530.81 ESOPHAGEAL REFLUX 10/06/2013 [facility] Ot 724.5 BACKACHE NOS 06/21/2014 CHARITY JAIN FACC, NELIDA DIXON CCDS Ot 272.4 HYPERLIPIDEMIA NEC/NOS 06/21/2014 NELIDA NASH MD, FACC, FACP CCDS Ot 327.23 OBSTRUCTIVE SLEEP APNEA (ADULT) (PEDIATR 06/21/2014 CHARITY JAIN FACC, NELIDA DIXON CCDS Ot 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 Ot 440.0 AORTIC ATHEROSCLEROSIS 06/21/[address] [facility] CCDS Ot 786.05 SHORTNESS OF BREATH 06/21/[address] [facility] CCDS Ot V15.82 HISTORY OF TOBACCO USE 06/21/[address] [facility] CCDS Ot V58.69 OTH MED,LT,CURRENT USE 07/18/2014 BAIMA, KWAME L FARMWORKER MACHINE Ot 272.4 07/18/2014 BAIMA, KWAME L FARMWORKER MACHINE Ot 401.9 07/18/2014 BAIMA, KWAME L FARMWORKER MACHINE Ot 414.00 07/18/2014 BAIMA, KWAME L FARMWORKER MACHINE Ot 447.9 07/18/2014 BAIMA, KWAME L FARMWORKER MACHINE Ot 786.09 09/12/2014 Ot 327.23 09/12/2014 Ot 414.9 09/12/2014 Ot 786.09 09/16/2014 Ot 327.23 09/16/2014 Ot 414.9 09/16/2014 Ot 786.09 09/25/2015 Ot 401.9 HYPE RTENSION NOS 09/25/2015 Ot 780.79 OTH MALAISE FATIGUE 09/25/2015 Ot 414.00 COR ON ATHEROSCLER NOS TYPE VESSEL, NATIV 09/25/2015 Ot 786.09 RES PIRATORY ABNORM NEC 09/25/2015 Ot 414.00 COR ON ATHEROSCLER NOS TYPE VESSEL, NATIV 09/25/2015 Ot 786.09 RES PIRATORY ABNORM NEC 09/25/2015 Ot V72.84 EXA M PRE- OPERATIVE NOS 09/25/2015 JACKELIN JAIN, TAMMIE Liriano Ot 338.29 OTHER CHRONIC PAIN 09/25/2015 JACKELIN JAIN, TAMMIE Liriano Ot 715.31 LOC OSTEOARTH NOS-SHLDER 09/25/2015 JACKELIN JAIN, TAMMIE Liriano Ot 719.01 JOINT EFFUSION-SHLDER 09/25/2015 JACKELIN JAIN, TAMMIE Liriano Ot 719.41 JOINT PAIN-SHLDER 09/25/2015 JACKELIN JAIN, TAMMIE Liriano Ot 724.01 SPINAL STENOSIS-THORACIC 09/25/2015 JACKELIN JAIN, TAMMIE Liriano Ot 726.10 BURSAE TENDONS DIS SHLDER NOS 09/25/2015 TAMMIE BENÍTEZ MD Ot 729.5 PAIN IN LIMB 09/25/2015 TAMMIE BENÍTEZ MD Ot 840.9 SPRAIN SHOULDER/ARM NOS 09/25/2015 TAMMIE BENÍTEZ MD Ot E928.9 ACCIDENT NOS 09/25/2015 KWAME WELCH FARMWORKER MACHINE Ot 272.4 HYPERLIPIDEMIA NEC/NOS 09/25/2015 KWAME WELCH FARMWORKER MACHINE Ot 401.9 HYPERTENSION NOS 09/25/2015 KWAME WELCH FARMWORKER MACHINE Ot 414.00 CORON ATHEROSCLER NOS TYPE VESSEL, NATIV 09/25/2015 KWAME WELCH FARMWORKER MACHINE Ot 447.9 ARTERIAL DISEASE NOS 09/25/2015 KWAME WELCH FARMWORKER MACHINE Ot 786.09 RESPIRATORY ABNORM NEC 09/25/2015 BRUNO PIERRE DO Ot 724.02 SPINAL STENOSIS, LUMBAR REG, W/OUT NEURO 09/25/2015 Ot 327.23 OBS TRUCTIVE SLEEP APNEA (ADULT) (PEDIATR 09/25/2015 Ot 414.9 CHR ISCHEMIC HRT DIS NOS 09/25/2015 Ot 786.09 RES PIRATORY ABNORM NEC 09/27/2015 TAMMIE BENÍTEZ MD Ot M75.101 UNSP ROTATR-CUFF TEAR/RUPTR OF RIGHT LETTY 10/18/2015 TAMMIE BENÍTEZ MD Ot M75.101 UNSP ROTATR-CUFF TEAR/RUPTR OF RIGHT LETTY 10/27/2015 TAMMIE BENÍTEZ MD Ot M75.101 UNSP ROTATR-CUFF TEAR/RUPTR OF RIGHT LETTY 11/07/2015 TAMMIE BENÍTEZ MD Ot M25.511 PAIN IN RIGHT SHOULDER 12/21/2015 TAMMIE BENÍTEZ MD Ot M25.511 PAIN IN RIGHT SHOULDER 12/28/2015 TAMMIE BENÍTEZ MD Ot M25.511 PAIN IN RIGHT SHOULDER 01/03/2016 LYNDA AGGARWAL APRN Ot R06.00 DYSPNEA, UNSPECIFIED 01/03/2016 LYNDA AGGARWAL APRN Ot R53.81 OTHER MALAISE 01/03/2016 LYNDA AGGARWAL APRN Ot R53.83 OTHER FATIGUE 01/08/2016 LYNDA AGGARWAL APRN Ot R06.00 DYSPNEA, UNSPECIFIED 01/08/2016 LYNDA AGGARWAL APRN Ot R53.81 OTHER MALAISE 01/08/2016 LYNDA AGGARWAL SWEEPER CLEANER INDUSTRIAL Ot R53.83 OTHER FATIGUE 01/23/2016 LYNDA AGGARWAL SWEEPER CLEANER INDUSTRIAL Ot R06.00 DYSPNEA, UNSPECIFIED 01/23/2016 LYNDA AGGARWAL SWEEPER CLEANER INDUSTRIAL Ot R53.81 OTHER MALAISE 01/23/2016 LYNDA AGGARWAL SWEEPER CLEANER INDUSTRIAL Ot R53.83 OTHER FATIGUE 01/31/2016 JACKELIN JAIN, TAMMIE Liriano Ot M25.511 PAIN IN RIGHT SHOULDER 02/01/2016 LYNDA AGGARWAL SWEEPER CLEANER INDUSTRIAL Ot R06.00 DYSPNEA, UNSPECIFIED 02/01/2016 LYNDA AGGARWAL SWEEPER CLEANER INDUSTRIAL Ot R53.81 OTHER MALAISE 02/01/2016 LYNDA AGGARWAL SWEEPER CLEANER INDUSTRIAL Ot R53.83 OTHER FATIGUE 02/29/2016 Ot 414.00 COR ON ATHEROSCLER NOS TYPE VESSEL, NATIV 02/29/2016 Ot 786.09 RES PIRATORY ABNORM NEC 02/29/2016 Ot 414.00 COR ON ATHEROSCLER NOS TYPE VESSEL, NATIV 02/29/2016 Ot 786.09 RES PIRATORY ABNORM NEC 02/29/2016 Ot V72.84 EXA M PRE- OPERATIVE NOS 02/29/2016 JACKELIN JAIN, TAMMIE Liriano Ot 338.29 OTHER CHRONIC PAIN 02/29/2016 JACKELIN JAIN, TAMMIE Liriano Ot 715.31 LOC OSTEOARTH NOS-SHLDER 02/29/2016 JACKELIN JAIN, TAMMIE Liriano Ot 719.01 JOINT EFFUSION-SHLDER 02/29/2016 JACKELIN JAIN, TAMMIE Liriano Ot 719.41 JOINT PAIN-SHLDER 02/29/2016 JACKELIN JAIN, TAMMIE Liriano Ot 724.01 SPINAL STENOSIS-THORACIC 02/29/2016 JACKELIN JAIN, TAMMIE Liriano Ot 726.10 BURSAE TENDONS DIS SHLDER NOS 02/29/2016 JACKELIN JAIN, TAMMIE Liriano Ot 729.5 PAIN IN LIMB 02/29/2016 JACKELIN JAIN, TAMMIE Liriano Ot 840.9 SPRAIN SHOULDER/ARM NOS 02/29/2016 JACKELIN JAIN, TAMMIE Liriano Ot E928.9 ACCIDENT NOS 02/29/2016 KWAME WELCH FARMWORKER MACHINE Ot 272.4 HYPERLIPIDEMIA NEC/NOS 02/29/2016 KWAME WELCH FARMWORKER MACHINE Ot 401.9 HYPERTENSION NOS 02/29/2016 KWAME WELCH FARMWORKER MACHINE Ot 414.00 CORON ATHEROSCLER NOS TYPE VESSEL, NATIV 02/29/2016 KWAME WELCH FARMWORKER MACHINE Ot 447.9 ARTERIAL DISEASE NOS 02/29/2016 TOIKWAME ORTIZ FARMWORKER MACHINE Ot 786.09 RESPIRATORY ABNORM NEC 02/29/2016 GABBY BELLE BRUNO Aquino Ot 724.02 SPINAL STENOSIS, LUMBAR REG, W/OUT NEURO 02/29/2016 Ot 327.23 OBS TRUCTIVE SLEEP APNEA (ADULT) (PEDIATR 02/29/2016 Ot 414.9 CHR ISCHEMIC HRT DIS NOS 02/29/2016 Ot 786.09 RES PIRATORY ABNORM NEC 02/29/2016 JACKELIN JAIN, TAMMIE Liriano Ot M75.101 UNSP ROTATR-CUFF TEAR/RUPTR OF RIGHT LETTY 02/29/2016 LYNDA AGGARWAL APRN Ot R06.00 DYSPNEA, UNSPECIFIED 02/29/2016 LYNDA AGGARWAL APRN Ot R53.81 OTHER MALAISE 02/29/2016 LYNDA AGGARWAL APRN Ot R53.83 OTHER FATIGUE 02/29/2016 JACKELIN JAIN, TAMMIE iLriano Ot M25.511 PAIN IN RIGHT SHOULDER 03/02/2016 CARLOS BELLE ABDIAS Ot E78.5 HYPERLIPIDEMIA, UNSPECIFIED 03/02/2016 CARLOS BELLE ABDIAS Ot E86.0 DEHYDRATION 03/02/2016 CARLOS BELLE ABDIAS Ot E87.6 HYPOKALEMIA 03/02/2016 CARLOS BELLE ABDIAS Ot G47.33 OBSTRUCTIVE SLEEP APNEA (ADULT) (PEDIATR 03/02/2016 CARLOS BELLE ABDIAS Ot I10 ESSENTIAL (PRIMARY) HYPERTENSION 03/02/2016 DEMETRIO GONZALEZ DOI Ot I25.10 ATHSCL HEART DISEASE OF [place] CORONARY 03/02/2016 CARLOS BELLE ABDIAS Ot I95.9 HYPOTENSION, UNSPECIFIED 03/02/2016 CARLOS BELLE ABDIAS Ot K57.32 DVTRCLI OF LG INT W/O PERFORATION OR ABS 03/02/2016 CARLOS BELLE ABDIAS Ot M54.9 DORSALGIA, UNSPECIFIED 03/02/2016 CARLOS BELLE ABDIAS Ot N40.0 BENIGN PROSTATIC HYPERPLASIA WITHOUT LOW 03/02/2016 DEMETRIO GONZALEZ DOI Ot Z23 ENCOUNTER FOR IMMUNIZATION 03/08/2016 JACKELIN JAIN, TAMMIE Liriano Ot M25.511 PAIN IN RIGHT SHOULDER 03/08/2016 GONZALEZ DO, ABDIAS Ot A04.5 CAMPYLOBACTER ENTERITIS 03/08/2016 GONZALEZ DO, ABDIAS Ot E78.00 PURE HYPERCHOLESTEROLEMIA, UNSPECIFIED 03/08/2016 GONZALEZ DO, ABDIAS Ot E86.0 DEHYDRATION 03/08/2016 GONZALEZ DO, ABDIAS Ot E87.1 HYPO-OSMOLALITY AND HYPONATREMIA 03/08/2016 GONZALEZ DO, ABDIAS Ot E87.6 HYPOKALEMIA 03/08/2016 GONZALEZ DO, ABDIAS Ot G47.33 OBSTRUCTIVE SLEEP APNEA (ADULT) (PEDIATR 03/08/2016 GONZALEZ DO, ABDIAS Ot I10 ESSENTIAL (PRIMARY) HYPERTENSION 03/08/2016 GONZALEZ DO, ABDIAS Ot I25.10 ATHSCL HEART DISEASE OF [place] CORONARY 03/08/2016 GONZALEZ DO, ABDIAS Ot M19.90 UNSPECIFIED OSTEOARTHRITIS, UNSPECIFIED 03/08/2016 GONZALEZ DO, ABDIAS Ot N40.0 BENIGN PROSTATIC HYPERPLASIA WITHOUT LOW 03/08/2016 GONZALEZ DO, ABDIAS Ot Z87.89 1 PERSONAL HISTORY OF NICOTINE DEPENDENCE 03/08/2016 GONZALEZ DO, ABDIAS Ot A04.5 CAMPYLOBACTER ENTERITIS 03/08/2016 GONZALEZ DO, ABDIAS Ot E78.00 PURE HYPERCHOLESTEROLEMIA, UNSPECIFIED 03/08/2016 GONZALEZ DO, ABDIAS Ot E86.0 DEHYDRATION 03/08/2016 GONZALEZ DO, ABDIAS Ot E87.1 HYPO-OSMOLALITY AND HYPONATREMIA 03/08/2016 GONZALEZ DO, ABDIAS Ot E87.6 HYPOKALEMIA 03/08/2016 GONZALEZ DO, ABDIAS Ot G47.33 OBSTRUCTIVE SLEEP APNEA (ADULT) (PEDIATR 03/08/2016 GONZALEZ DO, ABDIAS Ot I10 ESSENTIAL (PRIMARY) HYPERTENSION 03/08/2016 GONZALEZ DO, ABDIAS Ot I25.10 ATHSCL HEART DISEASE OF [place] CORONARY 03/08/2016 GONZALEZ DO, ABDIAS Ot M19.90 UNSPECIFIED OSTEOARTHRITIS, UNSPECIFIED 03/08/2016 GONZALEZ DO, ABDIAS Ot N40.0 BENIGN PROSTATIC HYPERPLASIA WITHOUT LOW 03/08/2016 GONZALEZ DO, ABDIAS Ot Z87.89 1 PERSONAL HISTORY OF NICOTINE DEPENDENCE 03/08/2016 GONZALEZ DO, ABDIAS Ot A04.5 CAMPYLOBACTER ENTERITIS 03/08/2016 GONZALEZ DO, ABDIAS Ot E78.00 PURE HYPERCHOLESTEROLEMIA, UNSPECIFIED 03/08/2016 GONZALEZ DO, ABDIAS Ot E86.0 DEHYDRATION 03/08/2016 GONZALEZ DO, ABDIAS Ot E87.1 HYPO-OSMOLALITY AND HYPONATREMIA 03/08/2016 GONZALEZ DO, ABDIAS Ot E87.6 HYPOKALEMIA 03/08/2016 GONZALEZ DO, ABDIAS Ot G47.33 OBSTRUCTIVE SLEEP APNEA (ADULT) (PEDIATR 03/08/2016 GONZALEZ DO, ABDIAS Ot I10 ESSENTIAL (PRIMARY) HYPERTENSION 03/08/2016 GONZALEZ DO, ABDIAS Ot I25.10 ATHSCL HEART DISEASE OF [place] CORONARY 03/08/2016 GONZALEZ DO, ABDIAS Ot M19.90 UNSPECIFIED OSTEOARTHRITIS, UNSPECIFIED 03/08/2016 GONZALEZ DO, ABDIAS Ot N40.0 BENIGN PROSTATIC HYPERPLASIA WITHOUT LOW 03/08/2016 GONZALEZ DO, ABDIAS Ot Z87.89 1 PERSONAL HISTORY OF NICOTINE DEPENDENCE 03/09/2016 GONZALEZ DO, ABDIAS Ot A04.5 CAMPYLOBACTER ENTERITIS 03/09/2016 GONZALEZ DO, ABDIAS Ot E78.00 PURE HYPERCHOLESTEROLEMIA, UNSPECIFIED 03/09/2016 GONZALEZ DO, ABDIAS Ot E86.0 DEHYDRATION 03/09/2016 GONZALEZ DO, ABDIAS Ot E87.1 HYPO-OSMOLALITY AND HYPONATREMIA 03/09/2016 GONZALEZ DO, ABIDAS Ot E87.6 HYPOKALEMIA 03/09/2016 GONZALEZ DO, ABDIAS Ot G47.33 OBSTRUCTIVE SLEEP APNEA (ADULT) (PEDIATR 03/09/2016 GONZALEZ DO, ABDIAS Ot I10 ESSENTIAL (PRIMARY) HYPERTENSION 03/09/2016 GONZALEZ DO, ABDIAS Ot I25.10 ATHSCL HEART DISEASE OF [place] CORONARY 03/09/2016 GONZALEZ DO, ABDIAS Ot M19.90 UNSPECIFIED OSTEOARTHRITIS, UNSPECIFIED 03/09/2016 GONZALEZ DO, ABDIAS Ot N40.0 BENIGN PROSTATIC HYPERPLASIA WITHOUT LOW 03/09/2016 GONZALEZ DO, ABDIAS Ot Z87.89 1 PERSONAL HISTORY OF NICOTINE DEPENDENCE 03/10/2016 GONZALEZ DO, ABDIAS Ot A04.5 CAMPYLOBACTER ENTERITIS 03/10/2016 GONZALEZ DO, ABDIAS Ot E78.00 PURE HYPERCHOLESTEROLEMIA, UNSPECIFIED 03/10/2016 GONZALEZ DO, ABDIAS Ot E86.0 DEHYDRATION 03/10/2016 GONZALEZ DO, ABDIAS Ot E87.1 HYPO-OSMOLALITY AND HYPONATREMIA 03/10/2016 GONZALEZ DO ABDIAS Ot E87.6 HYPOKALEMIA 03/10/2016 GONZALEZ DO, ABDIAS Ot G47.33 OBSTRUCTIVE SLEEP APNEA (ADULT) (PEDIATR 03/10/2016 GONZALEZ DO ABDIAS Ot I10 ESSENTIAL (PRIMARY) HYPERTENSION 03/10/2016 CARLOS BELLE ABDIAS Ot I25.10 ATHSCL HEART DISEASE OF [place] CORONARY 03/10/2016 GONZALEZ DO ABDIAS Ot M19.90 UNSPECIFIED OSTEOARTHRITIS, UNSPECIFIED 03/10/2016 GONZALEZ DO ABDIAS Ot N40.0 BENIGN PROSTATIC HYPERPLASIA WITHOUT LOW 03/10/2016 GONZALEZ DO ABDIAS Ot Z87.89 1 PERSONAL HISTORY OF NICOTINE DEPENDENCE 03/10/2016 CARLOS BELLE ABDIAS Ot A04.5 CAMPYLOBACTER ENTERITIS 03/10/2016 CARLOS BELLE ABDIAS Ot B37.0 CANDIDAL STOMATITIS 03/10/2016 CARLOS BELLE ABDIAS Ot E78.00 PURE HYPERCHOLESTEROLEMIA, UNSPECIFIED 03/10/2016 CARLOS BELLE ABDIAS Ot E86.0 DEHYDRATION 03/10/2016 CARLOS BELLE ABDIAS Ot E87.1 HYPO-OSMOLALITY AND HYPONATREMIA 03/10/2016 GONZALEZ DO ABDIAS Ot E87.6 HYPOKALEMIA 03/10/2016 GONZALEZ DO ABDIAS Ot G47.33 OBSTRUCTIVE SLEEP APNEA (ADULT) (PEDIATR 03/10/2016 GONZALEZ DO ABDIAS Ot I10 ESSENTIAL (PRIMARY) HYPERTENSION 03/10/2016 CARLOS BELLE ABDIAS Ot I25.10 ATHSCL HEART DISEASE OF [place] CORONARY 03/10/2016 CARLOS BELLE ABDIAS Ot M19.90 UNSPECIFIED OSTEOARTHRITIS, UNSPECIFIED 03/10/2016 CARLOS BELLE ABDIAS Ot N40.0 BENIGN PROSTATIC HYPERPLASIA WITHOUT LOW 03/10/2016 CARLOS BELLE ABDIAS Ot R10.13 EPIGASTRIC PAIN 03/10/2016 DEMETRIO GONZALEZ DOI Ot Z87.89 1 PERSONAL HISTORY OF NICOTINE DEPENDENCE 03/29/2016 BRUNO PIERRE DO Ot I25.10 ATHSCL HEART DISEASE OF [place] CORONARY 03/29/2016 BRUNO PIERRE DO Ot R53.1 WEAKNESS 04/01/2016 BRUNO PIERRE DO Ot I25.10 ATHSCL HEART DISEASE OF [place] CORONARY 04/01/2016 BRUNO PIERRE DO Ot R53.1 WEAKNESS 04/19/2016 PIERRE BRUNO BELLE Ot I25.10 ATHSCL HEART DISEASE OF [place] CORONARY 04/19/2016 PIERRE BRUNO BELLE Ot R53.1 WEAKNESS 04/29/2016 PIERRE BRUNO BELLE Ot I25.10 ATHSCL HEART DISEASE OF [place] CORONARY 04/29/2016 PIERRE BRUNO BELLE Ot R53.1 WEAKNESS 05/07/2016 CLAYTON TURNER DO Ot I 10 ESSENTIAL (PRIMARY) HYPERTENSION 05/07/2016 CLAYTON TURNER DO Ot M17.12 UNILATERAL PRIMARY OSTEOARTHRITIS, LEFT 05/07/2016 CLAYTON TURNER DO Ot R53.83 OTHER FATIGUE 05/07/2016 CLAYTON TURNER DO Ot Z01.812 ENCOUNTER FOR PREPROCEDURAL LABORATORY E 05/07/2016 CLAYTON TURNER DO Ot Z01.818 ENCOUNTER FOR OTHER PREPROCEDURAL EXAMIN 05/07/2016 CLAYTON TURNER DO Ot Z11.2 ENCOUNTER FOR SCREENING FOR OTHER BACTER 05/07/2016 CLAYTON TURNER DO Ot Z22.322 CARRIER OR SUSPECTED CARRIER OF METHICIL 05/07/2016 CLAYTON TURNER DO Ot M79.662 PAIN IN LEFT LOWER LEG 05/08/2016 CLAYTON TURNER DO Ot I 10 ESSENTIAL (PRIMARY) HYPERTENSION 05/08/2016 CLAYTON TURNER DO Ot M17.12 UNILATERAL PRIMARY OSTEOARTHRITIS, LEFT 05/08/2016 CLAYTON TURNER DO Ot R53.83 OTHER FATIGUE 05/08/2016 CLAYTON TURNER DO Ot Z01.812 ENCOUNTER FOR PREPROCEDURAL LABORATORY E 05/08/2016 CLAYTON TURNER DO Ot Z01.818 ENCOUNTER FOR OTHER PREPROCEDURAL EXAMIN 05/08/2016 CLAYTON TURNER DO Ot Z11.2 ENCOUNTER FOR SCREENING FOR OTHER BACTER 05/08/2016 CLAYTON TURNER DO Ot Z22.322 CARRIER OR SUSPECTED CARRIER OF METHICIL 05/24/2016 CLAYTON TURNER DO Ot E78.00 PURE HYPERCHOLESTEROLEMIA, UNSPECIFIED 05/24/2016 CLAYTON TURNER DO Ot E78.5 HYPERLIPIDEMIA, UNSPECIFIED 05/24/2016 CLAYTON TURNER DO Ot F41.9 ANXIETY DISORDER, UNSPECIFIED 05/24/2016 CLAYTON TURNER DO Ot G47.33 OBSTRUCTIVE SLEEP APNEA (ADULT) (PEDIATR 05/24/2016 YUE BELLE CLAYTON Galdamez Ot I 10 ESSENTIAL (PRIMARY) HYPERTENSION 05/24/2016 YUE BELLE CLAYTON Galdamez Ot I25.10 ATHSCL HEART DISEASE OF [place] CORONARY 05/24/2016 YUE BELLE CLAYTON Galdamez Ot K59.00 CONSTIPATION, UNSPECIFIED 05/24/2016 YUE BELLE CLAYTON Galdamez Ot M17.12 UNILATERAL PRIMARY OSTEOARTHRITIS, LEFT 05/24/2016 YUE BELLE CLAYTON Galdamez Ot M54.9 DORSALGIA, UNSPECIFIED 05/24/2016 YUE BELLE CLAYTON Galdamez Ot Z87.19 PERSONAL HISTORY OF OTHER DISEASES OF TH 05/24/2016 CLAYTON TURNER DO Ot Z87.891 PERSONAL HISTORY OF NICOTINE DEPENDENCE 07/24/2016 BRUNO PIERRE DO Ot R19.7 DIARRHEA, UNSPECIFIED 07/25/2016 YUE BELLE CLAYTON Galdamez Ot Z47.1 AFTERCARE FOLLOWING JOINT REPLACEMENT COSTA 07/25/2016 YUE BELLE CLAYTON Galdamez Ot Z96.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 LEFT ARTIFICIAL KNEE JOINT 07/29/2016 YUE BELLE CLAYTON Galdamez Ot Z47.1 AFTERCARE FOLLOWING JOINT REPLACEMENT COSTA 07/29/2016 YUE BELLE CLAYTON Galdamez Ot Z96.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 LEFT ARTIFICIAL KNEE JOINT 09/19/2016 BRUNO PIERRE DO Ot R19.7 DIARRHEA, UNSPECIFIED 09/25/2016 BRUNO PIERRE DO Ot R19.7 DIARRHEA, UNSPECIFIED 01/30/2017 Ot 414.00 COR ON ATHEROSCLER NOS TYPE VESSEL, NATIV 01/30/2017 Ot 786.09 RES PIRATORY ABNORM NEC 01/30/2017 Ot 414.00 COR ON ATHEROSCLER NOS TYPE VESSEL, NATIV 01/30/2017 Ot 786.09 RES PIRATORY ABNORM NEC 01/30/2017 Ot V72.84 EXA M PRE- OPERATIVE NOS 01/30/2017 JACKELIN JAIN, TAMMIE Liriano Ot 338.29 OTHER CHRONIC PAIN 01/30/2017 JACKELIN JAIN, TAMMIE Liriano Ot 715.31 LOC OSTEOARTH NOS-SHLDER 01/30/2017 JACKELIN JAIN, TAMMIE Liriano Ot 719.01 JOINT EFFUSION-SHLDER 01/30/2017 JACKELIN JAIN, TAMMIE Liriano Ot 719.41 JOINT PAIN-SHLDER 01/30/2017 JACKELIN JAIN, TAMMIE Liriano Ot 724.01 SPINAL STENOSIS-THORACIC 01/30/2017 JACKELIN JAIN, TAMMIE Liriano Ot 726.10 BURSAE TENDONS DIS SHLDER NOS 01/30/2017 JACKELIN JAIN, TAMMIE Liriano Ot 729.5 PAIN IN LIMB 01/30/2017 JACKELIN JAIN, TAMMIE Liriano Ot 840.9 SPRAIN SHOULDER/ARM NOS 01/30/2017 TAMMIE BENÍTEZ MD Ot E928.9 ACCIDENT NOS 01/30/2017 KWAME WELCH FARMWORKER MACHINE Ot 272.4 HYPERLIPIDEMIA NEC/NOS 01/30/2017 KWAME WELCH FARMWORKER MACHINE Ot 401.9 HYPERTENSION NOS 01/30/2017 KWAME WELCH FARMWORKER MACHINE Ot 414.00 CORON ATHEROSCLER NOS TYPE VESSEL, NATIV 01/30/2017 KWAME WELCH FARMWORKER MACHINE Ot 447.9 ARTERIAL DISEASE NOS 01/30/2017 KWAME WELCH FARMWORKER MACHINE Ot 786.09 RESPIRATORY ABNORM NEC 01/30/2017 BRUNO PIERRE DO Ot 724.02 SPINAL STENOSIS, LUMBAR REG, W/OUT NEURO 01/30/2017 Ot 327.23 OBS TRUCTIVE SLEEP APNEA (ADULT) (PEDIATR 01/30/2017 Ot 414.9 CHR ISCHEMIC HRT DIS NOS 01/30/2017 Ot 786.09 RES PIRATORY ABNORM NEC 01/30/2017 JACKELIN JAIN, TAMMIE Liriano Ot M75.101 UNSP ROTATR-CUFF TEAR/RUPTR OF RIGHT LETTY 01/30/2017 LYNDA AGGARWAL APRN Ot R06.00 DYSPNEA, UNSPECIFIED 01/30/2017 LYNDA AGGARWAL APRN Ot R53.81 OTHER MALAISE 01/30/2017 LYNDA AGGARWAL APRN Ot R53.83 OTHER FATIGUE 01/30/2017 BRUNO PIERRE DO Ot I25.10 ATHSCL HEART DISEASE OF [place] CORONARY 01/30/2017 BRUNO PIERRE DO Ot R53.1 WEAKNESS 02/06/2017 BRYAN JAIN, MARINA Guevara Ot K40.90 UNIL INGUINAL HERNIA, W/O OBST OR GANGR, 02/06/2017 MARINA ADAMS MD Ot Z01.812 ENCOUNTER FOR PREPROCEDURAL LABORATORY E 02/12/2017 BRYAN JAIN, MARINA Guevara Ot E78.5 HYPERLIPIDEMIA, UNSPECIFIED 02/12/2017 MARINA ADAMS MD, Ot G47.33 OBSTRUCTIVE SLEEP APNEA (ADULT) (PEDIATR 02/12/2017 MARINA ADAMS MD Ot I1 0 ESSENTIAL (PRIMARY) HYPERTENSION 02/12/2017 MARINA ADAMS MD Ot I25.10 ATHSCL HEART DISEASE OF [place] CORONARY 02/12/2017 MARINA ADAMS MD Ot K21.9 GASTRO-ESOPHAGEAL REFLUX DISEASE WITHOUT 02/12/2017 MARINA ADAMS MD Ot K40.91 UNILATERAL INGUINAL HERNIA, W/O OBST OR 02/12/2017 MARINA ADAMS MD Ot Z79.899 OTHER BOX PERSON (CURRENT) DRUG THERAPY 02/12/2017 MARINA ADAMS MD Ot Z87.891 PERSONAL HISTORY OF NICOTINE DEPENDENCE 02/12/2017 MARINA ADAMS MD Ot Z96.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 LEFT ARTIFICIAL KNEE JOINT 02/13/2017 MARINA ADAMS MD Ot E78.5 HYPERLIPIDEMIA, UNSPECIFIED 02/13/2017 MARINA ADAMS MD Ot G47.33 OBSTRUCTIVE SLEEP APNEA (ADULT) (PEDIATR 02/13/2017 MARINA ADAMS MD Ot I1 0 ESSENTIAL (PRIMARY) HYPERTENSION 02/13/2017 MARINA ADAMS MD Ot I25.10 ATHSCL HEART DISEASE OF [place] CORONARY 02/13/2017 MARINA ADAMS MD Ot K21.9 GASTRO-ESOPHAGEAL REFLUX DISEASE WITHOUT 02/13/2017 MARINA ADAMS MD Ot K40.91 UNILATERAL INGUINAL HERNIA, W/O OBST OR 02/13/2017 MARINA ADAMS MD Ot Z79.899 OTHER RETIREMENT (CURRENT) DRUG THERAPY 02/13/2017 MARINA ADAMS MD Ot Z87.891 PERSONAL HISTORY OF NICOTINE DEPENDENCE 02/13/2017 MARINA ADAMS MD Ot Z96.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 LEFT ARTIFICIAL KNEE JOINT 11/26/2017 SURAJ STAHL Ot M25.531 PAIN IN RIGHT WRIST 11/26/2017 SURAJ STAHL Ot M25.532 PAIN IN LEFT WRIST 11/26/2017 SURAJ STAHL Ot Z47.89 ENCOUNTER FOR OTHER ORTHOPEDIC AFTERCARE 12/22/2017 SURAJ STAHL Ot M25.531 PAIN IN RIGHT WRIST 12/22/2017 SURAJ STAHL Ot M25.532 PAIN IN LEFT WRIST 12/22/2017 ANNE WARD, SURAJ Arauz Ot Z47.89 ENCOUNTER FOR OTHER ORTHOPEDIC AFTERCARE 12/24/2017 ANNE WARD, SURAJ Arauz Ot M25.531 PAIN IN RIGHT WRIST 12/24/2017 ANNE PA, SURAJ Arauz Ot M25.532 PAIN IN LEFT WRIST 12/24/2017 PALAKINEShayna PA, SURAJ Arauz Ot Z47.89 ENCOUNTER FOR OTHER ORTHOPEDIC AFTERCARE 01/21/2018 ANNE PA, SURAJ Arauz Ot M25.531 PAIN IN RIGHT WRIST 01/21/2018 HORINEShayna PA, SURAJ Arauz Ot M25.532 PAIN IN LEFT WRIST 01/21/2018 PALAKINEShayna PA, SURAJ Arauz Ot Z47.89 ENCOUNTER FOR OTHER ORTHOPEDIC AFTERCARE 04/27/2018 LYNDA AGGARWAL SWEEPER CLEANER INDUSTRIAL Ot G47.33 OBSTRUCTIVE SLEEP APNEA (ADULT) (PEDIATR 04/27/2018 LYNDA AGGARWAL SWEEPER CLEANER INDUSTRIAL Ot G47.33 OBSTRUCTIVE SLEEP APNEA (ADULT) (PEDIATR 04/29/2018 LYNDA AGGARWAL SWEEPER CLEANER INDUSTRIAL Ot G47.33 OBSTRUCTIVE SLEEP APNEA (ADULT) (PEDIATR 06/29/2018 ANU RODRIGUEZ DO G Ot M47.81 2 SPONDYLOSIS W/O MYELOPATHY OR RADICULOPA 06/30/2018 ANU RODRIGUEZ DO Ot M47.81 2 SPONDYLOSIS W/O MYELOPATHY OR RADICULOPA 07/16/2018 JENNIFER BELLE ANU G Ot M47.81 2 SPONDYLOSIS W/O MYELOPATHY OR RADICULOPA 07/24/2018 ANU RODRIGUEZ DO Ot M47.81 2 SPONDYLOSIS W/O MYELOPATHY OR RADICULOPA 07/31/2018 ANU RODRIGUEZ DO G Ot M47.81 2 SPONDYLOSIS W/O MYELOPATHY OR RADICULOPA 02/19/2019 JACKELIN JAIN, TAMMIE Liriano Ot 338.29 OTHER CHRONIC PAIN 02/19/2019 JACKELIN JAIN, TAMMIE Liriano Ot 715.31 LOC OSTEOARTH NOS-SHLDER 02/19/2019 JACKELIN JAIN, TAMMIE Liriano Ot 719.01 JOINT EFFUSION-SHLDER 02/19/2019 JACKELIN JAIN, TAMMIE Liriano Ot 719.41 JOINT PAIN-SHLDER 02/19/2019 JACKELIN JAIN, TAMMIE Liriano Ot 724.01 SPINAL STENOSIS-THORACIC 02/19/2019 TAMMIE BENÍTEZ MD Ot 726.10 BURSAE TENDONS DIS SHLDER NOS 02/19/2019 TAMMIE BENÍTEZ MD Ot 729.5 PAIN IN LIMB 02/19/2019 TAMMIE BENÍTEZ MD Ot 840.9 SPRAIN SHOULDER/ARM NOS 02/19/2019 TAMMIE BENÍTEZ MD Ot E928.9 ACCIDENT NOS 02/19/2019 KWAME WELCH FARMWORKER MACHINE Ot 272.4 HYPERLIPIDEMIA NEC/NOS 02/19/2019 KWAME WELCH FARMWORKER MACHINE Ot 401.9 HYPERTENSION NOS 02/19/2019 KWAME WELCH FARMWORKER MACHINE Ot 414.00 CORON ATHEROSCLER NOS TYPE VESSEL, NATIV 02/19/2019 KWAME WELCH FARMWORKER MACHINE Ot 447.9 ARTERIAL DISEASE NOS 02/19/2019 KWAME WELCHP Ot 786.09 RESPIRATORY ABNORM NEC 02/19/2019 BRUNO PIERRE DO Ot 724.02 SPINAL STENOSIS, LUMBAR REG, W/OUT NEURO 02/19/2019 Ot 327.23 OBS TRUCTIVE SLEEP APNEA (ADULT) (PEDIATR 02/19/2019 Ot 414.9 CHR ISCHEMIC HRT DIS NOS 02/19/2019 Ot 786.09 RES PIRATORY ABNORM NEC 02/19/2019 TAMMIE BENÍTEZ MD Ot M75.101 UNSP ROTATR-CUFF TEAR/RUPTR OF RIGHT LETTY 02/19/2019 LYNDA AGGARWAL APRN Ot R06.00 DYSPNEA, UNSPECIFIED 02/19/2019 LYNDA AGGARWAL APRN Ot R53.81 OTHER MALAISE 02/19/2019 LYNDA AGGARWAL APRN Ot R53.83 OTHER FATIGUE 02/19/2019 BRUNO PIERRE DO Ot I25.10 ATHSCL HEART DISEASE OF [place] CORONARY 02/19/2019 BRUNO PIERRE DO, Ot R53.1 WEAKNESS 02/23/2019 TAMMIE BENÍTEZ MD Ot M25.411 EFFUSION, RIGHT SHOULDER 02/23/2019 TAMMIE BENÍTEZ MD Ot S43.401A UNSPECIFIED SPRAIN OF RIGHT SHOULDER DARION 02/23/2019 TAMMIE BENÍTEZ MD, Ot S46.011A STRAIN OF MUSC/TEND THE ROTATOR CUFF OF 02/23/2019 TAMMIE BENÍTEZ MD Ot S46.111A STRAIN OF MUSC/FASC/TEND LONG HD BICEP, 03/11/2019 JACKELIN JAIN, TAMMIE Liriano Ot M25.411 EFFUSION, RIGHT SHOULDER 03/11/2019 JACKELIN JAIN, TAMMIE Liriano Ot S43.401A UNSPECIFIED SPRAIN OF RIGHT SHOULDER DARION 03/11/2019 JACKELIN JAIN, TAMMIE Liriano Ot S46.011A STRAIN OF MUSC/TEND THE ROTATOR CUFF OF 03/11/2019 JACKELIN JAIN, TAMMIE P Ot S46.111A STRAIN OF MUSC/FASC/TEND LONG HD BICEP, 03/17/2019 JACKELIN JAIN, TAMMIE Liriano Ot M25.411 EFFUSION, RIGHT SHOULDER 03/17/2019 JACKELIN JAIN, TAMMIE P Ot S43.401A UNSPECIFIED SPRAIN OF RIGHT SHOULDER DARION 03/17/2019 JACKELIN JAIN, TAMMIE P Ot S46.011A STRAIN OF MUSC/TEND THE ROTATOR CUFF OF 03/17/2019 JACKELIN JAIN, TAMMIE P Ot S46.111A STRAIN OF MUSC/FASC/TEND LONG HD BICEP, 05/20/2019 BAIMA, KWAME L FARMWORKER MACHINE Ot E78.5 HYPERLIPIDEMIA, UNSPECIFIED 05/20/2019 BAIMA, KWAME L FARMWORKER MACHINE Ot G47.33 OBSTRUCTIVE SLEEP APNEA (ADULT) (PEDIATR 05/20/2019 BAIMA, KWAME L FARMWORKER MACHINE Ot I 10 ESSENTIAL (PRIMARY) HYPERTENSION 05/20/2019 BAIMA, KWAME L FARMWORKER MACHINE Ot I25.10 ATHSCL HEART DISEASE OF [place] CORONARY 05/20/2019 BAIMA, KWAME L FARMWORKER MACHINE Ot I65.29 OCCLUSION AND STENOSIS OF UNSPECIFIED CA 06/08/2019 BAIMA, KWAME L FARMWORKER MACHINE Ot E78.5 HYPERLIPIDEMIA, UNSPECIFIED 06/08/2019 BAIMA, KWAME L FARMWORKER MACHINE Ot G47.33 OBSTRUCTIVE SLEEP APNEA (ADULT) (PEDIATR 06/08/2019 BAIMA, KWAME L FARMWORKER MACHINE Ot I 10 ESSENTIAL (PRIMARY) HYPERTENSION 06/08/2019 BAIMA, KWAME L FARMWORKER MACHINE Ot I25.10 ATHSCL HEART DISEASE OF [place] CORONARY 06/08/2019 BAIMA, KWAME L FARMWORKER MACHINE Ot I65.29 OCCLUSION AND STENOSIS OF UNSPECIFIED CA 06/18/2019 BAIMA, KWAME L FARMWORKER MACHINE Ot E78.5 HYPERLIPIDEMIA, UNSPECIFIED 06/18/2019 BAIMA, KWAME L FARMWORKER MACHINE Ot G47.33 OBSTRUCTIVE SLEEP APNEA (ADULT) (PEDIATR 06/18/2019 KWAME WELCH FARMWORKER MACHINE Ot I 10 ESSENTIAL (PRIMARY) HYPERTENSION 06/18/2019 KWAME WELCH EMERY Ot I25.10 ATHSCL HEART DISEASE OF [place] CORONARY 06/18/2019 KWAME WELCH FARMWORKER MACHINE Ot I65.29 OCCLUSION AND STENOSIS OF UNSPECIFIED CA 07/30/2019 W 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 [facility] 07/30/2019 W 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 [facility] [place] 07/30/2019 W I10 Essent ial (primary) hypertension [facility] 07/30/2019 W K21.0 [place] ro-esophageal reflux disease [facility] ANABELLE MCNEILL MD, Ot Z01.81 8 ENCOUNTER FOR OTHER PREPROCEDURAL EXAMIN 08/20/2019 ANABELLE MCNEILL MD, Ot Z01.81 8 ENCOUNTER FOR OTHER PREPROCEDURAL EXAMIN Procedures Code Description Performed By Per lizy On [id number] RE PLACE OF L DORIS JT WITH SYNTH SUB, RADHA 05/21/2016 Results Test Result Range Complete blood count (CBC) with automate d white blood cell (WBC) differential - 02/29/16 11:05 Blood leukocytes automated count (number/volume) 9.9 10*3/uL 4.3-11.0 Blood erythrocytes automated count (number/volume) 4.24 10*6/uL 4.35-5.85 Venous blood hemoglobin measurement (mass/volume) 13.3 g/dL 13.3-17.7 Blood hematocrit (volume fraction) 37 % 40-54 Automated erythrocyte mean corpuscular volume 88 [ foz_us] 80-99 Automated erythrocyte mean corpuscular h emoglobin (mass per erythrocyte) 31 pg 25-34 Automated erythrocyte mean corpuscular h emoglobin concentration measurement (mass/volume) 36 g/dL 32-36 Automated erythrocyte distribution width ratio 12. 5 % 10.0- 14.5 Automated blood platelet count (count/volume) 142 10*3/uL 130-400 Automated blood platelet mean volume measurement 10.1 [foz_us] 7.4-10.4 Automated blood neutrophils/100 leukocytes 87 % 42-75 Automated blood lymphocytes/100 leukocytes 6 % 12-44 Blood monocytes/100 leukocytes 8 % 0-12 Automated blood eosinophils/100 leukocytes 0 % 0-10 Automated blood basophils/100 leukocytes 0 % 0-10 Blood neutrophils automated count (number/volume) 8.6 10*3 1.8-7.8 Blood lymphocytes automated count (number/volume) 0.6 10*3 1.0-4.0 Blood monocytes automated count (number/volume) 0. 7 10*3 0.0-1.0 Automated eosinophil count 0.0 10*3/uL 0 .0-0.3 Automated blood basophil count (count/volume) 0.0 10*3/uL 0.0-0.1 Comprehensive metabolic panel - 02/29/16 11:05 Serum or plasma sodium measurement (moles/volume) 129 mmol/L 135-145 Serum or plasma potassium measurement (moles/volume) 3.2 mmol/L 3.6-5.0 Serum or plasma chloride measurement (moles/volume) 95 mmol/L 98-107 Carbon dioxide 20 mmol/L 21-32 Serum or plasma anion gap determination (moles/volume) 14 mmol/L 5-14 Serum or plasma urea nitrogen measurement (mass/volume ) 24 mg/dL 7-18 Serum or plasma creatinine measurement (mass/volume) 1.09 mg/dL 0.60-1.30 Serum or plasma urea nitrogen/creatinine mass ratio 22 NRG Serum or plasma creatinine measurement w ith calculation of estimated glomerular filtration rate > NRG Serum or plasma glucose measurement (mass/volume) 139 mg/dL 70-105 Serum or plasma calcium measurement (mass/volume) 8.7 mg/dL 8.5-10.1 Serum or plasma total bilirubin measurement (mass/volu me) 0.7 mg/dL 0.1-1.0 Serum or plasma alkaline phosphatase princess surement (enzymatic activity/volume) 44 U/L 40-136 Serum or plasma aspartate aminotransfera se measurement (enzymatic activity/volume) 24 U/L 5-34 Serum or plasma alanine aminotransferase measurement (enzymatic activity/volume) 24 U/L 0-55 Serum or plasma protein measurement (mass/volume) 6.5 g/dL 6.4-8.2 Serum or plasma albumin measurement (mass/volume) 3.7 g/dL 3.2-4.5 Blood manual differential performed dete ction - 02/29/16 11:05 Blood monocytes/100 leukocytes 5 % NRG Manual blood segmented neutrophils/100 leukocytes 83 % NRG Blood band neutrophils/100 leukocytes 6 % NRG Manual blood lymphocytes/100 leukocytes 6 % NRG Manual eosinophils/100 leukocytes in nose 0 % NRG Manual blood basophils/100 leukocytes 0 % NRG Blood erythrocyte morphology finding identification NORMAL NRG Clostridium difficile detection - 11:38 C DIFF MOLECULAR RESULT Negative for toxigen ic C diff by DNA amplification NRG Stool bacteria identification by culture - 02/29/16 17:15 QUANTITY OF GROWTH Moderate Growth NRG Stool bacteria identification by culture [id number] NRG NEGATIVE FOR 0157 NEGATIVE FOR E COLI 0157 NRG NEGATIVE FOR SHIGELLA NEGATIVE FOR SHIGELLA NRG NEGATIVE FOR SALMONELLA NEGATIVE FOR SALMONELLA NRG Ova and parasites - 02/29/16 17:15 DATE OF REF LAB REPORT 03/08/16 15:55 NR G OTP NEGATIVE RESULT PARASITES NOT FOUND NRG OP FREE TEXT REPORTABLE WHITE AND RED BLOOD CELLS PRESENT NRG Complete blood count (CBC) with automate d white blood cell (WBC) differential - 03/01/16 09:29 Blood leukocytes automated count (number/volume) 5.5 10*3/uL 4.3-11.0 Blood erythrocytes automated count (number/volume) 4.08 10*6/uL 4.35-5.85 Venous blood hemoglobin measurement (mass/volume) 12.7 g/dL 13.3-17.7 Blood hematocrit (volume fraction) 36 % 40-54 Automated erythrocyte mean corpuscular volume 89 [ foz_us] 80-99 Automated erythrocyte mean corpuscular h emoglobin (mass per erythrocyte) 31 pg 25-34 Automated erythrocyte mean corpuscular h emoglobin concentration measurement (mass/volume) 35 g/dL 32-36 Automated erythrocyte distribution width ratio 12. 5 % 10.0- 14.5 Automated blood platelet count (count/volume) 136 10*3/uL 130-400 Automated blood platelet mean volume measurement 10.1 [foz_us] 7.4-10.4 Automated blood neutrophils/100 leukocytes 70 % 42-75 Automated blood lymphocytes/100 leukocytes 13 % 12-44 Blood monocytes/100 leukocytes 16 % 0-12 Automated blood eosinophils/100 leukocytes 1 % 0-10 Automated blood basophils/100 leukocytes 0 % 0-10 Blood neutrophils automated count (number/volume) 3.9 10*3 1.8-7.8 Blood lymphocytes automated count (number/volume) 0.7 10*3 1.0-4.0 Blood monocytes automated count (number/volume) 0. 9 10*3 0.0-1.0 Automated eosinophil count 0.0 10*3/uL 0 .0-0.3 Automated blood basophil count (count/volume) 0.0 10*3/uL 0.0-0.1 Comprehensive metabolic panel - 03/01/16 09:29 Serum or plasma sodium measurement (moles/volume) 136 mmol/L 135-145 Serum or plasma potassium measurement (moles/volume) 3.0 mmol/L 3.6-5.0 Serum or plasma chloride measurement (moles/volume) 103 mmol/L 98-107 Carbon dioxide 21 mmol/L 21-32 Serum or plasma anion gap determination (moles/volume) 12 mmol/L 5-14 Serum or plasma urea nitrogen measurement (mass/volume ) 13 mg/dL 7-18 Serum or plasma creatinine measurement (mass/volume) 1.01 mg/dL 0.60-1.30 Serum or plasma urea nitrogen/creatinine mass ratio 13 NRG Serum or plasma creatinine measurement w ith calculation of estimated glomerular filtration rate > NRG Serum or plasma glucose measurement (mass/volume) 182 mg/dL 70-105 Serum or plasma calcium measurement (mass/volume) 8.4 mg/dL 8.5-10.1 Serum or plasma total bilirubin measurement (mass/volu me) 0.4 mg/dL 0.1-1.0 Serum or plasma alkaline phosphatase princess surement (enzymatic activity/volume) 41 U/L 40-136 Serum or plasma aspartate aminotransfera se measurement (enzymatic activity/volume) 28 U/L 5-34 Serum or plasma alanine aminotransferase measurement (enzymatic activity/volume) 24 U/L 0-55 Serum or plasma protein measurement (mass/volume) 6.0 g/dL 6.4-8.2 Serum or plasma albumin measurement (mass/volume) 3.5 g/dL 3.2-4.5 Ova and parasites - 03/01/16 10:15 DATE OF REF LAB REPORT 03-15-2016 NRG OTP NEGATIVE RESULT PARASITES NOT FOUND NRG OP FREE TEXT REPORTABLE WHITE BLOOD CELLS PRESENT NRG Complete blood count (CBC) with automate d white blood cell (WBC) differential - 03/02/16 04:17 Blood leukocytes automated count (number/volume) 5.8 10*3/uL 4.3-11.0 Blood erythrocytes automated count (number/volume) 4.11 10*6/uL 4.35-5.85 Venous blood hemoglobin measurement (mass/volume) 12.5 g/dL 13.3-17.7 Blood hematocrit (volume fraction) 36 % 40-54 Automated erythrocyte mean corpuscular volume 88 [ foz_us] 80-99 Automated erythrocyte mean corpuscular h emoglobin (mass per erythrocyte) 30 pg 25-34 Automated erythrocyte mean corpuscular h emoglobin concentration measurement (mass/volume) 35 g/dL 32-36 Automated erythrocyte distribution width ratio 12. 6 % 10.0- 14.5 Automated blood platelet count (count/volume) 175 10*3/uL 130-400 Automated blood platelet mean volume measurement 10.5 [foz_us] 7.4-10.4 Automated blood neutrophils/100 leukocytes 53 % 42-75 Automated blood lymphocytes/100 leukocytes 23 % 12-44 Blood monocytes/100 leukocytes 20 % 0-12 Automated blood eosinophils/100 leukocytes 3 % 0-10 Automated blood basophils/100 leukocytes 1 % 0-10 Blood neutrophils automated count (number/volume) 3.0 10*3 1.8-7.8 Blood lymphocytes automated count (number/volume) 1.3 10*3 1.0-4.0 Blood monocytes automated count (number/volume) 1. 2 10*3 0.0-1.0 Automated eosinophil count 0.2 10*3/uL 0 .0-0.3 Automated blood basophil count (count/volume) 0.0 10*3/uL 0.0-0.1 Comprehensive metabolic panel - 03/02/16 04:17 Serum or plasma sodium measurement (moles/volume) 139 mmol/L 135-145 Serum or plasma potassium measurement (moles/volume) 2.9 mmol/L 3.6-5.0 Serum or plasma chloride measurement (moles/volume) 105 mmol/L 98-107 Carbon dioxide 21 mmol/L 21-32 Serum or plasma anion gap determination (moles/volume) 13 mmol/L 5-14 Serum or plasma urea nitrogen measurement (mass/volume ) 8 mg/dL 7-18 Serum or plasma creatinine measurement (mass/volume) 0.91 mg/dL 0.60-1.30 Serum or plasma urea nitrogen/creatinine mass ratio 9 NRG Serum or plasma creatinine measurement w ith calculation of estimated glomerular filtration rate > NRG Serum or plasma glucose measurement (mass/volume) 114 mg/dL 70-105 Serum or plasma calcium measurement (mass/volume) 8.6 mg/dL 8.5-10.1 Serum or plasma total bilirubin measurement (mass/volu me) 0.4 mg/dL 0.1-1.0 Serum or plasma alkaline phosphatase princess surement (enzymatic activity/volume) 54 U/L 40-136 Serum or plasma aspartate aminotransfera se measurement (enzymatic activity/volume) 36 U/L 5-34 Serum or plasma alanine aminotransferase measurement (enzymatic activity/volume) 35 U/L 0-55 Serum or plasma protein measurement (mass/volume) 6.4 g/dL 6.4-8.2 Serum or plasma albumin measurement (mass/volume) 3.7 g/dL 3.2-4.5 Blood manual differential performed dete ction - 03/02/16 04:17 Blood monocytes/100 leukocytes 12 % NRG Manual blood segmented neutrophils/100 leukocytes 58 % NRG Blood band neutrophils/100 leukocytes 0 % NRG Manual blood lymphocytes/100 leukocytes 22 % NRG Manual eosinophils/100 leukocytes in nose 2 % NRG Manual blood basophils/100 leukocytes 0 % NRG Blood lymphocytes variant/100 leukocytes 6 % NRG Blood poikilocytosis detection by light microscopy SLIGHT NRG Blood diana cells detection by light microscopy SLI GHT NRG Clostridium difficile detection - 09:46 C DIFF MOLECULAR RESULT Negative for toxigen ic C diff by DNA amplification NRG Stool bacteria identification by culture - 03/07/16 09:46 Stool bacteria identification by culture TNP NRG Complete blood count (CBC) with automate d white blood cell (WBC) differential - 03/08/16 00:53 Blood leukocytes automated count (number/volume) 11.0 10*3/uL 4.3-11.0 Blood erythrocytes automated count (number/volume) 4.31 10*6/uL 4.35-5.85 Venous blood hemoglobin measurement (mass/volume) 13.4 g/dL 13.3-17.7 Blood hematocrit (volume fraction) 35 % 40-54 Automated erythrocyte mean corpuscular volume 81 [ foz_us] 80-99 Automated erythrocyte mean corpuscular h emoglobin (mass per erythrocyte) 31 pg 25-34 Automated erythrocyte mean corpuscular h emoglobin concentration measurement (mass/volume) 38 g/dL 32-36 Automated erythrocyte distribution width ratio 11. 9 % 10.0- 14.5 Automated blood platelet count (count/volume) 240 10*3/uL 130-400 Automated blood platelet mean volume measurement 9.8 [foz_us] 7.4-10.4 Automated blood neutrophils/100 leukocytes 72 % 42-75 Automated blood lymphocytes/100 leukocytes 15 % 12-44 Blood monocytes/100 leukocytes 12 % 0-12 Automated blood eosinophils/100 leukocytes 1 % 0-10 Automated blood basophils/100 leukocytes 0 % 0-10 Blood neutrophils automated count (number/volume) 8.0 10*3 1.8-7.8 Blood lymphocytes automated count (number/volume) 1.6 10*3 1.0-4.0 Blood monocytes automated count (number/volume) 1. 3 10*3 0.0-1.0 Automated eosinophil count 0.1 10*3/uL 0 .0-0.3 Automated blood basophil count (count/volume) 0.0 10*3/uL 0.0-0.1 Comprehensive metabolic panel - 03/08/16 00:53 Serum or plasma sodium measurement (moles/volume) 122 mmol/L 135-145 Serum or plasma potassium measurement (moles/volume) 3.1 mmol/L 3.6-5.0 Serum or plasma chloride measurement (moles/volume) 89 mmol/L 98-107 Carbon dioxide 19 mmol/L 21-32 Serum or plasma anion gap determination (moles/volume) 14 mmol/L 5-14 Serum or plasma urea nitrogen measurement (mass/volume ) 17 mg/dL 7-18 Serum or plasma creatinine measurement (mass/volume) 0.90 mg/dL 0.60-1.30 Serum or plasma urea nitrogen/creatinine mass ratio 19 NRG Serum or plasma creatinine measurement w ith calculation of estimated glomerular filtration rate > NRG Serum or plasma glucose measurement (mass/volume) 94 mg/dL 70-105 Serum or plasma calcium measurement (mass/volume) 8.5 mg/dL 8.5-10.1 Serum or plasma total bilirubin measurement (mass/volu me) 0.7 mg/dL 0.1-1.0 Serum or plasma alkaline phosphatase princess surement (enzymatic activity/volume) 40 U/L 40-136 Serum or plasma aspartate aminotransfera se measurement (enzymatic activity/volume) 39 U/L 5-34 Serum or plasma alanine aminotransferase measurement (enzymatic activity/volume) 67 U/L 0-55 Serum or plasma protein measurement (mass/volume) 6.1 g/dL 6.4-8.2 Serum or plasma albumin measurement (mass/volume) 3.7 g/dL 3.2-4.5 Serum or plasma troponin i.cardiac measu rement (mass/volume) - 03/08/16 00:53 Serum or plasma troponin i.cardiac measurement (mass/v olume) < ng/mL <0.30 Complete blood count (CBC) with automate d white blood cell (WBC) differential - 03/08/16 03:29 Blood leukocytes automated count (number/volume) 9.6 10*3/uL 4.3-11.0 Blood erythrocytes automated count (number/volume) 4.23 10*6/uL 4.35-5.85 Venous blood hemoglobin measurement (mass/volume) 13.2 g/dL 13.3-17.7 Blood hematocrit (volume fraction) 34 % 40-54 Automated erythrocyte mean corpuscular volume 81 [ foz_us] 80-99 Automated erythrocyte mean corpuscular h emoglobin (mass per erythrocyte) 31 pg 25-34 Automated erythrocyte mean corpuscular h emoglobin concentration measurement (mass/volume) 38 g/dL 32-36 Automated erythrocyte distribution width ratio 12. 0 % 10.0- 14.5 Automated blood platelet count (count/volume) 222 10*3/uL 130-400 Automated blood platelet mean volume measurement 9.8 [foz_us] 7.4-10.4 Automated blood neutrophils/100 leukocytes 69 % 42-75 Automated blood lymphocytes/100 leukocytes 17 % 12-44 Blood monocytes/100 leukocytes 12 % 0-12 Automated blood eosinophils/100 leukocytes 1 % 0-10 Automated blood basophils/100 leukocytes 0 % 0-10 Blood neutrophils automated count (number/volume) 6.6 10*3 1.8-7.8 Blood lymphocytes automated count (number/volume) 1.7 10*3 1.0-4.0 Blood monocytes automated count (number/volume) 1. 2 10*3 0.0-1.0 Automated eosinophil count 0.1 10*3/uL 0 .0-0.3 Automated blood basophil count (count/volume) 0.0 10*3/uL 0.0-0.1 Comprehensive metabolic panel - 03/08/16 03:29 Serum or plasma sodium measurement (moles/volume) 122 mmol/L 135-145 Serum or plasma potassium measurement (moles/volume) 3.0 mmol/L 3.6-5.0 Serum or plasma chloride measurement (moles/volume) 89 mmol/L 98-107 Carbon dioxide 19 mmol/L 21-32 Serum or plasma anion gap determination (moles/volume) 14 mmol/L 5-14 Serum or plasma urea nitrogen measurement (mass/volume ) 15 mg/dL 7-18 Serum or plasma creatinine measurement (mass/volume) 0.87 mg/dL 0.60-1.30 Serum or plasma urea nitrogen/creatinine mass ratio 17 NRG Serum or plasma creatinine measurement w ith calculation of estimated glomerular filtration rate > NRG Serum or plasma glucose measurement (mass/volume) 97 mg/dL 70-105 Serum or plasma calcium measurement (mass/volume) 8.2 mg/dL 8.5-10.1 Serum or plasma total bilirubin measurement (mass/volu me) 0.6 mg/dL 0.1-1.0 Serum or plasma alkaline phosphatase princess surement (enzymatic activity/volume) 38 U/L 40-136 Serum or plasma aspartate aminotransfera se measurement (enzymatic activity/volume) 38 U/L 5-34 Serum or plasma alanine aminotransferase measurement (enzymatic activity/volume) 62 U/L 0-55 Serum or plasma protein measurement (mass/volume) 5.8 g/dL 6.4-8.2 Serum or plasma albumin measurement (mass/volume) 3.5 g/dL 3.2-4.5 Complete blood count (CBC) with automate d white blood cell (WBC) differential - 03/09/16 05:45 Blood leukocytes automated count (number/volume) 7.8 10*3/uL 4.3-11.0 Blood erythrocytes automated count (number/volume) 3.85 10*6/uL 4.35-5.85 Venous blood hemoglobin measurement (mass/volume) 11.9 g/dL 13.3-17.7 Blood hematocrit (volume fraction) 32 % 40-54 Automated erythrocyte mean corpuscular volume 83 [ foz_us] 80-99 Automated erythrocyte mean corpuscular h emoglobin (mass per erythrocyte) 31 pg 25-34 Automated erythrocyte mean corpuscular h emoglobin concentration measurement (mass/volume) 37 g/dL 32-36 Automated erythrocyte distribution width ratio 12. 2 % 10.0- 14.5 Automated blood platelet count (count/volume) 201 10*3/uL 130-400 Automated blood platelet mean volume measurement 9.7 [foz_us] 7.4-10.4 Automated blood neutrophils/100 leukocytes 66 % 42-75 Automated blood lymphocytes/100 leukocytes 18 % 12-44 Blood monocytes/100 leukocytes 14 % 0-12 Automated blood eosinophils/100 leukocytes 2 % 0-10 Automated blood basophils/100 leukocytes 0 % 0-10 Blood neutrophils automated count (number/volume) 5.1 10*3 1.8-7.8 Blood lymphocytes automated count (number/volume) 1.4 10*3 1.0-4.0 Blood monocytes automated count (number/volume) 1. 1 10*3 0.0-1.0 Automated eosinophil count 0.1 10*3/uL 0 .0-0.3 Automated blood basophil count (count/volume) 0.0 10*3/uL 0.0-0.1 Comprehensive metabolic panel - 03/09/16 05:45 Serum or plasma sodium measurement (moles/volume) 124 mmol/L 135-145 Serum or plasma potassium measurement (moles/volume) 3.5 mmol/L 3.6-5.0 Serum or plasma chloride measurement (moles/volume) 96 mmol/L 98-107 Carbon dioxide 20 mmol/L 21-32 Serum or plasma anion gap determination (moles/volume) 8 mmol/L 5-14 Serum or plasma urea nitrogen measurement (mass/volume ) 16 mg/dL 7-18 Serum or plasma creatinine measurement (mass/volume) 0.83 mg/dL 0.60-1.30 Serum or plasma urea nitrogen/creatinine mass ratio 19 NRG Serum or plasma creatinine measurement w ith calculation of estimated glomerular filtration rate > NRG Serum or plasma glucose measurement (mass/volume) 107 mg/dL 70-105 Serum or plasma calcium measurement (mass/volume) 7.8 mg/dL 8.5-10.1 Serum or plasma total bilirubin measurement (mass/volu me) 0.5 mg/dL 0.1-1.0 Serum or plasma alkaline phosphatase princess surement (enzymatic activity/volume) 34 U/L 40-136 Serum or plasma aspartate aminotransfera se measurement (enzymatic activity/volume) 29 U/L 5-34 Serum or plasma alanine aminotransferase measurement (enzymatic activity/volume) 48 U/L 0-55 Serum or plasma protein measurement (mass/volume) 5.1 g/dL 6.4-8.2 Serum or plasma albumin measurement (mass/volume) 3.1 g/dL 3.2-4.5 Complete blood count (CBC) with automate d white blood cell (WBC) differential - 03/10/16 04:27 Blood leukocytes automated count (number/volume) 7.8 10*3/uL 4.3-11.0 Blood erythrocytes automated count (number/volume) 3.84 10*6/uL 4.35-5.85 Venous blood hemoglobin measurement (mass/volume) 12.0 g/dL 13.3-17.7 Blood hematocrit (volume fraction) 32 % 40-54 Automated erythrocyte mean corpuscular volume 84 [ foz_us] 80-99 Automated erythrocyte mean corpuscular h emoglobin (mass per erythrocyte) 31 pg 25-34 Automated erythrocyte mean corpuscular h emoglobin concentration measurement (mass/volume) 37 g/dL 32-36 Automated erythrocyte distribution width ratio 12. 4 % 10.0- 14.5 Automated blood platelet count (count/volume) 201 10*3/uL 130-400 Automated blood platelet mean volume measurement 10.0 [foz_us] 7.4-10.4 Automated blood neutrophils/100 leukocytes 68 % 42-75 Automated blood lymphocytes/100 leukocytes 17 % 12-44 Blood monocytes/100 leukocytes 12 % 0-12 Automated blood eosinophils/100 leukocytes 2 % 0-10 Automated blood basophils/100 leukocytes 0 % 0-10 Blood neutrophils automated count (number/volume) 5.3 10*3 1.8-7.8 Blood lymphocytes automated count (number/volume) 1.4 10*3 1.0-4.0 Blood monocytes automated count (number/volume) 0. 9 10*3 0.0-1.0 Automated eosinophil count 0.2 10*3/uL 0 .0-0.3 Automated blood basophil count (count/volume) 0.0 10*3/uL 0.0-0.1 Whole blood basic metabolic panel - 02/15 04:27 Serum or plasma sodium measurement (moles/volume) 132 mmol/L 135-145 Serum or plasma potassium measurement (moles/volume) 3.4 mmol/L 3.6-5.0 Serum or plasma chloride measurement (moles/volume) 104 mmol/L 98-107 Carbon dioxide 18 mmol/L 21-32 Serum or plasma anion gap determination (moles/volume) 10 mmol/L 5-14 Serum or plasma urea nitrogen measurement (mass/volume ) 12 mg/dL 7-18 Serum or plasma creatinine measurement (mass/volume) 0.75 mg/dL 0.60-1.30 Serum or plasma urea nitrogen/creatinine mass ratio 16 NRG Serum or plasma creatinine measurement w ith calculation of estimated glomerular filtration rate > NRG Serum or plasma glucose measurement (mass/volume) 106 mg/dL 70-105 Serum or plasma calcium measurement (mass/volume) 8.1 mg/dL 8.5-10.1 Complete blood count (CBC) with automate d white blood cell (WBC) differential - 05/07/16 08:50 Blood leukocytes automated count (number/volume) 5.5 10*3/uL 4.3-11.0 Blood erythrocytes automated count (number/volume) 4.30 10*6/uL 4.35-5.85 Venous blood hemoglobin measurement (mass/volume) 13.4 g/dL 13.3-17.7 Blood hematocrit (volume fraction) 39 % 40-54 Automated erythrocyte mean corpuscular volume 90 [ foz_us] 80-99 Automated erythrocyte mean corpuscular h emoglobin (mass per erythrocyte) 31 pg 25-34 Automated erythrocyte mean corpuscular h emoglobin concentration measurement (mass/volume) 35 g/dL 32-36 Automated erythrocyte distribution width ratio 13. 2 % 10.0- 14.5 Automated blood platelet count (count/volume) 154 10*3/uL 130-400 Automated blood platelet mean volume measurement 10.2 [foz_us] 7.4-10.4 Automated blood neutrophils/100 leukocytes 63 % 42-75 Automated blood lymphocytes/100 leukocytes 19 % 12-44 Blood monocytes/100 leukocytes 13 % 0-12 Automated blood eosinophils/100 leukocytes 5 % 0-10 Automated blood basophils/100 leukocytes 0 % 0-10 Blood neutrophils automated count (number/volume) 3.4 10*3 1.8-7.8 Blood lymphocytes automated count (number/volume) 1.1 10*3 1.0-4.0 Blood monocytes automated count (number/volume) 0. 7 10*3 0.0-1.0 Automated eosinophil count 0.3 10*3/uL 0 .0-0.3 Automated blood basophil count (count/volume) 0.0 10*3/uL 0.0-0.1 PT panel in platelet poor plasma by coag ulation assay - 05/07/16 08:50 Prothrombin time (PT) in platelet poor plasma by coagu lation assay 13.1 s 12.2-14.7 INR in platelet poor plasma or blood by coagulation as say 1.0 0.8-1.4 Whole blood basic metabolic panel - 11/15 08:50 Serum or plasma sodium measurement (moles/volume) 137 mmol/L 135-145 Serum or plasma potassium measurement (moles/volume) 4.4 mmol/L 3.6-5.0 Serum or plasma chloride measurement (moles/volume) 103 mmol/L 98-107 Carbon dioxide 28 mmol/L 21-32 Serum or plasma anion gap determination (moles/volume) 6 mmol/L 5-14 Serum or plasma urea nitrogen measurement (mass/volume ) 32 mg/dL 7-18 Serum or plasma creatinine measurement (mass/volume) 1.06 mg/dL 0.60-1.30 Serum or plasma urea nitrogen/creatinine mass ratio 30 NRG Serum or plasma creatinine measurement w ith calculation of estimated glomerular filtration rate > NRG Serum or plasma glucose measurement (mass/volume) 77 mg/dL 70-105 Serum or plasma calcium measurement (mass/volume) 9.2 mg/dL 8.5-10.1 Blood type T Indirect antibody screen pa vivi - 05/07/16 08:50 ABO+Rh group AP NRG Blood group antibody screen NEGATIVE NR G Methicillin resistant Staphylococcus aur eus (MRSA) screening culture - 05/07/16 08:50 Methicillin resistant Staphylococcus aureus (MRSA) scr eening culture NEG NRG Complete urinalysis with reflex to cultu re - 05/07/16 09:00 Urine color determination YELLOW NRG Urine clarity determination CLEAR NR G Urine pH measurement by test strip 6 5-9 Specific gravity of urine by test strip 1.020 1.016-1.022 Urine protein assay by test strip, semi-quantitative NEGATIVE NEGATIVE Urine glucose detection by automated test strip NE GATIVE NEGATIVE Erythrocytes detection in urine sediment by light micr oscopy NEGATIVE NEGATIVE Urine ketones detection by automated test strip NE GATIVE NEGATIVE Urine nitrite detection by test strip NEGATIVE NEGATIVE Urine total bilirubin detection by test strip NEGA TIVE NEGATIVE Urine urobilinogen measurement by automated test strip (mass/volume) NORMAL NORMAL Urine leukocyte esterase detection by dipstick NEG ATIVE NEGATIVE Automated urine sediment erythrocyte cou nt by microscopy (number/high power field) NONE NRG Automated urine sediment leukocyte count by microscopy (number/high power field) RARE NRG Bacteria detection in urine sediment by light microsco py NEGATIVE NRG Squamous epithelial cells detection in u rine sediment by light microscopy NONE NRG Crystals detection in urine sediment by light microsco py NONE NRG Casts detection in urine sediment by light microscopy PRESENT NRG Mucus detection in urine sediment by light microscopy SMALL NRG Complete urinalysis with reflex to culture NO NRG Hyaline casts detection in urine sediment by light veronica roscopy RARE NRG Blood type T Indirect antibody screen pa vivi - 05/21/16 10:05 ABO+Rh group AP NRG Transfusion band number [id number] NRG Blood group antibody screen NEGATIVE NR G Automated blood complete blood count (he mogram) panel - 05/22/16 04:35 Blood leukocytes automated count (number/volume) 11.7 10*3/uL 4.3-11.0 Blood erythrocytes automated count (number/volume) 3.74 10*6/uL 4.35-5.85 Venous blood hemoglobin measurement (mass/volume) 11.5 g/dL 13.3-17.7 Blood hematocrit (volume fraction) 34 % 40-54 Automated erythrocyte mean corpuscular volume 90 [ foz_us] 80-99 Automated erythrocyte mean corpuscular h emoglobin (mass per erythrocyte) 31 pg 25-34 Automated erythrocyte mean corpuscular h emoglobin concentration measurement (mass/volume) 34 g/dL 32-36 Automated erythrocyte distribution width ratio 13. 3 % 10.0- 14.5 Automated blood platelet count (count/volume) 144 10*3/uL 130-400 Automated blood platelet mean volume measurement 10.7 [foz_us] 7.4-10.4 PT panel in platelet poor plasma by coag ulation assay - 05/22/16 04:35 Prothrombin time (PT) in platelet poor plasma by coagu lation assay 14.9 s 12.2-14.7 INR in platelet poor plasma or blood by coagulation as say 1.2 0.8-1.4 Whole blood basic metabolic panel - 05/03 06/17 04:35 Serum or plasma sodium measurement (moles/volume) 135 mmol/L 135-145 Serum or plasma potassium measurement (moles/volume) 4.2 mmol/L 3.6-5.0 Serum or plasma chloride measurement (moles/volume) 102 mmol/L 98-107 Carbon dioxide 25 mmol/L 21-32 Serum or plasma anion gap determination (moles/volume) 8 mmol/L 5-14 Serum or plasma urea nitrogen measurement (mass/volume ) 24 mg/dL 7-18 Serum or plasma creatinine measurement (mass/volume) 0.99 mg/dL 0.60-1.30 Serum or plasma urea nitrogen/creatinine mass ratio 24 NRG Serum or plasma creatinine measurement w ith calculation of estimated glomerular filtration rate > NRG Serum or plasma glucose measurement (mass/volume) 140 mg/dL 70-105 Serum or plasma calcium measurement (mass/volume) 8.4 mg/dL 8.5-10.1 Automated blood complete blood count (he mogram) panel - 05/23/16 05:14 Blood leukocytes automated count (number/volume) 9.9 10*3/uL 4.3-11.0 Blood erythrocytes automated count (number/volume) 3.57 10*6/uL 4.35-5.85 Venous blood hemoglobin measurement (mass/volume) 11.1 g/dL 13.3-17.7 Blood hematocrit (volume fraction) 33 % 40-54 Automated erythrocyte mean corpuscular volume 92 [ foz_us] 80-99 Automated erythrocyte mean corpuscular h emoglobin (mass per erythrocyte) 31 pg 25-34 Automated erythrocyte mean corpuscular h emoglobin concentration measurement (mass/volume) 34 g/dL 32-36 Automated erythrocyte distribution width ratio 13. 7 % 10.0- 14.5 Automated blood platelet count (count/volume) 135 10*3/uL 130-400 Automated blood platelet mean volume measurement 11.1 [foz_us] 7.4-10.4 PT panel in platelet poor plasma by coag ulation assay - 05/23/16 05:14 Prothrombin time (PT) in platelet poor plasma by coagu lation assay 15.0 s 12.2-14.7 INR in platelet poor plasma or blood by coagulation as say 1.2 0.8-1.4 Whole blood basic metabolic panel - 05/03 07/18 05:14 Serum or plasma sodium measurement (moles/volume) 137 mmol/L 135-145 Serum or plasma potassium measurement (moles/volume) 4.0 mmol/L 3.6-5.0 Serum or plasma chloride measurement (moles/volume) 101 mmol/L 98-107 Carbon dioxide 29 mmol/L 21-32 Serum or plasma anion gap determination (moles/volume) 7 mmol/L 5-14 Serum or plasma urea nitrogen measurement (mass/volume ) 18 mg/dL 7-18 Serum or plasma creatinine measurement (mass/volume) 0.95 mg/dL 0.60-1.30 Serum or plasma urea nitrogen/creatinine mass ratio 19 NRG Serum or plasma creatinine measurement w ith calculation of estimated glomerular filtration rate > NRG Serum or plasma glucose measurement (mass/volume) 95 mg/dL 70-105 Serum or plasma calcium measurement (mass/volume) 8.5 mg/dL 8.5-10.1 Whole blood hemoglobin and hematocrit pa vivi - 05/24/16 06:03 Venous blood hemoglobin measurement (mass/volume) 10.4 g/dL 13.3-17.7 Blood hematocrit (volume fraction) 31 % 40-54 PT panel in platelet poor plasma by coag ulation assay - 05/24/16 06:03 Prothrombin time (PT) in platelet poor plasma by coagu lation assay 14.7 s 12.2-14.7 INR in platelet poor plasma or blood by coagulation as say 1.2 0.8-1.4 Stool occult blood screen - 06/22/16 08: 21 Stool gastrointestinal hemoglobin detection NEGATI VE NEGATIVE Clostridium difficile detection - 08:21 C DIFF MOLECULAR RESULT Negative for toxigen ic C diff by DNA amplification [facility] Stool bacteria identification by culture - 06/22/16 08:21 Stool bacteria identification by culture N2 [facility] Ova and parasites - 06/22/16 08:21 DATE OF REF LAB REPORT 07/03/16 11:55 NRG OTP NEGATIVE RESULT PARASITES NOT FOUND NRG Ova and parasites - 06/23/16 09:34 DATE OF REF LAB REPORT 07/03/16 11:55 NRG OTP NEGATIVE RESULT PARASITES NOT FOUND NRG Complete blood count (CBC) with automate d white blood cell (WBC) differential - 02/06/17 13:00 Blood leukocytes automated count (number/volume) 12.9 10*3/uL 4.3-11.0 Blood erythrocytes automated count (number/volume) 4.67 10*6/uL 4.35-5.85 Venous blood hemoglobin measurement (mass/volume) 14.2 g/dL 13.3-17.7 Blood hematocrit (volume fraction) 41 % 40-54 Automated erythrocyte mean corpuscular volume 87 [ foz_us] 80-99 Automated erythrocyte mean corpuscular h emoglobin (mass per erythrocyte) 30 pg 25-34 Automated erythrocyte mean corpuscular h emoglobin concentration measurement (mass/volume) 35 g/dL 32-36 Automated erythrocyte distribution width ratio 12. 9 % 10.0- 14.5 Automated blood platelet count (count/volume) 176 10*3/uL 130-400 Automated blood platelet mean volume measurement 10.4 [foz_us] 7.4-10.4 Automated blood neutrophils/100 leukocytes 79 % 42-75 Automated blood lymphocytes/100 leukocytes 11 % 12-44 Blood monocytes/100 leukocytes 10 % 0-12 Automated blood eosinophils/100 leukocytes 0 % 0-10 Automated blood basophils/100 leukocytes 0 % 0-10 Blood neutrophils automated count (number/volume) 10.3 10*3 1.8-7.8 Blood lymphocytes automated count (number/volume) 1.4 10*3 1.0-4.0 Blood monocytes automated count (number/volume) 1. 3 10*3 0.0-1.0 Automated eosinophil count 0.0 10*3/uL 0 .0-0.3 Automated blood basophil count (count/volume) 0.0 10*3/uL 0.0-0.1 Encounters ACCT No. Visit Date/Time Discharge Status Pt. Type Provider Facility Loc./Unit Complaint [id number] 08/19/2019 15:43:00 020 15:51:00 DIS Outpatient ANABELLE MCNEILL MD [facility] PREOP EGD [id number] 05/18/2019 11:17:00 019 23:59:59 CLS Outpatient KWAME WELCH [facility] CARD CAD,CHEST PAIN,CARRION,FATIGUE,HTN,HYPERLIPIDEMIA [id number] 02/19/2019 14:15:00 019 23:59:59 CLS Outpatient TAMMIE BENÍTEZ MD [facility] RAD ROTATOR CUFF TEAR RT [id number] 07/31/2018 13:27:00 019 14:23:00 DIS Outpatient ANU RODRIGUEZ DO [facility] REHAB CERVICAL SPONDYLOSIS [id number] 05/06/2018 06:44:00 018 23:59:59 CLS Preadmit LYNDA AGGARWAL APRN [facility] RAD DYSPNEA [id number] 04/28/2018 19:56:00 018 06:12:00 DIS Outpatient LYNDA AGGARWAL APRN [facility] SLEEP TERESA [id number] 01/02/2018 11:16:00 018 14:01:00 DIS Outpatient SURAJ STAHL [facility] REHAB R OCTR S/P [id number] 02/12/2017 09:05:00 017 16:08:00 DIS Outpatient MARINA ADAMS MD [facility] SDC RECURRENT RIGHT INGUIN AL HERNIA [id number] 02/06/2017 12:38:00 017 13:05:00 DIS Outpatient MARINA ADAMS MD [facility] PREOP RECURRENT RIGHT INGUIN AL HERNIA [id number] 09/20/2016 00:12:00 017 23:59:59 CLS Preadmit BRUNO PIERRE DO [facility] LAB R19.7 [id number] 06/25/2016 10:47:00 017 00:01:00 DIS Outpatient BRUNO PIERRE DO [facility] LAB R19.7 [id number] 07/29/2016 12:53:00 14:11:00 DIS Outpatient CLAYTON TURNER DO [facility] REHAB LEFT TKA [id number] 05/21/2016 09:56:00 10:32:00 DIS Inpatient CLAYTON TURNER DO [facility] 4TH PRIMARY OSTEOARTHRITI S LEFT KNEE [id number] 05/07/2016 08:16:00 09:10:00 DIS Outpatient CLAYTON TURNER DO [facility] PREOP PRIMARY OA LEFT KNEE [id number] 03/29/2016 06:36:00 23:59:59 CLS Outpatient BRUNO PIERRE DO [facility] CARD I25.10,R53.1 [id number] 03/07/2016 15:49:00 14:15:00 DIS Inpatient ABDIAS GONZALEZ DO, [facility] 4TH CAMPYLOBACTER DIARRHEA, HYPONATREMIA [id number] 02/29/2016 09:30:00 12:50:00 DIS Inpatient ABDIAS GONZALEZ DO, [facility] 4TH DIARRHEA,FEVER,HYPOTENS ION [id number] 02/01/2016 00:09:00 23:59:59 CLS Preadmit TAMMIE BENÍTEZ MD [facility] REHAB S/P ROTATOR CUFF REPAIR R SHOULDER [id number] 01/26/2016 12:50:00 00:01:00 DIS Outpatient TAMMIE BENÍTEZ MD [facility] REHAB S/P ROTATOR CUFF REPAI R R SHOULDER [id number] 01/02/2016 14:42:00 23:59:59 CLS Outpatient LYNDA AGGARWAL APRN [facility] RAD DYSPNEA,FATIGUE AND MALAISE [id number] 09/25/2015 15:23:00 23:59:59 CLS Outpatient TAMMIE BENÍTEZ MD [facility] RAD RTC RIGHT [id number] 07/15/2014 13:41:00 015 23:59:59 CLS Outpatient KWAME WELCH [facility] RT DSYPNEA CAD HTN HLE [id number] 07/12/2014 08:29:00 015 23:59:59 CLS Outpatient BRUNO PIERRE DO [facility] RAD SPINAL STENOSIS [id number] 06/21/2014 09:55:00 015 18:45:00 DIS Outpatient CHARITY JAIN FACC, NELIDA DIXON CC DS [facility] CATH CORNHILARYRY A RTERY DISEASE HTN [id number] 12/22/2013 12:38:00 014 23:59:59 CLS Outpatient TAMMIE BENÍTEZ MD [facility] RAD L SHOULDER PAIN [id number] 10/05/2013 21:01:00 014 06:30:00 DIS Outpatient SALAS GOMESP [facility] SLEEP EXCESSIVE DAYTI ME SLEEPINESS [id number] 01/20/2013 13:02:00 013 08:24:00 DIS Outpatient APOLLO HOBBS MD [facility] REHAB R SHLD SCOPE,ROTATOR CU FF REPAIR,LABRAL DEBRIBRIDE [id number] 11/04/2012 14:26:00 013 00:01:00 DIS Outpatient APOLLO HOBBS MD [facility] REHAB R SHLD SCOPE,ROTATOR CU FF REPAIR,LABRAL DEBRIBRIDE [id number] 08/25/2019 11:00:00 P ANABELLE Saenz MD [facility] [place] ENDO REFLUX/DYSPHAGIA [id number] 08/19/2014 13:46:00 Document Registration [id number] 03/20/2012 08:01:00 Document Registration [id number] 03/19/2012 07:25:00 Document Registration [id number] 01/28/2012 06:00:00 Document Registration [id number] 01/13/2012 12:42:00 Document Registration [id number] 12/04/2010 11:01:00 Document Registration [id number] 11/26/2010 10:08:00 Document Registration [id number] 04/20/2010 11:17:00 Document Registration [id number] 04/10/2010 07:00:00 Document Registration [id number] 07/01/2018 14:07:06 07/01/2018 23:59:5 9 [facility]
[2019-08-25] MEDS ORDERED: NS IV 500 ML 500 ML IV PRN (09:37)
[2019-08-25] MEDS ORDERED: HURRICAINE EXT TUBE (BENZOCAINE) XX PRN (09:45)
[2019-08-25] MEDS ORDERED: LIDOCAINE JELLY 2% 6 ML SYRINGE MM PRN (09:45)
[2019-08-25] MEDS ORDERED: fentaNYL INJECTION 100 MCG/2 ML AMP IVP ONE (09:45)
[2019-08-25] MEDS ORDERED: HURRICAINE EXT TUBE (BENZOCAINE) ONE (09:59)
[2019-08-25] MEDS ORDERED: MIDAZOLAM 5 MG/5 ML (VERSED) VIAL ONE (10:00)
[2019-08-25] MEDS ORDERED: LIDOCAINE JELLY 2% 6 ML SYRINGE ONE (10:00)
[2019-08-25] MEDS ORDERED: fentaNYL INJECTION 100 MCG/2 ML AMP ONE (10:00)
--- NOTE | 2019-08-25 10:18 | Conscious Sedation/ASA ---
Conscious Sedation Pre-Proced Time 10:00 ASA Score 2 For ASA 3 and 4: Consider anesthesia and medical clearance. Also, for patients with a history of failed moderate sedation consider anesthesia. Airway Lungs Heart ASA score ASA 1: a normal healthy patient ASA 2: a patient with a mild systemic disease (mid diabetes, controlled hypertension, obesity ASA 3: a patient with a severe systemic disease that limits activity (angina, COPD, prior Myocardial infarction) ASA 4: a patient with an incapacitating disease that is a constant threat to life (CHF, renal failure) ASA 5: a moribund patient not expected to survive 24 hrs. (ruptured aneurysm) ASA 6: a declared brain- patient whose organs are being harvested. For emergent operations, add the letter E after the classification Mallampati Classification Grade 2 Sedation Plan Analgesia, Amnesia, Plan communicated to team members, Discussed options with patient/fam, Discussed risks with patient/fam The patient is an appropriate candidate to undergo the planned procedure, sedation, and anesthesia. The patient immediately re-assessed prior to indication. ANABELLE MCNEILL MD Aug 25, 2019 10:18
--- NOTE | 2019-08-25 10:19 | Progress Note-Pre Operative ---
Pre-Operative Progress Note H&P Reviewed The H&P was reviewed, patient examined and no changes noted. Date Seen by Provider: Aug 25, 2019 Time Seen by Provider: 10:00 Date H&P Reviewed: Aug 25, 2019 Time H&P Reviewed: 10:00 Pre-Operative Diagnosis: dysphagia, GERD ANABELLE MCNEILL MD Aug 25, 2019 10:19
[2019-08-25] MEDS: MIDAZOLAM 5 MG/5 ML (VERSED) VIAL IV PRN ×3 (10:20→10:30)
--- NOTE | 2019-08-25 10:23 | Discharge Inst-Surgical ---
D/C Lap Instructions-OSITO Follow Up Appt in 6 weeks Activity as tolerated High Fiber Diet 25g or more per day Avoid Alcohol, Caffeine, Spicy [place] and Acid foods. Drink 64 fluid oz or more of fluids per day. Symptoms to Report: Fever over 101 degree F, Nausea/Vomiting If any problems/questions: Contact your physician or go to Emergency Room ANABELLE MCNEILL MD Aug 25, 2019 10:23
[2019-08-25] MEDS ORDERED: HYDROcodone/APAP 5 MG/325 MG (LORTAB) TAB PO PRN (10:30)
[2019-08-25] MEDS ORDERED: ACETAMINOPHEN 325 MG TABLET PO PRN (10:30)
--- NOTE | 2019-08-25 11:04 | Progress Note-Post Operative ---
Post-Operative Progess Note Surgeon (s)/Reserve Officer (s) Surgeon ANABELLE MCNEILL MD Reserve Officer: none Pre-Operative Diagnosis dysphagia, GERD Post-Operative Diagnosis reflux esophagitis(stage 2-3), mild distal esophageal stricture and schatzki ring, small HH(2cm), moderate gastritis. Procedure & Operative Findings Date of Procedure 08/25/19 Procedure Performed/Findings EGD with bx and balloon dilatation. Anesthesia Type cs Estimated Blood Loss Estimated blood loss (mL): minimal Specimens/Packing Specimens Removed ge jxn, antrum ANABELLE MCNEILL MD Aug 25, 2019 11:04
--- NOTE | 2019-08-25 14:05 | OPERATIVE REPORT ---
DATE OF SERVICE: 08/25/2019 ATTENDING PRIMARY CARE PHYSICIAN: Dr. Terri Quinonez. PREOPERATIVE DIAGNOSES: Gastroesophageal reflux disease and dysphagia. POSTOPERATIVE DIAGNOSES: Reflux esophagitis between stage II and III with a distal esophageal stricture and Schatzki's ring, small hiatal hernia approximately 2 cm in size and moderate gastritis. No distal obstructions. PROCEDURES PERFORMED: EGD with biopsy and balloon dilatation. SURGEON: Anabelle Mcneill MD ANESTHESIA: Conscious sedation. ESTIMATED BLOOD LOSS: Minimal. FINDINGS: Same as postoperative diagnoses. DISPOSITION: The patient tolerated the procedure well. INDICATIONS: The patient is a 79-year-old male, who was referred over to us for symptomatic dysphagia as well as gastroesophageal reflux disease for many years. He was on omeprazole for many years and states that this became ineffective and was recently switched to Nexium 40 mg daily. He reports that he has developed dysphagia and difficulty swallowing with certain types of foods as well as some liquids. After taking in food bolus, he will feel substernal as well as a neck pressure sensation. He does have some risk factors including degenerative joint disease and does take three different nonsteroidal anti-inflammatories and also does take in a significant amount of caffeinated beverages daily. DESCRIPTION OF PROCEDURE: The patient was brought to the endoscopy suite and laid in a left lateral decubitus position. After adequate IV pain and sedative medications and conscious sedation anesthesia, the mouthpiece was applied. The endoscope was placed in the mouth, visualizing the pharynx and hypopharyngeal region. Vocal cords, epiglottis and vallecula identified and appeared to be normal. The endoscope was gently intubated. Esophageal opening and esophagus insufflated. The endoscope was then advanced to the first, second and third portion of esophagus at the level of the GE junction, reflux esophagitis between stage II and III identified with mild distal esophageal stricture identified and Schatzki's ring. A biopsy was taken with forceps with visualization of good hemostasis. The endoscope was then advanced into the stomach and endoscope retroflexed, visualizing the Schatzki's ring and distal esophageal stricture in a retroflexed view. A small hiatal hernia approximately 2 cm in size was also identified. There was some moderate gastritis. No formal ulcerations, polyps, or any neoplasms. A biopsy was taken of the antrum to rule out H. pylori with visualization of good hemostasis. The endoscope was then advanced through the pylorus and the first and second portion of the duodenum, which appeared normal with no distal obstructions. We then proceeded with balloon dilatation of distal esophageal stricture. The balloon was balloon was placed into the stomach and pulled back to the area of the stricture. We first proceeded with 2 atmospheres pressure with no resistance. We then proceeded to 4 and then 6 atmospheres of pressure or 20 mm in circumferential diameter with moderate resistance and left this in place for approximately 60 seconds. The balloon was then removed with visualization of no mucosal tears as well as good hemostasis. The endoscope was then slowly withdrawn while taking a second look and suctioning of residual air with no additional findings. The patient tolerated the procedure well. We will recommend the necessary lifestyle and diet accommodation including small and more frequent meals, avoidance of eating at night as well as head elevation while lying supine. He also needs to moderate the amount of caffeinated beverages, spicy, greasy and acidic foods. We will also have him follow up in approximately 6 weeks for graded dilatation. Job ID: [id number] DocumentID: [id number] Dictated Date: 08/25/2019 10:54:59 Head Chopper Date: 08/25/2019 14:04:38 Dictated By: ANABELLE MCNEILL MD
== END 2019-08-25 11:35 | disposition home or self-care (01) ==
LOC: ENDO 09:11
PROVIDERS: ATTEND Surgery
DX: K21.0 Gastro-esophageal reflux disease with esophagitis (principal); K22.2 Esophageal obstruction; K44.9 Diaphragmatic hernia without obstruction or gangrene; K29.70 Gastritis, unspecified, without bleeding; I10 Essential (primary) hypertension; N40.0 Benign prostatic hyperplasia without lower urinary tract symptoms; E78.00 Pure hypercholesterolemia, unspecified; F41.9 Anxiety disorder, unspecified; F32.9 Major depressive disorder, single episode, unspecified; M19.91 Primary osteoarthritis, unspecified site; Z96.652 Presence of left artificial knee joint; Z98.1 Arthrodesis status; Z79.899 Other long term (current) drug therapy; Z87.891 Personal history of nicotine dependence

== ENCOUNTER 2019-10-26 09:37 | Outpatient (RCR) | payer MEDICARE ==
[~2019-10-26] VITALS: Ht 182.9 cm; Wt 95.5 kg
== END 2019-10-26 15:45 | disposition home or self-care (01) ==
LOC: PREOP 09:37
PROVIDERS: ATTEND Surgery
DX: Z01.818 Encounter for other preprocedural examination (principal); Z11.59 Encounter for screening for other viral diseases
CPT/HCPCS: 87635

== ENCOUNTER → 2020-03-07 | Outpatient (CLI) | payer MEDICARE ==
[~2020-03-07] MED LIST changes: +PANT40TA2 PO
--- NOTE | 2020-03-07 13:42 | Diagnostic Imaging Report ---
PROCEDURE: MRI lumbar spine. TECHNIQUE: Multiplanar, multisequence MRI of the lumbar spine was performed without contrast. INDICATION: Chronic low back pain, previous lumbar surgeries. Exam is compared with study 07/12/2014. FINDINGS: Posterior fusion L1 throughout L4 with L2-L5 laminectomies again noted posterior, fluid chronic fluid collection likely seroma but the L3-L4 level is unchanged. The alignment is stable with grade 1 anterolisthesis L3 on L4 and L4-L5 unchanged. Left-sided facet arthrosis results in mild narrowing of the left-sided facet arthrosis and endplate osteophytes result in moderate bony left foraminal stenosis at L3-L4 stable. At L4-L5, there is moderate to severe right and moderate left foraminal stenosis stable, no high-grade canal narrowing. No marrow edema. No new fluid collection. No adverse interval development. IMPRESSION: No real change in the mid to lower lumbar bony foraminal stenoses stable grade 1 listhesis, stable postsurgical changes and chronic laminectomy bed seroma without mass effect upon the sac. No new abnormality or acute-appearing finding. Dictated by: Dictated on workstation # [id number]
== END ==
LOC: RAD 11:51
PROVIDERS: ATTEND Nurse Practitioner
DX: M54.16 Radiculopathy, lumbar region (principal); Z20.828 Contact with and (suspected) exposure to other viral communicable diseases; Z98.890 Other specified postprocedural states
CPT/HCPCS: 72148

== ENCOUNTER 2020-04-05 13:35 | Outpatient (RCR) | payer MEDICARE ==
[~2020-04-05 13:35] MED LIST changes: +AMLO-251 PO; -AMLO10TA7 PO
== END 2020-05-30 14:39 | disposition home or self-care (01) ==
PROVIDERS: ATTEND Nurse Practitioner
DX: M54.2 Cervicalgia (principal); M54.6 Pain in thoracic spine; I10 Essential (primary) hypertension; Z20.828 Contact with and (suspected) exposure to other viral communicable diseases

== ENCOUNTER → 2020-05-29 | Outpatient (CLI) | payer MEDICARE | LOC: CARD 13:52 | PROVIDERS: ATTEND Nurse Practitioner Family | DX: I48.0 Paroxysmal atrial fibrillation (principal) | CPT/HCPCS: 93225; 93226 ==

== ENCOUNTER → 2020-08-08 | Day surgery (SDC) | payer MEDICARE ==
[~2020-08-08] VITALS: Ht 182 cm; Wt 95.5 kg
[~2020-08-08] MED LIST changes: +ASPI-999 PO; +CHOL500050 PO; -CIPR500T4 PO; +CIPR500T5 PO; +CYAN500T8 PO; +ESCI20TA39 PO; +ESOM40CA52 PO; +FLUT9.9S NS; -FOLI0.4T2 PO; +FOLI0.4T6 PO; +HYDR-3820 PO; +HYDR50TA6 PO; +NS IV 1000 ML 1,000 ML IV SCH; +NS IV 1000 ML 1,000 ML ONE; +RIVA20TA PO; +TMSL.4C PO; +proPOfol 200 MG/20 ML (DIPRIVAN) VIAL IV ONE
[2020-08-08 12:33] VITALS: BP 145/95
[2020-08-08 12:42] LABS: HEMOGLOBIN 14.4 g/dL (13.3-17.7); MEAN PLATELET VOLUME 10.6 fL (9.0-12.2); WHITE BLOOD COUNT 8.6 10^3/uL (4.3-11.0)
[2020-08-08 12:53] LABS: INR 1.6 (0.8-1.4); PROTHROMBIN TIME PATIENT 19.3 SEC (12.2-14.7)
[2020-08-08 13:03] LABS: BILIRUBIN,TOTAL 0.8 MG/DL (0.1-1.0); CREATININE SERUM 1.23 MG/DL (0.60-1.30); POTASSIUM 4.2 MMOL/L (3.6-5.0); TOTAL PROTEIN 6.5 GM/DL (6.4-8.2)
[2020-08-08 13:11] VITALS: BP 145/95
[2020-08-08 13:16] VITALS: BP 166/91
[2020-08-08 13:21] VITALS: BP 140/89
--- NOTE | 2020-08-08 13:31 | Anesthesia-General Post-Op ---
MAC Patient Condition Mental Status/LOC: Same as Preop Cardiovascular: Satisfactory Nausea/Vomiting: Absent Respiratory: Satisfactory Pain: Controlled Complications: Absent Post Op Complications Complications None Follow Up Care/Instructions Patient Instructions None needed. Anesthesiology Discharge Order Discharge Order Patient is doing well, no complaints, stable vital signs, no apparent adverse anesthesia problems. No complications reported per nursing. GODWIN AZUL CRNA Aug 08, 2020 13:31
[2020-08-08 13:35] VITALS: BP 185/98
[2020-08-08 13:50] VITALS: BP 174/67
--- NOTE | 2020-08-08 20:13 | OPERATIVE REPORT ---
DATE OF SERVICE: 08/08/2020 EXTERNAL ELECTRICAL CARDIOVERSION REPORT INDICATIONS: The patient is an 80-year-old gentleman who has atrial fibrillation. He has been fully anticoagulated without any interruption for many months. Lately, he has found his atrial fibrillation to be quite symptomatic. Accordingly, external electrical cardioversion was carried out today after having obtained an informed consent. Short-acting anesthesia was delivered by the nurse merchandising team lead. A 120-joule synchronized shock was given through external pads, which changed atrial fibrillation to sinus rhythm and the patient tolerated the procedure well. Job ID: [id number] DocumentID: [id number] Dictated Date: 08/08/2020 15:11:28 Inspector Of Dredging Date: 08/08/2020 20:12:23 Dictated By: NELIDA NASH MD, MA, FACP, FACC,
== END ==
LOC: CATH 14:00
PROVIDERS: ATTEND Internal Medicine Cardiovascular Disease
DX: I48.0 Paroxysmal atrial fibrillation (principal); E78.5 Hyperlipidemia, unspecified; G47.33 Obstructive sleep apnea (adult) (pediatric); I10 Essential (primary) hypertension; I65.23 Occlusion and stenosis of bilateral carotid arteries; Z79.82 Long term (current) use of aspirin; Z79.01 Long term (current) use of anticoagulants; Z79.899 Other long term (current) drug therapy; Z88.5 Allergy status to narcotic agent; Z87.891 Personal history of nicotine dependence; Z80.9 Family history of malignant neoplasm, unspecified; Z83.3 Family history of diabetes mellitus
CPT/HCPCS: 36415; 80053; 80061; 85027; 85610; 85730; 87081; 92960; 93005

== ENCOUNTER → 2021-03-16 | Outpatient (CLI) | payer MEDICARE ==
[~2021-03-16] MED LIST changes: -NS IV 1000 ML 1,000 ML IV SCH; -NS IV 1000 ML 1,000 ML ONE; -proPOfol 200 MG/20 ML (DIPRIVAN) VIAL IV ONE
== END ==
LOC: LABNPT 06:08
PROVIDERS: ATTEND Orthopaedic Surgery
DX: Z01.812 Encounter for preprocedural laboratory examination (principal); Z20.822 Contact with and (suspected) exposure to COVID-19
CPT/HCPCS: 87635

== ENCOUNTER 2021-05-16 13:45 | Outpatient (RCR) | payer MEDICARE ==
[~2021-05-16 13:45] MED LIST changes: -CITA40TA11 PO; +CITA40TA13 PO
== END 2021-05-16 14:45 | disposition home or self-care (01) ==
PROVIDERS: ATTEND Orthopaedic Surgery
DX: Z47.1 Aftercare following joint replacement surgery (principal); Z96.651 Presence of right artificial knee joint

== ENCOUNTER 2021-08-29 13:04 | Outpatient (RCR) | payer MEDICARE | END 2021-08-30 | disposition home or self-care (01) | PROVIDERS: ATTEND Orthopaedic Surgery | DX: Z96.611 Presence of right artificial shoulder joint (principal) ==

== ENCOUNTER → 2021-09-18 | Outpatient (CLI) | payer MEDICARE ==
[~2021-09-18] MED LIST changes: +CATHETER FLUSH 10 ML SYR IVP PRN
== END ==
LOC: CARD 10:27
PROVIDERS: ATTEND Nurse Practitioner Family
DX: I08.0 Rheumatic disorders of both mitral and aortic valves (principal); I25.10 Atherosclerotic heart disease of native coronary artery without angina pectoris
CPT/HCPCS: 93306

== ENCOUNTER 2021-09-27 12:58 | Outpatient (RCR) | payer MEDICARE ==
[~2021-09-27 12:58] MED LIST changes: -CATHETER FLUSH 10 ML SYR IVP PRN
== END 2021-09-29 | disposition home or self-care (01) ==
PROVIDERS: ATTEND Orthopaedic Surgery
DX: Z96.611 Presence of right artificial shoulder joint (principal)

== ENCOUNTER → 2021-09-28 | Outpatient (CLI) | payer MEDICARE ==
[~2021-09-28] VITALS: Ht 177 cm; Wt 91.0 kg
[~2021-09-28] MED LIST changes: +REGADENOSON 0.4 MG/5 ML SYR (LEXISCAN) IV ONE
[2021-09-28] MEDS: CATHETER FLUSH 10 ML SYR IVP PRN ×2 (08:31→09:29)
[2021-09-28 09:27] VITALS: BP 139/72
== END ==
LOC: CARD 10:15
PROVIDERS: ATTEND Nurse Practitioner Family
DX: I25.10 Atherosclerotic heart disease of native coronary artery without angina pectoris (principal)
CPT/HCPCS: 78452; 93017; A9502

== ENCOUNTER 2021-10-04 14:13 | Outpatient (RCR) | payer MEDICARE ==
[~2021-10-04 14:13] MED LIST changes: -REGADENOSON 0.4 MG/5 ML SYR (LEXISCAN) IV ONE
== END 2021-10-30 | disposition home or self-care (01) ==
PROVIDERS: ATTEND Orthopaedic Surgery
DX: Z96.611 Presence of right artificial shoulder joint (principal)

== ENCOUNTER 2021-10-14 11:38 | Emergency (ER) | payer MEDICARE ==
[~2021-10-14] VITALS: Ht 182.8 cm; Wt 92.9 kg
[2021-10-14] MEDS ORDERED: fentaNYL INJ 100 MCG/2 ML AMP IVP STA (12:00)
[2021-10-14 12:08] LABS: BASOPHILS % (AUTO) 0 % (0-10); EOSINOPHILS # (AUTO) 0.1 10^3/uL (0.0-0.3); EOSINOPHILS % (AUTO) 1 % (0-10); HEMATOCRIT 28 % (40-54); HEMOGLOBIN 9.2 g/dL (13.3-17.7); LYMPHOCYTES # (AUTO) 1.4 10^3/uL (1.0-4.0); LYMPHOCYTES % (AUTO) 13 % (12-44); MEAN CORPUSCULAR HEMOGLOBIN 31 pg (25-34); MEAN CORPUSCULAR HGB CONC 34 g/dL (32-36); MEAN CORPUSCULAR VOLUME 93 fL (80-99); MEAN PLATELET VOLUME 10.2 fL (9.0-12.2); MONOCYTES # (AUTO) 1.2 10^3/uL (0.0-1.0); MONOCYTES % (AUTO) 11 % (0-12); NEUTROPHILS # (AUTO) 7.6 10^3/uL (1.8-7.8); NEUTROPHILS % (AUTO) 73 % (42-75); PLATELET COUNT 159 10^3/uL (130-400); WHITE BLOOD COUNT 10.4 10^3/uL (4.3-11.0)
--- NOTE | 2021-10-14 12:10 | ED General ---
General Stated Complaint: HIP & BACK PAIN Source of Information: Patient Exam Limitations: No Limitations History of Present Illness Date Seen by Provider: October 14, 2021 Time Seen by Provider: 11:53 Initial Comments Here with report of severe left hip/pelvic pain has been going on for a few weeks. Saw orthopedic pain management doctor and had an injection in the low back for sciatica. Pain is not better and in fact has worsened. Does have bruising from the area of the left groin down the leg to the calf. This occurred after he was working on stuff in the garage. Denies any trauma or injury. Denies falls. Does have history of cadaver bone in the left pelvis region which may be in the left hip. Pain has gotten out of control. He took 2 hydrocodone 10/325 this morning at 1 AM and another 1 at 5 AM and is not getting good relief. Doing a little bit better now. He has not had any radiological evaluation for this so far. Timing/Duration: Getting Worse, Other (2 weeks) Severity: Moderate, Severe Associated Systoms: No Chest Pain, No Cough, No Fever/Chills, No Nausea/Vomiting, No Shortness of Air; Syncope (Pain gets so bad that he nearly passes out at times) Allergies and Home Medications Allergies Coded Allergies: morphine (Verified Allergy, Unknown, PT TAKES LORTAB AT HOME, 03/08/16) Patient Home Medication List Home Medication List Reviewed: Yes Amlodipine Besylate (Amlodipine Besylate) 10 Mg Tablet, 10 MG PO DAILY, (Reported) Entered as Reported by: LIZBET MANCERA on 02/29/16 1111 Aspirin (Aspirin) 81 Mg Tab.chew, 81 MG PO 1900, (Reported) Entered as Reported by: VANESSA HAIDER on 08/08/20 1321 Atenolol (Atenolol) 50 Mg Tablet, 50 MG PO 1900, (Reported) Entered as Reported by: LIZBET MANCERA on 02/29/16 1111 Celecoxib (Celecoxib) 200 Mg Capsule, 200 MG PO BID, (Reported) Entered as Reported by: LIZBET MANCERA on 05/21/16 1635 Cholecalciferol (Vitamin D3) (Vitamin D3) 125 Mcg Capsule, 125 MCG PO DAILY, (Reported) Entered as Reported by: VANESSA HAIDER on 08/08/20 1321 Cyanocobalamin (Vitamin B-12) (Vitamin B-12) 500 Mcg Tablet, 500 MCG PO DAILY, (Reported) Entered as Reported by: VANESSA HAIDER on 08/08/20 132 Donepezil HCl (Donepezil HCl) 10 Mg Tablet, 10 MG PO DAILY, (Reported) Entered as Reported by: ELIANA MCKENZIE on 08/19/19 1550 Escitalopram Oxalate (Escitalopram Oxalate) 20 Mg Tablet, 20 MG PO 1900, (Reported) Entered as Reported by: VANESSA HAIDER on 08/08/20 132 Esomeprazole Magnesium (Esomeprazole Magnesium) 40 Mg Capsule.dr, 40 MG PO HS, (Reported) Entered as Reported by: VANESSA HAIDER on 08/08/20 132 Finasteride (Finasteride) 5 Mg Tablet, 5 MG PO DAILY, (Reported) Entered as Reported by: LIZBET MANCERA on 02/29/16 1111 Fluticasone Propionate (Flonase Allergy Relief) 9.9 Ml [place].susp, 1 SPRAY NS BID, (Reported) Entered as Reported by: VANESSA HAIDER on 08/08/20 1321 Folic Acid (Folic Acid) 0.4 Mg Tablet, 0.4 MG PO DAILY, (Reported) Entered as Reported by: LIZBET MANCERA on 05/21/16 1635 Hydrocodone/Acetaminophen (Hydrocodone-Acetamin 10-325 mg) 1 Each Tablet, 1 EACH PO Q6H PRN for PAIN-MODERATE (5-7), (Reported) Entered as Reported by: VANESSA HAIDER on 08/08/20 132 [place]-3/Dha/Epa/Fish Oil (Fish Oil EC 1,200 mg Softgel) 1 Each Capsule.dr, 1,200 MG PO BID, (Reported) Entered as Reported by: ELIANA MCKENZIE on 05/07/16 0922 Rivaroxaban (Xarelto) 20 Mg Tablet, 20 MG PO HS, (Reported) Entered as Reported by: VANESSA HAIDER on 08/08/20 1321 Simvastatin (Simvastatin) 20 Mg Tablet, 20 MG PO 1900, (Reported) Entered as Reported by: LIZBET MANCERA on 02/29/16 1111 Tamsulosin HCl (Flomax) 0.4 Mg Cap, 0.8 MG PO 1900, (Reported) Entered as Reported by: VANESSA HAIDER on 08/08/20 1321 Review of Systems Review of Systems Constitutional: see HPI; No chills, No fever EENTM: no symptoms reported Cardiovascular: see HPI; No chest pain, No edema Gastrointestinal: No abdominal pain, No nausea, No vomiting Musculoskeletal: back pain, joint pain, muscle pain Skin: change in color (Left groin and leg); No lesions All Other Systems Reviewed Negative Unless Noted: Yes Past Ldwlvjk-Whijzd-Keiluv Hx Patient Social History Tobacco Use?: No Immunizations Up To Date Tetanus Booster (TDap): Unknown Seasonal Allergies Seasonal Allergies: No Past Medical History Surgeries: Yes (lower back x3, neck sx, r shoulder x2, L shoulder, L knee scope, ing herni) Joint Replacement, Orthopedic Respiratory: Yes Sleep Apnea Currently Using CPAP: Yes Currently Using BIPAP: No Cardiac: Yes Coronary Artery Disease, High Cholesterol, Hypertension Neurological: No Genitourinary: Yes Benign Prostatic Hyperpl Gastrointestinal: Yes (REFLUX, DYSPHAGIA) Diverticulosis Musculoskeletal: Yes Arthritis, Chronic Back Pain Endocrine: No HEENT: Yes Loss of Vision: Denies Hearing Impairment: Denies Cancer: No Psychosocial: No Integumentary: No Blood Disorders: No Adverse Reaction/Blood Tranf: No Family Medical History Reviewed Nursing Family Hx Cardiovascular disease 19 FATHER 19 MOTHER Completed stroke 19 FATHER G8 BROTHER Coronary thrombosis Diabetes mellitus 19 MOTHER Hypertension 19 FATHER Diabetes Physical Exam Vital Signs Vital Signs - First Documented 10/14/21 11:47 Temp 36.0 Pulse 72 Resp 16 B/P (MAP) 146/71 (96) Pulse Ox 98 O2 Delivery Room Air Capillary Refill : Height, Weight, BMI Height: 6'0.00" Weight: 209lbs. 0.0oz. 94.715011im; 29.04 BMI Method: General Appearance: WD/WN, Moderate Distress HEENT: PERRL/EOMI, Pharynx Normal Neck: Non Tender, Supple Respiratory: Lungs Clear, Normal Breath Sounds Cardiovascular: Regular Rate, Rhythm, No Murmur Gastrointestinal: Non Tender, Soft Back: Normal Inspection, No CVA Tenderness Extremity: Other (Tender area of left hip and left groin. Bruising noted from area of left medial thigh down the left leg medial aspect.) Neurologic/Psychiatric: Alert, Oriented x3 Skin: Warm/Dry, Ecchymosis (As described above) Progress/Results/Core Measures Suspected Sepsis SIRS Temperature: Pulse: Respiratory Rate: Laboratory Tests 10/14/21 12:00: White Blood Count 10.4 Blood Pressure / Mean: Laboratory Tests 10/14/21 12:00: Creatinine 1.46H, Platelet Count 159, Total Bilirubin 0.7 Results/Orders Lab Results Laboratory Tests Test 10/14/21 12:00 Range/Units White Blood Count 10.4 4.3-11.0 10^3/uL Red Blood Count 2.96 L 4.30-5.52 10^6/uL Hemoglobin 9.2 L 13.3-17.7 g/dL Hematocrit 28 L 40-54 % Mean Corpuscular Volume 93 80-99 fL Mean Corpuscular Hemoglobin 31 25-34 pg Mean Corpuscular Hemoglobin Concent 34 32-36 g/dL Red Cell Distribution Width 14.4 10.0-14.5 % Platelet Count 159 130-400 10^3/uL Mean Platelet Volume 10.2 9.0-12.2 fL Immature Granulocyte % (Auto) 1 % Neutrophils (%) (Auto) 73 42-75 % Lymphocytes (%) (Auto) 13 12-44 % Monocytes (%) (Auto) 11 0-12 % Eosinophils (%) (Auto) 1 0-10 % Basophils (%) (Auto) 0 0-10 % Neutrophils # (Auto) 7.6 1.8-7.8 10^3/uL Lymphocytes # (Auto) 1.4 1.0-4.0 10^3/uL Monocytes # (Auto) 1.2 H 0.0-1.0 10^3/uL Eosinophils # (Auto) 0.1 0.0-0.3 10^3/uL Basophils # (Auto) 0.0 0.0-0.1 10^3/uL Immature Granulocyte # (Auto) 0.1 0.0-0.1 10^3/uL Sodium Level 136 135-145 MMOL/L Potassium Level 3.5 L 3.6-5.0 MMOL/L Chloride Level 98 98-107 MMOL/L Carbon Dioxide Level 26 21-32 MMOL/L Anion Gap 12 5-14 MMOL/L Blood Urea Nitrogen 37 H 7-18 MG/DL Creatinine 1.46 H 0.60-1.30 MG/DL Estimat Glomerular Filtration Rate 48 BUN/Creatinine Ratio 25 Glucose Level 201 H 70-105 MG/DL Calcium Level 9.0 8.5-10.1 MG/DL Corrected Calcium 9.4 8.5-10.1 MG/DL Total Bilirubin 0.7 0.1-1.0 MG/DL Aspartate Amino Transf (AST/SGOT) 15 5-34 U/L Alanine Aminotransferase (ALT/SGPT) 16 0-55 U/L Alkaline Phosphatase 34 L 40-136 U/L C-Reactive Protein High Sensitivity 0.29 0.00-0.50 MG/DL Total Protein 5.6 L 6.4-8.2 GM/DL Albumin 3.5 3.2-4.5 GM/DL My Orders Orders - ROSELYN POLANCO MD Pelvis With Left Hip 2-3 Views (10/14/21 12:00) Cbc With Automated Diff (10/14/21 12:00) Comprehensive Metabolic Panel (10/14/21 12:00) Hs C Reactive Protein (10/14/21 12:00) Ed Iv/Invasive Line Start (10/14/21 12:00) Fentanyl Inj (Sublimaze Injection) (10/14/21 12:00) Ct Pelvis Wo (10/14/21 12:00) Vital Signs/I&O 10/14/21 11:47 Temp 36.0 Pulse 72 Resp 16 B/P (MAP) 146/71 (96) Pulse Ox 98 O2 Delivery Room Air Capillary Refill : Progress Note : Progress Note Seen and evaluated. IV, labs, fentanyl 75 mcg IV ordered. We will get x-rays of the left hip and pelvis and CT scan of the pelvis due to history of cadaver bone placement and due to bruising. Monitor patient. 1330: Findings from CT scan and x-ray discussed with patient and family. He now admits that he had an episode when he was working on the cars the other day and he was having a very difficult time getting off the floor. States that he really had to work hard to get up and this may have been when he had the injury and it was right before the bruising started. He does have gluteus medius tear. I did discuss this with the patient and family. He has his own orthopedic physician and he will call him for further guidance. We did discuss assistive devices for walking on the left shoulder and they have that available at the house and will utilize those. He feels much better currently. Discharged home with return precautions. Patient and family verbalized understanding of instructions and agreement with plan. Diagnostic Imaging Diagonstic Imaging: CT Plain Films/CT/US/NM/MRI: pelvis Comments [facility] [place] NAME: DOMITILA HARRISON [facility] REC#: [id number] PT STATUS: REG ER : 1940 PHYSICIAN: ROSELYN POLANCO MD ADMIT DATE: 10/14/21/ER Signed Date of Exam:10/14/21 CT PELVIS WO PROCEDURE: CT pelvis without contrast. TECHNIQUE: Multiple contiguous axial images were obtained through the pelvis without the use of intravenous contrast. Sagittal and coronal reformations were performed. Auto Exposure Controls were utilized during the CT exam to meet ALARA standards for radiation dose reduction. INDICATION: Left hip pain. No known injury. Left buttock bruising. COMPARISON: FINDINGS: Soft tissues: There is hyperdense intramuscular hematoma involving the left gluteus medius muscle. There is also some intermuscular hemorrhage between the gluteus medius and gluteus david on the left. Low-attenuation tendon tear. No fatty atrophy within the left gluteus medius or minimus. No free pelvic fluid. Descending and sigmoid colon diverticulosis without diverticulitis. Bones: No acute fracture within the pelvis or proximal femurs. Laminectomies have been performed in the lower lumbar spine. Additionally, there are tracks from prior fixation screws that have been removed from the sacrum and lumbar spine. No avascular necrosis in the femoral heads. IMPRESSION: 1. Mixed intramuscular and intermuscular hemorrhage around the left hip associated with the gluteus medius is likely due to recent tear of the gluteus medius at its distal insertion on the greater trochanter. 2. No acute fracture. Dictated by: Dictated on workstation # [id number] Dict: 10/14/21 1235 Trans: 10/14/21 1257 [facility] [id number] Interpreted by: BLUE HERNANDEZ MD Electronically signed by: BLUE HERNANDEZ MD 10/14/21 1257 Diagonstic Imaging: Xray Plain Films/CT/US/NM/MRI: pelvis, hip Comments [facility] [place] NAME: DOMITILA HARRISON [facility] REC#: [id number] PT STATUS: REG ER : 1940 PHYSICIAN: ROSELYN POLANCO MD ADMIT DATE: 10/14/21/ER Signed Date of Exam:10/14/21 PELVIS WITH LEFT HIP 2-3 VIEWS PELVIS WITH LEFT HIP 2-3 VIEWS INDICATION: Left hip pain COMPARISON: CT pelvis performed concurrently TECHNIQUE: AP pelvis with AP and frogleg lateral views of the left hip. FINDINGS: Soft tissue fullness is present around the left hip. No acute fracture. Degenerative arthritis of both hips. Postoperative changes of the lower lumbar spine. IMPRESSION: 1. Soft tissue fullness around the left hip corresponds to the area of hemorrhage seen on CT. Please see that report for complete details. 2. Moderate osteoarthritis of the left hip. Dictated by: Dictated on workstation # [id number] Dict: 10/14/21 1243 Trans: 10/14/21 1257 [facility] [id number] Interpreted by: BLUE HERNANDEZ MD Electronically signed by: BLUE HERNANDEZ MD 10/14/21 1257 Departure Impression Primary Impression: Tear of gluteus medius tendon Qualified Codes: S76.012A - Strain of muscle, fascia and tendon of left hip, initial encounter Disposition: 01 HOME, SELF-CARE Condition: Stable Departure-Patient Inst. Decision time for Depature: 13:36 Patient Instructions: Muscle Strain ED Add. Discharge Instructions: Follow-up with your orthopedic surgeon for further evaluation for the gluteus medius tear noted on the left. You should use a lift chair and assistive devices for walking to minimize impact on the left hip. You may use ice packs to area of concern 20 minutes/h as needed to reduce swelling or pain. Take your pain medication as prescribed. Follow-up with your doctor in a few days for recheck. Return for worse pain, weakness, numbness, difficulty with walking or going to the bathroom or other concerns as needed. Copy Copies To 1: MINH BLACKMON MD, TIMOTHY D MD October 14, 2021 12:10
[2021-10-14 12:19] LABS: ALBUMIN 3.5 GM/DL (3.2-4.5); POTASSIUM 3.5 MMOL/L (3.6-5.0)
[2021-10-14 12:22] LABS: TOTAL PROTEIN 5.6 GM/DL (6.4-8.2)
[2021-10-14 12:23] LABS: BILIRUBIN,TOTAL 0.7 MG/DL (0.1-1.0)
[2021-10-14 12:25] LABS: CREATININE SERUM 1.46 MG/DL (0.60-1.30)
--- NOTE | 2021-10-14 12:51 | Diagnostic Imaging Report ---
PROCEDURE: CT pelvis without contrast. TECHNIQUE: Multiple contiguous axial images were obtained through the pelvis without the use of intravenous contrast. Sagittal and coronal reformations were performed. Auto Exposure Controls were utilized during the CT exam to meet ALARA standards for radiation dose reduction. INDICATION: Left hip pain. No known injury. Left buttock bruising. COMPARISON: FINDINGS: Soft tissues: There is hyperdense intramuscular hematoma involving the left gluteus medius muscle. There is also some intermuscular hemorrhage between the gluteus medius and gluteus david on the left. Low-attenuation tendon tear. No fatty atrophy within the left gluteus medius or minimus. No free pelvic fluid. Descending and sigmoid colon diverticulosis without diverticulitis. Bones: No acute fracture within the pelvis or proximal femurs. Laminectomies have been performed in the lower lumbar spine. Additionally, there are tracks from prior fixation screws that have been removed from the sacrum and lumbar spine. No avascular necrosis in the femoral heads. IMPRESSION: 1. Mixed intramuscular and intermuscular hemorrhage around the left hip associated with the gluteus medius is likely due to recent tear of the gluteus medius at its distal insertion on the greater trochanter. 2. No acute fracture. Dictated by: Dictated on workstation # [id number]
--- NOTE | 2021-10-14 12:55 | Diagnostic Imaging Report ---
PELVIS WITH LEFT HIP 2-3 VIEWS INDICATION: Left hip pain COMPARISON: CT pelvis performed concurrently TECHNIQUE: AP pelvis with AP and frogleg lateral views of the left hip. FINDINGS: Soft tissue fullness is present around the left hip. No acute fracture. Degenerative arthritis of both hips. Postoperative changes of the lower lumbar spine. IMPRESSION: 1. Soft tissue fullness around the left hip corresponds to the area of hemorrhage seen on CT. Please see that report for complete details. 2. Moderate osteoarthritis of the left hip. Dictated by: Dictated on workstation # [id number]
[2021-10-14 14:13] VITALS: BP 144/79
== END 2021-10-14 14:13 | disposition home or self-care (01) ==
LOC: EDUNIT# 11:38 → ER 11:40
DX: S76.012A Strain of muscle, fascia and tendon of left hip, initial encounter (principal); G47.30 Sleep apnea, unspecified; Z99.89 Dependence on other enabling machines and devices; X58.XXXA Exposure to other specified factors, initial encounter; Y92.094 Garage of other non-institutional residence as the place of occurrence of the external cause
CPT/HCPCS: 36415; 72192; 80053; 85025; 86141

== ENCOUNTER → 2021-11-15 | Outpatient (CLI) | payer MEDICARE ==
--- NOTE | 2021-11-15 14:58 | Diagnostic Imaging Report ---
PROCEDURE: CT left lower extremity without contrast. TECHNIQUE: Multiple contiguous axial images were obtained through the left lower extremity without the use of intravenous contrast. Sagittal and coronal reformations were then performed. Auto Exposure Controls were utilized during the CT exam to meet ALARA standards for radiation dose reduction. INDICATION: Torn gluteal muscle. Bruising and swelling down to the knee. Injury at work. EXAMINATION: CT left lower extremity without contrast 11/15/2021. FINDINGS: There is a large heterogeneous partially hyperdense abnormality within the vastus lateralis muscle at the level of the mid thigh which measures approximately 10.6 cm in craniocaudal dimension, 10.6 cm in AP dimension and 2.5 cm in transverse dimension. This is most likely a hematoma. There is a smaller similar process noted posterior to the left hip abutting the posterior border of the greater trochanter. Areas of fatty infiltration and atrophy throughout the gluteal musculature also noted. There is diffuse overlying subcutaneous edema from the hip and throughout the visualized thigh. The osseous structures are intact with no acute osseous abnormality appreciated. The total knee arthroplasty, as visualized, grossly intact. Streak artifact limits evaluation of the surrounding anatomy. There is moderate narrowing and spurring within the left hip joint. There are degenerative changes in the visualized lumbar spine. There is atherosclerotic disease within the soft tissues along the posterior thigh. Visualized intrapelvic structures demonstrate diverticular disease without evidence for acute diverticulitis. IMPRESSION: 1. Large heterogeneous abnormality within the vastus lateralis muscle presumably hematoma. Underlying soft tissue mass not excluded on CT. A similar smaller area noted along the posterior border of the greater trochanter. If there is continued clinical question, MRI could provide better characterization of the soft tissues, as clinically indicated. 2. Otherwise, incidental findings, as noted above. Dictated by: Dictated on workstation # [id number]
== END ==
LOC: RAD 14:15
PROVIDERS: ATTEND Nurse Practitioner Family
DX: S39.013A Strain of muscle, fascia and tendon of pelvis, initial encounter (principal); X58.XXXA Exposure to other specified factors, initial encounter
CPT/HCPCS: 73700

== ENCOUNTER 2021-11-28 15:14 | Outpatient (RCR) | payer MEDICARE | END 2021-11-29 | disposition home or self-care (01) | PROVIDERS: ATTEND Orthopaedic Surgery | DX: M25.511 Pain in right shoulder (principal); I10 Essential (primary) hypertension; E11.9 Type 2 diabetes mellitus without complications; Z96.611 Presence of right artificial shoulder joint ==

== ENCOUNTER → 2021-12-10 | Outpatient (CLI) | payer MEDICARE ==
[~2021-12-10] MED LIST changes: +CATHETER FLUSH 10 ML SYR IV PRN; +HOLD METFORMIN - RECEIVED CONTRAST 20 ML VIAL IV SCH; +IOHEXOL 350 MG/ML 100 ML (OMNIPAQUE 350) VIAL IV ONE; +NS 100 ML (IVPB) BAG IV ONE
[2021-12-10 11:21] LABS: CREATININE SERUM 1.01 MG/DL (0.60-1.30)
--- NOTE | 2021-12-10 15:37 | Diagnostic Imaging Report ---
INDICATION: Hematoma of left hip and proximal thigh. CTA of the left hip and proximal thigh performed with IV contrast bolus and multiplanar MIP reconstructions. Dose reduction protocol was used. Comparison made to noncontrast study of 11/15/2021. Bony windows show no acute bony abnormality. There are some chronic changes of the greater trochanter. Soft tissue windows demonstrate a fluid collection adjacent to the greater trochanter measuring about 2.9 cm in greatest diameter. There is a fluid collection in the vastus lateralis muscle in the upper thigh, measuring about 7.6 x 3.0 cm in the axial plane and about 17.5 cm in the cephalocaudal dimension. This appears to be decreased in density compared to the previous study and similar in size, this may represent evolving hematoma. CTA images demonstrate patency of the left common and internal and external iliac arteries without stenosis. There is some eccentric plaquing in the left common femoral artery. The left profunda femoris artery and SFA are patent with some minor plaquing. There is no abnormal contrast extravasation in the area of the left thigh hematoma, no overt pseudoaneurysm is seen. IMPRESSION: CTA of the left hip and proximal thigh demonstrates patent vasculature as above with no evidence of pseudoaneurysm or active contrast extravasation. There is a hematoma in the left thigh and the vastus lateralis muscle which appears to be slightly smaller in size compared to the prior study and decreased in density, compatible with evolving hematoma. There is a small amount of fluid in the region of the left greater trochanter, which may represent bursal fluid. Dictated by: Dictated on workstation # [id number]
== END ==
LOC: RAD 11:30
PROVIDERS: ATTEND Internal Medicine Cardiovascular Disease
DX: S70.02XS Contusion of left hip, sequela (principal); X58.XXXS Exposure to other specified factors, sequela
CPT/HCPCS: 36415; 73706; 82565; 84520

== ENCOUNTER 2021-12-21 14:53 | Outpatient (RCR) | payer MEDICARE ==
[~2021-12-21 14:53] MED LIST changes: -CATHETER FLUSH 10 ML SYR IV PRN; -HOLD METFORMIN - RECEIVED CONTRAST 20 ML VIAL IV SCH; -IOHEXOL 350 MG/ML 100 ML (OMNIPAQUE 350) VIAL IV ONE; -NS 100 ML (IVPB) BAG IV ONE
== END 2021-12-30 | disposition home or self-care (01) ==
PROVIDERS: ATTEND Orthopaedic Surgery
DX: M25.512 Pain in left shoulder (principal); I10 Essential (primary) hypertension; E11.9 Type 2 diabetes mellitus without complications; Z96.612 Presence of left artificial shoulder joint

== ENCOUNTER → 2022-01-04 | Outpatient (CLI) | payer MEDICARE ==
--- NOTE | 2022-01-04 14:21 | Diagnostic Imaging Report ---
INDICATION: Neck pain. TIME OF EXAM: 1:37 p.m. FINDINGS: Three views of the cervical spine were obtained. Curvature of the cervical spine is normal. There is minimal anterolisthesis of C3 on C4 and mild anterolisthesis of C4 on C5. Postoperative changes of ACDF with anterior plate and screws transfixing the C5 through C7 levels noted. There is anterolisthesis of C7 on T1. Significant degenerative disc disease at C7-T1 is noted with complete loss of the disc space. There is moderate degenerative disc disease at C3-C4 and C4-C5 levels. There is multilevel facet arthropathy. Prevertebral tissues are normal. No fractures are seen. Odontoid is somewhat obscured. IMPRESSION: Postop and degenerative changes, as described. No fractures are seen. Dictated by: Dictated on workstation # [id number]
--- NOTE | 2022-01-04 15:41 | Diagnostic Imaging Report ---
PROCEDURE: CT cervical spine without contrast. TECHNIQUE: Multiple contiguous axial images were obtained through the cervical spine without the use of intravenous contrast. Sagittal and coronal reformations were then performed. Auto Exposure Controls were utilized during the CT exam to meet ALARA standards for radiation dose reduction. INDICATION: Neck pain. COMPARISON: Radiographs of the cervical spine of the same date as well as correlated with MR cervical performed in 2014. FINDINGS: There are C1 ring fractures at the midline anteriorly with fragmental diastasis of 4.6 mm. There is a right C1 ring fracture posteriorly with fragmental diastasis of 4 mm. These defects are above the field of view of the prior MRI. There is no appreciable paravertebral hematoma or swelling. There margins are smooth and fairly corticated, their admittedly uncertain acuity. MRI may be useful to assess for more subtle findings of edema and regional hemorrhage to confirm or refute their acuity. There was no other cervical fracture. There is a solid C4-C6 ACDF that has been performed. There is anterolisthesis of the fusion mass with respect to T1, those posterior cortices are off 6.4 mm, this measured 5.5 mm on the correlative MRI of 8 years ago. 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 The bony endplate hypertrophy, facet arthrosis and listhesis result in severe bony biforaminal narrowing at this level. This may have increased somewhat from the prior MR. Junctional listhesis at the C4-C5 level increased from prior MRI but mild and grade 1 at 2.6 mm, previously about 1 mm. There is also progressive junctional spondylosis and facet arthrosis at this level with at least moderate biforaminal narrowing. There is also slight increased grade 1 listhesis of C3 on C4, 2 mm versus 1 mm at prior. There is a partly calcified exuberant pannus about the dens with the odontoid appearing intact. Craniocervical relationship normal aside from degenerative disease. There is olmos-cervical degenerative and bulky hypertrophic facet arthrosis increased from priors. Central skull base is intact. Structures of the larynx and tracheal cartilage as well as hyoid intact. Visualized pulmonary apices nonacute. There are carotid atherosclerotic vascular calcifications. IMPRESSION: 1. Midline anterior and right posterolateral C1 ring fractures with mild fragmental diastasis. Margins appear well-corticated and no CT appreciable adjacent edema, hemorrhage or swelling. These may very well be old but I have no priors through that level to confirm chronicity. If there has been any injury or new neck pain or otherwise indicated MRI is suggested as further evaluation to exclude subtle findings imperceptible at this exam that may suggest recent injuries. No other cervical fracture. 2. Intact ACDF with progressive junctional listheses above and below with advanced spondylosis and facet arthrosis with multilevel bony foraminal stenoses on a degenerative basis. Results discussed with Dr. Quinonez. Dictated by: Dictated on workstation # [id number]
== END ==
LOC: RAD 12:50
PROVIDERS: ATTEND Family Medicine
DX: M48.02 Spinal stenosis, cervical region (principal); M50.33 Other cervical disc degeneration, cervicothoracic region; M47.812 Spondylosis without myelopathy or radiculopathy, cervical region; Z98.890 Other specified postprocedural states
CPT/HCPCS: 72040; 72125

== ENCOUNTER 2022-10-04 20:17 | Outpatient (CLI) | payer MEDICARE | END 2022-10-05 06:10 | disposition home or self-care (01) | LOC: SLEEP 20:17 | PROVIDERS: ATTEND Otolaryngology Otolaryngology/Facial Plastic Surgery | DX: G47.33 Obstructive sleep apnea (adult) (pediatric) (principal) | CPT/HCPCS: 95811 ==

== ENCOUNTER → 2022-10-11 | Outpatient (CLI) | payer MEDICARE | LOC: CARD 09:20 | PROVIDERS: ATTEND Internal Medicine Cardiovascular Disease | DX: I48.0 Paroxysmal atrial fibrillation (principal) | CPT/HCPCS: 93225; 93226 ==

== ENCOUNTER 2022-10-25 15:40 | Outpatient (RCR) | payer MEDICARE ==
[2022-11-01] MEDS ORDERED: FISH1CAP15 PO (13:50)
[2022-11-01] MEDS ORDERED: ATEN25TA PO (13:50)
[2022-11-01] MEDS ORDERED: METF-397 PO (13:50)
== END 2022-10-30 | disposition home or self-care (01) ==
PROVIDERS: ATTEND Orthopaedic Surgery
DX: Z47.1 Aftercare following joint replacement surgery (principal); Z96.652 Presence of left artificial knee joint

== ENCOUNTER 2022-11-01 15:00 | Day surgery (SDC) | payer MEDICARE ==
[~2022-11-01] VITALS: Ht 182 cm; Wt 88.0 kg
[2022-11-01] VITALS (10 sets, daily range): BP systolic 128–163; BP diastolic 53–112
[2022-11-01 13:41] LABS: HEMATOCRIT 43 % (40-54); HEMOGLOBIN 14.8 g/dL (13.3-17.7); MEAN CORPUSCULAR HEMOGLOBIN 31 pg (25-34); MEAN CORPUSCULAR HGB CONC 34 g/dL (32-36); MEAN CORPUSCULAR VOLUME 91 fL (80-99); MEAN PLATELET VOLUME 10.2 fL (9.0-12.2); PLATELET COUNT 154 10^3/uL (130-400); WHITE BLOOD COUNT 7.9 10^3/uL (4.3-11.0)
[2022-11-01 13:52] LABS: INR 1.1 (0.8-1.4); PROTHROMBIN TIME PATIENT 14.3 SEC (12.2-14.7)
[2022-11-01 14:00] LABS: ALBUMIN 4.3 GM/DL (3.2-4.5); BILIRUBIN,TOTAL 0.8 MG/DL (0.1-1.0); CALCIUM 9.5 MG/DL (8.5-10.1); CREATININE SERUM 1.25 MG/DL (0.60-1.30); POTASSIUM 3.7 MMOL/L (3.6-5.0); TOTAL PROTEIN 6.7 GM/DL (6.4-8.2)
[~2022-11-01 15:00] MED LIST changes: +ATEN25TA PO; +FISH1CAP15 PO; +HEParin (CATH LAB) 2,000 ML IV ONE; +HEParin 1000 UNIT/ML (10ML VIAL) FOR BOLUS ONE; +LIDOCAINE 1% INJ 20 ML VIAL ONE; +METF-397 PO; +MIDAZOLAM 5 MG/5 ML (VERSED) VIAL ONE; +NITRO DRIP 25000 MCG/D5W 250 ML IV ONE; +NS IV 1000 ML 1,000 ML IV SCH; +NS IV 1000 ML 1,000 ML ONE; +VERAPAMIL 5 MG/2 ML (CALAN) VIAL IV ONE; +fentaNYL INJ 100 MCG/2 ML AMP ONE
--- NOTE | 2022-11-01 15:55 | Cardiac Procedure Note-CS/ASA ---
Pre-Procedure Note Pre-Op Procedure Note Date of Available H&P: October 24, 2022 Date H&P Reviewed: Nov 01, 2022 Time H&P Reviewed: 15:00 History & Physical: H&P Reviewed, No changes noted Moderate Sedation PreProcedure ASA Score 3 Airway Lungs Heart ASA score ASA 1: a normal healthy patient ASA 2: a patient with a mild systemic disease (mid diabetes, controlled hypertension, obesity ASA 3: a patient with a severe systemic disease that limits activity (angina, COPD, prior Myocardial infarction) ASA 4: a patient with an incapacitating disease that is a constant threat to life (CHF, renal failure) ASA 5: a moribund patient not expected to survive 24 hrs. (ruptured aneurysm) ASA 6: a declared brain- patient whose organs are being harvested. For emergent operations, add the letter E after the classification Mallampati Classification Grade 2 Sedation Plan Analgesia, Amnesia, Plan communicated to team members The patient is an appropriate candidate to undergo the planned procedure, sedation, and anesthesia. The patient immediately re-assessed prior to indication. NELIDA NASH MD FACP [facility] Nov 01, 2022 15:55
--- NOTE | 2022-11-01 16:12 | Cardiac Cath Report ---
CARDIAC CATHETERIZATION DATE OF PROCEDURE: 11-01-22 INDICATION: Brief run of wide-complex tachy on Holter of 10-11-22 HISTORY: The patient is a 82 year old male with a brief run of wide-complex tachy on Holter of 10-11-22 PROCEDURES PERFORMED: 1. Cor angio; 2. LHC PROCEDURE DESCRIPTION: After informed consent and in the fasting state, left heart catheterization was performed through the R radial artery utilizing a 6 [place] system by percutaneous approach. 6F TIG for L cor, 5F JR4 for R cor, 5F pigtail for LHC. All catheters were exchanged over a guidewire. HEMODYNAMICS: LVEDP 31 mmHg, no significant pressure gradient across the aortic valve CORONARY ANGIOGRAPHY: Left main coronary artery: Ok Left anterior descending coronary artery: Mild plaques Left circumflex coronary artery: Small vessel, mild plaques Right coronary artery: Dominant with low anterior origin probably in the right coronary sinus, and with mild plaques LV ANGIOGRAM: LVEF 60%. No wall motion abnormality in the CHEN projection AORTIC ROOT ANGIOGRAM: No aneurysm or dissection at the aortic root. No significant aortic regurgitation. No additional coronaries identified IMPRESSION: 1. Mild CAD 2. LVEDP 31 mmHg 3. LVEF 60% NELIDA NASH MD FACP [facility] Nov 01, 2022 16:12
--- NOTE | 2022-11-01 16:21 | Discharge Inst-Cardiology ---
Discharge Inst-Cardiac Discharge Medications Continued Medications: Amlodipine Besylate (Amlodipine Besylate) 10 Mg Tablet 10 MG PO DAILY, TAB Aspirin (Aspirin) 81 Mg Tab.chew 81 MG PO 1900, TAB Atenolol (Atenolol) 25 Mg Tablet 25 MG PO DAILY, TAB Celecoxib (Celecoxib) 200 Mg Capsule 200 MG PO BID Cholecalciferol (Vitamin D3) (Vitamin D3) 125 Mcg Capsule 125 MCG PO DAILY, CAP Cyanocobalamin (Vitamin B-12) (Vitamin B-12) 500 Mcg Tablet 500 MCG PO DAILY, TAB Escitalopram Oxalate (Escitalopram Oxalate) 20 Mg Tablet 20 MG PO 1900, TAB Esomeprazole Magnesium (Esomeprazole Magnesium) 40 Mg Capsule.dr 40 MG PO HS, CAP Finasteride (Finasteride) 5 Mg Tablet 5 MG PO DAILY Fish Oil/Dha/Epa (Fish Oil 1,200 mg Fish Oil) 1,200 Mg-144 Mg-216 Mg Capsule 1 EACH PO, CAP Fluticasone Propionate (Flonase Allergy Relief) 9.9 Ml [place].susp 1 SPRAY NS BID, EACH Folic Acid (Folic Acid) 0.4 Mg Tablet 0.4 MG PO DAILY, TAB Hydrocodone/Acetaminophen (Hydrocodone-Acetamin 10-325 mg) 1 Each Tablet 1 EACH PO Q6H PRN for PAIN-MODERATE (5-7), TAB Metformin HCl (Metformin HCl) 500 Mg Tablet 500 MG PO BID, TAB Simvastatin (Simvastatin) 20 Mg Tablet 20 MG PO 1900, TAB Tamsulosin HCl (Flomax) 0.4 Mg Cap 0.8 MG PO 1900, CAP NELIDA NASH MD FACP [facility]S Nov 01, 2022 16:21
--- NOTE | 2022-11-01 16:22 | Discharge Inst-Post CATH ---
Discharge Inst-CATH/EP Post Cardiac Cath/EP D/C Inst Follow Up/Plan F/u with Dr Morrison in 3-4 weeks ACTIVITY * Go Home directly and rest. * Limit activity of the leg (or wrist if it was used) for 7 days including aerobics, swimming, jogging, bicycling, etc. * Restrict stair-climbing for 7 days if possible, if not, climb up with your non-cath leg, then bring together on the same step. * Avoid lifting, pushing, pulling or excessive movement of the affected e xtremity for 7 days. * Customary sexual activity may be resumed after 2 days-use caution not to use a position that strains or causes pain to the affected extremity. * No driving for 24 hours. * NO SMOKING. * Avoid straining for bowel movements for 7 days. * Gentle walking on level ground is allowed. * Returning to work will depend on the type of procedure and the results. Your doctor will discuss this with you. CALL YOUR DOCTOR FOR ANY OF THE FOLLOWING: *If bleeding from the puncture site occurs- Apply gentle pressure to site with clean cloth and call your doctor or EMS. * If a knot or lump forms under the skin, increases in size, or causes pain. * If bruising appears to be worsening or moving further down your leg instead of disappearing. * Temperature above 101 F. CARE OF YOUR GROIN INCISION; * Bruising or purple discoloration of the skin near the puncture site is common. * You may shower only, no bathtub bathing for 5 days. Be careful to avoid slipping as your leg may feel stiff. * If a closure device was used on your femoral artery, please see the attached guide regarding care of the device and your leg. * Leave dressing on FOR 24 hours. CARE OF YOUR WRIST INCISION; * Bruising or purple discoloration of the skin near the puncture site is common. * You may shower. * DO NOT submerge wrist. * Leave dressing on FOR 24 hours. NELIDA MORRISON MD FACP [facility] Nov 01, 2022 16:22
[2022-11-01] MEDS ORDERED: PATIENT MAY USE OWN MEDS, ALL PO SCH (16:30)
[2022-11-01] MEDS ORDERED: NS IV 1000 ML 1,000 ML IV SCH (16:30)
== END 2022-11-01 19:37 | disposition home or self-care (01) ==
LOC: CATH 15:00 → CSD 16:26 → CATH 19:37
PROVIDERS: ATTEND Internal Medicine Cardiovascular Disease
DX: I25.10 Atherosclerotic heart disease of native coronary artery without angina pectoris (principal); I48.0 Paroxysmal atrial fibrillation; I11.9 Hypertensive heart disease without heart failure; I65.23 Occlusion and stenosis of bilateral carotid arteries; E78.5 Hyperlipidemia, unspecified; M19.90 Unspecified osteoarthritis, unspecified site; G47.33 Obstructive sleep apnea (adult) (pediatric); R19.7 Diarrhea, unspecified; R10.9 Unspecified abdominal pain; G89.29 Other chronic pain; S70.02XS Contusion of left hip, sequela; I47.20 Ventricular tachycardia, unspecified; Z79.82 Long term (current) use of aspirin; Z87.891 Personal history of nicotine dependence; Z98.890 Other specified postprocedural states; Z96.651 Presence of right artificial knee joint; Z99.81 Dependence on supplemental oxygen
CPT/HCPCS: 80053; 85027; 85610; 85730; 87081; 93005; 93458; C1769; C1894; 36415

== ENCOUNTER 2022-11-28 12:56 | Outpatient (RCR) | payer MEDICARE ==
[~2022-11-28 12:56] MED LIST changes: -HEParin (CATH LAB) 2,000 ML IV ONE; -HEParin 1000 UNIT/ML (10ML VIAL) FOR BOLUS ONE; -LIDOCAINE 1% INJ 20 ML VIAL ONE; -MIDAZOLAM 5 MG/5 ML (VERSED) VIAL ONE; -NITRO DRIP 25000 MCG/D5W 250 ML IV ONE; -NS IV 1000 ML 1,000 ML IV SCH; -NS IV 1000 ML 1,000 ML ONE; -VERAPAMIL 5 MG/2 ML (CALAN) VIAL IV ONE; -fentaNYL INJ 100 MCG/2 ML AMP ONE
== END 2022-11-29 | disposition home or self-care (01) ==
PROVIDERS: ATTEND Orthopaedic Surgery
DX: Z47.1 Aftercare following joint replacement surgery (principal); Z96.652 Presence of left artificial knee joint

== ENCOUNTER 2022-12-10 13:47 | Outpatient (RCR) | payer MEDICARE | END 2022-12-30 | disposition home or self-care (01) | PROVIDERS: ATTEND Orthopaedic Surgery | DX: Z47.1 Aftercare following joint replacement surgery (principal); I10 Essential (primary) hypertension; Z96.652 Presence of left artificial knee joint ==

== ENCOUNTER 2023-04-25 10:23 | Emergency (ER) | payer MEDICARE ==
[~2023-04-25] VITALS: Ht 182.8 cm; Wt 88.4 kg
[~2023-04-25 10:23] MED LIST changes: -CELE-63 PO; +CELE-91 PO
--- NOTE | 2023-04-25 10:51 | ED Upper Extremity ---
General Chief Complaint: Upper Extremity Stated Complaint: RT WRIST PAIN Nursing Triage Note: PT AMB TO RM 6 WITH COMPLAINT OF RIGHT WRIST PAIN. STATES STARTED ABOUT A WEEK AGO, WORSE WITH MOVEMENT. DENIES KNOWN INJURY. Source: patient Exam Limitations: no limitations History of Present Illness Date Seen by Provider: Apr 25, 2023 Time Seen by Provider: 10:51 Initial Comments Patient is an 82-year-old male who presents to the emergency room with a chief complaint of right wrist pain. Patient states that he has had this pain for about a week, it is getting worse. He states movement makes the pain worse. Specifically when he reaches to undo the clasp on his suspenders. He denies any known trauma such as lifting, pushing, pulling or direct injury. He has never had a pain in his wrist like this before. Denies any numbness, tingling or weakness in the hand or fingers. No elbow pain, no shoulder pain. He does have "pinched nerves" in his neck that bother him occasionally. This tends to radiate pain into his arm. He has taken Tylenol with some relief of symptoms. He states he is just getting tired of the pain and did not want to go to the clinic and have to wait to get x-rays ordered. Onset: last week Severity: severe Pain/Injury Location: left wrist Method of Injury: unknown Modifying Factors: Improves With Immobilization; Worse With Movement Allergies and Home Medications Allergies Coded Allergies: morphine (Verified Allergy, Unknown, PT TAKES LORTAB AT HOME, 03/08/16) Patient Home Medication List Home Medication List Reviewed: Yes Amlodipine Besylate (Amlodipine Besylate) 10 Mg Tablet, 10 MG PO DAILY, (Reported) Entered as Reported by: LIZBET MANCERA on 02/29/16 1111 Aspirin (Aspirin) 81 Mg Tab.chew, 81 MG PO 1900, (Reported) Entered as Reported by: VANESSA HAIDER on 08/08/20 1321 Atenolol (Atenolol) 25 Mg Tablet, 25 MG PO DAILY, (Reported) Entered as Reported by: THAI ESCALANTE on 11/01/22 1350 Celecoxib (Celecoxib) 200 Mg Capsule, 200 MG PO BID, (Reported) Entered as Reported by: LIZBET MANCERA on 05/21/16 1635 Cholecalciferol (Vitamin D3) (Vitamin D3) 125 Mcg Capsule, 125 MCG PO DAILY, (Reported) Entered as Reported by: VANESSA HAIDER on 08/08/20 132 Cyanocobalamin (Vitamin B-12) (Vitamin B-12) 500 Mcg Tablet, 500 MCG PO DAILY, (Reported) Entered as Reported by: VANESSA HAIDER on 08/08/20 132 Escitalopram Oxalate (Escitalopram Oxalate) 20 Mg Tablet, 20 MG PO 1900, (Reported) Entered as Reported by: VANESSA HAIDER on 08/08/20 132 Esomeprazole Magnesium (Esomeprazole Magnesium) 40 Mg Capsule.dr, 40 MG PO HS, (Reported) Entered as Reported by: VANESSA HAIDER on 08/08/20 132 Finasteride (Finasteride) 5 Mg Tablet, 5 MG PO DAILY, (Reported) Entered as Reported by: LIZBET MANCERA on 02/29/16 1111 Fish Oil/Dha/Epa (Fish Oil 1,200 mg Fish Oil) 1,200 Mg-144 Mg-216 Mg Capsule, 1 EACH PO, (Reported) Entered as Reported by: THAI ESCALANTE on 11/01/22 1350 Fluticasone Propionate (Flonase Allergy Relief) 9.9 Ml [place].susp, 1 SPRAY NS BID, (Reported) Entered as Reported by: VANESSA HAIDER on 08/08/20 132 Folic Acid (Folic Acid) 0.4 Mg Tablet, 0.4 MG PO DAILY, (Reported) Entered as Reported by: LIZBET MANCERA on 05/21/16 1635 Hydrocodone/Acetaminophen (Hydrocodone-Acetamin 10-325 mg) 1 Each Tablet, 1 EACH PO Q6H PRN for PAIN-MODERATE (5-7), (Reported) Entered as Reported by: VANESSA HAIDER on 08/08/20 132 Metformin HCl (Metformin HCl) 500 Mg Tablet, 500 MG PO BID, (Reported) Entered as Reported by: THAI ESCALANTE on 11/01/22 1350 Simvastatin (Simvastatin) 20 Mg Tablet, 20 MG PO 1900, (Reported) Entered as Reported by: LIZBET MANCERA on 02/29/16 1111 Tamsulosin HCl (Flomax) 0.4 Mg Cap, 0.8 MG PO 1900, (Reported) Entered as Reported by: VANESSA HAIDER on 08/08/20 132 Review of Systems Constitutional: see HPI EENTM: no symptoms reported Respiratory: no symptoms reported Cardiovascular: no symptoms reported Gastrointestinal: no symptoms reported Musculoskeletal: joint pain (right wrist) Skin: no symptoms reported Psychiatric/Neurological: Other (chronis numb right hand/fingers) Past Aiojcfh-Ldsehh-Bsnzyf Hx Patient Social History Tobacco Use?: No Use of E-Cig and/or Vaping dev: No Substance use?: No Alcohol Use?: No Pt feels they are or have been: No Immunizations Up To Date Tetanus Booster (TDap): Unknown First/Initial COVID19 Vaccinat: 2020 Second COVID19 Vaccination Chidi: 2020 Third COVID19 Vaccination Date: 2020 Seasonal Allergies Seasonal Allergies: No Past Medical History Surgeries: Yes (lower back x3, neck sx, r shoulder x2, L shoulder, L knee scope, ing herni) Joint Replacement, Orthopedic Respiratory: Yes Sleep Apnea Currently Using CPAP: Yes Currently Using BIPAP: No Cardiac: Yes Atrial Fibrillation, Coronary Artery Disease, High Cholesterol, Hypertension Neurological: No Genitourinary: Yes Benign Prostatic Hyperpl Gastrointestinal: Yes (REFLUX, DYSPHAGIA) Diverticulosis Musculoskeletal: Yes Arthritis, Chronic Back Pain Endocrine: No HEENT: Yes Loss of Vision: Denies Hearing Impairment: Denies Cancer: No Psychosocial: No Integumentary: No Blood Disorders: No Adverse Reaction/Blood Tranf: No Family Medical History Cardiovascular disease 19 FATHER 19 MOTHER Completed stroke 19 FATHER G8 BROTHER Coronary thrombosis Diabetes mellitus 19 MOTHER Hypertension 19 FATHER Diabetes Physical Exam Vital Signs Vital Signs - First Documented 04/25/23 10:31 Temp 36.5 Pulse 84 Resp 16 B/P (MAP) 141/76 (97) Pulse Ox 98 O2 Delivery Room Air Capillary Refill : Less Than 3 Seconds Height, Weight, BMI Height: 6'0.00" Weight: 209lbs. 0.0oz. 94.984829wr; 26.00 BMI Method: General Appearance: WD/WN, no apparent distress Respiratory: no respiratory distress, no accessory muscle use Shoulder: no evidence of injury, normal ROM Elbow/Forearm: normal inspection, non-tender, no evidence of injury, Right Wrist: Yes normal inspection, Yes normal ROM (no appreciable swelling. no specific bony tenderness, patient points to the dorsum of the right wrist as source of pain when using hand; no snuff box tenderness) Hand: normal inspection, non-tender, no evidence of injury, normal ROM Neurologic/Tendon: normal motor functions Neurologic/Psychiatric: alert, normal mood/affect, oriented x 3 Skin: normal color, warm/dry Progress/Results/Core Measures Results/Orders My Orders Orders - YULI RENE MD Wrist, Right, 3 Views Or More (04/25/23 11:01) Vital Signs/I&O Progress Progress Note : Time: 11:56 Progress Note Patient seen and evaluated by me. Evaluation today includes history and physical exam, xrays of the right wrist. Pertinent physical exam findings include well-developed well-nourished obese male in no acute distress. Right upper extremity has 2+ radial pulses, intact sensation to the fingertips, no swelling. No point tenderness over the bones of the right wrist. No snuffbox tenderness. No increased warmth or edema at the wrist. No pain with axial loading on the thumb. Good range of motion at the wrist, fingers. His elbow exam is normal. Full range of motion at the shoulder. Differential diagnosis includes arthritis, gout, wrist sprain Patient x-rays independently reviewed and interpreted by me -no fractures. He has what appears to be widening at the scapholunate joint in the right wrist per the radiologist. Patient is recommended a right wrist splint and referred to orthopedics. I am not concerned for gout at this time as there is no obvious joint effusion over the wrist, no increased warmth or redness. Has never had gout before. I have advised him to continue Tylenol, elevate the wrist to decrease any swelling that may occur. He is given return precautions to include if worsening swelling, redness, heat to return to the emergency department he verbalizes understanding of the plan of care. All questions are sought and answered. Velcro wrist splint was applied prior to discharge. Diagnostic Imaging Diagonstic Imaging: Xray Comments [facility] [place], [place] NAME: DOMITILA HARRISON Shayna [facility] REC#: [id number] PT STATUS: REG ER : 1940 PHYSICIAN: YULI RENE MD ADMIT DATE: 04/25/23/ER Draft Date of Exam:04/25/23 WRIST, RIGHT, 3 VIEWS OR MORE Indication: Pain. Examination: Right wrist 04/25/2023 Findings: 3 views of the wrist. Radiocarpal joint space narrowing is noted. 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 There is widening at the scapholunate joint suggesting tear of the ligament. No definite fractures or dislocations appreciated. Soft tissue swelling noted. Impression: 1. Soft tissue swelling with chronic findings as above. No definite acute fractures appreciated but if pain persists, 7-10 day followup recommended. 2. Suspected tear of the scapholunate ligament. Dictated on workstation # [id number] Dict: 04/25/23 1138 Trans: 04/25/23 1147 [facility] [id number] Interpreted by: AMADA ISABEL MD Electronically signed by: Departure Impression Primary Impression: Wrist pain, right Disposition: 01 HOME, SELF-CARE Condition: Stable Departure-Patient Inst. Decision time for Depature: 11:56 Referrals: MINH BLACKMON MD (PCP/Family) Primary Care Physician Patient Instructions: Wrist Sprain ED Add. Discharge Instructions: Please wear the wrist splint at all times until you follow up with an Orthopedic doctor. Elevate the wrist to help keep swelling down. An ice pack may help with swelling and discomfort as well. Over the counter Biofreeze in addition to your Hydrocodone will help with pain and discomfort. Please call one of our Ortho doctors on Friday for follow up - their contact information is on your paperwork. Copy Copies To 1: MINH BLACKMON MD; ELGIN GARCIA MD; TAMMIE BENÍTEZ MD, KATHRYN M MD Apr 25, 2023 10:51
--- NOTE | 2023-04-25 11:47 | Diagnostic Imaging Report ---
Indication: Pain. Examination: Right wrist 04/25/2023 Findings: 3 views of the wrist. Radiocarpal joint space narrowing is noted. 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 There is widening at the scapholunate joint suggesting tear of the ligament. No definite fractures or dislocations appreciated. Soft tissue swelling noted. Impression: 1. Soft tissue swelling with chronic findings as above. No definite acute fractures appreciated but if pain persists, 7-10 day followup recommended. 2. Suspected tear of the scapholunate ligament. Dictated by: Dictated on workstation # [id number]
[2023-04-25 12:12] VITALS: BP 135/74
== END 2023-04-25 12:12 | disposition home or self-care (01) ==
LOC: EDUNIT# 10:23 → ER 10:25
DX: M25.531 Pain in right wrist (principal); E66.9 Obesity, unspecified; Z68.26 Body mass index [BMI] 26.0-26.9, adult
CPT/HCPCS: 73110